=== PATIENT | female | born 1955 | race Caucasian/White ===

== ENCOUNTER 2017-11-24 04:00 | Inpatient (IN) | payer MEDICARE, SELFPAY ==
[2017-11-24] VITALS (38 sets, daily range): BP systolic 94–142; BP diastolic 51–118; PULSE 83–111; RESP 10–28; TEMP 36.4–37.2; O2SAT 70–100; BMI 34.8; BMI 36.0
--- NOTE | 2017-11-24 04:05 | RAD_ITS ---
STUDY: X-RAY CHEST REASON FOR EXAM: Female, 62 years old. Dyspnea TECHNIQUE: Single AP portable view of the chest. COMPARISON: None. FINDINGS: The lungs are underexpanded. There is no demonstrated pleural abnormality. Normal size heart. Normal mediastinum and shashank. Normal visualized pulmonary arteries. Normal visualized aortic arch and descending thoracic aorta. Normal visualized thoracic spine. There is degenerative osteoarthritis of the bilateral shoulders. There is no demonstrated abnormality of the visualized soft tissue structures of the upper abdomen. RAD/Chest 1 View (Portable) IMPRESSION: Degenerative changes, as described above. No demonstrated acute cardiopulmonary process. Electronically Signed: Shawn Null MD at 5:26 EDT Tel , Service support ,
--- NOTE | 2017-11-24 04:05 | EKG12_ITS ---
Test Reason : SOB Blood Pressure : / mmHG Vent. Rate : 101 BPM Atrial Rate : 101 BPM P-R Int : 190 ms QRS Dur : 098 ms QT Int : 344 ms P-R-T Axes : 048 045 038 degrees QTc Int : 446 ms Sinus tachycardia Confirmed by KWESI ROMERO, SAIDA ([id number]), editor school photograph SORAYA SHERIFF ([id number]) on 11/26/2017 12:47:33 PM Referred By: [place] Confirmed By:SAIDA OROSCO MD
[2017-11-24] MEDS: Acetaminophen 500 MG Tablet 1000 MG PO (04:22)
[2017-11-24] MEDS: 0.9% Normal Saline 1,000 ML 150 ML IV ×3 (04:23→20:19)
[2017-11-24 04:33] LABS: Absolute Lymphocyte Count 2.22 X10^3/ul (0.83-4.51); Absolute Neutrophil Count 5.8 X10^3/uL (2.0-7.7); Basophil# 0.04 X10^3/uL; Basophil% 0.4 % (0-1); Eosinophil# 0.18 X10^3/uL; Hematocrit 32.2 % (37-47); Hemoglobin 10.4 g/dl (12.0-15.0); Lymphocyte # 2.22 X10^3/ul (4.0); Lymphocyte % 24.9 % (19-41); Mean Corp Hgb Conc 32.3 g/gl (32-36); Mean Corpuscular Hgb 27.9 pg (27.0-32.0); Mean Corpuscular Volume 86.3 fL (81-99); Mean Platelet Vol. 10.7 fl (6.2-12.0); Monocyte% 6.7 % (0-10); Neutrophil # 5.83 X10^3/uL (2.7-7.7); Neutrophil % 65.7 % (47-70); POSITIVE COUNT NO; POSITIVE DIFFERENTIAL NO; POSITIVE MORPHOLOGY NO; Platelet Count 168 K/mm3 (150-450); RBC Distribution Width CV 14.7 % (11.6-14.6); RBC Distribution Width SD 45.3 fl (35.1-43.9); Red Blood Count 3.73 M/mm3 (4.2-5.4); White Blood Count 8.9 K/mm3 (4.4-11.0)
[2017-11-24 04:38] LABS: International Normalized Ratio 1.1
[2017-11-24 04:39] LABS: Partial Thromboplast Time 37.8 Seconds (24.1-36.2)
[2017-11-24 04:41] LABS: Allen Test POS; Base Excess 1 mmol/L (-2 to +2); Bicarbonate 28.2 mmol/L (22-26); Blood Gas Specimen Type ART; EPAP 6; FI02 35; IPAP 12; PO2 81 mmHG (75-100); RR 24; SITE L Radial; SO2 94 % (95-99); Time Given 440; Total Carbon Dioxide 30 mmol/L; pCO2 61.1 mmHg (35-45); pH 7.27 (7.35-7.45)
[2017-11-24] MEDS: Ipratropium/Albuterol Sulfate 3 ML AMPUL.NEB INHALATION ×5 (04:48→22:49)
[2017-11-24 04:49] LABS: White Blood Cells 0 SEEN /hpf (0-5)
[2017-11-24 04:50] LABS: Bacteria 0 SEEN /hpf (None Seen); Mucous, Urine 0 SEEN /hpf (<or=2+); Red Blood Cells-Urine 0 SEEN /hpf (0-5); Squamous Epithelial Cells - UA 0 SEEN /hpf (5-10)
[2017-11-24 04:52] LABS: Lactic Acid 1.7 mmol/L (0.4-2.0)
--- NOTE | 2017-11-24 04:52 | ED.DCSUM_ITS ---
- ER Visit Summary Date of Service: 11/24/17 Chief Complaint: Confusion, cough History of Present Illness: The patient is a 62 F with medical history significant for seizures and Parkinson's disorder presents to the emergency department with increasing weakness, confusion, and cough. Patient states that she just did not feel well over the past 1-2 days. Tonight, she was having increasing weakness and increasing myoclonic jerking. She was also feeling more short of breath. She has had a scant cough for some time per the . She denies any fevers but does admit to some chills and sweats. On squad arrival, she was found to be hypoxic. She had oxygen saturations at 82%. She denies any underlying history of lung disease. She does not smoke. She denies any chest pain. The patient denies any recent hospitalization. There is been no recent change in medications. Physical Examination: Vital signs reviewed General: Well-nourished, well-developed Head: Normocephalic, atraumatic Eyes: Pupils equal and reactive, extraocular muscles intact Neck, supple, no lymphadenopathy Heart: Regular rate and rhythm Respiratory: Diminished in the bases with decreased air movement Abdomen: Soft, nontender, nondistended, no peritoneal signs Back: Nontender Extremities: Nontender, no edema, no cords Skin: Normal color no rash Neuro: Alert and oriented, no focal or lateralizing deficits Test Results: [] Emergency Department Course and Treatment: The patient presents with hypoxemia and cough. I do have suspicion for infectious process especially given her chills and sweats. Her x-ray does not show definitive pneumonia. Screening labs are obtained and are relatively unremarkable. However, the patient does have evidence of acute kidney injury. Her blood gas does show mild hypercapnia. The patient was placed on BiPAP. She did have improvement of her aeration. She had improvement of her mental status. I am concerned that her x- ray may be lagging because she is dehydrated. Clinically, I do feel that she may have pneumonia. The patient is covered with Rocephin and azithromycin. With her hypoxia, hypercapnia, and acute kidney injury the patient will be admitted. She is hydrated. Cultures have been obtained. Patient was discussed with the hospitalist. Treatment Plan: [] Disposition: Admission Impression: 1. Hypoxia 2. Hypercapnia 3. Clinical pneumonia 4. Acute kidney injury This note was generated with DelaGetation software. It may contain incorrect words, spelling, and punctuation that were not noted in review of the chart prior to signing ED Disposition - Plan for ED Patient: Chief Complaint: Shortness of Breath Referrals: Zhang Shields MD [Primary Care Provider] -
[2017-11-24 04:53] LABS: AST(SGOT) 24 U/L (15-37); Alanine Aminotransfer ALT/SGPT 9 U/L (13-56); Albumin, Serum 3.5 g/dL (3.2-5.0); Alkaline Phosphatase 103 U/L (45-117); Anion Gap 11 (5-15); BUN 40 mg/dL (7-18); BUN/Creat Ratio 15.2 RATIO (10-20); Calcium,Total 7.9 mg/dL (8.5-10.1); Chloride 96 mmol/L (98-107); Creatinine, Serum 2.63 mg/dL (0.55-1.02); EST Glomerular Filtration Rate 20 mL/min (>60); Est Glom Filt Rate - Afr Amer 24 mL/min (>60); Estimated Creatinine Clearance 19.64 ml/min; Globulin 3.5 g/dL (2.2-4.2); Glucose 182 mg/dL (74-106); Potassium 4.8 mmol/L (3.5-5.1); Sodium Level 136 mmol/L (136-145)
[2017-11-24 05:00] LABS: Color, Urine Yellow (Yellow); Glucose, Dipstick Normal (Normal); Ketone-Dipstick 5 mg/dl (Negative); Leukocyte Esterase-Dipstick Negative /ul (Negative); Nitrite-Dipstick Negative (Negative); Occult Blood-Urine Negative /ul (Negative); Protein-Dipstick 15 mg/dl (Negative); Specific Gravity, Urine 1.025 (1.002-1.030); Urine Clarity Sl. Cloudy (Clear); Urine Urobilinogen Normal (Normal)
[2017-11-24 05:07] LABS: Urine Bilirubin Dipstick 1 mg/dL (Negative)
[2017-11-24 05:08] LABS: Amorphous Sediment 2+
[2017-11-24] MEDS: 0.9% Normal Saline 1,000 ML 999 ML IV (05:31)
[2017-11-24] MEDS: Ceftriaxone 1 GM/50 ML BAG IV (05:48)
[2017-11-24] MEDS: MethylPREDNISolone 125 MG/2 ML Vial IV (05:58)
--- NOTE | 2017-11-24 06:04 | HP.PCM_ITS ---
Problem List (1) Shortness of breath Status: Acute (2) History of drug abuse Status: Chronic (3) Epilepsy Status: Chronic (4) Hypertension Status: Chronic (5) Parkinsons disease Status: Chronic (6) Anxiety Status: Chronic (7) Depression Status: Chronic (8) Dehydration Status: Acute (9) Spinal stenosis Status: Chronic (10) ARF (acute renal failure) Status: Acute Qualifiers: Acute renal failure type: unspecified Qualified Code(s): N17.9 - Acute kidney failure, unspecified History of Present Illness Date of Admission: 11/24/17 Chief Complaint: shortness of breath The patient is a 62 year old female with a significant past medical history of Parkinsonism and myoclonic jerking presents to the ER with shortness of breath. She began having respiratory distress yesterday around noon and progressed until she presented to the ER. She was noticeably weak and was unable to transfer and hold herself up which is a big change from her baseline. She was noted to be jerking more than usual as well. He initial pulse oxygenation upon presentation her was 82% on room air. Her blood gas was acidotic with CO2 retention. She has no previously documented episodes of respiratory failure. She was placed on BIPAP and is able to maintain her pulse oxygenation at 95% with less respiratory effort. She has a markedly elevated creatinine as well from her baseline and admits to not drinking much fluid in the last day. Chest x -ray does not show a pneumonia but ER physician felt due to dehydration an infiltrate my not show up until she was rehydrated therefore she was started on antibiotics for community acquired pneumonia. She will be admitted to ICU stepdown for acute respiratory failure. She does not want to be intubated. Past Medical History Past Medical History (Chronic Problems): Chronic Problems History of drug abuse (Chronic) Epilepsy (Chronic) Hypertension (Chronic) Parkinsons disease (Chronic) Anxiety (Chronic) Depression (Chronic) Spinal stenosis (Chronic) Allergies Penicillins Allergy (Verified 11/24/17 04:09) goofy morphine Adverse Reaction (Verified 11/24/17 04:09) Unknown naproxen Adverse Reaction (Verified 11/24/17 04:09) Unknown omeprazole [From Prilosec] Adverse Reaction (Verified 11/24/17 04:09) Unknown omeprazole magnesium [From Prilosec] Adverse Reaction (Verified 11/24/17 04:09) Unknown Home Medications: Ambulatory Orders Medication Instructions Recorded Alprazolam 0.25 mg PO TID PRN PRN 01/21/14 Pregabalin [Lyrica] 425 mg PO BID 01/21/14 Sertraline HCl [Zoloft] 150 mg PO DAILY 01/21/14 levETIRAcetam tablet [Keppra 1,000 mg PO BID 01/21/14 tablet] Carbidopa/Levodopa 50 mg PO 4X/DAY 01/22/14 Metformin HCl [Glucophage] 500 mg PO BIDCM 02/28/15 Orphenadrine Citrate 100 mg PO BID PRN 02/28/15 Zolpidem Tartrate [Ambien Cr] 12.5 mg PO QHS 02/28/15 Lisinopril [Zestril] 10 mg PO DAILY #30 tablet 03/15/15 Hydrocodon-Acetaminophn 10-325 1 tab PO Q6H PRN 02/02/16 Clindamycin [Cleocin] 300 mg PO 4X/DAY #80 capsule 11/26/16 Amitriptyline HCl 75 mg PO QHS 11/24/17 Atorvastatin Calcium 40 mg PO QHS 11/24/17 Donepezil HCl 10 mg PO QHS 11/24/17 Glimepiride [Amaryl] 4 mg PO DAILY 11/24/17 Surgical History: cholecystectomy, tonsillectomy, - - Tubal ligation Psychiatric History: Anxiety, Depression 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 Denies: Chills, Fever, Weight Change HEENT: Denies: Head Aches, Sinus Congestion, Sinus Drainage Cardiovascular: Denies: Chest Pain, Palpitations Respiratory: Reports: Cough, Shortness of breath at rest. Denies: Sputum production Gastrointestinal: Denies: Abdominal Pain, Nausea, Vomiting Genitourinary: Denies: Dysuria Musculoskeletal: Denies: Joint Pain, Joint Tenderness Skin: Denies: Rash, Wounds Neurological: Denies: Numbness, Tingling, Focal weakness Psychiatric: Reports: Anxiety. Denies: Depression, Homicidal Ideations, Suicidal Ideations Hematologic/ Lymphatic: Denies: Easy Bruising, Easy Bleeding VTE Information - Inpt Only VTE Present on Admission: No VTE Mechan Device Prophylaxis: SCD's VTE Pharm Prophylaxis ordered?: No Reason prophylaxis not ordered:: Medical Contraindication Patient Problems: Active and Suspected Problems Shortness of breath (Acute) ARF (acute renal failure) (Acute) - Physical Exam General: Alert, Oriented x3, Cooperative HEENT: Atraumatic, Normocephalic Neck: Supple, No JVD, Negative Carotid Bruits Lungs: No rhonchi, No wheeze, No rales, Diminished Cardiovascular: Regular rate, Normal S1, No murmurs Abdomen: Bowel Sounds Present, Soft, Non Tender Extremities: No edema, Capillary Refill Less than 3 Seconds Skin: No rashes Musculoskeletal: No Tenderness to Palpation of Joints or Extremities Neurological: Neuro grossly intact Psych/Mental Status: Normal Affect, Appropriate Vital Signs Temp Pulse Resp BP Pulse Ox 98.2 F 99 23 H 94/51 L 97 11/24/17 04:18 11/24/17 05:28 11/24/17 05:28 11/24/17 05:28 11/24/17 05:28 Oxygen Flow Rate (L/min) 4 Oxygen Delivery Method Bi-pap Weight: 202 lb 13.204 oz Body Mass Index (BMI) 34.8 Finger Stick Blood Glucose 417 Laboratory Tests Past 24 Hrs 11/24/17 11/24/17 11/24/17 04:15 04:15 04:15 WBC 8.9 RBC 3.73 L Hgb 10.4 L Hct 32.2 L MCV 86.3 MCH 27.9 MCHC 32.3 RDW 14.7 H RDW Differential 45.3 H Plt Count 168 MPV 10.7 Immature Gran % (Auto) 0.300 Neut % (Auto) 65.7 Lymph % (Auto) 24.9 [place] % (Auto) 6.7 Eos % (Auto) 2.0 Baso % (Auto) 0.4 Absolute Neuts (auto) 5.8 Absolute Lymphs (auto) 2.22 Total Counted Not Reportable PT 14.0 INR 1.1 APTT 37.8 H Specimen Type Sample Site pH Bicarbonate Actual POC Total CO2 Base Excess O2 Saturation O2 % ABG pCO2 ABG pO2 Ariel Test Respiration Rate O2 Delivery Device EPAP IPAP Blood Gas Notified Whom Blood Gas Notified Time Sodium 136 Potassium 4.8 Chloride 96 L Carbon Dioxide 29.0 Anion Gap 11 BUN 40 H Creatinine 2.63 H Estim Creat Clear Calc 19.64 Est GFR (MDRD) Af Amer 24 L Est GFR (MDRD) Non-Af 20 L BUN/Creatinine Ratio 15.2 Glucose 182 H Lactic Acid Calcium 7.9 L Total Bilirubin 0.50 AST 24 ALT 9 L Alkaline Phosphatase 103 Total Protein 7.0 Albumin 3.5 Globulin 3.5 Albumin/Globulin Ratio 1.0 Urine Color Urine Clarity Urine pH Ur Specific [place] Urine Protein Urine Glucose (UA) Urine Ketones Urine Occult Blood Urine Nitrite Urine Bilirubin Urine Urobilinogen Ur Leukocyte Esterase Urine RBC Urine WBC Ur Squamous Epith Cells Amorphous Sediment Urine Bacteria Urine Mucus 11/24/17 11/24/17 11/24/17 04:15 04:20 04:36 WBC RBC Hgb Hct MCV MCH MCHC RDW RDW Differential Plt Count MPV Immature Gran % (Auto) Neut % (Auto) Lymph % (Auto) [place] % (Auto) Eos % (Auto) Baso % (Auto) Absolute Neuts (auto) Absolute Lymphs (auto) Total Counted PT INR APTT Specimen Type ART Sample Site L Radial pH 7.27 L Bicarbonate Actual 28.2 H POC Total CO2 30 Base Excess 1 O2 Saturation 94 L O2 % 35 ABG pCO2 61.1 H ABG pO2 81 Ariel Test POS Respiration Rate 24 O2 Delivery Device Bi / C PAP EPAP 6 IPAP 12 Blood Gas Notified Whom ED Blood Gas Notified Time 440 Sodium Potassium Chloride Carbon Dioxide Anion Gap BUN Creatinine Estim Creat Clear Calc Est GFR (MDRD) Af Amer Est GFR (MDRD) Non-Af BUN/Creatinine Ratio Glucose Lactic Acid 1.7 Calcium Total Bilirubin AST ALT Alkaline Phosphatase Total Protein Albumin Globulin Albumin/Globulin Ratio Urine Color Yellow Urine Clarity Sl. Cloudy Urine pH 5.0 Ur Specific [place] 1.025 Urine Protein 15 H Urine Glucose (UA) Normal Urine Ketones 5 H Urine Occult Blood Negative Urine Nitrite Negative Urine Bilirubin 1 H Urine Urobilinogen Normal Ur Leukocyte Esterase Negative Urine RBC 0 SEEN Urine WBC 0 SEEN Ur Squamous Epith Cells 0 SEEN Amorphous Sediment 2+ Urine Bacteria 0 SEEN Urine Mucus 0 SEEN Assessment/Plan Active and Suspected Problems Shortness of breath (Acute) ARF (acute renal failure) (Acute) Chronic Problems History of drug abuse (Chronic) Epilepsy (Chronic) Hypertension (Chronic) Parkinsons disease (Chronic) Anxiety (Chronic) Depression (Chronic) Spinal stenosis (Chronic) Plan - admit to step down for Respiratory failure - continue IV antibiotics to cover community acquired pneumonia - IV rehydration with normal saline at 125cc/hour - cbc, bmp in 12 hours - chest x-ray PA/Lat in 12 hours - continue BIPAP - DO NOT INTUBATE, further code status will need to be discussed - continue routine home medications, hold any diuretics - SCDs for DVT prophylaxis Code Visit Inpatient E&M: 70109 Init Hosp L3
--- NOTE | 2017-11-24 06:54 | NURSING ---
111 resp failure eyad
--- NOTE | 2017-11-24 07:34 | NURSING ---
ICU 2
[2017-11-24 09:16] LABS: Allen Test POS; Base Excess 1 mmol/L (-2 to +2); Bicarbonate 27.9 mmol/L (22-26); Blood Gas Specimen Type ART; EPAP 6; FI02 30; IPAP 14; PO2 83 mmHG (75-100); RR 12; SITE L Radial; SO2 94 % (95-99); Time Given 910; Total Carbon Dioxide 30 mmol/L; pCO2 62.5 mmHg (35-45); pH 7.26 (7.35-7.45)
[2017-11-24 10:23] LABS: Magnesium 1.6 mg/dL (1.6-2.6)
[2017-11-24 10:32] LABS: Phosphorus 5.6 mg/dL (2.5-4.9)
[2017-11-24 11:02] LABS: Urine Sodium 16 mmol/L (Not Establ.)
[2017-11-24] MEDS: HEPARIN/D5w 25,000 UNITS 25,000 UNITS/250 ML IV.SOLN. 14 UNITS IV (11:13)
[2017-11-24] MEDS: Heparin Injection 5,000 UNITS/ML Syringe IV (11:18)
--- NOTE | 2017-11-24 11:45 | PCM.CON.CC ---
Reason for Consult Date of Consultation: 11/24/17 Reason for Consultation: Acute respiratory failure History of Present Illness: The patient is a 62-year-old female, with a history as outlined below, who presented to the emergency department on November 24 with weakness, altered mentation and shortness of breath. The patient's provided a great deal of detail pertinent to this hospitalization. The patient began to feel weak yesterday afternoon. He noticed that her weakness continue to progress over the course of the day and her breathing became more labored. At some point over the course of the night, her mentation became altered, which prompted him to contact EMS. She reportedly has a history of parkinsonism and an unspecified seizure disorder. She routinely follows with Dr. Tinoco of neurology. The patient's believes that she was previously diagnosed with epilepsy by a previous neurologist. She is being maintained on Keppra. In addition, she appears to be on a number of sedating medications. On presentation to the emergency department, the patient was noted to be afebrile, tachycardic and initially hemodynamically stable. Nevertheless, she was documented to be hypoxic, saturating 70% on room air. Laboratory evaluation revealed no evidence of a leukocytosis. Initial arterial blood gas revealed a pH of 7.27 with a PO2 of 81 and PCO2 of 61. Chemistry profile was significant for an elevated BUN and creatinine to 40 and 2.63, respectively. The patient's creatinine was noted be 1.39 in 2016. Urinalysis was largely unremarkable. Plain film chest x-ray was of poor quality due to a lack of inspiratory effort. However, there is no acute cardiopulmonary process identified. The patient was subsequently placed on BiPAP therapy and transferred to the medical intensive care unit. Following her arrival to the ICU, I did have a lengthy discussion with her . The patient was minimally alert and interactive at that time. I did confirm with both of them that she wished to be made a full code without intubation. I did explain the difficulties in maintaining a full CODE STATUS without intubation. However, they are insistent that she is okay with chest compressions/CPR but not with intubation. Past Medical History Past Medical History (Chronic Problems): Chronic Problems History of drug abuse (Chronic) Epilepsy (Chronic) Hypertension (Chronic) Parkinsons disease (Chronic) Anxiety (Chronic) Depression (Chronic) Spinal stenosis (Chronic) Allergies Penicillins Allergy (Verified 11/24/17 04:09) goofy morphine Adverse Reaction (Verified 11/24/17 04:09) Unknown naproxen Adverse Reaction (Verified 11/24/17 04:09) Unknown omeprazole [From Prilosec] Adverse Reaction (Verified 11/24/17 04:09) Unknown omeprazole magnesium [From Prilosec] Adverse Reaction (Verified 11/24/17 04:09) Unknown Home Medications: Ambulatory Orders Medication Instructions Recorded Alprazolam 0.25 mg PO TID PRN PRN 01/21/14 Pregabalin [Lyrica] 425 mg PO BID 01/21/14 Sertraline HCl [Zoloft] 150 mg PO DAILY 01/21/14 levETIRAcetam tablet [Keppra 1,000 mg PO BID 01/21/14 tablet] Carbidopa/Levodopa 50 mg PO 4X/DAY 01/22/14 Metformin HCl [Glucophage] 500 mg PO BIDCM 02/28/15 Orphenadrine Citrate 100 mg PO BID PRN 02/28/15 Zolpidem Tartrate [Ambien Cr] 12.5 mg PO QHS 02/28/15 Lisinopril [Zestril] 10 mg PO DAILY #30 tablet 03/15/15 Hydrocodon-Acetaminophn 10-325 1 tab PO Q6H PRN 02/02/16 Clindamycin [Cleocin] 300 mg PO 4X/DAY #80 capsule 11/26/16 Amitriptyline HCl 75 mg PO QHS 11/24/17 Atorvastatin Calcium 40 mg PO QHS 11/24/17 Donepezil HCl 10 mg PO QHS 11/24/17 Glimepiride [Amaryl] 4 mg PO DAILY 11/24/17 Surgical History: cholecystectomy, tonsillectomy, - - Tubal ligation Psychiatric History: Anxiety, Depression MANAGER STATISTICAL History: No pertinent MANAGER STATISTICAL history Smoking Status: Never smoker Tobacco Use: Non-smoker - *Family History Maternal History Items: No pertinent history Review of Systems Constitutional: Reports: Weakness, Fatigue. Denies: Chills, Fever Eyes: Denies: Blurred vision, Double vision HEENT: Denies: Head Aches, Sinus Congestion, Sinus Drainage Cardiovascular: Denies: Chest Pain, Palpitations Respiratory: Reports: Shortness of Breath Gastrointestinal: Denies: Abdominal Pain, Nausea, Vomiting Genitourinary: Denies: Dysuria Musculoskeletal: Denies: Joint Pain, Joint Tenderness Skin: Denies: Rash, Wounds Neurological: Reports: Confusion, Seizures Psychiatric: Reports: Depression Hematologic/ Lymphatic: Reports: Anemia Patient Problems: Active and Suspected Problems Shortness of breath (Acute) ARF (acute renal failure) (Acute) Objective: The patient's most recent lab work, culture data and imaging studies have all been personally reviewed. - Physical Exam General: Lethargic, - - Arousable to noxious stimulation. HEENT: Atraumatic, PERRLA, Normocephalic Oral: Dry Mucosa Neck: Supple, No Nodes, Trachea Midline Lungs: No rhonchi, No wheeze, No rales, Diminished Cardiovascular: Normal S1, Normal S2, No murmurs, Tachycardic Abdomen: Bowel Sounds Present, Soft, Non Tender, Obese Extremities: No clubbing, No cyanosis, No edema Skin: No breakdown Musculoskeletal: No Muscle Wasting Lymphatic: No Cervical, Supraclavicular, or Inguinal Adenopathy Neurological: - - No focal neurological deficits. Somnolent. Vital Signs Temp Pulse Resp BP Pulse Ox 97.5 F L 90 16 108/73 93 11/24/17 09:15 11/24/17 10:44 11/24/17 10:44 11/24/17 10:00 11/24/17 10:44 Oxygen Delivery Method Bi-pap Weight: 209 lb 14.081 oz Body Mass Index (BMI) 36.0 Laboratory Tests Past 24 Hrs 11/24/17 09:12 Specimen Type ART Sample Site L Radial pH 7.26 L Bicarbonate Actual 27.9 H POC Total CO2 30 Base Excess 1 O2 Saturation 94 L O2 % 30 ABG pCO2 62.5 H ABG pO2 83 Ariel Test POS Respiration Rate 12 O2 Delivery Device Bi / C PAP EPAP 6 IPAP 14 Blood Gas Notified Whom ICU Blood Gas Notified Time 910 Labs (Last 48 Hours) 11/24/17 11/24/17 11/24/17 04:15 04:15 04:15 WBC 8.9 RBC 3.73 L Hgb 10.4 L Hct 32.2 L MCV 86.3 MCH 27.9 MCHC 32.3 RDW 14.7 H RDW Differential 45.3 H Plt Count 168 MPV 10.7 Immature Gran % (Auto) 0.300 Neut % (Auto) 65.7 Lymph % (Auto) 24.9 Blount % (Auto) 6.7 Eos % (Auto) 2.0 Baso % (Auto) 0.4 Absolute Neuts (auto) 5.8 Absolute Lymphs (auto) 2.22 Total Counted Not Reportable PT 14.0 INR 1.1 APTT 37.8 H Specimen Type Sample Site pH Bicarbonate Actual POC Total CO2 Base Excess O2 Saturation O2 % ABG pCO2 ABG pO2 Ariel Test Respiration Rate O2 Delivery Device EPAP IPAP Blood Gas Notified Whom Blood Gas Notified Time Sodium 136 Potassium 4.8 Chloride 96 L Carbon Dioxide 29.0 Anion Gap 11 BUN 40 H Creatinine 2.63 H Estim Creat Clear Calc 19.64 Est GFR (MDRD) Af Amer 24 L Est GFR (MDRD) Non-Af 20 L BUN/Creatinine Ratio 15.2 Glucose 182 H Lactic Acid Calcium 7.9 L Phosphorus Magnesium Total Bilirubin 0.50 AST 24 ALT 9 L Alkaline Phosphatase 103 Total Protein 7.0 Albumin 3.5 Globulin 3.5 Albumin/Globulin Ratio 1.0 Urine Color Urine Clarity Urine pH Ur Specific [place] Urine Protein Urine Glucose (UA) Urine Ketones Urine Occult Blood Urine Nitrite Urine Bilirubin Urine Urobilinogen Ur Leukocyte Esterase Urine RBC Urine WBC Ur Squamous Epith Cells Amorphous Sediment Urine Bacteria Urine Mucus Ur Random Sodium Urine Creatinine 11/24/17 11/24/17 11/24/17 04:15 04:15 04:15 WBC RBC Hgb Hct MCV MCH MCHC RDW RDW Differential Plt Count MPV Immature Gran % (Auto) Neut % (Auto) Lymph % (Auto) Blount % (Auto) Eos % (Auto) Baso % (Auto) Absolute Neuts (auto) Absolute Lymphs (auto) Total Counted PT INR APTT Specimen Type Sample Site pH Bicarbonate Actual POC Total CO2 Base Excess O2 Saturation O2 % ABG pCO2 ABG pO2 Ariel Test Respiration Rate O2 Delivery Device EPAP IPAP Blood Gas Notified Whom Blood Gas Notified Time Sodium Potassium Chloride Carbon Dioxide Anion Gap BUN Creatinine Estim Creat Clear Calc Est GFR (MDRD) Af Amer Est GFR (MDRD) Non-Af BUN/Creatinine Ratio Glucose Lactic Acid 1.7 Calcium Phosphorus 5.6 H Magnesium 1.6 Total Bilirubin AST ALT Alkaline Phosphatase Total Protein Albumin Globulin Albumin/Globulin Ratio Urine Color Urine Clarity Urine pH Ur Specific [place] Urine Protein Urine Glucose (UA) Urine Ketones Urine Occult Blood Urine Nitrite Urine Bilirubin Urine Urobilinogen Ur Leukocyte Esterase Urine RBC Urine WBC Ur Squamous Epith Cells Amorphous Sediment Urine Bacteria Urine Mucus Ur Random Sodium Urine Creatinine 11/24/17 11/24/17 11/24/17 04:20 04:36 04:40 WBC RBC Hgb Hct MCV MCH MCHC RDW RDW Differential Plt Count MPV Immature Gran % (Auto) Neut % (Auto) Lymph % (Auto) Blount % (Auto) Eos % (Auto) Baso % (Auto) Absolute Neuts (auto) Absolute Lymphs (auto) Total Counted PT INR APTT Specimen Type ART Sample Site L Radial pH 7.27 L Bicarbonate Actual 28.2 H POC Total CO2 30 Base Excess 1 O2 Saturation 94 L O2 % 35 ABG pCO2 61.1 H ABG pO2 81 Ariel Test POS Respiration Rate 24 O2 Delivery Device Bi / C PAP EPAP 6 IPAP 12 Blood Gas Notified Whom ED Blood Gas Notified Time 440 Sodium Potassium Chloride Carbon Dioxide Anion Gap BUN Creatinine Estim Creat Clear Calc Est GFR (MDRD) Af Amer Est GFR (MDRD) Non-Af BUN/Creatinine Ratio Glucose Lactic Acid Calcium Phosphorus Magnesium Total Bilirubin AST ALT Alkaline Phosphatase Total Protein Albumin Globulin Albumin/Globulin Ratio Urine Color Yellow Urine Clarity Sl. Cloudy Urine pH 5.0 Ur Specific [place] 1.025 Urine Protein 15 H Urine Glucose (UA) Normal Urine Ketones 5 H Urine Occult Blood Negative Urine Nitrite Negative Urine Bilirubin 1 H Urine Urobilinogen Normal Ur Leukocyte Esterase Negative Urine RBC 0 SEEN Urine WBC 0 SEEN Ur Squamous Epith Cells 0 SEEN Amorphous Sediment 2+ Urine Bacteria 0 SEEN Urine Mucus 0 SEEN Ur Random Sodium Urine Creatinine 180.00 11/24/17 11/24/17 04:40 09:12 WBC RBC Hgb Hct MCV MCH MCHC RDW RDW Differential Plt Count MPV Immature Gran % (Auto) Neut % (Auto) Lymph % (Auto) Blount % (Auto) Eos % (Auto) Baso % (Auto) Absolute Neuts (auto) Absolute Lymphs (auto) Total Counted PT INR APTT Specimen Type ART Sample Site L Radial pH 7.26 L Bicarbonate Actual 27.9 H POC Total CO2 30 Base Excess 1 O2 Saturation 94 L O2 % 30 ABG pCO2 62.5 H ABG pO2 83 Ariel Test POS Respiration Rate 12 O2 Delivery Device Bi / C PAP EPAP 6 IPAP 14 Blood Gas Notified Whom ICU Blood Gas Notified Time 910 Sodium Potassium Chloride Carbon Dioxide Anion Gap BUN Creatinine Estim Creat Clear Calc Est GFR (MDRD) Af Amer Est GFR (MDRD) Non-Af BUN/Creatinine Ratio Glucose Lactic Acid Calcium Phosphorus Magnesium Total Bilirubin AST ALT Alkaline Phosphatase Total Protein Albumin Globulin Albumin/Globulin Ratio Urine Color Urine Clarity Urine pH Ur Specific [place] Urine Protein Urine Glucose (UA) Urine Ketones Urine Occult Blood Urine Nitrite Urine Bilirubin Urine Urobilinogen Ur Leukocyte Esterase Urine RBC Urine WBC Ur Squamous Epith Cells Amorphous Sediment Urine Bacteria Urine Mucus Ur Random Sodium 16 Urine Creatinine Clinical Impression(s) from Imaging Studies Chest X-Ray 11/24/17 04:05 IMPRESSION: Degenerative changes, as described above. No demonstrated acute cardiopulmonary process. Electronically Signed: Shawn Null MD at 5:26 EDT Tel , Service support , Assessment/Plan Active and Suspected Problems Shortness of breath (Acute) ARF (acute renal failure) (Acute) RECOMMENDATIONS: 1. Hold Xanax and Elavil. 2. Recommend dose adjustments of the patient's Keppra and Lyrica based upon renal function. 3. Obtain TSH and check urine toxicology screen 4. Continue BiPAP therapy. The patient's IPAP/EPAP settings have been augmented to maximize ventilatory support. 5. Obtain repeat arterial blood gas 6. Okay to discontinue antibiotics from my perspective 7. Continue heparin drip, pending VTE workup. Lower extremity Dopplers have been ordered 8. Continue sliding scale insulin coverage IMPRESSIONS: 1. Acute hypoxemic and hypercarbic respiratory failure Likely multifactorial in etiology. Concerned that given the patient's renal insufficiency, that polypharmacy is likely contributing. She is on a number of sedating medications and an exceedingly high dose of Keppra, given her underlying renal dysfunction. Recommend dose de-escalation of the patient's home medications based upon her current renal function. Discontinue Xanax and hold Elavil. Although poor inspiratory effort, I see no acute infiltrate on plain film chest imaging. Therefore, I would favor discontinuation of antibiotics. Additionally, I see no indication for IV steroids. My concern is that given her rather acute onset of shortness of breath and hypoxia noted on presentation to the emergency department, that there could be underlying venous thromboembolic disease. However, her acute kidney injury would preclude us obtaining a CTA chest. Therefore, the patient was started empirically on a heparin drip. We will plan to obtain lower extremity Dopplers. The patient's IPAP/EPAP gradient was also increased to facilitate additional ventilatory support. Recommend checking an arterial blood gas in 1 hour. 2. Encephalopathy Likely multifactorial in etiology. Although underlying neuromuscular weakness and subsequent CO2 retention is a possibility, I am more concerned that given the patient's renal insufficiency and the number of sedating medications that she is on as an outpatient, that polypharmacy is likely a significant contributing factor. We will plan to hold her Xanax and Elavil. She does appear to receive opiate pain medications also on an outpatient basis. These will be held accordingly. The patient's Keppra and Lyrica will be dose adjusted for her underlying renal insufficiency. 3. Acute kidney injury Potentially prerenal in etiology with superimposed medical renal disease contributing. Gentle supplemental IV fluid hydration will be continued. We will continue to monitor urine output accordingly. No indication for renal replacement therapy at this time. 4. Self-reported history of epilepsy/parkinsonism As above, dose adjustments will be made to the patient's Keppra based upon renal function. The patient's Parkinson medications will be held until she is felt to be safe for p.o. intake. 5. Obesity/depression/anxiety/neuropathy/diabetes/hypertension/hyperlipidemia Complicates care, management, recovery and prognosis. Recommend holding sedating medications at the current time. Patient to remain n.p.o. for now. TIME: 50 minutes of critical care time, independent of procedures, was spent addressing the patient's acute respiratory failure, encephalopathy, acute kidney injury, epilepsy, parkinsonism, review of all data and collaboration with the care team. ([id number]) Code Visit 9xxxx: [id number] Critical care first hour
--- NOTE | 2017-11-24 11:57 | VDLE_ITS ---
Reason For Study: SOB RIGHT LEFT GSV is normal. GSV is normal. CFV is compressible, spontaneous, phasic, CFV is compressible, spontaneous, phasic, competent and demonstrates normal competent, and demonstrates normal augmentation. augmentation. FV is compressible, spontaneous, phasic, FV is compressible, spontaneous, phasic, competent and demonstrates normal competent and demonstrates normal augmentation. augmentation. POP V is compressible, spontaneous, phasic, POP V is compressible, spontaneous, phasic, competent and demonstrates normal competent and demonstrates normal augmentation. augmentation. T/P Trunk is compressible. T/P Trunk is compressible. PTV is compressible. PTV is compressible. RT PerV is compressible. LT PerV is compressible. Procedure Exam performed portable in ICU/CCU. The exam was diagnostic. A preliminary report was called and/or faxed to Dr Kumar. Interpretation Summary No evidence for acute deep venous thrombosis bilateral lower extremities with patent and compressible bilateral great saphenous veins. .rdering Physician: Ricardo Pickard D.O Performed By: Iván Burrell RVT
[2017-11-24 12:15] LABS: Bedside Glucose 247 mg/dL (70-110)
[2017-11-24 12:50] LABS: Amphetamine Urine VISTA NEGATIVE (<1000 ng/mL); Barbiturate Urine VISTA NEGATIVE (< 200 ng/mL); Benzodiazepine Urine VISTA POSITIVE (< 200 ng/mL); Cocaine Urine VISTA NEGATIVE (< 300 ng/mL); Ecstacy Urine VISTA NEGATIVE (< 500 ng/mL); Methadone Urine VISTA NEGATIVE (< 300 ng/mL); PCP Urine VISTA NEGATIVE (< 25 ng/mL); THC Urine VISTA NEGATIVE (< 50 ng/mL); Vista UDS pH Range 5
[2017-11-24 13:00] LABS: Allen Test POS; Base Excess 1 mmol/L (-2 to +2); Bicarbonate 27.8 mmol/L (22-26); Blood Gas Specimen Type ART; EPAP 6; FI02 40; IPAP 18; PO2 91 mmHG (75-100); RR 12; SITE L Radial; SO2 95 % (95-99); Time Given 1255; Total Carbon Dioxide 30 mmol/L; pCO2 60.5 mmHg (35-45); pH 7.27 (7.35-7.45)
--- NOTE | 2017-11-24 14:58 | PCM.HOSP.N ---
Hospitalist Note The patient is a 62 y/o F w/ PMHx: Diabetes mellitus type II, Parkinson's Disease, Epilepsy, Anxiety and Depression, Chronic back pain w/ spinal stenosis hx, History of Polysubstance abuse who presents to the [facility] ED on 11/24/17 early am with onset dyspnea at approximately noon the day prior which progressively worsened, increased fatigue and global weakness w/ increased myoclonic jerking above baseline. (1) Acute Encephalopathy secondary to Acute Hypoxic and Hypercarbic Respiratory Failure, Multifactorial: ED presentation w/ unclear etiology for acute respiratory failure, ABG w/ hypercapnic and hypoxia, tachycardic, CXR without marked findings, maintained on BIPAP in the ICU, Dr. Pickard consulted and following, concern for possible PE as etiology for respiratory status with pending BL LE DVT US given VASU inability to obtain CTPA, maintained on heparin drip in interim, possible Seizure disorder with aspiration, maintained on keppra at reduced dose given VASU, UDS w/ + opiates w/ history of drug abuse thus also potentially component for presentation, continued on Rocephin and Azithromycin for possible PNA although less suspected. Continue HOB, IS parameters w/ requested sputum cultures, negative urine antigens. Bld cx x 2 obtained in the ED. UA unremarkable aside evidence dehydration. (2) Acute kidney injury: Multifactorial, secondary to acute presentation, dehydration, nephrotoxic medications, possible OD. Admission BUN/Cr 40/2.63, prior baseline creatinine noted to be 1.39 (02/02/16). Will continue to hydrate, hold nephrotoxic medications and repeat chemistry in AM. FeNa ordered. If continues to worsen will also obtain renal US. Medications renally dosed. (3) History of Polysubstance Abuse: UDS w/ + BZD and opiates, rx BZD but not opiate, unclear usage, possible associated with #1 presentation. (4) Seizure Disorder: Decreased keppra dose given VASU per Dr. Pickard, continue if oral intake appropriate/improved otherwise transition to IV Keppra lower dose regimen. Seizure precautions. Consideration of seizure activity with aspiration for presentation etiology. (5) Diabetes mellitus type II: Hold oral home regimen, NPO status currently, accu checks w/ ISS. (6) Chronic Normocytic Anemia: Admission Hgb 10.4, baseline 10-11 range, stable. (7) Parkinson's Disease, Myoclonic Jerking: Maintain on home sinemet regimen once appropriate for oral intake. (8) Anxiety and Depression: Given sedation, holding home sedative medications, continue sertraline regimen once appropriate for oral intake. (9) Hyperlipidemia: Continue home statin regimen once appropriate for oral intake. (10) Chronic Back Pain: Holding sedative regimen, renal dosing of patient lyrica per ICU, Elavil held. Given sedate status NPO status currently. (11) DVT Prophylaxis: SCDs, heparin drip. (12) CODE status: Do not intubate, other interventions amenable. Dr. Pickard did re-discuss with family upon admission and continued this status despite his suggestion that intubate would be a necessary component in care of cardiac arrest. BILLIN, patient not billed, admitted after midnight.
[2017-11-24 18:00] LABS: Anion Gap 7 (5-15); BUN 32 mg/dL (7-18); BUN/Creat Ratio 22.1 RATIO (10-20); Calcium,Total 8.2 mg/dL (8.5-10.1); Chloride 103 mmol/L (98-107); Creatinine, Serum 1.45 mg/dL (0.55-1.02); EST Glomerular Filtration Rate 39 mL/min (>60); Est Glom Filt Rate - Afr Amer 47 mL/min (>60); Estimated Creatinine Clearance 35.63 ml/min; Glucose 246 mg/dL (74-106); Sodium Level 138 mmol/L (136-145)
[2017-11-24] MEDS: Carbidopa/Levodopa 25/100 Tablet PO ×2 (18:02→22:26)
[2017-11-24 18:11] LABS: Bedside Glucose 240 mg/dL (70-110)
[2017-11-24 18:40] LABS: Partial Thromboplast Time > 250.0 Seconds (24.1-36.2)
[2017-11-24 19:12] LABS: M R Staph aureus DNA By PCR Negative (Negative); Probe Check PASS; Specimen Processing Control PASS
[2017-11-24] MEDS: Donepezil HCl 10 MG Tablet PO (22:25)
[2017-11-24] MEDS: Atorvastatin Calcium 40 MG Tablet PO (22:25)
[2017-11-24] MEDS: Amitriptyline 25 MG Tablet 75 MG PO (22:25)
[2017-11-24] MEDS: levETIRAcetam 500 MG Tablet PO (22:29)
[2017-11-24] MEDS: Pregabalin 75 MG Capsule PO (22:29)
[2017-11-25] VITALS (28 sets, daily range): BP systolic 93–160; BP diastolic 64–95; PULSE 76–115; RESP 12–34; TEMP 36.4–36.9; O2SAT 93–100
[2017-11-25 01:03] LABS: Partial Thromboplast Time 96.9 Seconds (24.1-36.2)
[2017-11-25 01:56] LABS: Bedside Glucose 217 mg/dL (70-110)
--- NOTE | 2017-11-25 02:54 | CPS ---
fio2 decreased to 35%-nurse aware
[2017-11-25] MEDS: 0.9% Normal Saline 1,000 ML 150 ML IV (03:04)
[2017-11-25] MEDS: Ipratropium/Albuterol Sulfate 3 ML AMPUL.NEB INHALATION ×4 (03:05→19:23)
[2017-11-25 06:07] LABS: Hematocrit 30.7 % (37-47); Hemoglobin 10.1 g/dl (12.0-15.0); Mean Corp Hgb Conc 32.9 g/gl (32-36); Mean Corpuscular Hgb 28.2 pg (27.0-32.0); Mean Corpuscular Volume 85.8 fL (81-99); Mean Platelet Vol. 10.5 fl (6.2-12.0); Platelet Count 146 K/mm3 (150-450); RBC Distribution Width CV 13.8 % (11.6-14.6); RBC Distribution Width SD 41.9 fl (35.1-43.9); Red Blood Count 3.58 M/mm3 (4.2-5.4); White Blood Count 7.9 K/mm3 (4.4-11.0)
[2017-11-25] MEDS: Carbidopa/Levodopa 25/100 Tablet PO ×4 (06:08→21:55)
[2017-11-25] MEDS: Ceftriaxone 1 GM/50 ML BAG IV (06:10)
[2017-11-25 06:13] LABS: Scan Indicated on CBC? Y/N NO
[2017-11-25 06:15] LABS: Partial Thromboplast Time 54.3 Seconds (24.1-36.2)
[2017-11-25] MEDS: CHLORHEXIDINE GLUC 2% CLOTH 1 EACH TOWELETTE TOPICAL (06:21)
[2017-11-25 06:24] LABS: Anion Gap 11 (5-15); BUN 27 mg/dL (7-18); BUN/Creat Ratio 23.1 RATIO (10-20); Chloride 108 mmol/L (98-107); Creatinine, Serum 1.17 mg/dL (0.55-1.02); EST Glomerular Filtration Rate 50 mL/min (>60); Est Glom Filt Rate - Afr Amer 61 mL/min (>60); Estimated Creatinine Clearance 44.15 ml/min; Glucose 181 mg/dL (74-106); Potassium 3.9 mmol/L (3.5-5.1); Sodium Level 144 mmol/L (136-145)
[2017-11-25] MEDS: Heparin Injection 5,000 UNITS/ML Syringe IV (06:45)
--- NOTE | 2017-11-25 06:46 | PN_ITS ---
Subjective: The patient was seen and examined at the bedside this morning. Events from the last 24 hours have been reviewed. The patient is currently afebrile, hemodynamically stable and maintaining appropriate oxygen saturations on 4 L/ min via nasal cannula. The patient is now alert and following commands appropriately. Her main concern this morning is that for the development of tremors, due to missed doses of her Parkinson medications yesterday. The patient is asking if she can be discharged home today. Objective: The patient's most recent lab work, culture data and imaging studies have all been personally reviewed. Plain film chest x-ray revealed no acute cardiopulmonary process. Lower extremity Dopplers were negative for the presence of DVTs. Strep and urine Legionella antigens were both negative. Blood and urine cultures are pending. General: Alert, Cooperative, No apparent distress HEENT: Atraumatic, PERRLA, Normocephalic Oral: No Gingival or Mucosal Lesions/ Ulcerations Neck: Supple, No Nodes, Trachea Midline Lungs: No rhonchi, No wheeze, No rales, Diminished Cardiovascular: Normal S1, Normal S2, No murmurs, Tachycardic Abdomen: Bowel Sounds Present, Soft, Non Tender, Obese Extremities: No clubbing, No cyanosis, No edema Skin: No breakdown Musculoskeletal: No Muscle Wasting Lymphatic: No Cervical, Supraclavicular, or Inguinal Adenopathy Neurological: Neuro grossly intact Psych/Mental Status: Normal Affect, Appropriate Vital Signs Temp Pulse Resp BP Pulse Ox 97.9 F 103 H 16 124/80 H 98 11/25/17 04:00 11/25/17 06:00 11/25/17 06:00 11/25/17 06:00 11/25/17 06:00 Oxygen Flow Rate (L/min) 4 Oxygen Delivery Method Nasal Cannula Weight: 200 lb 13.458 oz Body Mass Index (BMI) 36.0 Intake and Output for Last 24 Hours 11/23/17 11/24/17 11/25/17 23:59 23:59 23:59 Intake Total 1375 / 1375 1815.4 / 1815.4 Output Total 1450 / 1450 1450 / 1450 Balance -75 / -75 365.4 / 365.4 Labs (Last 48 Hours) 11/24/17 11/24/17 11/24/17 09:12 12:06 12:58 WBC RBC Hgb Hct MCV MCH MCHC RDW RDW Differential Plt Count MPV APTT Specimen Type ART ART Sample Site L Radial L Radial pH 7.26 L 7.27 L Bicarbonate Actual 27.9 H 27.8 H POC Total CO2 30 30 Base Excess 1 1 O2 Saturation 94 L 95 O2 % 30 40 ABG pCO2 62.5 H 60.5 H ABG pO2 83 91 Ariel Test POS POS Respiration Rate 12 12 O2 Delivery Device Bi / C PAP Bi / C PAP EPAP 6 6 IPAP 14 18 Blood Gas Notified Whom ICU MD ICU MD Blood Gas Notified Time 910 1255 Sodium Potassium Chloride Carbon Dioxide Anion Gap BUN Creatinine Estim Creat Clear Calc Est GFR (MDRD) Af Amer Est GFR (MDRD) Non-Af BUN/Creatinine Ratio Glucose Calcium TSH MRSA (PCR) POC Glucose 247 H 11/24/17 11/24/17 11/24/17 17:05 17:05 17:05 WBC RBC Hgb Hct MCV MCH MCHC RDW RDW Differential Plt Count MPV APTT > 250.0 H* Specimen Type Sample Site pH Bicarbonate Actual POC Total CO2 Base Excess O2 Saturation O2 % ABG pCO2 ABG pO2 Ariel Test Respiration Rate O2 Delivery Device EPAP IPAP Blood Gas Notified Whom Blood Gas Notified Time Sodium 138 Potassium 5.0 Chloride 103 Carbon Dioxide 28.0 Anion Gap 7 BUN 32 H Creatinine 1.45 H Estim Creat Clear Calc 35.63 Est GFR (MDRD) Af Amer 47 L Est GFR (MDRD) Non-Af 39 L BUN/Creatinine Ratio 22.1 H Glucose 246 H Calcium 8.2 L TSH 0.20 L MRSA (PCR) POC Glucose 11/24/17 11/24/17 11/25/17 17:10 17:59 00:43 WBC RBC Hgb Hct MCV MCH MCHC RDW RDW Differential Plt Count MPV APTT 96.9 H* Specimen Type Sample Site pH Bicarbonate Actual POC Total CO2 Base Excess O2 Saturation O2 % ABG pCO2 ABG pO2 Ariel Test Respiration Rate O2 Delivery Device EPAP IPAP Blood Gas Notified Whom Blood Gas Notified Time Sodium Potassium Chloride Carbon Dioxide Anion Gap BUN Creatinine Estim Creat Clear Calc Est GFR (MDRD) Af Amer Est GFR (MDRD) Non-Af BUN/Creatinine Ratio Glucose Calcium TSH MRSA (PCR) Negative POC Glucose 240 H 11/25/17 11/25/17 11/25/17 00:55 05:59 05:59 WBC 7.9 RBC 3.58 L Hgb 10.1 L Hct 30.7 L MCV 85.8 MCH 28.2 MCHC 32.9 RDW 13.8 RDW Differential 41.9 Plt Count 146 L MPV 10.5 APTT 54.3 H Specimen Type Sample Site pH Bicarbonate Actual POC Total CO2 Base Excess O2 Saturation O2 % ABG pCO2 ABG pO2 Ariel Test Respiration Rate O2 Delivery Device EPAP IPAP Blood Gas Notified Whom Blood Gas Notified Time Sodium Potassium Chloride Carbon Dioxide Anion Gap BUN Creatinine Estim Creat Clear Calc Est GFR (MDRD) Af Amer Est GFR (MDRD) Non-Af BUN/Creatinine Ratio Glucose Calcium TSH MRSA (PCR) POC Glucose 217 H 11/25/17 05:59 WBC RBC Hgb Hct MCV MCH MCHC RDW RDW Differential Plt Count MPV APTT Specimen Type Sample Site pH Bicarbonate Actual POC Total CO2 Base Excess O2 Saturation O2 % ABG pCO2 ABG pO2 Ariel Test Respiration Rate O2 Delivery Device EPAP IPAP Blood Gas Notified Whom Blood Gas Notified Time Sodium 144 Potassium 3.9 Chloride 108 H Carbon Dioxide 25.0 Anion Gap 11 BUN 27 H Creatinine 1.17 H Estim Creat Clear Calc 44.15 Est GFR (MDRD) Af Amer 61 Est GFR (MDRD) Non-Af 50 L BUN/Creatinine Ratio 23.1 H Glucose 181 H Calcium 8.0 L TSH MRSA (PCR) POC Glucose Clinical Impression(s) from Imaging Studies Chest X-Ray 11/24/17 04:05 IMPRESSION: Degenerative changes, as described above. No demonstrated acute cardiopulmonary process. Electronically Signed: Shawn Null MD at 5:26 EDT Tel , Service support , Medical Necessity - Tobacco Use Smoking Status: Never smoker Tobacco Use: Non-smoker Assessment/Plan Active and Suspected Problems Shortness of breath (Acute) ARF (acute renal failure) (Acute) RECOMMENDATIONS: 1. Recommend slow reintroduction of the patient's Elavil. Consider alternative to the patient's home Xanax therapy. 2. Continue dose adjusted Keppra and Lyrica. 3. Okay to discontinue antibiotics from my perspective 4. Continue heparin drip, pending VTE workup. Lower extremity Dopplers were negative. CTA chest is pending. 5. Continue sliding scale insulin coverage 6. Encourage incentive spirometer use and mobilize patient as tolerated IMPRESSIONS: 1. Acute hypoxemic and hypercarbic respiratory failure Likely multifactorial in etiology. Concerned that given the patient's renal insufficiency, that polypharmacy is likely contributing. She is on a number of sedating medications and an exceedingly high dose of Keppra, given her underlying renal dysfunction. Recommend dose de-escalation of the patient's home medications based upon her current renal function. Discontinue Xanax and hold Elavil. Although poor inspiratory effort, I see no acute infiltrate on plain film chest imaging. Therefore, I would favor discontinuation of antibiotics. Additionally, I see no indication for IV steroids. My concern is that given her rather acute onset of shortness of breath and hypoxia noted on presentation to the emergency department, that there could be underlying venous thromboembolic disease. The patient has been on a heparin drip accordingly. Lower extremity Doppler studies were negative. Given improvement in the patient 's renal function, plan will be to complete a CTA chest this morning. The patient has been successfully weaned from noninvasive positive pressure ventilation. Continue to wean supplemental oxygen to maintain saturations at or above 90%. Encourage incentive spirometer use and mobilize patient as tolerated. 2. Encephalopathy Improved. Likely multifactorial in etiology. Although underlying neuromuscular weakness and subsequent CO2 retention is a possibility, I am more concerned that given the patient's renal insufficiency and the number of sedating medications that she is on as an outpatient, that polypharmacy is likely a significant contributing factor. Slow reintroduction of home Elavil dose. Recommend alternative to Xanax. Unclear why the patient is on home scheduled opiates. Continue dose adjusted Keppra and Lyrica. 3. Acute kidney injury Potentially prerenal in etiology with superimposed medical renal disease contributing. Renal function appears to have improved with gentle IV fluid hydration. We will continue to monitor urine output accordingly. No indication for renal replacement therapy at this time. 4. Self-reported history of epilepsy/parkinsonism As above, dose adjustments will be made to the patient's Keppra based upon renal function. The patient's Parkinson medications can be restarted today. 5. Obesity/depression/anxiety/neuropathy/diabetes/hypertension/hyperlipidemia Complicates care, management, recovery and prognosis. Advance diet and mobilize patient as tolerated. This note was generated with [employer] dictation software. It may contain incorrect words, spelling, and punctuation that were not noted in checking the note before signing. DISPOSITION: The patient is medically stable for transfer out of the intensive care unit. Code Visit Inpatient E&M: 06024 Subs Hosp L3
--- NOTE | 2017-11-25 07:56 | CT_ITS ---
STUDY: CTA CHEST REASON FOR EXAM: Female, 62 years old. Hypoxia, respiratory failure, diabetes, hypertension. RADIATION DOSAGE (If Supplied By Facility): CTDIvol = ( 18.10 ) mGy, DLP = ( 632.11 ) mGycm TECHNIQUE: The examination was performed with the intravenous administration of 100mL ml of Isovue 370 contrast material. Post-processing of the angiographic images was performed, with multiplanar reformation and 3D reconstruction. Individualized dose optimization techniques were used for this CT. COMPARISON: January 21, 2014. FINDINGS: Normal enhancement of the main pulmonary artery and right and left pulmonary arteries. Normal enhancement of the bilateral peripheral pulmonary arteries. There is no demonstrated pulmonary embolism. Normal thoracic aorta and visualized great vessels. There is no demonstrated aortic dissection. Normal heart and pericardium. There is no pathologic adenopathy. Normal visualized trachea and bronchi. There is minimal multifocal subsegmental atelectasis and mild multifocal pleural-parenchymal fibrosis. There is no pleural effusion. There is no pneumothorax. Normal chest wall structures. Normal osseous structures. Throughout the upper abdomen the only finding of significance is hepatic steatosis. CT/CTA Chest W/WO Contrast IMPRESSION: No evident pulmonary embolism or arterial dissection. No pathologic adenopathy. Minimal multifocal subsegmental atelectasis and mild multifocal pleural-parenchymal fibrosis. Electronically Signed: Prabhakar Swift MD at 9:37 EDT , Service support ,
[2017-11-25 08:06] LABS: Bedside Glucose 181 mg/dL (70-110)
--- NOTE | 2017-11-25 08:30 | PCM.PN.HOSP ---
Patient Problems: Active and Suspected Problems Shortness of breath (Acute) ARF (acute renal failure) (Acute) Subjective: Patient with no acute events overnight per self and per nursing report. Patient had large bowel movement overnight urinating without issue. She does complain of tremoring secondary to missing her Parkinson disease medications otherwise currently no acute complaint. Much more alert, oriented, off BiPAP. Discussed current status and unclear specific etiology for hypoxia with plan for continued renal dosing of her medications and hold on medications that are inappropriate at this time as well as continued IV fluids with planned CT of the chest to assure no pulmonary embolism with continued heparin drip. Patient very resistant to the concept of holding any medications and states that she routinely has labs checked and she has not had any issues. Patient denies fevers, chills, nausea, emesis, abdominal pain, chest pain or dyspnea. Objective: Physical Examination: General: awake, alert, oriented to person, place, year, recent events and cooperative, seated upright in the ICU bed in no apparent distress. Skin: normal color, turgor, no icterus, cyanosis. HEENT: AT/NC, EOMI, PERRLA, improved less dry MM, mild BL lid edema. Lungs: Diminished BS BL, > bases, improved effort, on NC, transitioned off BIPAP, no rales, ronchi or wheezing. Heart: Regular rate and rhythm; no gallop, rub audible. Abdomen: soft, obese, notes mild discomfort suprapubic region secondary to need to urinate otherwise NTTP, ND, normal BS. Extremities: no cyanosis, clubbing, mild extremity distal edema. Neurological: patient awake, alert, oriented as noted; cognitive function appears more intact, moderately odd behavior, likely baseline; pupils equally reactive to light and accomodation; cranial nerves II-XII grossly normal, moving all 4 extremities but severely globally decreased, possibly baseline secondary to her Parkinson's disease. Psychiatric: affect appears flat, no acute evidence of depressive or anxiety feelings. Vitals/I&O's: Vital Signs Temp Pulse Resp BP Pulse Ox 97.9 F 80 20 H 124/80 H 98 11/25/17 04:00 11/25/17 06:53 11/25/17 06:53 11/25/17 06:00 11/25/17 06:53 Oxygen Flow Rate (L/min) 4 Oxygen Delivery Method Nasal Cannula Weight: 200 lb 13.458 oz Body Mass Index (BMI) 36.0 Intake and Output for Last 24 Hours 11/23/17 11/24/17 11/25/17 23:59 23:59 23:59 Intake Total 1375 / 1375 1815.4 / 1815.4 Output Total 1450 / 1450 1450 / 1450 Balance -75 / -75 365.4 / 365.4 Laboratory Results 11/24/17 09:12: Specimen Type ART, Sample Site L Radial, pH 7.26 L, Bicarbonate Actual 27.9 H, POC Total CO2 30, Base Excess 1, O2 Saturation 94 L, O2 % 30, ABG pCO2 62.5 H, ABG pO2 83, Ariel Test POS, Respiration Rate 12, O2 Delivery Device Bi / C PAP, EPAP 6, IPAP 14, Blood Gas Notified Whom ICU MD, Blood Gas Notified Time 910 11/24/17 12:06: POC Glucose 247 H 11/24/17 12:58: Specimen Type ART, Sample Site L Radial, pH 7.27 L, Bicarbonate Actual 27.8 H, POC Total CO2 30, Base Excess 1, O2 Saturation 95, O2 % 40, ABG pCO2 60.5 H, ABG pO2 91, Ariel Test POS, Respiration Rate 12, O2 Delivery Device Bi / C PAP, EPAP 6, IPAP 18, Blood Gas Notified Whom ICU MD, Blood Gas Notified Time 1255 11/24/17 17:05: Sodium 138, Potassium 5.0, Chloride 103, Carbon Dioxide 28.0, Anion Gap 7, BUN 32 H, Creatinine 1.45 H, Estim Creat Clear Calc 35.63, Est GFR (MDRD) Af Amer 47 L, Est GFR (MDRD) Non-Af 39 L, BUN/Creatinine Ratio 22.1 H, Glucose 246 H, Calcium 8.2 L 11/24/17 17:05: APTT > 250.0 H* 11/24/17 17:05: TSH 0.20 L 11/24/17 17:10: MRSA (PCR) Negative 11/24/17 17:59: POC Glucose 240 H 11/25/17 00:43: APTT 96.9 H* 11/25/17 00:55: POC Glucose 217 H 11/25/17 05:59: WBC 7.9, RBC 3.58 L, Hgb 10.1 L, Hct 30.7 L, MCV 85.8, MCH 28.2, MCHC 32.9, RDW 13.8, RDW Differential 41.9, Plt Count 146 L, MPV 10.5 11/25/17 05:59: APTT 54.3 H 11/25/17 05:59: Sodium 144, Potassium 3.9, Chloride 108 H, Carbon Dioxide 25.0, Anion Gap 11, BUN 27 H, Creatinine 1.17 H, Estim Creat Clear Calc 44.15, Est GFR (MDRD) Af Amer 61, Est GFR (MDRD) Non-Af 50 L, BUN/Creatinine Ratio 23.1 H, Glucose 181 H, Calcium 8.0 L 11/25/17 06:09: POC Glucose 181 H Current Medications Acetaminophen (Tylenol) 650 mg PO Q6H PRN PRN PRN Reason: Non-cardiac pain (mod-severe) Albuterol/Ipratropium (Duoneb) 3 ml INHALATION Q4H.RT [facility] Last Admin: 11/25/17 06:53 Dose: 3 ml Amitriptyline HCl (Elavil) 75 mg PO QHS [facility] Last Admin: 11/24/17 22:25 Dose: 75 mg Atorvastatin Calcium (Lipitor) 40 mg PO QHS [facility] Last Admin: 11/24/17 22:25 Dose: 40 mg Carbidopa/Levodopa (Sinemet) 2 tablet PO ACHS [facility] Last Admin: 11/25/17 06:08 Dose: 2 tablet Chlorhexidine Gluconate () 1 each TOPICAL DAILY [facility] Last Admin: 11/25/17 06:21 Dose: 1 each Dextrose (D50w Syringe) 0 gm IV X1 PRN; Protocol PRN Reason: Hypoglycemia Donepezil HCl (Aricept) 10 mg PO QHS [facility] Last Admin: 11/24/17 22:25 Dose: 10 mg Glucagon () 1 mg IM .X1 PRN PRN Reason: Hypoglycemia Heparin Sodium (Porcine) () 0 units IV UD PRN PRN Reason: Protocol Last Admin: 11/25/17 06:45 Dose: 1,000 units Hydralazine HCl (Apresoline Iv) 10 mg IV Q4H PRN PRN PRN Reason: SBP > 160 Sodium Chloride () 1,000 mls @ 150 mls/hr IV .[id number] [facility] Last Admin: 11/25/17 03:04 Dose: 150 mls/hr Azithromycin 500 mg/ Dextrose 255 mls @ 250 mls/hr IV Q24 [facility] Stop: 11/27/17 11:02 Ceftriaxone Sodium (Rocephin) 1 gm in 50 mls @ 100 mls/hr IV Q24H [facility] Last Admin: 11/25/17 06:10 Dose: 100 mls/hr Heparin Sodium/Dextrose () 25,000 units in 250 mls @ 14 mls/hr IV .[id number] HIRAL; As Directed PRN Reason: Protocol Last Admin: 11/24/17 11:13 Dose: 14 mls/hr Sodium Chloride () 250 mls @ 15 mls/hr IV .[id number] PRN PRN Reason: SALINE FLUSH Insulin Aspart (Novolog Flexpen (Bkc)) 0 units SC Q6 HIRAL PRN Reason: Protocol Last Admin: 11/25/17 06:10 Dose: 1 u Levetiracetam (Keppra Tablet) 500 mg PO BID [facility] Last Admin: 11/24/17 22:29 Dose: 500 mg Magnesium Hydroxide (Milk Of Magnesia) 30 ml PO DAILY PRN PRN Reason: Constipation Ondansetron HCl (Zofran) 4 mg IV Q8H PRN PRN PRN Reason: NAUSEA/VOMITING Pregabalin (Lyrica) 75 mg PO BID [facility] Last Admin: 11/24/17 22:29 Dose: 75 mg Sertraline HCl (Zoloft) 150 mg PO DAILY [facility] Last Admin: 11/24/17 12:57 Dose: Not Given Sodium Chloride () 5 - 30 ml IV UD PRN PRN Reason: SALINE FLUSH Medical Necessity - Tobacco Use Smoking Status: Never smoker Tobacco Use: Non-smoker Assessment/Plan Active and Suspected Problems Shortness of breath (Acute) ARF (acute renal failure) (Acute) The patient is a 62 y/o F w/ PMHx: Diabetes mellitus type II, Parkinson's Disease, Epilepsy, Anxiety and Depression, Chronic back pain w/ spinal stenosis hx, History of Polysubstance abuse who presents to the [facility] ED on 11/24/17 early am with onset dyspnea at approximately noon the day prior which progressively worsened, increased fatigue and global weakness w/ increased myoclonic jerking above baseline. (1) Acute Encephalopathy secondary to Acute Hypoxic and Hypercarbic Respiratory Failure, Multifactorial: ED presentation w/ unclear etiology for acute respiratory failure, ABG w/ hypercapnic and hypoxia, tachycardic, CXR without marked findings, maintained on BIPAP in the ICU initially, Dr. Pickard consulted and following, concerned for possible PE as etiology for respiratory status, negative BL LE DVT US, with improved renal function will obtain CTPA today and continue IVFs, possible Seizure disorder with aspiration although less likely and currently maintained on keppra at reduced dose given VASU upon presentation, UDS w/ + opiates w/ history of drug abuse with OARRS report w/ notable BZD/narcotic intake in addition to other sedative medications, thus suspect most likely polypharmacy as etiology. Less suspicious for PNA, continued currently on Rocephin and Azithromycin for possible PNA pending Cx. Continue HOB, IS parameters w/ requested sputum cultures, negative urine antigens. Bld cx x 2 obtained in the ED and pending. UA unremarkable aside evidence dehydration. If CTPA negative would plan continued IVFs overnight given contrast usage and recent VASU, repeat BMP and if stable, oxygenation testing with discharge to home with medication adjustments per pharmacy/renal dosing. (2) Acute kidney injury: Multifactorial, secondary to acute presentation, dehydration, nephrotoxic medications, possible OD. Admission BUN/Cr 40/2.63, prior baseline creatinine noted to be 1.39 (02/02/16), hydrated overnight, 11/25/17 BUN/Cr 27/1.17, improved, will continue to hydrate, hold nephrotoxic medications and repeat chemistry in AM especially given planned CTPA. (3) History of Polysubstance Abuse, Suspected Acute Polypharmacy complicated by VASU: UDS w/ + BZD and opiates, rx BZD but not opiate on admit list, OARRS noted narcotic Rx routinely, high suspicion of primary etiology for #1. (4) Seizure Disorder: Decreased keppra dose given VASU per Dr. Pickard, continue. Seizure precautions. Consideration of seizure activity with aspiration for presentation etiology but lower suspicious as noted. (5) Diabetes mellitus type II: Hold oral home regimen, ADA diet, accu checks w/ ISS. (6) Chronic Normocytic Anemia: Admission Hgb 10.4, baseline 10-11 range, stable. (7) Parkinson's Disease, Myoclonic Jerking: Maintain on home sinemet regimen. (8) Anxiety and Depression: Restart sertraline regimen. (9) Hyperlipidemia: Continue home statin regimen. (10) Chronic Back Pain: Renal dosing of patient lyrica per ICU, Elavil held. (11) DVT Prophylaxis: SCDs, heparin drip pending CTPA as noted. (12) CODE status: Do not intubate, other interventions amenable. Code Visit Inpatient E&M: 80178 Subs Hosp L3
--- NOTE | 2017-11-25 08:43 | PN_ITS ---
Patient Problems: Active and Suspected Problems Shortness of breath (Acute) ARF (acute renal failure) (Acute) Subjective: Patient with no acute events overnight per self and per nursing report. Patient had large bowel movement overnight urinating without issue. She does complain of tremoring secondary to missing her Parkinson disease medications otherwise currently no acute complaint. Much more alert, oriented, off BiPAP. Discussed current status and unclear specific etiology for hypoxia with plan for continued renal dosing of her medications and hold on medications that are inappropriate at this time as well as continued IV fluids with planned CT of the chest to assure no pulmonary embolism with continued heparin drip. Patient very resistant to the concept of holding any medications and states that she routinely has labs checked and she has not had any issues. Patient denies fevers, chills, nausea, emesis, abdominal pain, chest pain or dyspnea. Objective: Physical Examination: General: awake, alert, oriented to person, place, year, recent events and cooperative, seated upright in the ICU bed in no apparent distress. Skin: normal color, turgor, no icterus, cyanosis. HEENT: AT/NC, EOMI, PERRLA, improved less dry MM, mild BL lid edema. Lungs: Diminished BS BL, > bases, improved effort, on NC, transitioned off BIPAP , no rales, ronchi or wheezing. Heart: Regular rate and rhythm; no gallop, rub audible. Abdomen: soft, obese, notes mild discomfort suprapubic region secondary to need to urinate otherwise NTTP, ND, normal BS. Extremities: no cyanosis, clubbing, mild extremity distal edema. Neurological: patient awake, alert, oriented as noted; cognitive function appears more intact, moderately odd behavior, likely baseline; pupils equally reactive to light and accomodation; cranial nerves II-XII grossly normal, moving all 4 extremities but severely globally decreased, possibly baseline secondary to her Parkinson's disease. Psychiatric: affect appears flat, no acute evidence of depressive or anxiety feelings. Vitals/I&O's: Vital Signs Temp Pulse Resp BP Pulse Ox 97.9 F 80 20 H 124/80 H 98 11/25/17 04:00 11/25/17 06:53 11/25/17 06:53 11/25/17 06:00 11/25/17 06:53 Oxygen Flow Rate (L/min) 4 Oxygen Delivery Method Nasal Cannula Weight: 200 lb 13.458 oz Body Mass Index (BMI) 36.0 Intake and Output for Last 24 Hours 11/23/17 11/24/17 11/25/17 23:59 23:59 23:59 Intake Total 1375 / 1375 1815.4 / 1815.4 Output Total 1450 / 1450 1450 / 1450 Balance -75 / -75 365.4 / 365.4 Laboratory Results 11/24/17 09:12: Specimen Type ART, Sample Site L Radial, pH 7.26 L, Bicarbonate Actual 27.9 H, POC Total CO2 30, Base Excess 1, O2 Saturation 94 L, O2 % 30, ABG pCO2 62.5 H, ABG pO2 83, Ariel Test POS, Respiration Rate 12, O2 Delivery Device Bi / C PAP, EPAP 6, IPAP 14, Blood Gas Notified Whom ICU MD, Blood Gas Notified Time 910 11/24/17 12:06: POC Glucose 247 H 11/24/17 12:58: Specimen Type ART, Sample Site L Radial, pH 7.27 L, Bicarbonate Actual 27.8 H, POC Total CO2 30, Base Excess 1, O2 Saturation 95, O2 % 40, ABG pCO2 60.5 H, ABG pO2 91, Ariel Test POS, Respiration Rate 12, O2 Delivery Device Bi / C PAP, EPAP 6, IPAP 18, Blood Gas Notified Whom ICU MD, Blood Gas Notified Time 1255 11/24/17 17:05: Sodium 138, Potassium 5.0, Chloride 103, Carbon Dioxide 28.0, Anion Gap 7, BUN 32 H, Creatinine 1.45 H, Estim Creat Clear Calc 35.63, Est GFR (MDRD) Af Amer 47 L, Est GFR (MDRD) Non-Af 39 L, BUN/Creatinine Ratio 22.1 H, Glucose 246 H, Calcium 8.2 L 11/24/17 17:05: APTT > 250.0 H* 11/24/17 17:05: TSH 0.20 L 11/24/17 17:10: MRSA (PCR) Negative 11/24/17 17:59: POC Glucose 240 H 11/25/17 00:43: APTT 96.9 H* 11/25/17 00:55: POC Glucose 217 H 11/25/17 05:59: WBC 7.9, RBC 3.58 L, Hgb 10.1 L, Hct 30.7 L, MCV 85.8, MCH 28.2 , MCHC 32.9, RDW 13.8, RDW Differential 41.9, Plt Count 146 L, MPV 10.5 11/25/17 05:59: APTT 54.3 H 11/25/17 05:59: Sodium 144, Potassium 3.9, Chloride 108 H, Carbon Dioxide 25.0, Anion Gap 11, BUN 27 H, Creatinine 1.17 H, Estim Creat Clear Calc 44.15, Est GFR (MDRD) Af Amer 61, Est GFR (MDRD) Non-Af 50 L, BUN/Creatinine Ratio 23.1 H, Glucose 181 H, Calcium 8.0 L 11/25/17 06:09: POC Glucose 181 H Current Medications Acetaminophen (Tylenol) 650 mg PO Q6H PRN PRN PRN Reason: Non-cardiac pain (mod-severe) Albuterol/Ipratropium (Duoneb) 3 ml INHALATION Q4H.RT [facility] Last Admin: 11/25/17 06:53 Dose: 3 ml Amitriptyline HCl (Elavil) 75 mg PO QHS [facility] Last Admin: 11/24/17 22:25 Dose: 75 mg Atorvastatin Calcium (Lipitor) 40 mg PO QHS [facility] Last Admin: 11/24/17 22:25 Dose: 40 mg Carbidopa/Levodopa (Sinemet) 2 tablet PO ACHS [facility] Last Admin: 11/25/17 06:08 Dose: 2 tablet Chlorhexidine Gluconate () 1 each TOPICAL DAILY [facility] Last Admin: 11/25/17 06:21 Dose: 1 each Dextrose (D50w Syringe) 0 gm IV X1 PRN; Protocol PRN Reason: Hypoglycemia Donepezil HCl (Aricept) 10 mg PO QHS [facility] Last Admin: 11/24/17 22:25 Dose: 10 mg Glucagon () 1 mg IM .X1 PRN PRN Reason: Hypoglycemia Heparin Sodium (Porcine) () 0 units IV UD PRN PRN Reason: Protocol Last Admin: 11/25/17 06:45 Dose: 1,000 units Hydralazine HCl (Apresoline Iv) 10 mg IV Q4H PRN PRN PRN Reason: SBP > 160 Sodium Chloride () 1,000 mls @ 150 mls/hr IV .[id number] [facility] Last Admin: 11/25/17 03:04 Dose: 150 mls/hr Azithromycin 500 mg/ Dextrose 255 mls @ 250 mls/hr IV Q24 [facility] Stop: 11/27/17 11:02 Ceftriaxone Sodium (Rocephin) 1 gm in 50 mls @ 100 mls/hr IV Q24H [facility] Last Admin: 11/25/17 06:10 Dose: 100 mls/hr Heparin Sodium/Dextrose () 25,000 units in 250 mls @ 14 mls/hr IV .[id number] HIRAL ; As Directed PRN Reason: Protocol Last Admin: 11/24/17 11:13 Dose: 14 mls/hr Sodium Chloride () 250 mls @ 15 mls/hr IV .[id number] PRN PRN Reason: SALINE FLUSH Insulin Aspart (Novolog Flexpen (Bkc)) 0 units SC Q6 HIRAL PRN Reason: Protocol Last Admin: 11/25/17 06:10 Dose: 1 u Levetiracetam (Keppra Tablet) 500 mg PO BID [facility] Last Admin: 11/24/17 22:29 Dose: 500 mg Magnesium Hydroxide (Milk Of Magnesia) 30 ml PO DAILY PRN PRN Reason: Constipation Ondansetron HCl (Zofran) 4 mg IV Q8H PRN PRN PRN Reason: NAUSEA/VOMITING Pregabalin (Lyrica) 75 mg PO BID [facility] Last Admin: 11/24/17 22:29 Dose: 75 mg Sertraline HCl (Zoloft) 150 mg PO DAILY [facility] Last Admin: 11/24/17 12:57 Dose: Not Given Sodium Chloride () 5 - 30 ml IV UD PRN PRN Reason: SALINE FLUSH Medical Necessity - Tobacco Use Smoking Status: Never smoker Tobacco Use: Non-smoker Assessment/Plan Active and Suspected Problems Shortness of breath (Acute) ARF (acute renal failure) (Acute) The patient is a 62 y/o F w/ PMHx: Diabetes mellitus type II, Parkinson's Disease, Epilepsy, Anxiety and Depression, Chronic back pain w/ spinal stenosis hx, History of Polysubstance abuse who presents to the [facility] ED on 11/24/17 early am with onset dyspnea at approximately noon the day prior which progressively worsened, increased fatigue and global weakness w/ increased myoclonic jerking above baseline. (1) Acute Encephalopathy secondary to Acute Hypoxic and Hypercarbic Respiratory Failure, Multifactorial: ED presentation w/ unclear etiology for acute respiratory failure, ABG w/ hypercapnic and hypoxia, tachycardic, CXR without marked findings, maintained on BIPAP in the ICU initially, Dr. Pickard consulted and following, concerned for possible PE as etiology for respiratory status, negative BL LE DVT US, with improved renal function will obtain CTPA today and continue IVFs, possible Seizure disorder with aspiration although less likely and currently maintained on keppra at reduced dose given VASU upon presentation, UDS w/ + opiates w/ history of drug abuse with OARRS report w/ notable BZD/ narcotic intake in addition to other sedative medications, thus suspect most likely polypharmacy as etiology. Less suspicious for PNA, continued currently on Rocephin and Azithromycin for possible PNA pending Cx. Continue HOB, IS parameters w/ requested sputum cultures, negative urine antigens. Bld cx x 2 obtained in the ED and pending. UA unremarkable aside evidence dehydration. If CTPA negative would plan continued IVFs overnight given contrast usage and recent VASU, repeat BMP and if stable, oxygenation testing with discharge to home with medication adjustments per pharmacy/renal dosing. (2) Acute kidney injury: Multifactorial, secondary to acute presentation, dehydration, nephrotoxic medications, possible OD. Admission BUN/Cr 40/2.63, prior baseline creatinine noted to be 1.39 (02/02/16), hydrated overnight, BUN/Cr 27/1.17, improved, will continue to hydrate, hold nephrotoxic medications and repeat chemistry in AM especially given planned CTPA. (3) History of Polysubstance Abuse, Suspected Acute Polypharmacy complicated by VASU: UDS w/ + BZD and opiates, rx BZD but not opiate on admit list, OARRS noted narcotic Rx routinely, high suspicion of primary etiology for #1. (4) Seizure Disorder: Decreased keppra dose given VASU per Dr. Pickard, continue. Seizure precautions. Consideration of seizure activity with aspiration for presentation etiology but lower suspicious as noted. (5) Diabetes mellitus type II: Hold oral home regimen, ADA diet, accu checks w/ ISS. (6) Chronic Normocytic Anemia: Admission Hgb 10.4, baseline 10-11 range, stable. (7) Parkinson's Disease, Myoclonic Jerking: Maintain on home sinemet regimen. (8) Anxiety and Depression: Restart sertraline regimen. (9) Hyperlipidemia: Continue home statin regimen. (10) Chronic Back Pain: Renal dosing of patient lyrica per ICU, Elavil held. (11) DVT Prophylaxis: SCDs, heparin drip pending CTPA as noted. (12) CODE status: Do not intubate, other interventions amenable. Code Visit Inpatient E&M: 02719 Subs Hosp L3
--- NOTE | 2017-11-25 10:25 | CASEMGMT ---
See RN CM Assessment Link. DC PLAN: Home. May require Home Oxygen testing prior to discharge. Robb MOSHER RN ACM
[2017-11-25 10:51] LABS: Bedside Glucose 208 mg/dL (70-110)
[2017-11-25] MEDS: Sertraline 100 MG Tablet 150 MG PO (10:55)
[2017-11-25] MEDS: levETIRAcetam 500 MG Tablet PO ×2 (11:00→21:54)
[2017-11-25] MEDS: Pregabalin 75 MG Capsule PO ×2 (11:00→21:57)
--- NOTE | 2017-11-25 11:33 | NURSING ---
report called to pcu for transfer to room 124, present
[2017-11-25] MEDS: 0.9% Normal Saline 1,000 ML 125 ML IV ×2 (13:37→21:52)
--- NOTE | 2017-11-25 14:11 | CASEMGMT ---
Social Work Received referral from RN RIGO. Pt presenting with dx of depression, anxiety and possible polypharmacy abuse. SW met with pt in room and introduced self and role of SW. Pt pleasant and talkative with SW. Pt not able keep on topic and switching from subject to subject. SW attempted to discuss anxiety and depression and pt confirms that she has issues with this however pt not able to stay on topic or explain this or treatment for mental health. Pt does state that her has retired in order to care for her and he does set up her meds. Pt denies any issues with taking meds correctly. While pt is willing to speak with SW, pt is unable to converse or respond to questions correctly. Pt plans to return home with her at time of d/c. SW will remain available should further needs arise. KATIA Mcmahon
[2017-11-25 17:00] LABS: Bedside Glucose 204 mg/dL (70-110)
[2017-11-25 18:22] LABS: T4 Free Direct 0.82 ng/dL (0.76-1.46)
[2017-11-25] MEDS: Donepezil HCl 10 MG Tablet PO (21:53)
[2017-11-25] MEDS: Amitriptyline 25 MG Tablet 75 MG PO (21:53)
[2017-11-25] MEDS: Atorvastatin Calcium 40 MG Tablet PO (21:54)
--- NOTE | 2017-11-25 22:15 | CPS ---
pt refused to wear Bipap
[2017-11-25 22:35] LABS: Bedside Glucose 168 mg/dL (70-110)
[2017-11-26] VITALS (12 sets, daily range): BP systolic 148–164; BP diastolic 88–94; PULSE 83–106; RESP 16–20; TEMP 36.6–36.8; O2SAT 86–96
[2017-11-26] MEDS: 0.9% Normal Saline 1,000 ML 125 ML IV (05:21)
[2017-11-26] MEDS: 0.9% NaCl Peripheral Flush Adult/Peds IV (05:24)
[2017-11-26] MEDS: hydrALAZINE 20 MG/ML Vial 10 MG IV (05:24)
[2017-11-26 06:17] LABS: Absolute Lymphocyte Count 1.03 X10^3/ul (0.83-4.51); Absolute Neutrophil Count 8.8 X10^3/uL (2.0-7.7); Basophil# 0.01 X10^3/uL; Basophil% 0.1 % (0-1); Hematocrit 33.4 % (37-47); Hemoglobin 10.5 g/dl (12.0-15.0); Lymphocyte # 1.03 X10^3/ul (4.0); Mean Corp Hgb Conc 31.4 g/gl (32-36); Mean Corpuscular Hgb 27.6 pg (27.0-32.0); Mean Corpuscular Volume 87.9 fL (81-99); Mean Platelet Vol. 10.7 fl (6.2-12.0); Monocyte# 0.48 X10^3/uL; Monocyte% 4.7 % (0-10); Neutrophil # 8.75 X10^3/uL (2.7-7.7); Platelet Count 166 K/mm3 (150-450); RBC Distribution Width CV 14.6 % (11.6-14.6); RBC Distribution Width SD 44.3 fl (35.1-43.9); White Blood Count 10.3 K/mm3 (4.4-11.0)
[2017-11-26] MEDS: Carbidopa/Levodopa 25/100 Tablet PO ×2 (06:17→12:25)
[2017-11-26 06:18] LABS: POSITIVE COUNT NO; POSITIVE DIFFERENTIAL NO; POSITIVE MORPHOLOGY NO
[2017-11-26] MEDS: Ipratropium/Albuterol Sulfate 3 ML AMPUL.NEB INHALATION ×3 (06:47→14:40)
[2017-11-26 06:56] LABS: ALB/GLOB Ratio 0.9 RATIO (0.9-2.4); AST(SGOT) 19 U/L (15-37); Alanine Aminotransfer ALT/SGPT 7 U/L (13-56); Albumin, Serum 3.2 g/dL (3.2-5.0); Alkaline Phosphatase 84 U/L (45-117); Anion Gap 6 (5-15); BUN 16 mg/dL (7-18); BUN/Creat Ratio 19.8 RATIO (10-20); Calcium,Total 8.1 mg/dL (8.5-10.1); Chloride 111 mmol/L (98-107); Creatinine, Serum 0.81 mg/dL (0.55-1.02); EST Glomerular Filtration Rate 77 mL/min (>60); Est Glom Filt Rate - Afr Amer 93 mL/min (>60); Estimated Creatinine Clearance 63.78 ml/min; Globulin 3.5 g/dL (2.2-4.2); Glucose 144 mg/dL (74-106); Potassium 3.5 mmol/L (3.5-5.1); Protein, Total 6.7 g/dL (6.4-8.2); Sodium Level 146 mmol/L (136-145)
[2017-11-26 06:56] LABS: Bedside Glucose 160 mg/dL (70-110)
[2017-11-26] MEDS: Acetaminophen 325 MG Tablet 650 MG PO (07:42)
--- NOTE | 2017-11-26 08:52 | PCM.PROGNOTE ---
Patient Problems: Active and Suspected Problems Shortness of breath (Acute) ARF (acute renal failure) (Acute) Objective: Recent lab and culture data reviewed. Chest x-ray showed no acute abnormality. Lower extremity Dopplers were negative for DVT. Urine strep/Legionella antigens negative. Urine culture showed no growth and blood cultures are still pending. - Physical Exam Vital Signs Temp Pulse Resp BP Pulse Ox 98.0 F 99 18 163/94 H 96 11/26/17 05:19 11/26/17 07:44 11/26/17 07:36 11/26/17 06:20 11/26/17 07:36 Oxygen Flow Rate (L/min) 2 Oxygen Delivery Method Nasal Cannula Weight: 198 lb 6.656 oz Body Mass Index (BMI) 36.0 Finger Stick Blood Glucose 208 Intake and Output for Last 24 Hours 11/24/17 11/25/17 11/26/17 23:59 23:59 23:59 Intake Total 1375 / 1375 3731.4 / 3731.4 Output Total 1450 / 1450 1450 / 1450 Balance -75 / -75 2281.4 / 2281.4 Laboratory Tests Past 24 Hrs 11/25/17 11/26/17 11/26/17 05:59 05:50 05:50 WBC 10.3 RBC 3.80 L Hgb 10.5 L Hct 33.4 L MCV 87.9 MCH 27.6 MCHC 31.4 L RDW 14.6 RDW Differential 44.3 H Plt Count 166 MPV 10.7 Immature Gran % (Auto) 0.200 Neut % (Auto) 85.0 H Lymph % (Auto) 10.0 L [place] % (Auto) 4.7 Eos % (Auto) 0.0 Baso % (Auto) 0.1 Absolute Neuts (auto) 8.8 H Absolute Lymphs (auto) 1.03 Total Counted Not Reportable Sodium 146 H Potassium 3.5 Chloride 111 H Carbon Dioxide 29.0 Anion Gap 6 BUN 16 Creatinine 0.81 Estim Creat Clear Calc 63.78 Est GFR (MDRD) Af Amer 93 Est GFR (MDRD) Non-Af 77 BUN/Creatinine Ratio 19.8 Glucose 144 H Calcium 8.1 L Total Bilirubin 0.50 AST 19 ALT 7 L Alkaline Phosphatase 84 Total Protein 6.7 Albumin 3.2 Globulin 3.5 Albumin/Globulin Ratio 0.9 Free T4 0.82 POC Glucose 11/26/17 11/25/17 11/25/17 06:52 21:51 16:49 POC Glucose 160 H 168 H 204 H 11/25/17 10:49 POC Glucose 208 H Medical Necessity - Tobacco Use Smoking Status: Never smoker Tobacco Use: Non-smoker Assessment/Plan Active and Suspected Problems Shortness of breath (Acute) ARF (acute renal failure) (Acute)
--- NOTE | 2017-11-26 09:30 | PCM.PROGNOTE ---
Patient Problems: Active and Suspected Problems Shortness of breath (Acute) ARF (acute renal failure) (Acute) Subjective: The patient was seen and examined at the bedside this morning. Events from the last 24 hours have been reviewed. The patient is currently afebrile, hemodynamically stable and maintaining appropriate oxygen saturations on 2 L/min via nasal cannula. The patient refused to wear BiPAP overnight. She has done well clinically following transfer out of the intensive care unit yesterday. Objective: The patient's most recent lab work, culture data and imaging studies have all been personally reviewed. Blood cultures have shown no growth to date. Urine cultures show no growth to date. Strep and urine Legionella antigens were both negative. CTA chest completed yesterday revealed no evidence for pulmonary embolism. Lower extremity Dopplers were negative. - Physical Exam General: Alert, No apparent distress, Confused HEENT: Atraumatic, PERRLA, Normocephalic Oral: No Gingival or Mucosal Lesions/ Ulcerations Neck: Supple, No Nodes, Trachea Midline Lungs: No rhonchi, No wheeze, No rales, Diminished Cardiovascular: Regular rate, Regular Rhythm, Normal S1, Normal S2, No murmurs Abdomen: Bowel Sounds Present, Soft, Non Tender, Obese Extremities: No clubbing, No cyanosis, No edema Skin: No breakdown Musculoskeletal: No Muscle Wasting Lymphatic: No Cervical, Supraclavicular, or Inguinal Adenopathy Neurological: Neuro grossly intact Psych/Mental Status: Flat Affect Vital Signs Temp Pulse Resp BP Pulse Ox 98.0 F 99 18 163/94 H 96 11/26/17 05:19 11/26/17 07:44 11/26/17 07:36 11/26/17 06:20 11/26/17 07:36 Oxygen Flow Rate (L/min) 2 Oxygen Delivery Method Nasal Cannula Weight: 198 lb 6.656 oz Body Mass Index (BMI) 36.0 Finger Stick Blood Glucose 208 Intake and Output for Last 24 Hours 11/24/17 11/25/17 11/26/17 23:59 23:59 23:59 Intake Total 1375 / 1375 3731.4 / 3731.4 Output Total 1450 / 1450 1450 / 1450 Balance -75 / -75 2281.4 / 2281.4 Laboratory Tests Past 24 Hrs 11/25/17 11/26/17 11/26/17 05:59 05:50 05:50 WBC 10.3 RBC 3.80 L Hgb 10.5 L Hct 33.4 L MCV 87.9 MCH 27.6 MCHC 31.4 L RDW 14.6 RDW Differential 44.3 H Plt Count 166 MPV 10.7 Immature Gran % (Auto) 0.200 Neut % (Auto) 85.0 H Lymph % (Auto) 10.0 L [place] % (Auto) 4.7 Eos % (Auto) 0.0 Baso % (Auto) 0.1 Absolute Neuts (auto) 8.8 H Absolute Lymphs (auto) 1.03 Total Counted Not Reportable Sodium 146 H Potassium 3.5 Chloride 111 H Carbon Dioxide 29.0 Anion Gap 6 BUN 16 Creatinine 0.81 Estim Creat Clear Calc 63.78 Est GFR (MDRD) Af Amer 93 Est GFR (MDRD) Non-Af 77 BUN/Creatinine Ratio 19.8 Glucose 144 H Calcium 8.1 L Total Bilirubin 0.50 AST 19 ALT 7 L Alkaline Phosphatase 84 Total Protein 6.7 Albumin 3.2 Globulin 3.5 Albumin/Globulin Ratio 0.9 Free T4 0.82 POC Glucose 11/26/17 11/25/17 11/25/17 06:52 21:51 16:49 POC Glucose 160 H 168 H 204 H 11/25/17 10:49 POC Glucose 208 H Clinical Impression(s) from Imaging Studies Chest X-Ray 11/24/17 04:05 IMPRESSION: Degenerative changes, as described above. No demonstrated acute cardiopulmonary process. Electronically Signed: Shawn Null MD at 5:26 EDT Tel , Service support , Chest CTA 11/25/17 07:56 IMPRESSION: No evident pulmonary embolism or arterial dissection. No pathologic adenopathy. Minimal multifocal subsegmental atelectasis and mild multifocal pleural-parenchymal fibrosis. Electronically Signed: Prabhakar Swift MD at 9:37 EDT , Service support , Medical Necessity - Tobacco Use Smoking Status: Never smoker Tobacco Use: Non-smoker Assessment/Plan Active and Suspected Problems Shortness of breath (Acute) ARF (acute renal failure) (Acute) RECOMMENDATIONS: 1. Continue dose adjusted Elavil. Consider alternative to the patient's home Xanax therapy. 2. Continue dose adjusted Keppra and Lyrica. 3. Continue sliding scale insulin coverage 4. Encourage incentive spirometer use and mobilize patient as tolerated. IMPRESSIONS: 1. Acute hypoxemic and hypercarbic respiratory failure Likely multifactorial in etiology. Concerned that given the patient's renal insufficiency, that polypharmacy is likely contributing. She is on a number of sedating medications and an exceedingly high dose of Keppra, given her underlying renal dysfunction. Dose de-escalation of the patient's home medications occurred, based upon her current renal function. The patient was ruled out for a pulmonary infectious process along with venous thromboembolic disease. Antibiotics and heparin drip have been discontinued accordingly. Continue to wean supplemental oxygen to maintain saturations at or above 90%. Encourage incentive spirometer use and mobilize patient as tolerated. 2. Encephalopathy Improved. Likely multifactorial in etiology. Although underlying neuromuscular weakness and subsequent CO2 retention is a possibility, polypharmacy was likely the main contributing factor. Dose adjustments have occurred. Unclear why the patient is on home scheduled opiates. Continue dose adjusted Keppra and Lyrica. 3. Acute kidney injury Resolved. Potentially prerenal in etiology with superimposed medical renal disease contributing. Renal function appears to have improved with gentle IV fluid hydration. We will continue to monitor urine output accordingly. No indication for renal replacement therapy at this time. 4. Self-reported history of epilepsy/parkinsonism As above, dose adjustments were made to the patient's Keppra based upon renal function. The patient's Parkinson medications can be continued. 5. Obesity/depression/anxiety/neuropathy/diabetes/hypertension/hyperlipidemia Complicates care, management, recovery and prognosis. Advance diet and mobilize patient as tolerated. This note was generated with [employer] dictation software. It may contain incorrect words, spelling, and punctuation that were not noted in checking the note before signing. DISPOSITION: Given the lack of ongoing ICU needs, will sign off. Please call with any additional questions. Code Visit Inpatient E&M: 54092 Subs Hosp L2
--- NOTE | 2017-11-26 09:38 | PN_ITS ---
Patient Problems: Active and Suspected Problems Shortness of breath (Acute) ARF (acute renal failure) (Acute) Subjective: The patient was seen and examined at the bedside this morning. Events from the last 24 hours have been reviewed. The patient is currently afebrile, hemodynamically stable and maintaining appropriate oxygen saturations on 2 L/ min via nasal cannula. The patient refused to wear BiPAP overnight. She has done well clinically following transfer out of the intensive care unit yesterday. Objective: The patient's most recent lab work, culture data and imaging studies have all been personally reviewed. Blood cultures have shown no growth to date. Urine cultures show no growth to date. Strep and urine Legionella antigens were both negative. CTA chest completed yesterday revealed no evidence for pulmonary embolism. Lower extremity Dopplers were negative. - Physical Exam General: Alert, No apparent distress, Confused HEENT: Atraumatic, PERRLA, Normocephalic Oral: No Gingival or Mucosal Lesions/ Ulcerations Neck: Supple, No Nodes, Trachea Midline Lungs: No rhonchi, No wheeze, No rales, Diminished Cardiovascular: Regular rate, Regular Rhythm, Normal S1, Normal S2, No murmurs Abdomen: Bowel Sounds Present, Soft, Non Tender, Obese Extremities: No clubbing, No cyanosis, No edema Skin: No breakdown Musculoskeletal: No Muscle Wasting Lymphatic: No Cervical, Supraclavicular, or Inguinal Adenopathy Neurological: Neuro grossly intact Psych/Mental Status: Flat Affect Vital Signs Temp Pulse Resp BP Pulse Ox 98.0 F 99 18 163/94 H 96 11/26/17 05:19 11/26/17 07:44 11/26/17 07:36 11/26/17 06:20 11/26/17 07:36 Oxygen Flow Rate (L/min) 2 Oxygen Delivery Method Nasal Cannula Weight: 198 lb 6.656 oz Body Mass Index (BMI) 36.0 Finger Stick Blood Glucose 208 Intake and Output for Last 24 Hours 11/24/17 11/25/17 11/26/17 23:59 23:59 23:59 Intake Total 1375 / 1375 3731.4 / 3731.4 Output Total 1450 / 1450 1450 / 1450 Balance -75 / -75 2281.4 / 2281.4 Laboratory Tests Past 24 Hrs 11/25/17 11/26/17 11/26/17 05:59 05:50 05:50 WBC 10.3 RBC 3.80 L Hgb 10.5 L Hct 33.4 L MCV 87.9 MCH 27.6 MCHC 31.4 L RDW 14.6 RDW Differential 44.3 H Plt Count 166 MPV 10.7 Immature Gran % (Auto) 0.200 Neut % (Auto) 85.0 H Lymph % (Auto) 10.0 L [place] % (Auto) 4.7 Eos % (Auto) 0.0 Baso % (Auto) 0.1 Absolute Neuts (auto) 8.8 H Absolute Lymphs (auto) 1.03 Total Counted Not Reportable Sodium 146 H Potassium 3.5 Chloride 111 H Carbon Dioxide 29.0 Anion Gap 6 BUN 16 Creatinine 0.81 Estim Creat Clear Calc 63.78 Est GFR (MDRD) Af Amer 93 Est GFR (MDRD) Non-Af 77 BUN/Creatinine Ratio 19.8 Glucose 144 H Calcium 8.1 L Total Bilirubin 0.50 AST 19 ALT 7 L Alkaline Phosphatase 84 Total Protein 6.7 Albumin 3.2 Globulin 3.5 Albumin/Globulin Ratio 0.9 Free T4 0.82 POC Glucose 11/26/17 11/25/17 11/25/17 06:52 21:51 16:49 POC Glucose 160 H 168 H 204 H 11/25/17 10:49 POC Glucose 208 H Clinical Impression(s) from Imaging Studies Chest X-Ray 11/24/17 04:05 IMPRESSION: Degenerative changes, as described above. No demonstrated acute cardiopulmonary process. Electronically Signed: Shawn Null MD at 5:26 EDT Tel , Service support , Chest CTA 11/25/17 07:56 IMPRESSION: No evident pulmonary embolism or arterial dissection. No pathologic adenopathy. Minimal multifocal subsegmental atelectasis and mild multifocal pleural-parenchymal fibrosis. Electronically Signed: Prabhakar Swift MD at 9:37 EDT , Service support , Medical Necessity - Tobacco Use Smoking Status: Never smoker Tobacco Use: Non-smoker Assessment/Plan Active and Suspected Problems Shortness of breath (Acute) ARF (acute renal failure) (Acute) RECOMMENDATIONS: 1. Continue dose adjusted Elavil. Consider alternative to the patient's home Xanax therapy. 2. Continue dose adjusted Keppra and Lyrica. 3. Continue sliding scale insulin coverage 4. Encourage incentive spirometer use and mobilize patient as tolerated. IMPRESSIONS: 1. Acute hypoxemic and hypercarbic respiratory failure Likely multifactorial in etiology. Concerned that given the patient's renal insufficiency, that polypharmacy is likely contributing. She is on a number of sedating medications and an exceedingly high dose of Keppra, given her underlying renal dysfunction. Dose de-escalation of the patient's home medications occurred, based upon her current renal function. The patient was ruled out for a pulmonary infectious process along with venous thromboembolic disease. Antibiotics and heparin drip have been discontinued accordingly. Continue to wean supplemental oxygen to maintain saturations at or above 90%. Encourage incentive spirometer use and mobilize patient as tolerated. 2. Encephalopathy Improved. Likely multifactorial in etiology. Although underlying neuromuscular weakness and subsequent CO2 retention is a possibility, polypharmacy was likely the main contributing factor. Dose adjustments have occurred. Unclear why the patient is on home scheduled opiates. Continue dose adjusted Keppra and Lyrica. 3. Acute kidney injury Resolved. Potentially prerenal in etiology with superimposed medical renal disease contributing. Renal function appears to have improved with gentle IV fluid hydration. We will continue to monitor urine output accordingly. No indication for renal replacement therapy at this time. 4. Self-reported history of epilepsy/parkinsonism As above, dose adjustments were made to the patient's Keppra based upon renal function. The patient's Parkinson medications can be continued. 5. Obesity/depression/anxiety/neuropathy/diabetes/hypertension/hyperlipidemia Complicates care, management, recovery and prognosis. Advance diet and mobilize patient as tolerated. This note was generated with Lema21 dictation software. It may contain incorrect words, spelling, and punctuation that were not noted in checking the note before signing. DISPOSITION: Given the lack of ongoing ICU needs, will sign off. Please call with any additional questions. Code Visit Inpatient E&M: 64458 Subs Hosp L2
[2017-11-26] MEDS: Pregabalin 75 MG Capsule PO (09:52)
[2017-11-26] MEDS: levETIRAcetam 500 MG Tablet PO (09:52)
[2017-11-26] MEDS: Sertraline 100 MG Tablet 150 MG PO (09:52)
--- NOTE | 2017-11-26 11:47 | DCINST_ITS ---
- Discharge Diagnoses Current Active Problems: Current Active and Chronic Problems (1) Acute Encephalopathy secondary to Acute Hypoxic and Hypercarbic Respiratory Failure, Multifactorial, Suspected Primarily Polypharmacy in the setting of VASU (2) Acute kidney injury, Multifactorial, secondary to acute presentation, dehydration, nephrotoxic medications (3) History of Polysubstance Abuse, Suspected Acute Polypharmacy complicated by VASU (4) Seizure disorder (5) Diabetes mellitus type II (6) Chronic Normocytic Anemia (7) Parkinson's Disease, Myoclonic Jerking (8) Anxiety and Depression (9) Hyperlipidemia (10) Chronic Back Pain You will use the following diet at home:: Calorie/Carbohydrate Controlled ( specify 1200, 1400, etc) - 1800 ADA diet and cardiac diet encouraged. Your food should be the consistency of: Regular Your liquids should be the consistency of: Regular/Thin Discharge Activity: - - Continue to use assistive devices in place at home. May resume sexual activity in: 10-14 days Weight Bearing Status: Weight bearing as tolerated Call your doctor if you observe: Fever of 101 or Higher, Inability to urinate, Inability to have a bowel movement, Shortness of breath, Dizziness, Fainting spells, Chest pain, Uncontrolled pain Instructions: Discharge Instructions for Acute Kidney Injury, Traveling with Oxygen, Using Oxygen Safely, Using Oxygen at Home Additional Instructions: Please follow-up with your primary care physician to review admission and medication changes made during admission and upon discharge secondary to your presentation with acute respiratory failure suspected secondary to several sedation medications in the setting of acute kidney injury. Please have repeat basic metabolic panel with your primary care physician. Allergies/Adverse Reactions: Allergies Penicillins Allergy (Verified 11/24/17 04:09) goofy morphine Adverse Reaction (Verified 11/24/17 04:09) Unknown naproxen Adverse Reaction (Verified 11/24/17 04:09) Unknown omeprazole [From Prilosec] Adverse Reaction (Verified 11/24/17 04:09) Unknown omeprazole magnesium [From Prilosec] Adverse Reaction (Verified 11/24/17 04:09) Unknown Medications to take at Discharge Alprazolam 0.25 mg PO TID PRN PRN 01/21/14 Sertraline HCl [Zoloft] 150 mg PO DAILY 01/21/14 Carbidopa/Levodopa 50 mg PO 4X/DAY 01/22/14 Metformin HCl [Glucophage] 500 mg PO BIDCM 02/28/15 Orphenadrine Citrate 100 mg PO BID PRN 02/28/15 Lisinopril [Zestril] 10 mg PO DAILY #30 tablet 03/15/15 Hydrocodon-Acetaminophn 10-325 1 tab PO Q6H PRN 02/02/16 Amitriptyline HCl 75 mg PO QHS 11/24/17 Atorvastatin Calcium 40 mg PO QHS 11/24/17 Donepezil HCl 10 mg PO QHS 11/24/17 Glimepiride [Amaryl] 4 mg PO DAILY 11/24/17 Pregabalin [Lyrica] 75 mg PO BID #60 capsule 11/26/17 levETIRAcetam tablet [Keppra tablet] 500 mg PO BID #60 tab 11/26/17 The following prescriptions were given: levETIRAcetam tablet [Keppra tablet] 500 mg PO BID #60 tab Pregabalin [Lyrica] 75 mg PO BID #60 capsule Primary Care Physician: Zhang Shields MD [Primary Care Provider] - Please follow up with your Primary Care Physician in: Follow-up within 3-5 days to review admit and medication changes. Proposed Discharge Date: 11/26/17
--- NOTE | 2017-11-26 11:48 | DS.PCM_ITS ---
Discharge Date and Diagnosis - Problem List Patient Problems: Active and Suspected Problems Shortness of breath (Acute) ARF (acute renal failure) (Acute) Date of Admission: 11/24/17 Date of Discharge: 11/26/17 - Primary Discharge Diagnosis Active and Suspected Problems (1) Acute Encephalopathy secondary to Acute Hypoxic and Hypercarbic Respiratory Failure, Multifactorial, Suspected Primarily Polypharmacy in the setting of VASU (2) Acute kidney injury, Multifactorial, secondary to acute presentation, dehydration, nephrotoxic medications (3) History of Polysubstance Abuse, Suspected Acute Polypharmacy complicated by VASU (4) Seizure disorder (5) Diabetes mellitus type II (6) Chronic Normocytic Anemia (7) Parkinson's Disease, Myoclonic Jerking (8) Anxiety and Depression (9) Hyperlipidemia (10) Chronic Back Pain (11) Pneumonia RULED OUT - Secondary Discharge Diagnosis Chronic Problems History of drug abuse (Chronic) Epilepsy (Chronic) Hypertension (Chronic) Parkinsons disease (Chronic) Anxiety (Chronic) Depression (Chronic) Spinal stenosis (Chronic) Hospital Course and Treatment Dr. Pickard ICU Operations: None Procedures: EKG, - - BIPAP placement. Summary of Care Provided: The patient is a 62 y/o F w/ PMHx: Diabetes mellitus type II, Parkinson's Disease, Epilepsy, Anxiety and Depression, Chronic back pain w/ spinal stenosis hx, History of Polysubstance abuse who presented to the [facility] ED on 11/24/17 early am with onset dyspnea at approximately noon the day prior which progressively worsened, increased fatigue and global weakness w/ increased myoclonic jerking above baseline. ED presentation w/ unclear etiology for acute respiratory failure initially w/ ABG w/ hypercapnic and hypoxia, tachycardic, CXR without marked findings, maintained on BIPAP in the ICU initially, Dr. Pickard consulted and followed with concern for possible PE as etiology for respiratory status w / negative BL LE DVT US; however, following renal fx improvement, CTPA obtained and no evidence of PNA or PE thus heparin drip started pending acute PE work-up was discontinued and she was transitioned to SC regimen for chemoprophylaxis only. During admission UDS w/ + opiates w/ history of drug abuse with OARRS report w/ notable BZD/narcotic intake in addition to other sedative medications , thus suspected most likely polypharmacy as etiology. She was initially treated for possible PNA with IV Rocephin and Azithromycin; however, following CTPA these were discontinued. Patient mental status improved with renal dosing of her home medication regimen and hold on sedative regimen. Once she clinically improved she was transferred to PCU 11/25/17. Upon admission she was noted to have VASU, felt multifactorial, secondary to acute presentation, dehydration, nephrotoxic medications, possible accident polypharmacy OD w/ admission BUN/Cr 40/2.63, prior baseline creatinine noted to be 1.39 (02/02/16), hydrated overnight, 11/25/17 BUN/Cr 27/1.17-->11/26/17 BUN/Cr 16/0.81. Given resolution, patient medications re-adjusted however upon discharge her keppra dose was maintained at 500 mg BID, her lyrica dose was also aggressively adjusted and strong recommendation for BZD wean per primary care physician with consideration alternative non-sedation or addictive regimen. Patient evaluation per PT, OT and CM with home health services set-up upon discharge. Prior to discharge given continued usage oxygen supplementation, oxygenation testing was performed with noted 92% oxygenation at rest, 86% oxygenation with ambulation and improvement to 94% oxygenation with ambulation with 2 L nasal cannula supplementation. Therefore patient was set up for home oxygen upon discharge. Patient was discharged to home in improved condition with strong medication alterations and interventions encouraged including benzodiazepine taper per primary care direction. DAY OF DISCHARGE PROGRESS NOTE: Subjective: Patient without acute event overnight per self and nursing report. She notes feeling improved with less dyspnea but still remarkably weak although she is severely weak baseline given severe comorbidities. Patient denies fever, chills, nausea, emesis, abdominal pain, chest pain or dyspnea. Patient agreeable to discharge to home with eventual agreement for home health and therapies. Patient will be discharged with follow-up with primary care physician within 3-5 days. Upon discharge did discuss notable regimen changes secondary to suspected polypharmacy as etiology for acute presentation. Objective: 97.8, heart rate 89, BP 148/89, respiratory rate 16, 93% on 2 L nasal cannula, oxygenation testing was performed with noted 92% oxygenation at rest, 86% oxygenation with ambulation and improvement to 94% oxygenation with ambulation with 2 L nasal cannula supplementation Physical Examination: General: awake, alert, oriented x 3, status remains improved, notably fatigued appearing, recent walk with therapies, seated upright in bedside chair. Skin: normal color, turgor, no icterus, cyanosis. HEENT: AT/NC, EOMI, PERRLA, improved MMM, decreased noted mild facial lid edema prior. Lungs: Diminished BS BL, > bases, improved effort, on NC, no rales, ronchi or wheezing. Heart: Regular rate and rhythm; no gallop, rub audible. Abdomen: soft, obese, NTTP, ND, normal BS. Extremities: no cyanosis, clubbing, mild extremity distal edema. Neurological: patient awake, alert, oriented as noted; cognitive function appears more intact, moderately odd behavior, likely baseline; pupils equally reactive to light and accomodation; cranial nerves II-XII grossly normal, moving all 4 extremities but remains moderately to severely globally decreased, tremors noted. Psychiatric: affect appears flat, fatigued, no acute evidence of depressive or anxiety feelings. Assessment and Plan: Please see hospital summary above. Discharge Activity: - - Continue to use assistive devices in place at home. May resume sexual activity in: 10-14 days Weight Bearing Status: Weight bearing as tolerated Call your doctor if you observe: Fever of 101 or Higher, Inability to urinate, Inability to have a bowel movement, Shortness of breath, Dizziness, Fainting spells, Chest pain, Uncontrolled pain Home Medications: Medications to take at Discharge Alprazolam 0.25 mg PO TID PRN PRN 01/21/14 Sertraline HCl [Zoloft] 150 mg PO DAILY 01/21/14 Metformin HCl [Glucophage] 500 mg PO BIDCM 02/28/15 Lisinopril [Zestril] 10 mg PO DAILY #30 tablet 03/15/15 Amitriptyline HCl 75 mg PO QHS 11/24/17 Atorvastatin Calcium 40 mg PO QHS 11/24/17 Donepezil HCl 10 mg PO QHS 11/24/17 Glimepiride [Amaryl] 4 mg PO BREAKFAST 11/24/17 Carbidopa/Levodopa 25/100 [Sinemet 25/100] 2 tablet PO ACHS 11/26/17 Hydrocodone/Acetaminophen [Hydrocodone-Acetamin 10-325 mg] 1 tablet PO Q6H PRN PRN 11/26/17 Orphenadrine Citrate 100 mg PO BID 11/26/17 Pregabalin [Lyrica] 75 mg PO BID #60 capsule 11/26/17 levETIRAcetam tablet [Keppra tablet] 500 mg PO BID #60 tab 11/26/17 Following Prescrptions Were Given to Patient: levETIRAcetam tablet [Keppra tablet] 500 mg PO BID #60 tab Pregabalin [Lyrica] 75 mg PO BID #60 capsule Primary Care Physician: Zhang Shields MD [Primary Care Provider] - Please follow up with your Primary Care Physician in: Follow-up within 3-5 days to review admit and medication changes. Patient Instructions: Traveling with Oxygen, Using Oxygen Safely, Using Oxygen at Home, Discharge Instructions for Acute Kidney Injury Disposition: Home with Home Health Minutes spent on discharge:: 35 Patient Condition:: Fair Medical Necessity - Tobacco Use Smoking Status: Never smoker Tobacco Use: Non-smoker Meaningful Use Info Meaningful Use Diagnoses (Choose all that apply): None applicable Code Visit Inpatient E&M: 52730 Disch Hosp
[2017-11-26 12:31] LABS: Bedside Glucose 214 mg/dL (70-110)
--- NOTE | 2017-11-26 13:14 | CASEMGMT ---
Addendum entered by Evelia Khan 11/26/17 14:19: F2F faxed to [facility] and call placed to Rj at [facility] and states airport driver should be on the way. Jason DUNAWAY CM Original Note: Per Herlinda DUNAWAY, pt qualifies for home oxygen at this time and therapy notes are recommending rehab for pt at this time. This RN CM to room to speak with pt regarding both at this time. Pt declines SNF placement at this time but agrees to [facility]. Pt asks this RN CM to call her for [facility] for oxygen. Call placed to and he agrees with [facility] for physical therapy but declines RN at this time. requests [facility] for home oxygen at this time. Referral faxed to [facility] at this time. F2F to be faxed when obtained. Call will be placed to [facility] to verify fax received. Jason DUNAWAY CM
--- NOTE | 2017-11-26 14:55 | NURSING ---
[facility] phoned and cancelled RX for rae and abner
== END 2017-11-26 15:45 | disposition home health service (06) | DRG 189 ==
LOC: ED 04:51 → PCU 06:26 → ICU 07:41 → PCU 11-25 11:49
PROVIDERS: Internal Medicine Critical Care Medicine; Admitting Provider Family Medicine; Emergency Provider Emergency Medicine; Family Provider Family Medicine; PCP Family Medicine; Visit Provider Family Medicine
DX: J96.01 Acute respiratory failure with hypoxia (principal); G93.41 Metabolic encephalopathy; N17.9 Acute kidney failure, unspecified; J96.02 Acute respiratory failure with hypercapnia; G20 Parkinson's disease; G40.909 Epilepsy, unspecified, not intractable, without status epilepticus; E11.40 Type 2 diabetes mellitus with diabetic neuropathy, unspecified; I10 Essential (primary) hypertension; E11.9 Type 2 diabetes mellitus without complications; E86.0 Dehydration; E78.5 Hyperlipidemia, unspecified; M54.9 Dorsalgia, unspecified; G89.29 Other chronic pain; T50.901A Poisoning by unspecified drugs, medicaments and biological substances, accidental (unintentional), initial encounter; Y92.9 Unspecified place or not applicable; F32.9 Major depressive disorder, single episode, unspecified; F41.9 Anxiety disorder, unspecified; F19.11 Other psychoactive substance abuse, in remission; E66.9 Obesity, unspecified; Z68.36 Body mass index [BMI] 36.0-36.9, adult; Z79.84 Long term (current) use of oral hypoglycemic drugs; Z79.899 Other long term (current) drug therapy
CPT/HCPCS: 36415; 36600; 71045; 71275; 80048; 80053; 80307; 81001; 82570; 82803; 82962; 83605; 83735; 84100; 84300; 84439; 84443; 85025; 85027; 85610; 85730; 87040; 87086; 87449; 87641; 93005; 93970; 94002; 94003; 94640; 97116; 97162; 97166; 97530; 97803; 99285; J7030; Q9967; A4216

== ENCOUNTER 2019-04-04 16:26 | Emergency (ER) | payer MEDICARE, SELFPAY ==
[2019-04-04 16:27] VITALS: BP 128/86; PULSE 109; RESP 18; TEMP 36.2; O2SAT 90; BMI 30.9
--- NOTE | 2019-04-04 16:39 | RAD_ITS ---
STUDY: X-RAY - PELVIS AND RIGHT HIP REASON FOR EXAM: Female, 64 years old. Fall TECHNIQUE: 3 views of the pelvis and hip. COMPARISON: None. FINDINGS: There is a non-specific bowel gas pattern. Normal visualized soft tissue structures. Normal bilateral iliac wings, sacroiliac joints and visualized sacrum. Normal bilateral superior and inferior pubic rami. Normal pubic symphysis. Normal bilateral ischial tuberosities. Normal visualized femoral head. Normal acetabulum. There is mild articular joint space narrowing of the hip. RAD/HIP, UNI W/ Pelvis 2-3 Views IMPRESSION: No fracture or dislocation in the pelvis or right hip. Mild degenerative changes in the right hip. Electronically Signed: Dylan Owens, at 17:38 EDT Tel , Service support ,
--- NOTE | 2019-04-04 16:39 | RAD_ITS ---
STUDY: X-RAY - RIGHT KNEE REASON FOR EXAM: Female, 64 years old. Fall TECHNIQUE: 4 view(s) of the knee. COMPARISON: 03/13/2015. FINDINGS: There is a stable old, healed fracture of the right proximal fibula. There is no acute fracture or dislocation. There are stable postoperative changes from right knee arthroplasty with intact hardware in satisfactory alignment. There are no radiodense foreign bodies. RAD/Knee 4 or More Views IMPRESSION: Stable postoperative changes from right knee arthroplasty with intact hardware in satisfactory alignment. No acute fracture or dislocation. Stable old, healed fracture of the right proximal fibula. Electronically Signed: Dylan Owens, at 17:40 EDT Tel , Service support ,
--- NOTE | 2019-04-04 16:40 | RAD_ITS ---
STUDY: X-RAY - RIGHT FOOT CLINICAL: Female, 64 years old. Fall. Pain. TECHNIQUE: 3 view(s) of the foot. COMPARISON: None. FINDINGS: There is no evidence of fracture or dislocation. There are mild degenerative changes in the midfoot. There is a plantar calcaneal spur noted. There are no radiodense foreign bodies. RAD/Foot min 3 Views IMPRESSION: No fracture or dislocation in the right foot. Mild degenerative changes. Plantar calcaneal spur. Electronically Signed: Dylan Owens, at 17:36 EDT Tel , Service support ,
--- NOTE | 2019-04-04 16:40 | ED.DCSUM_ITS ---
History of Present Illness Chief Complaint: Lower Extremity Injury Detail of Chief Complaint: fall Informant: Patient Onset: Today Current Severity: Mild Maximum Severity: Moderate Narrative: Patient presents after a fall. She states that she put something down on the kitchen table, turned to get something else in her right leg gave out on her. She injured her right ankle and right hip. She has had a right knee replaced in the past. She denies striking her head or loss of consciousness. She has not yet taken anything for pain. Past Medical History - Allergies and Home Meds Allergies/Adverse Reactions: Allergies Penicillins Allergy (Verified 04/04/19 16:29) goofy morphine Adverse Reaction (Verified 04/04/19 16:29) Unknown naproxen Adverse Reaction (Verified 04/04/19 16:29) Unknown omeprazole [From Prilosec] Adverse Reaction (Verified 04/04/19 16:29) Unknown omeprazole magnesium [From Prilosec] Adverse Reaction (Verified 04/04/19 16:29) Unknown Primary Care Physician: Zhang Shields MD [Primary Care Provider] - Prior records reviewed: Yes Past Medical History: - - Reviewed Surgical History: cholecystectomy, tonsillectomy, - - Tubal ligation Lives: Spouse/ Significant Other - Family History Maternal Family History: Reports: No pertinent history Paternal Family History: Reports: No pertinent history Review of Systems General: Denies: Chills, Fever Eyes: Denies: Visual changes - bilaterally ENT: Denies: Bilateral ear pain Cardiovascular: Denies: Chest pain Respiratory: Denies: Dyspnea, Cough Gastrointestinal: Denies: Abdominal pain, Nausea, Vomiting, Diarrhea Genitourinary: Denies: Dysuria Musculoskeletal: Reports: Extremity Pain. Denies: Back pain Skin: Denies: Abrasions Neurological: Denies: Headache Hematologic: Denies: Easy bruising Allergy: Denies: Uticaria Physical Exam Vital Signs/Narrative: Vital Signs Temp Pulse Resp BP Pulse Ox 04/04/19 16:27 97.1 F L 109 H 18 128/86 H 90 Inital Vital Signs reviewed: Yes General: Well nourished, Well developed Head: Normocephalic ENT: Moist mucous membranes Neck: Supple - No C-spine tenderness. Cardiovascular: Regular rate, Regular rhythm Respiratory: No distress, CTA bilaterally Abdomen: Soft, Nontender Back: Nontender Extremities: - - Patient has mild tenderness to the anterior right hip. No focal tenderness of the right knee with old surgical scar noted. She has edema and ecchymosis to the right ankle, worse along the lateral aspect. She does have tenderness over the calcaneus. She has normal cap refill distally and can wiggle toes. She has normal sensation. Neurological: Alert, Oriented x3 Psychological: Normal affect Diagnostic/Tx/Re-eval Impressions Hip/Pelvis X-Ray 04/04/19 16:39 IMPRESSION: No fracture or dislocation in the pelvis or right hip. Mild degenerative changes in the right hip. Electronically Signed: Dylan Owens, at 17:38 EDT Tel , Service support , Knee X-Ray 04/04/19 16:39 IMPRESSION: Stable postoperative changes from right knee arthroplasty with intact hardware in satisfactory alignment. No acute fracture or dislocation. Stable old, healed fracture of the right proximal fibula. Electronically Signed: Dylan Owens, at 17:40 EDT Tel , Service support , Foot X-Ray 04/04/19 16:40 IMPRESSION: No fracture or dislocation in the right foot. Mild degenerative changes. Plantar calcaneal spur. Electronically Signed: Dylan Owens, at 17:36 EDT Tel , Service support , Ankle X-Ray 04/04/19 17:00 IMPRESSION: No fracture or dislocation in the right ankle. Soft tissue swelling laterally. Electronically Signed: Dylan Owens, at 17:40 EDT Tel , Service support , 04/04/19 16:39 HIP, UNI W/ Pelvis 2-3 Views [RAD] Stat Knee 4 or More Views [RAD] Stat 04/04/19 16:40 Foot min 3 Views [RAD] Stat 04/04/19 17:00 Ankle min 3 Views [RAD] Stat - Medical Decision Making Patient was given 1 tab of Lamont for pain. Test results are discussed with patient and at bedside. She will be given an air splint for her ankle. She already has crutches, walker, and wheelchair at home to use. ED Disposition - Plan for ED Patient: Disposition: Home or Assisted Living Diagnosis: Ankle sprain Instructions: Sprain, Ankle, with X-Ray Referrals: Zhang Shields MD [Primary Care Provider] - 1 Week if not improving
[2019-04-04] MEDS: HYDROcodone Bitartrate/Apap 5/325 Tablet PO (16:48)
--- NOTE | 2019-04-04 17:00 | RAD_ITS ---
STUDY: X-RAY - RIGHT ANKLE REASON FOR EXAM: Female, 64 years old. Fall TECHNIQUE: 3 view(s) of the ankle. COMPARISON: None. FINDINGS: There is no evidence of fracture or dislocation. There is soft tissue swelling noted at the lateral aspect of the right ankle. There are no radiodense foreign bodies. RAD/Ankle min 3 Views IMPRESSION: No fracture or dislocation in the right ankle. Soft tissue swelling laterally. Electronically Signed: Dylan Owens, at 17:40 EDT Tel , Service support ,
[2019-04-04 18:07] VITALS: BP 138/85; PULSE 94; RESP 16
--- NOTE | 2019-04-04 18:08 | ED.RN ---
DISCHARGE INSTRUCTIONS GIVEN TO AND REVIEWED WITH PATIENT, PATIENT DENIES QUESTIONS OR CONCERNS AND VOICES UNDERSTANDING OF DISCHARGE INSTRUCTIONS. PT TO PRIVATE VEHICLE VIA WHEELCHAIR.
== END 2019-04-04 18:08 | disposition home or self-care (01) ==
PROVIDERS: Emergency Provider Emergency Medicine; Family Provider Family Medicine; PCP Family Medicine
DX: S93.401A Sprain of unspecified ligament of right ankle, initial encounter (principal); S79.911A Unspecified injury of right hip, initial encounter; W19.XXXA Unspecified fall, initial encounter; Y93.9 Activity, unspecified; Y92.000 Kitchen of unspecified non-institutional (private) residence as the place of occurrence of the external cause; Y99.9 Unspecified external cause status; Z79.899 Other long term (current) drug therapy; Z88.0 Allergy status to penicillin; Z88.6 Allergy status to analgesic agent; Z96.651 Presence of right artificial knee joint; Z90.49 Acquired absence of other specified parts of digestive tract
CPT/HCPCS: 73502; 73564; 73610; 73630; 99283

== ENCOUNTER 2019-04-16 13:06 | Observation (INO) | payer MEDICARE, SELFPAY ==
[2019-04-16] VITALS (9 sets, daily range): BP systolic 82–104; BP diastolic 52–67; PULSE 85–150; RESP 12–20; TEMP 36.2–36.7; O2SAT 89–97; BMI 31.0; BMI 31.5
--- NOTE | 2019-04-16 13:24 | EKG12_ITS ---
Test Reason : HYPOTENSION Blood Pressure : / mmHG Vent. Rate : 097 BPM Atrial Rate : 097 BPM P-R Int : 180 ms QRS Dur : 096 ms QT Int : 354 ms P-R-T Axes : 047 054 049 degrees QTc Int : 449 ms Normal sinus rhythm Normal ECG Confirmed by KELLI ROMERO, CARLOS ([id number]), assignment desk editor SORAYA SHERIFF ([id number]) on 04/19/2019 11:51:06 AM Referred By: Ozzy Polanco Confirmed By:FRENCH PEREIRA MD
--- NOTE | 2019-04-16 13:27 | ED.DCSUM_ITS ---
- ER Visit Summary Date of Service: 04/16/19 Chief Complaint: Dizziness, low blood pressure History of Present Illness: The patient is a 64 F presenting with dizziness and low blood pressure. Patient states that she was not feeling well over the past couple days. Today she felt dizzy and noted that her blood pressure was running low on her home blood pressure cuff. It read 88/66. She called her family doctor and was advised to come to the ED. She denies chest pain or shortness of breath. Denies fever. She has a cough which is chronic and no worse than usual. She has diarrhea which is chronic and no worse than usual. Denies blood in her stool. She has chronic pain in her back. Denies new symptoms. She states she did fall today but did not hit her head or lose consciousness. She injured her ankle on April 04 and has had pain in her ankle since. She states she has not been moving around as much due to the pain in her ankle. She had this evaluated on April 04 and x-rays were negative. Physical Examination: Vitals are stable. Initial blood pressure 87/58, heart rate 150. patient is afebrile. Alert no acute distress. HEENT exam is unremarkable. Neck is supple. Lungs are clear and equal bilaterally. Heart is regular and tachycardic Abdomen is soft nontender nondistended. Extremities diffuse right ankle tenderness with ecchymosis. Normal pulse. Skin is warm and dry. No focal neurologic deficit. Remainder of exam is unremarkable. Emergency Department Course and Treatment: Patient was given IV fluids. CBC shows white count 13.2. Chemistries show sodium 134, glucose 215, BUN 21, creatinine 2.11. Troponin is negative. Lactic acid 2.9. Urinalysis shows 0-5 white blood cells. She was given additional IV fluids. EKG is sinus rhythm rate of 97 with no acute ischemic changes. Venous Doppler is not available. Chest x-ray shows no acute process. Right ankle x-ray shows no acute process. Right foot x-ray shows bony osteopenia cannot entirely exclude age indeterminant nondisplaced fracture of the proximal fifth metatarsal versus artifact. Recommend palpation for point tenderness. There is no point tenderness in this area. Discussed with Dr. Polanco for admission. Disposition: Admission Impression: VASU, hypotension This note was generated with [employer] dictation software. It may contain incorrect words, spelling, and punctuation that were not noted in review of the chart prior to signing ED Disposition - Plan for ED Patient: Referrals: Zhang Shields MD [Primary Care Provider] -
--- NOTE | 2019-04-16 13:30 | RAD_ITS ---
STUDY: X-RAY CHEST REASON FOR EXAM: Female, 64 years old. Cough TECHNIQUE: Frontal view of the chest was performed COMPARISON: 25 November 2017 FINDINGS: Lungs are clear. There is no pneumothorax, pulmonary edema, pleural effusions or cardiomegaly. Osseous structures are intact. There is no gas under the diaphragms. [ ] RAD/Chest 1 View (Portable) IMPRESSION: 1. No acute cardiorespiratory disease. [ ] Electronically Signed: Norris Murray, at 14:02 EDT Tel , Service support ,
--- NOTE | 2019-04-16 13:40 | RAD_ITS ---
STUDY: X-RAY - RIGHT TIBIA AND FIBULA REASON FOR EXAM: Female, 64 years old. Fall bruising TECHNIQUE: 3 view(s) of the tibia and fibula were obtained. COMPARISON: None. FINDINGS: There is a visualized right knee arthroplasty. There is a healed fracture of the right proximal fibula. There is soft tissue edema about the ankle. There is a punctate calcification adjacent to the fibula which may represent an old injury. There is age indeterminant partial visualization of irregularity of the distal posterior tibia which raises concern for the possibility of periosteal reaction. RAD/Tibia & Fibula 2 Views IMPRESSION: Question age indeterminant injury or periosteal reaction involving the posterior aspect of the distal tibia. Old injury of the distal fibula Soft tissue edema. Old fracture of the proximal fibula. Right knee arthroplasty. Electronically Signed: Jami Tatum MD at 17:03 EDT Tel , Service support ,
--- NOTE | 2019-04-16 13:40 | RAD_ITS ---
STUDY: X-RAY - RIGHT ANKLE REASON FOR EXAM: Female, 64 years old. Trauma TECHNIQUE: 3 view(s) of the ankle. COMPARISON: None. FINDINGS: Normal visualized distal tibia and fibula. Normal medial and lateral malleoli. Normal tibiotalar articulation and ankle mortise. Normal visualized talus and calcaneus. The visualized subtalar, talonavicular, calcaneocuboid and tarsal articulations are normal. There is lateral soft tissue swelling. RAD/Ankle min 3 Views IMPRESSION: No acute osseous injury. Lateral soft tissue injury. Electronically Signed: Norris Murray, at 14:32 EDT Tel , Service support ,
--- NOTE | 2019-04-16 13:40 | RAD_ITS ---
STUDY: X-RAY - RIGHT FOOT CLINICAL: Female, 64 years old. Parkinson's, fall TECHNIQUE: 3 view(s) of the foot. COMPARISON: 2018 FINDINGS: There is a plantar calcaneal spur. Normal visualized subtalar, talonavicular, calcaneocuboid, tarsal and tarsometatarsal articulations. There is demineralization of the metatarsi. There is a slight suggestion of cortical irregularity of the proximal fifth metatarsal on the lateral view not seen on prior study. There is a os navicularis. Findings appear similar to the prior study. There is lesser superficial soft tissue edema in prior study. There is minimal degenerative arthrosis of the metatarsophalangeal joint of the hallux . Normal tibial and fibular sesamoid bones. Normal interphalangeal joint of the great toe. Normal phalanges of the great toe. Normal second through fifth metatarsophalangeal joints. Normal interphalangeal joints and phalanges of the lesser toes. RAD/Foot min 3 Views IMPRESSION: Bony osteopenia cannot entirely exclude age indeterminant nondisplaced fracture of the proximal fifth metatarsal versus artifact. Recommend palpation for point tenderness. Bony osteopenia. Plantar spur. Electronically Signed: Jami Tatum MD at 15:14 EDT Tel , Service support ,
[2019-04-16 14:18] LABS: Absolute Neutrophil Count 9.2 X10^3/uL (2.0-7.7); Basophil# 0.07 X10^3/uL; Basophil% 0.5 % (0-1); Eosinophil# 0.09 X10^3/uL; Eosinophils% 0.7 % (0-5); Hematocrit 39.8 % (37-47); Hemoglobin 12.5 g/dL (12.0-15.0); Lymphocyte % 22.8 % (19-41); Mean Corp Hgb Conc 31.4 g/dL (32-36); Mean Corpuscular Hgb 27.8 pg (27.0-32.0); Mean Corpuscular Volume 88.6 fL (81-99); Mean Platelet Vol. 10.2 fl (6.2-12.0); Monocyte# 0.81 X10^3/uL; Monocyte% 6.2 % (0-10); NRBC Flagged by Analyzer 0 % (0-5); Neutrophil # 9.15 X10^3/uL (2.7-7.7); Neutrophil % 69.5 % (47-70); Platelet Count 213 K/mm3 (150-450); RBC Distribution Width CV 14.4 % (11.6-14.6); RBC Distribution Width SD 45.8 fl (35.1-43.9); Red Blood Count 4.49 M/mm3 (4.2-5.4); White Blood Count 13.2 K/mm3 (4.4-11.0)
[2019-04-16] MEDS: 0.9% Normal Saline 1,000 ML 1000 ML IV (14:24)
[2019-04-16 14:35] LABS: Anion Gap 7 (5-15); BUN 21 mg/dL (7-18); Calcium,Total 8.6 mg/dL (8.5-10.1); Chloride 97 mmol/L (98-107); Creatinine, Serum 2.11 mg/dL (0.55-1.02); EST Glomerular Filtration Rate 25 mL/min (>60); Est Glom Filt Rate - Afr Amer 31 mL/min (>60); Estimated Creatinine Clearance 23.87 ml/min; Glucose 215 mg/dL (74-106); Potassium 3.6 mmol/L (3.5-5.1); Sodium Level 134 mmol/L (136-145)
[2019-04-16 14:45] LABS: Lactic Acid 2.9 mmol/L (0.4-2.0)
[2019-04-16 14:48] LABS: Red Blood Cells-Urine 0 SEEN /hpf (0-5)
[2019-04-16 14:50] LABS: Color, Urine Yellow (Yellow); Glucose, Dipstick Normal (Normal); Ketone-Dipstick 15 mg/dl (Negative); Leukocyte Esterase-Dipstick 25 /ul (Negative); Nitrite-Dipstick Negative (Negative); Occult Blood-Urine Negative /ul (Negative); Protein-Dipstick 30 mg/dl (Negative); Urine Clarity Sl. Cloudy (Clear); Urine Urobilinogen Normal (Normal)
[2019-04-16 14:52] LABS: Urine Bilirubin Dipstick 1 mg/dL (Negative)
[2019-04-16 14:57] LABS: Bacteria 1+ /hpf (None Seen); Hyaline Cast 5-10 SEEN /lpf (0-5); Mucous, Urine RARE /hpf (<or=2+); Squamous Epithelial Cells - UA 0-5 SEEN /hpf (5-10); White Blood Cells 0-5 SEEN /hpf (0-5)
--- NOTE | 2019-04-16 15:46 | NURSING ---
PCU HYPOTENSION, NEAR SYNCOPE MICKIE
--- NOTE | 2019-04-16 15:59 | PCM.HP.STD ---
Problem List (1) Hypotension Status: Acute (2) Near syncope Status: Acute (3) Shortness of breath Status: Acute (4) ARF (acute renal failure) Status: Acute Qualifiers: (5) History of drug abuse Status: Chronic (6) Epilepsy Status: Chronic (7) Hypertension Status: Chronic (8) Parkinsons disease Status: Chronic (9) Anxiety Status: Chronic (10) Depression Status: Chronic (11) Dehydration Status: Acute (12) Spinal stenosis Status: Chronic History of Present Illness Date of Admission: 04/16/19 Chief Complaint: Hypotension and near syncope The patient is a 64 year old F with multiple comorbidities as listed above including Parkinson disease, epilepsy, polysubstance use and multiple neurological medications came to ER with dizziness, and hypotension. Patient has not been feeling good and having diarrhea for about 5-10, large-volume for last 2 to 3 days. The patient has history of chronic diarrhea since young days and he states for about 4 to 5 days to for 1 week, diagnosis unclear but possible IBS?D type. Patient denies fever, flulike symptoms, chest pain, shortness of breath, abdominal pain, lower urinary tract symptoms. Patient fell down on floor at her home on April 04 and at that time x-rays were done and were negative. She has pain all around the ankle mainly on lateral malleolus and has bruise around it. Since then she has been mostly sedentary on wheelchair or on bed. Venous Doppler ordered in ER. EKG shows normal sinus rhythm at 97 bpm. QTc 449 ms. No significant change from previous EKG of November 2017. She was admitted in November, for acute encephalopathy and acute kidney injury. [] Past Medical History Past Medical History (Chronic Problems): Chronic Problems History of drug abuse (Chronic) Epilepsy (Chronic) Hypertension (Chronic) Parkinsons disease (Chronic) Anxiety (Chronic) Depression (Chronic) Spinal stenosis (Chronic) Allergies Penicillins Allergy (Verified 04/16/19 13:07) goofy morphine Adverse Reaction (Verified 04/16/19 13:07) Unknown naproxen Adverse Reaction (Verified 04/16/19 13:07) Unknown omeprazole [From Prilosec] Adverse Reaction (Verified 04/16/19 13:07) Unknown omeprazole magnesium [From Prilosec] Adverse Reaction (Verified 04/16/19 13:07) Unknown Home Medications: Ambulatory Orders Medication Instructions Recorded ALPRAZolam [Xanax] 0.25 mg PO BID 04/04/19 Amitriptyline HCl 2 tab PO QHS 04/04/19 Atorvastatin Calcium [Lipitor] 40 mg PO QHS 04/04/19 Benzonatate [Tessalon Perle] 100 mg PO TID PRN PRN 04/04/19 Carbidopa/Levodopa [Carbidopa-Levo 3 tab PO 4X/DAY 04/04/19 ER 25-100 Tab] Donepezil HCl [Aricept] 10 mg PO QHS 04/04/19 Dulaglutide [Trulicity] 1.5 mg SQ QWEEK 04/04/19 Glimepiride [Amaryl] 4 mg PO DAILY 04/04/19 Hydrocodone/Acetaminophen [[place] 1 ea PO Q6H PRN 04/04/19 10-325 Tablet] Levetiracetam [Keppra] 1,000 mg PO BID 04/04/19 Lisinopril [Zestril] 10 mg PO DAILY 04/04/19 Orphenadrine [Norflex ER] 100 mg PO BID 04/04/19 Potassium 99 mg PO DAILY 04/04/19 Pregabalin [Lyrica] 150 mg PO TID 04/04/19 Zolpidem Tartrate [Ambien Cr] 12.5 mg PO QHS PRN PRN 04/04/19 Surgical History: cholecystectomy, tonsillectomy, - - Tubal ligation Psychiatric History: Anxiety, Depression [employer]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 Denies obvious blood, hematochezia or melena. Denies: Abdominal Pain, Hematemesis, Hematochezia, Nausea, Melena, Vomiting Genitourinary: Denies: Dysuria, Frequency, Hesitancy Musculoskeletal: Denies: Joint Pain, Joint Tenderness Skin: Denies: Rash, Wounds Neurological: Reports: Balance problems, Incoordination. Denies: Focal weakness, Numbness, Tingling Psychiatric: Denies: Anxiety, Depression, Homicidal Ideations, Suicidal Ideations Hematologic/ Lymphatic: Denies: Easy Bruising, Easy Bleeding VTE Information - Inpt Only VTE Present on Admission: No VTE Mechan Device Prophylaxis: None VTE Pharm Prophylaxis ordered?: Yes Patient Problems: Active and Suspected Problems Hypotension (Acute) Near syncope (Acute) - Physical Exam General: Alert, Oriented x3, Cooperative HEENT: Atraumatic, PERRLA, EOMI, Normocephalic Oral: Dry Mucosa Neck: Supple, No JVD, Negative Carotid Bruits Lungs: Clear to auscultation, Normal air movement, No rhonchi, No wheeze, No rales Cardiovascular: Regular rate, Regular Rhythm, Normal S1, Normal S2, No murmurs Abdomen: Bowel Sounds Present, Soft, Non Tender, Non-Distended Extremities: Capillary Refill Less than 3 Seconds, Edema Skin: No rashes, No breakdown Musculoskeletal: No Tenderness to Palpation of Joints or Extremities, Arthritic Changes, Tenderness - Tenderness present around lateral malleolus in right ankle with bruise around it. There is mild tenderness all around ankle but predominantly over lateral malleolus. Neurological: Cranial nerves II-XII grossly intact, Deep Tendon Reflexes 2+/4 and Symmetrical, Neuro grossly intact Psych/Mental Status: Normal Affect, Appropriate Vital Signs Temp Pulse Resp BP Pulse Ox 97.2 F L 93 16 96/60 89 04/16/19 13:07 04/16/19 14:29 04/16/19 14:29 04/16/19 14:29 04/16/19 14:29 Oxygen Delivery Method Room Air Weight: 180 lb 11.2 oz Body Mass Index (BMI) 31.0 Finger Stick Blood Glucose 208 Laboratory Tests Past 24 Hrs 04/16/19 04/16/19 04/16/19 14:10 14:10 14:10 WBC 13.2 H RBC 4.49 Hgb 12.5 Hct 39.8 MCV 88.6 MCH 27.8 MCHC 31.4 L RDW Std Deviation 45.8 H RDW Coeff of Tariq 14.4 Plt Count 213 MPV 10.2 Immature Gran % (Auto) 0.300 Neut % (Auto) 69.5 Lymph % (Auto) 22.8 [place] % (Auto) 6.2 Eos % (Auto) 0.7 Baso % (Auto) 0.5 Absolute Neuts (auto) 9.2 H Absolute Lymphs (auto) 3.00 Nucleated RBC % 0 Sodium 134 L Potassium 3.6 Chloride 97 L Carbon Dioxide 30.0 Anion Gap 7 BUN 21 H Creatinine 2.11 H Estim Creat Clear Calc 23.87 Est GFR (MDRD) Af Amer 31 L Est GFR (MDRD) Non-Af 25 L BUN/Creatinine Ratio 10.0 Glucose 215 H Lactic Acid 2.9 H Calcium 8.6 Troponin I < 0.015 Urine Color Urine Clarity Urine pH Ur Specific [place] Urine Protein Urine Glucose (UA) Urine Ketones Urine Occult Blood Urine Nitrite Urine Bilirubin Urine Urobilinogen Ur Leukocyte Esterase Urine RBC Urine WBC Ur Squamous Epith Cells Urine Bacteria Hyaline Casts Urine Mucus 04/16/19 14:44 WBC RBC Hgb Hct MCV MCH MCHC RDW Std Deviation RDW Coeff of Tariq Plt Count MPV Immature Gran % (Auto) Neut % (Auto) Lymph % (Auto) [place] % (Auto) Eos % (Auto) Baso % (Auto) Absolute Neuts (auto) Absolute Lymphs (auto) Nucleated RBC % Sodium Potassium Chloride Carbon Dioxide Anion Gap BUN Creatinine Estim Creat Clear Calc Est GFR (MDRD) Af Amer Est GFR (MDRD) Non-Af BUN/Creatinine Ratio Glucose Lactic Acid Calcium Troponin I Urine Color Yellow Urine Clarity Sl. Cloudy Urine pH 5.0 Ur Specific [place] 1.020 Urine Protein 30 H Urine Glucose (UA) Normal Urine Ketones 15 H Urine Occult Blood Negative Urine Nitrite Negative Urine Bilirubin 1 H Urine Urobilinogen Normal Ur Leukocyte Esterase 25 H Urine RBC 0 SEEN Urine WBC 0-5 SEEN Ur Squamous Epith Cells 0-5 SEEN Urine Bacteria 1+ Hyaline Casts 5-10 SEEN Urine Mucus RARE Assessment/Plan All Active Problems Shortness of breath (Acute) ARF (acute renal failure) (Acute) Hypotension (Acute) Near syncope (Acute) Urinary tract infection (Resolved) Dehydration (Acute) The patient is a 64 year old F with multiple comorbidities as listed above including Parkinson disease, epilepsy, polysubstance use and multiple neurological medications came to ER with dizziness, and hypotension. Patient found her blood pressure 88/66 at home. Patient has not been feeling good and having diarrhea for about 5-10, large-volume for last 2 to 3 days. The patient has history of chronic diarrhea since young days and he states for about 4 to 5 days to for 1 week, diagnosis unclear but possible IBS?D type. Patient fell down on floor at her home on April 04 and at that time x-rays were done and were negative. She has pain all around the ankle mainly on lateral malleolus and has bruise around it. Since then she has been mostly sedentary on wheelchair or on bed. Venous Doppler ordered in ER. EKG shows normal sinus rhythm at 97 bpm. QTc 449 ms. No significant change from previous EKG of November 2017. 1. Near syncope most probably secondary to hypotension from diarrhea: Patient received 1 L of normal saline. Most recent blood pressure in ER 100/67. Will order 1 more liter of normal saline bolus and then 100 mL/h. Titrate as per blood pressure. Hold antihypertensive medication. Orthostatic vital signs. Troponin is normal. 2. Acute on chronic diarrhea most probably IBS D: Supportive treatment. Patient denies any recent change in food type, sick contact or antibiotic use. Enteric bacteriology panel, stool for occult blood and WBC. H&H is stable 12.5/39.8. Mild leukocytosis 13.2 thousand. 3. Right ankle injury after fall: X-ray foot today shows bony osteopenia with possible nondisplaced fracture of proximal fifth metatarsal versus artifact. Minimal degenerative changes of metatarsophalangeal joint of hallux. X-ray ankle did not show any bony injury. Previous x-ray does not show any bony fracture or ankle on 04/04/2019. Given Ej wrap bandage. Sed [employer] consult 4. Acute kidney injury on CKD stage III: Last BUN/creatinine on November 2017 16/0.8. Today /2.1. Sodium 134, chloride 97. It seems most likely prerenal etiology. 5. Neuropsychiatric disease: Parkinson disease, epilepsy and history of drug use, anxiety and depression. Home medications reconciliation done. Keppra continued. Amitriptyline dose reduced with holding parameter if systolic blood pressure less than 120 MCG 6. Lumbar spinal stenosis, hypertension, physical deconditioning: Currently blood pressures like myxedema. PT and OT ordered. DVT prophylaxis: On Lovenox 30 mg subcu daily. Code Visit OBSV E&M: 27463 Initial observation care L3
[2019-04-16] MEDS: 0.9% Normal Saline 1,000 ML 999 ML IV (16:35)
[2019-04-16 17:35] LABS: Magnesium 1.4 mg/dL (1.6-2.6)
[2019-04-16] MEDS: 0.9% Normal Saline 1,000 ML 100 ML IV (17:46)
[2019-04-16 18:14] LABS: Reflex Lactate? Y
[2019-04-16 18:21] LABS: Bedside Glucose 112 mg/dL (70-110)
[2019-04-16] MEDS: Pregabalin 75 MG Capsule 150 MG PO (19:05)
[2019-04-16] MEDS: HYDROcodone Bitartrate/Apap 5/325 Tablet PO (19:05)
[2019-04-16 19:28] LABS: Lactic Acid 0.9 mmol/L (0.4-2.0)
[2019-04-16] MEDS: Carbidopa/Levodopa 25/100 Tablet PO (21:44)
[2019-04-16] MEDS: DULoxetine Hcl 30 MG Capsule PO (21:45)
[2019-04-16] MEDS: levETIRAcetam 1,000 MG Tablet 1000 MG PO (21:45)
[2019-04-16] MEDS: Donepezil HCl 5 MG Tablet PO (21:46)
[2019-04-16] MEDS: Atorvastatin Calcium 40 MG Tablet PO (21:46)
[2019-04-16 22:10] LABS: Bedside Glucose 160 mg/dL (70-110)
[2019-04-16] MEDS: Acetaminophen 325 MG Tablet 650 MG PO (22:17)
[2019-04-16] MEDS: ALPRAZolam 0.25 MG Tablet PO (22:18)
[2019-04-16] MEDS: Zolpidem Tartrate 5 MG Tablet PO (22:18)
[2019-04-17 02:51] VITALS: PULSE 83
[2019-04-17 03:47] VITALS: BP 101/63; PULSE 88; RESP 16; TEMP 36.4; O2SAT 99
[2019-04-17 03:54] VITALS: BP 101/63; BP 109/61; PULSE 87; PULSE 88
[2019-04-17] MEDS: 0.9% Normal Saline 1,000 ML 125 ML IV ×2 (04:01→10:54)
[2019-04-17 06:30] LABS: Absolute Lymphocyte Count 2.24 X10^3/uL (0.83-4.51); Absolute Neutrophil Count 5.1 X10^3/uL (2.0-7.7); Basophil# 0.04 X10^3/uL; Basophil% 0.5 % (0-1); Eosinophil# 0.14 X10^3/uL; Eosinophils% 1.8 % (0-5); Hematocrit 35.4 % (37-47); Hemoglobin 10.8 g/dL (12.0-15.0); Lymphocyte # 2.24 X10^3/ul (4.0); Lymphocyte % 28.2 % (19-41); Mean Corp Hgb Conc 30.5 g/dL (32-36); Mean Corpuscular Hgb 27.6 pg (27.0-32.0); Mean Corpuscular Volume 90.3 fL (81-99); Mean Platelet Vol. 10.6 fl (6.2-12.0); Monocyte# 0.41 X10^3/uL; Monocyte% 5.2 % (0-10); NRBC Flagged by Analyzer 0 % (0-5); Neutrophil # 5.07 X10^3/uL (2.7-7.7); Neutrophil % 63.9 % (47-70); Platelet Count 152 K/mm3 (150-450); RBC Distribution Width CV 14.4 % (11.6-14.6); RBC Distribution Width SD 46.2 fl (35.1-43.9); Red Blood Count 3.92 M/mm3 (4.2-5.4); White Blood Count 7.9 K/mm3 (4.4-11.0)
[2019-04-17] MEDS: Pregabalin 75 MG Capsule 150 MG PO (06:37)
[2019-04-17] MEDS: Carbidopa/Levodopa 25/100 Tablet PO ×2 (06:37→10:54)
[2019-04-17 07:00] LABS: Bedside Glucose 126 mg/dL (70-110)
[2019-04-17 07:02] LABS: Anion Gap 2 (5-15); BUN 15 mg/dL (7-18); BUN/Creat Ratio 12.6 RATIO (10-20); Calcium,Total 7.9 mg/dL (8.5-10.1); Chloride 109 mmol/L (98-107); Creatinine, Serum 1.19 mg/dL (0.55-1.02); EST Glomerular Filtration Rate 49 mL/min (>60); Est Glom Filt Rate - Afr Amer 59 mL/min (>60); Estimated Creatinine Clearance 42.33 ml/min; Glucose 136 mg/dL (74-106); Potassium 4.2 mmol/L (3.5-5.1); Sodium Level 143 mmol/L (136-145); Thyroid Stim Hormone (TSH) 0.57 uIU/mL (0.358-3.74)
[2019-04-17 07:05] VITALS: PULSE 79
[2019-04-17 07:34] VITALS: O2SAT 96
[2019-04-17 09:47] VITALS: BP 129/83; PULSE 88; RESP 18; TEMP 36.8; O2SAT 96
--- NOTE | 2019-04-17 09:50 | CON.PCM_ITS ---
Problem List (1) Closed right ankle fracture Status: Acute Qualifiers: Encounter type: initial encounter Qualified Code(s): S82.891A - Other fracture of right lower leg, initial encounter for closed fracture (2) Right ankle sprain Status: Chronic (3) Fracture of fifth metatarsal bone of right foot Status: Chronic Qualifiers: Encounter type: initial encounter Fracture type: closed Fracture alignment: nondisplaced Qualified Code(s): S92.354A - Nondisplaced fracture of fifth metatarsal bone, right foot, initial encounter for closed fracture (4) Pain in right ankle and joints of right foot Status: Acute (5) Near syncope Status: Acute (6) Parkinsons disease Status: Chronic Reason for Consult Date of Consultation: 04/17/19 Reason for Consultation: Right ankle and foot pain History of Present Illness: The patient is a 64 year old F with significant past medical history of parkinson disease, epilepsy, polysubstance use, neuropathy, diabetes, presented to the ER with dizziness and hypotension. She denies a distinct fall however reports she lost her balance while trying to ambulate around a piece of furniture at the house. She relates her balance is poor due to her Parkinson's and neuropathy. She uses a walker. She relates her helps take care of it at home and she wants to return home at this time. She denies having a distinct fall or sprain of the lower extremity prior to this most recent admission. It is noted she was also seen earlier this month and had work-up for an ankle injury performed. She is not not able to bear weight without pain to the right lower extremity and has bruising and swelling. She relates her pain is moderate. She also relates she has diabetes. She denies claudication. She does report long-term neuropathy and has some rest paresthesias. She denies losing consciousness during her most recent episode leading up to her admission however reports she is unstable and is unsure if it is due to her Parkinson's, chronic knee instability, or a new foot or ankle injury. It is noted she had previous right knee surgery. She denies other lower externally injuries at this time. Past Medical History Past Medical History (Chronic Problems): Chronic Problems Right ankle sprain (Chronic) Fracture of fifth metatarsal bone of right foot (Chronic) History of drug abuse (Chronic) Epilepsy (Chronic) Hypertension (Chronic) Parkinsons disease (Chronic) Anxiety (Chronic) Depression (Chronic) Spinal stenosis (Chronic) Allergies Penicillins Allergy (Verified 04/16/19 13:07) goofy morphine Adverse Reaction (Verified 04/16/19 16:41) Upset Stomach naproxen Adverse Reaction (Verified 04/16/19 13:07) Unknown omeprazole [From Prilosec] Adverse Reaction (Verified 04/16/19 16:41) Upset Stomach omeprazole magnesium [From Prilosec] Adverse Reaction (Verified 04/16/19 16:41) Upset Stomach Home Medications: Ambulatory Orders Medication Instructions Recorded ALPRAZolam [Xanax] 0.25 mg PO DAILY 04/04/19 Amitriptyline HCl 2 tab PO QHS 04/04/19 Atorvastatin Calcium [Lipitor] 40 mg PO QHS 04/04/19 Benzonatate [Tessalon Perle] 100 mg PO TID PRN PRN 04/04/19 Carbidopa/Levodopa [Carbidopa-Levo 3 tab PO 4X/DAY 04/04/19 ER 25-100 Tab] Donepezil HCl [Aricept] 10 mg PO QHS 04/04/19 Dulaglutide [Trulicity] 1.5 mg SQ QWEEK 04/04/19 Glimepiride [Amaryl] 4 mg PO DAILY 04/04/19 Hydrocodone/Acetaminophen [[place] 1 ea PO Q6H PRN 04/04/19 10-325 Tablet] Levetiracetam [Keppra] 1,000 mg PO BID 04/04/19 Lisinopril [Zestril] 10 mg PO DAILY 04/04/19 Orphenadrine [Norflex ER] 100 mg PO BID PRN 04/04/19 Pregabalin [Lyrica] 150 mg PO TID 04/04/19 Zolpidem Tartrate [Ambien Cr] 12.5 mg PO QHS PRN PRN 04/04/19 Duloxetine Hcl [Cymbalta] 30 mg PO BID 04/16/19 Surgical History: cholecystectomy, tonsillectomy, - - Tubal ligation Psychiatric History: Anxiety, Depression [employer]IOR [employer] History: No pertinent SENIOR [employer] history Smoking Status: Never smoker - *Family History Maternal History Items: Cancer - History of breast cancer Paternal History Items: No pertinent history Review of Systems Constitutional: Reports: Fatigue. Denies: Chills, Fever Eyes: Reports: Vision Change HEENT: Denies: Sore Throat Cardiovascular: Denies: Chest Pain, Claudication Respiratory: Denies: Shortness of Breath Gastrointestinal: Reports: Diarrhea. Denies: Nausea, Vomiting Musculoskeletal: Reports: Foot Pain. Denies: Leg Pain Skin: Reports: Skin Changes - Bruising. Denies: Wounds Neurological: Reports: Balance problems, Incoordination, Numbness - At rest to lower extremities; she relates she has long-term neuropathy Psychiatric: Reports: Anxiety Hematologic/ Lymphatic: Reports: Easy Bruising Patient Problems: Active and Suspected Problems Hypotension (Acute) Near syncope (Acute) Pain in right ankle and joints of right foot (Acute) Closed right ankle fracture (Acute) - Physical Exam General: Alert, Oriented x3, Cooperative HEENT: Atraumatic Extremities: No cyanosis, Capillary Refill Less than 3 Seconds - All digits bilateral, No Calf Tenderness - Negative Gayle and Lal signs bilateral, Edema - Right ankle and foot, Peripheral Pulses Normal - 2 out of 4 DP pulses bilateral, 1 out of 4 PT pulse left, and nonpalpable right PT pulse probable secondary to edema Skin: - - No skin discontinuity, erythema, streaking, blisters, or skin tenting bilateral. No maceration or necrosis bilateral. There is ecchymosis to the lateral right ankle extending onto the hindfoot Musculoskeletal: No Tenderness to Palpation of Joints or Extremities, Muscle Wasting, - - Active range of motion digits and ankle noted. 4/5 ankle muscle strength in all direction of the ankle in the right lower extremity. Most of her pain to palpation is over the distal fibula at her suspected fracture site and not to the anterior ankle joint line or medial malleolus. There is also pain to palpation along the peroneal tendon at the level of the ankle. No pain on palpation to the Achilles or posterior tibialis tendon. She does also have pain on palpation to the fifth metatarsal base at her other suspected fracture site and not to the adjacent midfoot or cuboid. No gross instability or pain noted with anterior drawer test. She does have mild pain with inversion of the foot upon the ankle and not with eversion. Her compartments are soft to palpate bilateral lower extremities Neurological: Sensory exam intact to light touch and pain - He Psych/Mental Status: Normal Affect, Appropriate, Agitated, Anxious Vital Signs Temp Pulse Resp BP Pulse Ox 97.5 F L 79 16 101/63 96 04/17/19 03:47 04/17/19 07:05 04/17/19 03:47 04/17/19 03:54 04/17/19 07:34 Oxygen Flow Rate (L/min) 2 Oxygen Delivery Method Nasal Cannula Weight: 83.3 kg Body Mass Index (BMI) 31.5 Finger Stick Blood Glucose 208 Orthostatic Vital Signs Start: 04/16/19 17:41 Freq: q24h Status: Active Protocol: Activity Type Activity Date Activity User E-Sign Co-Sign Detail Recorded Client Recorded Date Recorded By Document 04/17/19 03:54 PAL [id number] 04/17/19 03:55 PAL 04/17/19 03:54 Orthostatic Vitals Sitting -Blood Pressure (90/60-120/80) 109/61 -Extremity Use Left Arm -Pulse Rate (60-100) 87 Lying -Blood Pressure (90/60-120/80) 101/63 -Extremity Use Left Arm -Pulse Rate (60-100) 88 Intake and Output for Last 24 Hours 04/15/19 04/16/19 04/17/19 23:59 23:59 23:59 Intake Total 2832.33 / 2832.33 641.67 / 641.67 Output Total 500 / 500 600 / 600 Balance 2332.33 / 2332.33 41.67 / 41.67 Laboratory Tests Past 24 Hrs 04/16/19 04/16/19 04/16/19 14:10 14:10 14:10 WBC 13.2 H RBC 4.49 Hgb 12.5 Hct 39.8 MCV 88.6 MCH 27.8 MCHC 31.4 L RDW Std Deviation 45.8 H RDW Coeff of Tariq 14.4 Plt Count 213 MPV 10.2 Immature Gran % (Auto) 0.300 Neut % (Auto) 69.5 Lymph % (Auto) 22.8 [place] % (Auto) 6.2 Eos % (Auto) 0.7 Baso % (Auto) 0.5 Absolute Neuts (auto) 9.2 H Absolute Lymphs (auto) 3.00 Nucleated RBC % 0 Sodium 134 L Potassium 3.6 Chloride 97 L Carbon Dioxide 30.0 Anion Gap 7 BUN 21 H Creatinine 2.11 H Estim Creat Clear Calc 23.87 Est GFR (MDRD) Af Amer 31 L Est GFR (MDRD) Non-Af 25 L BUN/Creatinine Ratio 10.0 Glucose 215 H Lactic Acid 2.9 H Calcium 8.6 Magnesium Troponin I < 0.015 Vitamin D 25-Hydroxy TSH Urine Color Urine Clarity Urine pH Ur Specific [place] Urine Protein Urine Glucose (UA) Urine Ketones Urine Occult Blood Urine Nitrite Urine Bilirubin Urine Urobilinogen Ur Leukocyte Esterase Urine RBC Urine WBC Ur Squamous Epith Cells Urine Bacteria Hyaline Casts Urine Mucus 04/16/19 04/16/19 04/16/19 14:10 14:14 14:44 WBC RBC Hgb Hct MCV MCH MCHC RDW Std Deviation RDW Coeff of Tariq Plt Count MPV Immature Gran % (Auto) Neut % (Auto) Lymph % (Auto) [place] % (Auto) Eos % (Auto) Baso % (Auto) Absolute Neuts (auto) Absolute Lymphs (auto) Nucleated RBC % Sodium Potassium Chloride Carbon Dioxide Anion Gap BUN Creatinine Estim Creat Clear Calc Est GFR (MDRD) Af Amer Est GFR (MDRD) Non-Af BUN/Creatinine Ratio Glucose Lactic Acid Calcium Magnesium 1.4 L Troponin I Vitamin D 25-Hydroxy Pending TSH Urine Color Yellow Urine Clarity Sl. Cloudy Urine pH 5.0 Ur Specific [place] 1.020 Urine Protein 30 H Urine Glucose (UA) Normal Urine Ketones 15 H Urine Occult Blood Negative Urine Nitrite Negative Urine Bilirubin 1 H Urine Urobilinogen Normal Ur Leukocyte Esterase 25 H Urine RBC 0 SEEN Urine WBC 0-5 SEEN Ur Squamous Epith Cells 0-5 SEEN Urine Bacteria 1+ Hyaline Casts 5-10 SEEN Urine Mucus RARE 04/16/19 04/17/19 04/17/19 18:35 05:42 05:42 WBC 7.9 RBC 3.92 L Hgb 10.8 L Hct 35.4 L MCV 90.3 MCH 27.6 MCHC 30.5 L RDW Std Deviation 46.2 H RDW Coeff of Tariq 14.4 Plt Count 152 MPV 10.6 Immature Gran % (Auto) 0.400 Neut % (Auto) 63.9 Lymph % (Auto) 28.2 [place] % (Auto) 5.2 Eos % (Auto) 1.8 Baso % (Auto) 0.5 Absolute Neuts (auto) 5.1 Absolute Lymphs (auto) 2.24 Nucleated RBC % 0 Sodium 143 Potassium 4.2 Chloride 109 H Carbon Dioxide 32.0 Anion Gap 2 L BUN 15 Creatinine 1.19 H Estim Creat Clear Calc 42.33 Est GFR (MDRD) Af Amer 59 L Est GFR (MDRD) Non-Af 49 L BUN/Creatinine Ratio 12.6 Glucose 136 H Lactic Acid 0.9 Calcium 7.9 L Magnesium Troponin I Vitamin D 25-Hydroxy TSH 0.57 Urine Color Urine Clarity Urine pH Ur Specific [place] Urine Protein Urine Glucose (UA) Urine Ketones Urine Occult Blood Urine Nitrite Urine Bilirubin Urine Urobilinogen Ur Leukocyte Esterase Urine RBC Urine WBC Ur Squamous Epith Cells Urine Bacteria Hyaline Casts Urine Mucus POC Glucose 04/17/19 04/16/19 04/16/19 06:50 21:52 17:45 POC Glucose 126 H 160 H 112 H Assessment/Plan All Active Problems Shortness of breath (Acute) ARF (acute renal failure) (Acute) Hypotension (Acute) Near syncope (Acute) Pain in right ankle and joints of right foot (Acute) Closed right ankle fracture (Acute) Urinary tract infection (Resolved) Dehydration (Acute) Right foot and ankle pain Right distal fibula fracture without displacement Right ankle sprain without gross instability Fifth metatarsal fracture, nondisplaced Balance loss and instability of gait Neuropathy Parkinson's Other comorbidities I reviewed and discussed her case. Etiology and anticipated healing time of ankle sprains and fractures were reviewed. Her ankle x-rays were reviewed which does demonstrate a subtle spiral oblique nondisplaced fracture of the distal fibula that is consistent with position when compared to her prior ankle x-rays on 04/04/2019. The foot x-ray does also demonstrate an irregular trabecular pattern of the fifth metatarsal metaphyseal diaphyseal junction with proximal extension without gapping or displacement. There are no bone tumors or cysts or other acute injuries noted. Her decreased bone density is also noted with increased visualization of the primary trabecular pattern. On physical exam most of her pain on palpation is at the ankle level and to a mild degree to this fifth metatarsal site noted on the x-ray. Therefore, I recommend treatment for both of these conditions and I recommend a walking boot. She can apply partial weight-bear as tolerated with the walker for assistance. I recommend she works with PT and OT for safe gait training prior to discharge home. Her contributing comorbidities for balance loss are noted. I do not recommend surgical intervention at this time. Vitamin D level level was ordered to screen for a deficiency and the results are pending. If this is low, I recommend supplementation. It is noted she is on norco pain medication for pain control. I recommend additional CHUNG wrap application and elevation for pain and inflammation management. I recommend she follows up with the [facility] in 1 month for follow-up of her muscular skeletal injuries. Medical management and DVT prophylaxis per primary team is greatly appreciated. Thank you for the consultation. Please do not hesitate to call if you have any questions. Scarlet Felipe DPM, FACFAS [facility] [phone]
[2019-04-17] MEDS: DULoxetine Hcl 30 MG Capsule PO (10:54)
[2019-04-17] MEDS: levETIRAcetam 1,000 MG Tablet 1000 MG PO (10:54)
[2019-04-17] MEDS: ALPRAZolam 0.25 MG Tablet PO (10:54)
--- NOTE | 2019-04-17 11:08 | PCM.DC.POD ---
Weight Bearing Status: Partial weight bearing - right lower extremity as tolerated with CAM walker in place and use of asssitive device Keep extremity elevated above heart level: Right Leg Call your doctor if you observe: Calf discomfort, Uncontrolled pain Cleanse incision/area with: - - wear kwame wrap during day right lower extremity; ok to remove at night Allergies/Adverse Reactions: Allergies Penicillins Allergy (Verified 04/16/19 13:07) goofy morphine Adverse Reaction (Verified 04/16/19 16:41) Upset Stomach naproxen Adverse Reaction (Verified 04/16/19 13:07) Unknown omeprazole [From Prilosec] Adverse Reaction (Verified 04/16/19 16:41) Upset Stomach omeprazole magnesium [From Prilosec] Adverse Reaction (Verified 04/16/19 16:41) Upset Stomach Medications to take at Discharge ALPRAZolam [Xanax] 0.25 mg PO DAILY 04/04/19 Amitriptyline HCl 2 tab PO QHS 04/04/19 Atorvastatin Calcium [Lipitor] 40 mg PO QHS 04/04/19 Benzonatate [Tessalon Perle] 100 mg PO TID PRN PRN 04/04/19 Carbidopa/Levodopa [Carbidopa-Levo ER 25-100 Tab] 3 tab PO 4X/DAY 04/04/19 Donepezil HCl [Aricept] 10 mg PO QHS 04/04/19 Dulaglutide [Trulicity] 1.5 mg SQ QWEEK 04/04/19 Glimepiride [Amaryl] 4 mg PO DAILY 04/04/19 Hydrocodone/Acetaminophen [[place] 10-325 Tablet] 1 ea PO Q6H PRN 04/04/19 Levetiracetam [Keppra] 1,000 mg PO BID 04/04/19 Lisinopril [Zestril] 10 mg PO DAILY 04/04/19 Orphenadrine [Norflex ER] 100 mg PO BID PRN 04/04/19 Pregabalin [Lyrica] 150 mg PO TID 04/04/19 Zolpidem Tartrate [Ambien Cr] 12.5 mg PO QHS PRN PRN 04/04/19 Duloxetine Hcl [Cymbalta] 30 mg PO BID 04/16/19 Primary Care Physician: Zhang Shields MD [Primary Care Provider] - Test Results: Test results from this visit will be discussed in further detail at your follow-up appointment, if applicable. Please Follow Up With: Scarlet Felipe DPM When: [facility] week of 05/16/19. Call [phone]
--- NOTE | 2019-04-17 11:59 | DCINST_ITS ---
- Discharge Diagnoses Current Active Problems: Current Active and Chronic Problems Hypotension (Acute) Near syncope (Acute) Right ankle sprain (Chronic) Fracture of fifth metatarsal bone of right foot (Chronic) Pain in right ankle and joints of right foot (Acute) Closed right ankle fracture (Acute) You will use the following diet at home:: Calorie/Carbohydrate Controlled (specify 1200, 1400, etc) - 1800 ivy Your food should be the consistency of: Regular Your liquids should be the consistency of: Regular/Thin Discharge Activity: Return to Normal Activity Weight Bearing Status: Partial weight bearing - right lower extremity as tolerated with CAM walker in place and use of asssitive device Keep extremity elevated above heart level: Right Leg Call your doctor if you observe: Calf discomfort, Uncontrolled pain Cleanse incision/area with: - - wear kwame wrap during day right lower extremity; ok to remove at night Allergies/Adverse Reactions: Allergies Penicillins Allergy (Verified 04/16/19 13:07) goofy morphine Adverse Reaction (Verified 04/16/19 16:41) Upset Stomach naproxen Adverse Reaction (Verified 04/16/19 13:07) Unknown omeprazole [From Prilosec] Adverse Reaction (Verified 04/16/19 16:41) Upset Stomach omeprazole magnesium [From Prilosec] Adverse Reaction (Verified 04/16/19 16:41) Upset Stomach Medications to take at Discharge ALPRAZolam [Xanax] 0.25 mg PO DAILY 04/04/19 Amitriptyline HCl 2 tab PO QHS 04/04/19 Atorvastatin Calcium [Lipitor] 40 mg PO QHS 04/04/19 Benzonatate [Tessalon Perle] 100 mg PO TID PRN PRN 04/04/19 Carbidopa/Levodopa [Carbidopa-Levo ER 25-100 Tab] 3 tab PO 4X/DAY 04/04/19 Donepezil HCl [Aricept] 10 mg PO QHS 04/04/19 Dulaglutide [Trulicity] 1.5 mg SQ QWEEK 04/04/19 Glimepiride [Amaryl] 4 mg PO DAILY 04/04/19 Hydrocodone/Acetaminophen [[place] 10-325 Tablet] 1 ea PO Q6H PRN 04/04/19 Levetiracetam [Keppra] 1,000 mg PO BID 04/04/19 Lisinopril [Zestril] 10 mg PO DAILY 04/04/19 Orphenadrine [Norflex] 100 mg PO BID PRN 04/04/19 Pregabalin [Lyrica] 150 mg PO TID 04/04/19 Zolpidem Tartrate [Ambien Cr] 12.5 mg PO QHS PRN PRN 04/04/19 Duloxetine Hcl [Cymbalta] 30 mg PO BID 04/16/19 Primary Care Physician: Zhang Shields MD [Primary Care Provider] - Test Results: Test results from this visit will be discussed in further detail at your follow- up appointment, if applicable. Please Follow Up With: Scarlet Felipe DPM When: [facility] week [facility] 05/16/19. Call [phone] Please Follow Up With: Zhang Shields MD
--- NOTE | 2019-04-17 18:56 | PCM.DC.SUM ---
Discharge Date and Diagnosis Date of Admission: 04/16/19 Date of Discharge: 04/17/19 - Primary Discharge Diagnosis #1 dehydration-secondary to chronic diarrhea and lack of fluid intake #2 hypotension-secondary to dehydration #3 nondisplaced fracture of the proximal fifth metatarsal-timeframe unknown #4 right distal fibula ioldpaci-ubczkdjvysda-vipqgbnia unknown #5 near syncope secondary to hypotension - Secondary Discharge Diagnosis Chronic Problems Right ankle sprain (Chronic) Fracture of fifth metatarsal bone of right foot (Chronic) History of drug abuse (Chronic) Epilepsy (Chronic) Hypertension (Chronic) Parkinsons disease (Chronic) Anxiety (Chronic) Depression (Chronic) Spinal stenosis (Chronic) Hospital Course and Treatment Operations: None Procedures: None Summary of Care Provided: The patient is a 64 year old F was seen in the emergency room at [facility] with chief complaint of lightheadedness and low blood pressure at home as read on her home blood pressure cuff. Patient was advised to come to the emergency room for evaluation by her PCP, evaluation in the emergency room showed her blood pressure to be 87/58, labs showed an elevated creatinine at 2.11, white blood cell count was slightly elevated at 13.2. Patient was given IV fluids, she was placed in observation status on PCU, repeat labs were obtained which showed an improvement in her creatinine. Patient was seen in consultation by podiatry due to complaints of right ankle pain-x-rays showed what appeared to be a fracture of the proximal fifth metatarsal and a distal fibular fracture which was nondisplaced. Podiatry recommended a boot for the patient to wear. On 04/17/2019, patient was seen and examined: On examination she appeared in good health and spirits. Vital signs as documented. Skin warm and dry and without overt rashes. Neck without JVD. Lungs clear. Heart exam notable for regular rhythm, normal sounds and absence of murmurs, rubs or gallops. Abdomen unremarkable and without evidence of organomegaly, masses, or abdominal aortic enlargement. Extremities mild edema was noted over the patient's right ankle area along with some areas of old ecchymosis. Neuro: Cranial nerves II through XII are grossly intact, no focal motor deficits were noted, sensation to light touch and pinprick is intact. Psych: Patient is alert and oriented x3, she does not appear anxious or depressed On 04/17/2019, I had a long discussion with the patient and her family, patient wanted to be discharged home and due to the fact her creatinine was improved and the patient was asymptomatic, I felt this was appropriate. Patient refused to allow a venous Doppler test to be done on her right leg-on examination of the right leg, I did not feel there was enough indication to have this test done and I agreed with the patient. Patient was not sure she wanted to follow-up with the dividing machine operator that saw her in the hospital, I told her that she would have to make that determination herself and that if she did not follow-up with podiatry, she would have to find her own orthopedic physician or dividing machine operator to follow-up with. Patient was discharged in stable condition on 04/17/2019 - Physical Exam Vital Signs Temp Pulse Resp BP Pulse Ox 98.2 F 88 18 129/83 H 96 04/17/19 09:47 04/17/19 09:47 04/17/19 09:47 04/17/19 09:47 04/17/19 09:47 Oxygen Flow Rate (L/min) 2 Oxygen Delivery Method Room Air Weight: 83.3 kg Body Mass Index (BMI) 31.5 Finger Stick Blood Glucose 208 Intake and Output for Last 24 Hours 04/15/19 04/16/19 04/17/19 23:59 23:59 23:59 Intake Total 2832.33 / 2832.33 1502.09 / 1502.09 Output Total 500 / 500 600 / 600 Balance 2332.33 / 2332.33 902.09 / 902.09 Microbiology Past 72 Hours 04/17/19 10:50 Stool Lactoferrin - Final Stool Enteric Bacteriology - Final Stool Occult Blood (MAYLIN) - Final Laboratory Tests Past 24 Hrs 04/16/19 04/16/19 04/17/19 14:10 18:35 05:42 WBC 7.9 RBC 3.92 L Hgb 10.8 L Hct 35.4 L MCV 90.3 MCH 27.6 MCHC 30.5 L RDW Std Deviation 46.2 H RDW Coeff of Tariq 14.4 Plt Count 152 MPV 10.6 Immature Gran % (Auto) 0.400 Neut % (Auto) 63.9 Lymph % (Auto) 28.2 [place] % (Auto) 5.2 Eos % (Auto) 1.8 Baso % (Auto) 0.5 Absolute Neuts (auto) 5.1 Absolute Lymphs (auto) 2.24 Nucleated RBC % 0 Sodium Potassium Chloride Carbon Dioxide Anion Gap BUN Creatinine Estim Creat Clear Calc Est GFR (MDRD) Af Amer Est GFR (MDRD) Non-Af BUN/Creatinine Ratio Glucose Lactic Acid 0.9 Calcium Vitamin D 25-Hydroxy Pending TSH 04/17/19 05:42 WBC RBC Hgb Hct MCV MCH MCHC RDW Std Deviation RDW Coeff of Tariq Plt Count MPV Immature Gran % (Auto) Neut % (Auto) Lymph % (Auto) [place] % (Auto) Eos % (Auto) Baso % (Auto) Absolute Neuts (auto) Absolute Lymphs (auto) Nucleated RBC % Sodium 143 Potassium 4.2 Chloride 109 H Carbon Dioxide 32.0 Anion Gap 2 L BUN 15 Creatinine 1.19 H Estim Creat Clear Calc 42.33 Est GFR (MDRD) Af Amer 59 L Est GFR (MDRD) Non-Af 49 L BUN/Creatinine Ratio 12.6 Glucose 136 H Lactic Acid Calcium 7.9 L Vitamin D 25-Hydroxy TSH 0.57 POC Glucose 04/17/19 04/16/19 06:50 21:52 POC Glucose 126 H 160 H Discharge Activity: Return to Normal Activity Weight Bearing Status: Partial weight bearing - right lower extremity as tolerated with CAM walker in place and use of asssitive device Keep extremity elevated above heart level: Right Leg Call your doctor if you observe: Calf discomfort, Uncontrolled pain Cleanse incision/area with: - - wear kwame wrap during day right lower extremity; ok to remove at night Home Medications: Medications to take at Discharge ALPRAZolam [Xanax] 0.25 mg PO DAILY 04/04/19 Amitriptyline HCl 2 tab PO QHS 04/04/19 Atorvastatin Calcium [Lipitor] 40 mg PO QHS 04/04/19 Benzonatate [Tessalon Perle] 100 mg PO TID PRN PRN 04/04/19 Carbidopa/Levodopa [Carbidopa-Levo ER 25-100 Tab] 3 tab PO 4X/DAY 04/04/19 Donepezil HCl [Aricept] 10 mg PO QHS 04/04/19 Dulaglutide [Trulicity] 1.5 mg SQ QWEEK 04/04/19 Glimepiride [Amaryl] 4 mg PO DAILY 04/04/19 Hydrocodone/Acetaminophen [[place] 10-325 Tablet] 1 ea PO Q6H PRN 04/04/19 Levetiracetam [Keppra] 1,000 mg PO BID 04/04/19 Lisinopril [Zestril] 10 mg PO DAILY 04/04/19 Orphenadrine [Norflex] 100 mg PO BID PRN 04/04/19 Pregabalin [Lyrica] 150 mg PO TID 04/04/19 Zolpidem Tartrate [Ambien Cr] 12.5 mg PO QHS PRN PRN 04/04/19 Duloxetine Hcl [Cymbalta] 30 mg PO BID 04/16/19 Primary Care Physician: Zhang Shields MD [Primary Care Provider] - Please Follow Up With: Scarlet Felipe DPM When: [facility] week of 05/16/19. Call [phone] Please Follow Up With: Zhang Shields MD Disposition: Home Minutes spent on discharge:: 30 Patient Condition:: Stable Medical Necessity - Tobacco Use Smoking Status: Never smoker Meaningful Use Info Meaningful Use Diagnoses (Choose all that apply): None applicable Code Visit OBSV E&M: 90082 Observation care discharge
[2019-04-18 15:28] LABS: Vitamin D,25 Hydroxy 6.3 ng/mL (29.95-100.01)
== END 2019-04-17 11:59 | disposition home or self-care (01) ==
LOC: ED 13:41 → PCU 04-17 00:23
PROVIDERS: Podiatrist; Admitting Provider Internal Medicine; Emergency Provider Emergency Medicine; Family Provider Family Medicine; PCP Family Medicine; Referring Provider Internal Medicine; Visit Provider Internal Medicine
DX: E86.0 Dehydration (principal); R55 Syncope and collapse; I95.9 Hypotension, unspecified; G20 Parkinson's disease; G89.29 Other chronic pain; N17.9 Acute kidney failure, unspecified; F19.11 Other psychoactive substance abuse, in remission; F41.9 Anxiety disorder, unspecified; F32.9 Major depressive disorder, single episode, unspecified; I12.9 Hypertensive chronic kidney disease with stage 1 through stage 4 chronic kidney disease, or unspecified chronic kidney disease; G40.909 Epilepsy, unspecified, not intractable, without status epilepticus; K52.9 Noninfective gastroenteritis and colitis, unspecified; Z79.84 Long term (current) use of oral hypoglycemic drugs; Z79.899 Other long term (current) drug therapy; S82.831A Other fracture of upper and lower end of right fibula, initial encounter for closed fracture; W19.XXXA Unspecified fall, initial encounter; Y93.9 Activity, unspecified; Y92.9 Unspecified place or not applicable; S92.351A Displaced fracture of fifth metatarsal bone, right foot, initial encounter for closed fracture; E03.9 Hypothyroidism, unspecified; M48.061 Spinal stenosis, lumbar region without neurogenic claudication; E11.40 Type 2 diabetes mellitus with diabetic neuropathy, unspecified
CPT/HCPCS: 36415; 71045; 73590; 73610; 73630; 80048; 81001; 82274; 82306; 82962; 83605; 83630; 83735; 84443; 84484; 85025; 87086; 87088; 87506; 93005; 96360; 96361; 97802; 99218; 99284; J7030; A4216; G0378

== ENCOUNTER 2020-11-21 07:23 | Emergency (ER) | payer MEDICARE, SELFPAY ==
[2019-04-16 16:37] VITALS: BMI 31.5
[2020-11-21] VITALS (7 sets, daily range): BP systolic 125–138; BP diastolic 77–99; PULSE 84–96; RESP 15–24; TEMP 36.2; O2SAT 94–97; BMI 33.0
--- NOTE | 2020-11-21 07:36 | CT_ITS ---
STUDY: CT BRAIN WITHOUT CONTRAST REASON FOR EXAM: Female, 65 years old. Decreased LOC RADIATION DOSAGE (If Supplied By Facility): CTDIvol = ( 44.99 ) mGy, DLP = ( 745.49 ) mGycm TECHNIQUE: Transaxial CT imaging of the brain was performed without administration of intravenous contrast material. Individualized dose optimization techniques were used for this CT. COMPARISON: Comparison is made with prior study 06/02/2017. FINDINGS: Normal soft tissue structures. Normal calvarium. There is mild cerebral atrophy with widening of the extra-axial spaces and ventricular dilatation. There are areas of decreased attenuation within the white matter tracts of the supratentorial brain, consistent with microvascular disease changes. Normal basal ganglia and thalami. Normal brainstem. Normal cerebellum. There is no intracranial hemorrhage. There are no findings of an acute ischemic infarction. Atherosclerotic calcification of the cavernous portion of the internal carotid arteries bilaterally. Normal visualized paranasal sinuses. CT/Brain/Head without Contrast IMPRESSION: Chronic involutional changes of the brain. Electronically Signed: Scott Hsieh MD at 8:33 EDT , Service support ,
--- NOTE | 2020-11-21 07:39 | ED.VIS.GEN ---
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 He does note that she was up around 130 this morning to go the bathroom. She did fall on the way back to bed and hit her left knee. He states he helped her back into bed. At 515 he could not wake her. After attempting to wake her for approximately 45 minutes he called EMS. EMS gave her intranasal Narcan and the patient woke up. Patient did reportedly recently start taking baclofen. She does take hydrocodone for pain and states her last dose was last evening. On arrival to the emergency room staff noted decreasing level of consciousness again with pinpoint pupils. She was given an additional 2 mg of IN Narcan. - Past Medical History (1) Depression Status: Chronic (2) Epilepsy Status: Chronic (3) Hypertension Status: Chronic (4) Parkinsons disease Status: Chronic (5) Spinal stenosis Status: Chronic Past Medical History - Allergies and Home Meds Allergies/Adverse Reactions: Allergies CHUNG Inhibitors Allergy (Verified 11/21/20 07:43) Other Penicillins Allergy (Verified 11/21/20 07:31) goofy duloxetine [From Cymbalta] Adverse Reaction (Verified 11/21/20 07:43) Other morphine Adverse Reaction (Verified 11/21/20 07:31) Upset Stomach nabumetone Adverse Reaction (Verified 11/21/20 07:43) Upset Stomach naproxen Adverse Reaction (Verified 11/21/20 07:31) Unknown omeprazole [From Prilosec] Adverse Reaction (Verified 11/21/20 07:31) Upset Stomach omeprazole magnesium [From Prilosec] Adverse Reaction (Verified 11/21/20 07:31) Upset Stomach pregabalin Adverse Reaction (Verified 11/21/20 07:43) Other Primary Care Physician: Zhang Shields MD [Primary Care Provider] - Prior records reviewed: Yes Surgical History: cholecystectomy, tonsillectomy, - - Tubal ligation Lives: Spouse/ Significant Other Smoking Status: Never smoker - Family History Maternal Family History: Reports: Cancer - History of breast cancer Paternal Family History: Reports: No pertinent history Review of Systems General: Denies: Chills, Fever Eyes: Denies: Visual changes - bilaterally ENT: Denies: Bilateral ear pain Cardiovascular: Denies: Chest pain Respiratory: Denies: Dyspnea, Cough Gastrointestinal: Denies: Abdominal pain Genitourinary: Denies: Dysuria Musculoskeletal: Reports: Extremity Pain Skin: Denies: Rash Neurological: Denies: Headache Hematologic: Denies: Easy bruising, Easy bleeding Allergy: Denies: Uticaria Physical Exam Vital Signs/Narrative: Vital Signs Temp Pulse Resp BP Pulse Ox 11/21/20 07:31 97.2 F L 90 18 138/86 H 94 11/21/20 07:25 97.2 F L 90 18 138/86 H 94 Inital Vital Signs reviewed: Yes General: Well nourished, Well developed, - - Rests with eyes closed but conversive. Will open eyes to command. Head: Normocephalic Eyes: Perrl, EOMI Neck: Supple Cardiovascular: Regular rate, Regular rhythm Respiratory: No distress, CTA bilaterally Abdomen: Soft, Nontender Extremities: - - Mild tenderness location and edema to the left anterior knee. No erythema, abrasions, or wounds. Skin: Normal color Neurological: Alert, Oriented x3, - - No focal neurologic deficits Psychological: Normal affect Diagnostic/Tx/Re-eval Impressions Brain CT 11/21/20 07:36 IMPRESSION: Chronic involutional changes of the brain. Electronically Signed: Scott Hsieh MD at 8:33 EDT , Service support , Knee X-Ray 11/21/20 08:17 IMPRESSION: Degenerative arthrosis. Moderate-sized joint effusion. Electronically Signed: Scott Hsieh MD at 8:35 EDT , Service support , 11/21/20 07:36 Brain/Head without Contrast [CT] Stat 11/21/20 08:17 Knee 1 or 2 Views [RAD] Stat Laboratory Results 11/21/20 11/21/20 07:30 07:30 WBC 7.0 RBC 4.61 Hgb 13.1 Hct 42.1 MCV 91.3 MCH 28.4 MCHC 31.1 L RDW Std Deviation 56.3 H RDW Coeff of Tariq 17.2 H Plt Count 209 MPV 11.1 Immature Gran % (Auto) 0.400 Neut % (Auto) 64.6 Lymph % (Auto) 26.6 [place] % (Auto) 4.5 Eos % (Auto) 2.9 Baso % (Auto) 1.0 Absolute Neuts (auto) 4.5 Absolute Lymphs (auto) 1.85 Nucleated RBC % 0 Sodium 138 Potassium 4.9 Chloride 100 Carbon Dioxide 37.0 H Anion Gap 1 L BUN 15 Creatinine 1.03 H Estim Creat Clear Calc 48.28 Est GFR (MDRD) Af Amer 69 Est GFR (MDRD) Non-Af 57 L BUN/Creatinine Ratio 14.6 Glucose 141 H Calcium 9.3 Total Bilirubin 0.50 Direct Bilirubin 0.10 AST 30 ALT 14 Alkaline Phosphatase 142 H Total Protein 8.4 H Albumin 3.6 Globulin 4.8 H - Medical Decision Making Patient was observed on clinical research monitor throughout her ED stay. She had been given 2 mg of Narcan intranasally prior to my initial evaluation. Patient did become sleepy again upon return from CT scan. Respiratory rate was around 9 with shallow respirations. She was given 1 mg of IV Narcan. Nursing staff states this really did not change her alertness much, respiratory rate maintained between 10 and 14. At this time patient is alert. She was able to get on the bedpan without difficulty. She states she feels back to her normal self and wants to go home. is at bedside and feels comfortable with this plan. We did discuss her multiple sedating medications. I want her against taking these together especially at night when she is going to be asleep. It appears that her body is slow to metabolize these medications. ED Disposition - Plan for ED Patient: Disposition: Home or Assisted Living Diagnosis: Drug-induced encephalopathy Instructions: ED ALOC Referrals: Zhang Shields MD [Primary Care Provider] - 5-7 Days
[2020-11-21 07:49] LABS: Absolute Lymphocyte Count 1.85 X10^3/uL (0.83-4.51); Absolute Neutrophil Count 4.5 X10^3/uL (2.0-7.7); Basophil# 0.07 X10^3/uL; Eosinophils% 2.9 % (0-5); Hematocrit 42.1 % (37-47); Hemoglobin 13.1 g/dL (12.0-15.0); Lymphocyte # 1.85 X10^3/ul (0.83-4.51); Lymphocyte % 26.6 % (19-41); Mean Corp Hgb Conc 31.1 g/dL (32-36); Mean Corpuscular Hgb 28.4 pg (27.0-32.0); Mean Corpuscular Volume 91.3 fL (81-99); Mean Platelet Vol. 11.1 fl (6.2-12.0); Monocyte# 0.31 X10^3/uL; Monocyte% 4.5 % (0-10); NRBC Flagged by Analyzer 0 % (0-5); Neutrophil % 64.6 % (47-70); Platelet Count 209 K/mm3 (150-450); RBC Distribution Width CV 17.2 % (11.6-14.6); RBC Distribution Width SD 56.3 fl (35.1-43.9); Red Blood Count 4.61 M/mm3 (4.2-5.4)
[2020-11-21 08:03] LABS: AST(SGOT) 30 U/L (15-37); Alanine Aminotransfer ALT/SGPT 14 U/L (13-56); Albumin, Serum 3.6 g/dL (3.2-5.0); Alkaline Phosphatase 142 U/L (45-117); Anion Gap 1 (5-15); BUN 15 mg/dL (7-18); BUN/Creat Ratio 14.6 RATIO (10-20); Calcium,Total 9.3 mg/dL (8.5-10.1); Chloride 100 mmol/L (98-107); Creatinine, Serum 1.03 mg/dL (0.55-1.02); EST Glomerular Filtration Rate 57 mL/min (>60); Est Glom Filt Rate - Afr Amer 69 mL/min (>60); Estimated Creatinine Clearance 48.28 ml/min; Globulin 4.8 g/dL (2.2-4.2); Glucose 141 mg/dL (74-106); Potassium 4.9 mmol/L (3.5-5.1); Protein, Total 8.4 g/dL (6.4-8.2); Sodium Level 138 mmol/L (136-145)
--- NOTE | 2020-11-21 08:17 | RAD_ITS ---
STUDY: X-RAY - LEFT KNEE REASON FOR EXAM: Female, 65 years old. Fall TECHNIQUE: 2 view(s) of the knee. COMPARISON: None. FINDINGS: Normal visualized distal femur. Normal visualized proximal tibia and fibula. Normal proximal tibiofibular articulation. There is mild degenerative arthrosis of the medial femorotibial compartment. Normal lateral femorotibial compartment. Normal patellofemoral articulation. Moderate sized joint effusion. RAD/Knee 1 or 2 Views IMPRESSION: Degenerative arthrosis. Moderate-sized joint effusion. Electronically Signed: Scott Hsieh MD at 8:35 EDT , Service support ,
[2020-11-21] MEDS: Naloxone 2 MG/2 ML Syringe 1 MG IV (08:51)
== END 2020-11-21 10:33 | disposition home or self-care (01) ==
PROVIDERS: Emergency Provider Emergency Medicine; PCP Family Medicine
DX: G92 Toxic encephalopathy (principal); M25.462 Effusion, left knee; M25.562 Pain in left knee; W01.10XA Fall on same level from slipping, tripping and stumbling with subsequent striking against unspecified object, initial encounter; Y93.01 Activity, walking, marching and hiking; Y92.9 Unspecified place or not applicable; Y99.9 Unspecified external cause status; G20 Parkinson's disease; G40.909 Epilepsy, unspecified, not intractable, without status epilepticus; I10 Essential (primary) hypertension; F32.9 Major depressive disorder, single episode, unspecified; Z79.4 Long term (current) use of insulin; Z79.899 Other long term (current) drug therapy
CPT/HCPCS: 70450; 73560; 80048; 80076; 85025; 96374; 99285; A4216

== ENCOUNTER 2022-04-12 18:40 | Emergency (ER) | payer MEDICARE, SELFPAY ==
[2022-04-12 18:41] VITALS: BP 128/79; PULSE 110; RESP 18; TEMP 38.6; O2SAT 91; BMI 30.9
--- NOTE | 2022-04-12 19:16 | EX.ED.DYSGE1 ---
HPI History of Present Illness Chief Complaint: Complaint Informant: patient Narrative Narrative: Patient presents with 2 issues. She is complaining of back pain mostly in the left side. Occasionally will shoot down her left leg. It shoots down the entire leg. It is like a lightening bolt. But she has no weakness. She had some mild constipation recently but it resolved with an [id number] stool softener. She is not on a regular bowel regimen. She states she fell about a week ago. She landed on her buttock. But she does not think she hurt herself. She for stated she never had problems with her back before. Then she mentions seeing her pain management doctor last week. When I asked why she sees pain management she said for my back. This makes me believe that she does have a long-term problem with her back but she now does admit. She is on about 4 Vicodin a day per her online prescribing report. She also takes Lyrica. She denies fevers chills. No bowel or bladder dysfunction. She does not have urinary retention. But she has now developed dysuria over the last 2 days. She has occasionally had UTIs. No fevers chills sweats. Nothing makes her symptoms better or worse. She has a fever here but she is denying feeling this. I talked about her back. She normally has back pain in the lower back. It is more often left than right. And occasionally has shot down the legs. This is not really different than what she has been having for quite some time. She also now states that she talked to her pain management doctor and they have ordered an x-ray of the back because of the recent fall. However, she has not been able to get this done yet. [facility] Medical History (Updated 04/12/22 @ 22:[address] J Carlos Montoya MD) Diabetes Falls Hypertension Parkinson disease Home Medications amitriptyline 75 mg tablet 150 mg PO QHS depression 04/04/19 [History Last Taken 04/15/19 21:00] atorvastatin 40 mg tablet 40 mg PO QHS cholesterol 04/04/19 [History Last Taken 04/15/19 21:00] benzonatate 100 mg capsule 100 mg PO TID PRN PRN Cough 04/04/19 [History Last Taken Unknown] carbidopa ER 25 mg-levodopa 100 mg tablet,extended release 3 tab PO 4X/DAY parkinsons 04/04/19 [History Last Taken 04/16/19 10:00] donepezil 10 mg tablet 10 mg PO QHS memory 04/04/19 [History Last Taken 04/15/19 21:00] dulaglutide 1.5 mg/0.5 mL subcutaneous pen injector 1.5 mg SQ QWEEK diabetes 04/04/19 [History Last Taken 04/09/19 10:00] glimepiride 4 mg tablet 4 mg PO DAILY diabetes 04/04/19 [History Last Taken 04/16/19 10:00] hydrocodone 10 mg-acetaminophen 325 mg tablet 1 ea PO Q6H PRN Pain 04/04/19 [History Last Taken 04/16/19 10:00] levetiracetam 1,000 mg tablet 1,000 mg PO BID parkinsons 04/04/19 [History Last Taken 04/16/19 10:00] lisinopril 10 mg tablet 10 mg PO DAILY blood pressure 04/04/19 [History Last Taken 04/16/19 10:00] pregabalin 150 mg capsule 150 mg PO TID muscles/parkinsons 04/04/19 [History Last Taken 04/16/19 10:00] zolpidem 12.5 mg tablet,extended release,multiphase 12.5 mg PO QHS PRN PRN Insomnia 04/04/19 [History Last Taken Unknown] carbidopa ER 50 mg-levodopa 200 mg tablet,extended release 1 each PO BID 11/21/20 [History Last Taken Unknown] cholecalciferol (vitamin D3) 25 mcg (1,000 unit) tablet 5,000 unit PO DAILY 11/21/20 [History Last Taken Unknown] sertraline 100 mg tablet 100 mg PO DAILY 11/21/20 [History Last Taken Unknown] Allergy/AdvReac Type Severity Reaction Status Date / Time CHUNG Inhibitors Allergy Other Verified 04/12/22 18:41 Penicillins Allergy goofy Verified 04/12/22 18:41 duloxetine [From Cymbalta] AdvReac Other Verified 04/12/22 18:41 morphine AdvReac Upset Verified 04/12/22 18:41 Stomach nabumetone AdvReac Upset Verified 04/12/22 18:41 Stomach naproxen AdvReac Unknown Verified 04/12/22 18:41 omeprazole [From Prilosec] AdvReac Upset Verified 04/12/22 18:41 Stomach omeprazole magnesium AdvReac Upset Verified 04/12/22 18:41 [From Prilosec] Stomach pregabalin AdvReac Other Verified 04/12/22 18:41 Surgical History (Updated 04/12/22 @ 21:06 by Charley Lozoya) Hx of cholecystectomy Social History Smoking Status: Never smoker ROS ROS ED Constitutional Constitutional ED: Denies chills, fever(s) or subjective Eyes Eyes: Denies change in vision ENT ENT ED: Denies rhinorrhea or sore throat Cardiovascular Cardiovascular: Denies chest pain or palpitations Respiratory/Chest Respiratory/Chest: Denies cough or dyspnea Gastrointestinal Gastrointestinal: Reports constipation; Denies abdominal pain, diarrhea, melena, nausea or vomiting Genitourinary Genitourinary ED: Reports dysuria; Denies hematuria or urinary frequency Musculoskeletal Musculoskeletal: Reports back pain Integumentary Denies rash Neurologic Neurologic: Reports paresthesias; Denies headache(s) or weakness Endocrine Endocrinology: Denies polydipsia or polyuria Hematologic/Lymphatic Hematologic/Lymphatic: Denies easy bleeding or easy bruising Allergic/Immunologic Allergic/Immunologic ED: Denies urticaria EXAM Physical Exam Const Vital Signs: 04/12/22 18:41 04/12/22 21:01 04/12/22 22:32 Temperature 101.5 F H 98.8 F Temperature Source Oral Oral Pulse Rate 110 H 97 99 Respiratory Rate 18 18 20 H Blood Pressure 128/79 H 116/94 H 118/59 L Blood Pressure Mean 95 101 78 Pulse Ox 91 92 94 Oxygen Delivery Method Room Air Room Air Room Air Positive well nourished and well developed General Appearance ED: well developed and NAD; Negative for cyanotic, diaphoretic or pallor HEENT Reports moist mucous membranes Eyes PERRL Neck supple Resp normal respiratory effort and clear to auscultation bilaterally Cardio regular rate, regular rhythm and no murmurs GI normal to inspection, nondistended, normoactive bowel sounds and non-tender Palpation: soft Back/Spine no CVA tenderness Back/Spine Narrative: Patient's pain is mostly in the lower lumbar area. Is more left sided. She states the right does not hurt. She has reproducible muscular tenderness. She has some tenderness at the left sciatic notch on her buttock. No rashes noted. Extremity normal to inspection Extremity Narrative: No peripheral edema or cords. Pulses are normal. No loss of sensation. Strength is intact but she does have some mild global weakness. Of note, she uses a walker normally because she has chronic problems with her back and leg strength. Neuro oriented x3 Psych mental status grossly normal Skin no rashes or lesions noted General Skin Exam: Negative for jaundice or pallor MDM MDM MDM Narrative Medical decision making narrative: Patient had a fever with her first check here. But she had no symptoms of this. She states normally she would feel a fever if she had at home and she had not. Her did not notice this. She does not really have a significant change in her back pain. It is an exacerbation but is not markedly different than what she gets sometimes. This started with a fall where she landed on her buttock. She denies cough abdominal pain nausea or vomiting. She has never had back surgery. However, we now have fever with back pain and a urine that is negative despite dysuria. At this point I will do basic imaging of the back to make sure there is no fracture which I believe is a low chance. We will send off some blood work as well as COVID. I will also check a chest x-ray. Patient labs show normal CBC. Electrolytes are relatively normal. She does have a elevated C-reactive protein and ESR but these are nonspecific findings. The urine was clean. Single view chest x-ray looked at by me shows no sign of infiltrate. 3 view x-ray of the lumbar spine shows no sign of acute compression or fracture. Patient's COVID is positive. This explains her fever. But she does not know when she started with a fever. She is not felt this. She really has no symptoms. She is not hypoxic or ill. I do not think Paxlovid would be of definite benefit especially since we do not know the onset of her symptoms. She has had more soreness for the last week. We assumed that this was from her fall but this might be from a week of COVID. This would put her out of the time. For Paxlovid. Lab Data Labs: Laboratory Results - last 24 hr 04/12/22 04/12/22 04/12/22 20:05 21:56 21:56 WBC 7.9 RBC 4.45 Hgb 12.8 Hct 39.8 MCV 89.4 MCH 28.8 MCHC 32.2 RDW Std Deviation 46.5 H RDW Coeff of Tariq 14.4 Plt Count 187 MPV 10.1 Immature Gran % (Auto) 0.400 Neut % (Auto) 77.2 H Lymph % (Auto) 12.9 L [place] % (Auto) 7.6 Eos % (Auto) 1.3 Baso % (Auto) 0.6 Absolute Neuts (auto) 6.1 Absolute Lymphs (auto) 1.02 Nucleated RBC % 0 ESR 43 H Sodium 138 Potassium 3.9 Chloride 98 Carbon Dioxide 33.0 H Anion Gap 7 BUN 12 Creatinine 0.97 Estim Creat Clear Calc 49.93 Est GFR (MDRD) Af Amer 74 Est GFR (MDRD) Non-Af 61 BUN/Creatinine Ratio 12.3 Glucose 97 Calcium 9.4 C-React Prot Ext Range 47.10 H Urine Color Yellow Urine Clarity Clear Urine pH 6.0 Ur Specific [place] 1.010 Urine Protein 15 H Urine Glucose (UA) 1000 H Urine Ketones Negative Urine Occult Blood Negative Urine Nitrite Negative Urine Bilirubin Negative Urine Urobilinogen Normal Ur Leukocyte Esterase Negative Urine RBC 0 SEEN Urine WBC 0 SEEN Ur Squamous Epith Cells 0 SEEN Urine Bacteria 0 SEEN Urine Mucus 0 SEEN Discharge Plan Triage Chief Complaint: Complaint Other Complaint: Back ED Provider: J Carlos Montoya Dx/Rx/DC Orders Clinical Impression: COVID-19, Lumbar back pain, Dysuria Instructions: Coronavirus Disease 2019 (COVID-19): Caring for Yourself or Others Prescriptions: No Action atorvastatin 40 MG tablet 40 mg PO QHS carbidopa-levodopa 1 EACH tablet extended release 3 tab PO 4X/DAY amitriptyline 75 MG tablet 150 mg PO QHS donepezil 10 MG tablet 10 mg PO QHS hydrocodone-acetaminophen 1 EACH tablet 1 ea PO Q6H PRN (Reason: Pain) benzonatate 100 MG capsule 100 mg PO TID PRN PRN (Reason: Cough) lisinopril 10 MG tablet 10 mg PO DAILY glimepiride 4 MG tablet 4 mg PO DAILY pregabalin 150 MG capsule 150 mg PO TID zolpidem 12.5 MG tablet,ext release multiphase 12.5 mg PO QHS PRN PRN (Reason: Insomnia) levetiracetam 1,000 MG tablet 1,000 mg PO BID dulaglutide 1.5 MG/0.5 ML pen injector 1.5 mg SQ QWEEK Rx Instructions: every sat carbidopa-levodopa 1 EACH tablet extended release 1 each PO BID sertraline 100 MG tablet 100 mg PO DAILY cholecalciferol (vitamin D3) 25 MCG tablet 5,000 unit PO DAILY Primary Care Provider: Zhang Shields Referrals: Zhang Shields MD [Primary Care Provider] - 1 Week if not improving Disposition Disposition: Home, Self Care
[2022-04-12 20:17] LABS: Bacteria 0 SEEN /hpf (None Seen); Mucous, Urine 0 SEEN /hpf (<or=2+); Red Blood Cells-Urine 0 SEEN /hpf (0-5); Squamous Epithelial Cells - UA 0 SEEN /hpf (5-10); White Blood Cells 0 SEEN /hpf (0-5)
[2022-04-12 20:31] LABS: Color, Urine Yellow (Yellow); Glucose, Dipstick 1000 mg/dl (Normal); Ketone-Dipstick Negative (Negative); Leukocyte Esterase-Dipstick Negative /ul (Negative); Nitrite-Dipstick Negative (Negative); Occult Blood-Urine Negative /ul (Negative); Protein-Dipstick 15 mg/dl (Negative); Urine Bilirubin Dipstick Negative (Negative); Urine Clarity Clear (Clear); Urine Urobilinogen Normal (Normal)
[2022-04-12 21:01] VITALS: BP 116/94; PULSE 97; RESP 18; O2SAT 92
--- NOTE | 2022-04-12 21:23 | RAD_ITS ---
STUDY: X-RAY - LUMBAR SPINE REASON FOR EXAM: Female, 67 years old. Trauma. TECHNIQUE: 3 view(s) of the lumbar spine were obtained. COMPARISON: No relevant priors. FINDINGS: No visible fracture. No osseous destruction. Alignment anatomic. Moderate disc and facet degeneration at L5-S1. Less prominent degenerative changes more cephalad. No acute soft tissue abnormality. Surgical clips in the pelvis and right upper abdomen. RAD/Lumbar Spine 2 or 3 Views IMPRESSION: No acute osseous abnormality. Electronically Signed: Servando Esquivel MD at 23:06 EDT ,
--- NOTE | 2022-04-12 21:26 | RAD_ITS ---
STUDY: X-RAY CHEST REASON FOR EXAM: Female, 67 years old. Fever TECHNIQUE: AP COMPARISON: 04/16/2019 CXR FINDINGS: LUNGS: No evidence of pneumonia, pulmonary edema, pneumothorax or pleural effusion. MEDIASTINUM, TSERING: Cardiac silhouette, hilar and mediastinal contours with no acute findings. Heart size normal. Atherosclerosis of the thoracic aorta. BONES: Degenerative osseous changes with no acute osseous abnormality. UPPER ABDOMEN: Not well evaluated on this view. RAD/Chest 1 View (Portable) IMPRESSION: No acute findings. Electronically Signed: Servando Esquivel MD at 23:06 EDT Reading Location ID and State: [facility] / [place] Tel , Service support ,
[2022-04-12 22:08] LABS: Absolute Lymphocyte Count 1.02 X10^3/uL (0.83-4.51); Absolute Neutrophil Count 6.1 X10^3/uL (2.0-7.7); Basophil# 0.05 X10^3/uL; Basophil% 0.6 % (0-1); Eosinophils% 1.3 % (0-5); Hematocrit 39.8 % (37-47); Hemoglobin 12.8 g/dL (12.0-15.0); Lymphocyte # 1.02 X10^3/ul (0.83-4.51); Lymphocyte % 12.9 % (19-41); Mean Corp Hgb Conc 32.2 g/dL (32-36); Mean Corpuscular Hgb 28.8 pg (27.0-32.0); Mean Corpuscular Volume 89.4 fL (81-99); Mean Platelet Vol. 10.1 fl (6.2-12.0); Monocyte% 7.6 % (0-10); NRBC Flagged by Analyzer 0 % (0-5); Neutrophil # 6.08 X10^3/uL (2.7-7.7); Neutrophil % 77.2 % (47-70); Platelet Count 187 K/mm3 (150-450); RBC Distribution Width CV 14.4 % (11.6-14.6); RBC Distribution Width SD 46.5 fl (35.1-43.9); Red Blood Count 4.45 M/mm3 (4.2-5.4); White Blood Count 7.9 K/mm3 (4.4-11.0)
[2022-04-12 22:17] LABS: Erythrocyte Sedimentation Rate 43 mm/hr (0-30)
[2022-04-12 22:22] LABS: Anion Gap 7 (5-15); BUN 12 mg/dL (7-18); BUN/Creat Ratio 12.3 RATIO (10-20); Calcium,Total 9.4 mg/dL (8.5-10.1); Chloride 98 mmol/L (98-107); Creatinine, Serum 0.97 mg/dL (0.55-1.02); EST Glomerular Filtration Rate 61 mL/min (>60); Est Glom Filt Rate - Afr Amer 74 mL/min (>60); Estimated Creatinine Clearance 49.93 ml/min; Glucose 97 mg/dL (74-106); Potassium 3.9 mmol/L (3.5-5.1); Sodium Level 138 mmol/L (136-145)
[2022-04-12 22:32] VITALS: BP 118/59; PULSE 99; RESP 20; TEMP 37.1; O2SAT 94
== END 2022-04-12 22:44 | disposition home or self-care (01) ==
PROVIDERS: Emergency Provider Emergency Medicine; PCP Family Medicine; Visit Provider Emergency Medicine
DX: U07.1 COVID-19 (principal); G20 Parkinson's disease; E11.9 Type 2 diabetes mellitus without complications; M54.50 Low back pain, unspecified; R79.82 Elevated C-reactive protein (CRP); K59.00 Constipation, unspecified; R30.0 Dysuria; I10 Essential (primary) hypertension; Z79.84 Long term (current) use of oral hypoglycemic drugs; Z79.899 Other long term (current) drug therapy
CPT/HCPCS: 71045; 72100; 80048; 81001; 85025; 85652; 86140; 87040; 87811; 99283; A4216

== ENCOUNTER 2023-11-26 09:57 | Emergency (ER) | payer MEDICARE, SELFPAY ==
[2023-11-26 09:57] VITALS: BP 105/69; BP 107/65; PULSE 97; RESP 14; RESP 16; TEMP 36.6; O2SAT 92; O2SAT 93; BMI 30.9
--- NOTE | 2023-11-26 10:37 | CT_ITS ---
STUDY: CT BRAIN WITHOUT CONTRAST REASON FOR EXAM: Female, 68 years old. Head injury. Laceration to the back of the head. RADIATION DOSAGE (If Supplied By Facility): CTDIvol = ( 44.99 ) mGy, DLP = ( 779.24 ) mGycm TECHNIQUE: Transaxial CT imaging of the brain was performed without administration of intravenous contrast material. Individualized dose optimization techniques were used for this CT. COMPARISON: Comparison is made with prior study dated November 21, 2020. FINDINGS: Normal soft tissue structures. Normal calvarium. There is mild cerebral atrophy with widening of the extra-axial spaces and ventricular dilatation. There are areas of decreased attenuation within the white matter tracts of the supratentorial brain, consistent with microvascular disease changes. Normal basal ganglia and thalami. Normal brainstem. Normal cerebellum. There is no intracranial hemorrhage. There are no findings of an acute ischemic infarction. Atherosclerotic calcification of the cavernous portions of the internal carotid arteries bilaterally. Normal visualized paranasal sinuses. CT/Brain/Head without Contrast IMPRESSION: Chronic involutional changes of the brain. Electronically Signed: Scott Hsieh MD at 11:13 EDT ,
--- NOTE | 2023-11-26 11:10 | EDS_ITS ---
HPI History of Present Illness Chief Complaint: Head Injury Informant: patient and spouse/S.O. Narrative Narrative: 68-year-old female presenting to the emergency room with head injury from a fall. Patient states that she was walking across the room when she fell striking her head on a bedside stand. She denies any loss of consciousness. No neck or back pain. She denies any arm or leg symptoms. No chest pain shortness of breath or abdominal symptoms. She notes a laceration to her occiput. Tetanus Immunization: 5-10 years [facility] Medical History Diabetes Falls Hypertension Parkinson disease Home Medications amitriptyline 75 mg tablet 150 mg PO QHS depression 04/04/19 [History Last Taken 04/15/19 21:00] atorvastatin 40 mg tablet 40 mg PO QHS cholesterol 04/04/19 [History Last Taken 04/15/19 21:00] benzonatate 100 mg capsule 100 mg PO TID PRN PRN Cough 04/04/19 [History Last Taken Unknown] carbidopa ER 25 mg-levodopa 100 mg tablet,extended release 3 tab PO 4X/DAY parkinsons 04/04/19 [History Last Taken 04/16/19 10:00] donepezil 10 mg tablet 10 mg PO QHS memory 04/04/19 [History Last Taken 04/15/19 21:00] dulaglutide 1.5 mg/0.5 mL subcutaneous pen injector 1.5 mg SQ QWEEK diabetes 04/04/19 [History Last Taken 04/09/19 10:00] glimepiride 4 mg tablet 4 mg PO DAILY diabetes 04/04/19 [History Last Taken 04/16/19 10:00] levetiracetam 1,000 mg tablet 1,000 mg PO BID parkinsons 04/04/19 [History Last Taken 04/16/19 10:00] lisinopril 10 mg tablet 10 mg PO DAILY blood pressure 04/04/19 [History Last Taken 04/16/19 10:00] pregabalin 150 mg capsule 150 mg PO TID muscles/parkinsons 04/04/19 [History Last Taken 04/16/19 10:00] zolpidem 12.5 mg tablet,extended release,multiphase 12.5 mg PO QHS PRN PRN Insomnia 04/04/19 [History Last Taken Unknown] carbidopa ER 50 mg-levodopa 200 mg tablet,extended release 1 each PO BID 11/21/20 [History Last Taken Unknown] cholecalciferol (vitamin D3) 25 mcg (1,000 unit) tablet 5,000 unit PO DAILY 11/21/20 [History Last Taken Unknown] sertraline 100 mg tablet 100 mg PO DAILY 11/21/20 [History Last Taken Unknown] Allergy/AdvReac Type Severity Reaction Status Date / Time CHUNG Inhibitors Allergy Other Verified 11/26/23 09:57 Penicillins Allergy goofy Verified 11/26/23 09:57 duloxetine [From Cymbalta] AdvReac Other Verified 11/26/23 09:57 morphine AdvReac Upset Verified 11/26/23 09:57 Stomach nabumetone AdvReac Upset Verified 11/26/23 09:57 Stomach naproxen AdvReac Unknown Verified 11/26/23 09:57 omeprazole [From Prilosec] AdvReac Upset Verified 11/26/23 09:57 Stomach omeprazole magnesium AdvReac Upset Verified 11/26/23 09:57 [From Prilosec] Stomach pregabalin AdvReac Other Verified 11/26/23 09:57 Surgical History Hx of cholecystectomy Social History Smoking Status: Never smoker ROS ROS ED Constitutional Constitutional ED: Denies chills, fever(s) or weight loss Eyes Eyes: Denies change in vision or diplopia ENT ENT ED: Denies ear pain, rhinorrhea or sore throat Cardiovascular Cardiovascular: Denies chest pain, orthopnea, palpitations or racing heartbeat Respiratory/Chest Respiratory/Chest: Denies cough, dyspnea or orthopnea Gastrointestinal Gastrointestinal: Denies abdominal pain, diarrhea, nausea or vomiting Genitourinary Genitourinary ED: Denies dysuria, hematuria or urinary frequency Musculoskeletal Musculoskeletal: Denies arthralgias, back pain, myalgias or neck pain Integumentary Denies abscess or rash Neurologic Neurologic: Reports headache(s); Denies weakness Psychiatric Psychiatric: Denies anxiety, depression, suicidal ideation or suicidal thoughts Endocrine Endocrinology: Denies polydipsia, polyphagia or polyuria Allergic/Immunologic Allergic/Immunologic ED: Denies mouth swelling, tongue swelling or urticaria EXAM Physical Exam Const Vital Signs: 11/26/23 09:57 11/26/23 09:57 11/26/23 10:11 Temperature 98 F Temperature Source Temporal Pulse Rate 97 97 Respiratory Rate 16 14 Respiratory Effort Normal Non-Labored Respiratory Depth Normal Respiratory Pattern Normal Blood Pressure 105/69 107/65 Blood Pressure Mean 81 79 Pulse Ox 92 93 Oxygen Delivery Method Room Air Positive well nourished, well developed and obese General Appearance ED: well developed Nutritional Appearance: obese HEENT Reports normocephalic and moist mucous membranes HEENT Narrative: Located in the occiput is a 1 cm linear laceration with mild venous bleeding. No palpable bony depression. Eyes PERRL and EOMs intact bilaterally Neck full ROM, no lymphadenopathy, supple and no JVD Resp normal respiratory effort and clear to auscultation bilaterally Cardio regular rate, regular rhythm and no murmurs GI normal to inspection, nondistended, normoactive bowel sounds and non-tender Palpation: soft Back/Spine no CVA tenderness and normal ROM Extremity normal to inspection General Extremety ED: Negative for edema General Extremity: Negative for edema Neuro oriented x3 and CN's II-XII intact bilaterally Sensorium / Orientation: alert Motor Exam: strength 5/5 throughout Psych mental status grossly normal Mood & Affect: Negative for depressed or tearful Skin no rashes or lesions noted and no wounds MDM MDM MDM Narrative Medical decision making narrative: CT of the brain was obtained. This demonstrates no intracranial hemorrhage or skull fracture. Wound was locally anesthetized using 1% lidocaine washed with Shur-Clens and explored. No foreign bodies were noted. Wound was closed using 2 simple erupted 4-0 Ethilon sutures. Good homeostasis was achieved. Wound care discussed with patient. Stitches will need to be removed in 5 to 7 days History & Record Review Discussion w/independent historian: Patient and Significant other Radiography Diagnostic Testing: Clinical Impression(s) from Imaging Studies Brain CT 11/26/23 10:37 IMPRESSION: Chronic involutional changes of the brain. Electronically Signed: Scott Hsieh MD at 11:13 EDT , Discharge Plan Triage Chief Complaint: Head Injury ED Provider: Germán Gates Dx/Rx/DC Orders Prescriptions: No Action atorvastatin 40 MG tablet 40 mg PO QHS carbidopa-levodopa 1 EACH tablet extended release 3 tab PO 4X/DAY amitriptyline 75 MG tablet 150 mg PO QHS donepezil 10 MG tablet 10 mg PO QHS benzonatate 100 MG capsule 100 mg PO TID PRN PRN (Reason: Cough) lisinopril 10 MG tablet 10 mg PO DAILY glimepiride 4 MG tablet 4 mg PO DAILY pregabalin 150 MG capsule 150 mg PO TID zolpidem 12.5 MG tablet,ext release multiphase 12.5 mg PO QHS PRN PRN (Reason: Insomnia) levetiracetam 1,000 MG tablet 1,000 mg PO BID dulaglutide 1.5 MG/0.5 ML pen injector 1.5 mg SQ QWEEK Rx Instructions: every sat carbidopa-levodopa 1 EACH tablet extended release 1 each PO BID sertraline 100 MG tablet 100 mg PO DAILY cholecalciferol (vitamin D3) 25 MCG tablet 5,000 unit PO DAILY Primary Care Provider: Zhang Shields Referrals: Zhang Shields MD [Primary Care Provider] -
[2023-11-26] MEDS: Lidocaine 1% (20 ml mdv) 20 ML Vial INFILT (11:20)
[2023-11-26 11:34] VITALS: BP 137/64; PULSE 71; RESP 15; TEMP 36.3; O2SAT 99
== END 2023-11-26 11:35 | disposition home or self-care (01) ==
PROVIDERS: Emergency Provider Emergency Medicine; PCP Family Medicine; Visit Provider Emergency Medicine
DX: S01.01XA Laceration without foreign body of scalp, initial encounter (principal); G20.A1 Parkinson's disease without dyskinesia, without mention of fluctuations; E11.9 Type 2 diabetes mellitus without complications; W01.190A Fall on same level from slipping, tripping and stumbling with subsequent striking against furniture, initial encounter; Y93.01 Activity, walking, marching and hiking; I10 Essential (primary) hypertension; Z79.84 Long term (current) use of oral hypoglycemic drugs; Z79.899 Other long term (current) drug therapy
CPT/HCPCS: 12001; 70450; 99283

== ENCOUNTER 2024-07-26 02:02 | Inpatient (IN) | payer MEDICARE, SELFPAY ==
[2024-07-26] VITALS (39 sets, daily range): BP systolic 95–152; BP diastolic 66–109; PULSE 61–95; RESP 12–20; TEMP 35.8–37.9; O2SAT 84–99; BMI 29.6; BMI 29.1; BMI 29.2
--- NOTE | 2024-07-26 02:25 | CT_ITS ---
INDICATION: fall EXAMINATION: CT BRAIN - CT Head or Brain W/O Contrast Injection TECHNIQUE: Multiple axial images were obtained of the head without intravenous contrast. The protocol utilizes one or more of the following dose reduction techniques: automated exposure control, adjustment of mA and/or kV according to patient size,and/or use of iterative reconstruction technique. IV Contrast dosage and agent: None. RADIATION DOSAGE (If Supplied By Facility): CTDIvol = ( 44.99 ) mGy, DLP = ( 829.85 ) mGycm COMPARISON: Prior study dated: 11/26/2023 FINDINGS: BRAIN: No acute bleed. No edema. Decreased attenuation in the periventricular white matter bilaterally. Dyer-white matter differentiation is maintained. Arterial calcifications. VENTRICLES AND SULCI: The ventricles are not dilated. The sulci are prominent. EXTRA-AXIAL: No hemorrhage, fluid collection, or mass. CALVARIUM / SKULL BASE: Unremarkable. FACE/SINUSES: Unremarkable. SOFT TISSUES: Unremarkable. CT/Brain/Head without Contrast IMPRESSION: No acute abnormality. Chronic microvascular ischemic disease. Electronically Signed: Bessie Beatty MD at 3:07 EST ,
--- NOTE | 2024-07-26 02:25 | CT_ITS ---
INDICATION: fall EXAMINATION: CT CERVICAL SPINE - CT Spine Cervical W/O Contrast Injection TECHNIQUE: Helically acquired images were obtained of the cervical spine. 2D reformatted images were reviewed. The protocol utilizes one or more of the following dose reduction techniques: automated exposure control, adjustment of mA and/or kV according to patient size,and/or use of iterative reconstruction technique. IV Contrast dosage and agent: None. RADIATION DOSAGE (If Supplied By Facility): CTDIvol = ( 25.47 ) mGy, DLP = ( 510.33 ) mGycm COMPARISON: No relevant prior comparison study available FINDINGS: ALIGNMENT: Minimal anterior subluxation of C2 on C3, and C7 on T1. Straightening of the normal curvature. MINERALIZATION: Normal. VERTEBRAL BODIES: No fracture or acute abnormality. DISC SPACES: Disc space narrowing with osteophytes most pronounced C5-C7. POSTERIOR ELEMENTS: Facet arthropathy at multiple levels. SPINAL CANAL: Maintained. PARASPINAL SOFT TISSUES: Unremarkable. OTHER: None. CT/Spine Cervical without Contras IMPRESSION: No evidence of fracture or traumatic subluxation. Minimal anterolisthesis at C2-3 and C7-T1, likely secondary to degenerative changes. Straightening of the normal curve may be due to positioning or muscle spasm. Electronically Signed: Bessie Beatty MD at 3:14 [facility] ,
--- NOTE | 2024-07-26 02:25 | EKG12_ITS ---
Test Reason : DYSRHYTHMIA Blood Pressure : */* mmHG Vent. Rate : 90 BPM Atrial Rate : 90 BPM P-R Int : 214 ms QRS Dur : 100 ms QT Int : 402 ms P-R-T Axes : 32 21 31 degrees QTcB Int : 491 ms Sinus rhythm with 1st degree A-V block Prolonged QT Abnormal ECG Confirmed by KOLE ROMERO, LORY ([id number]), deputy editor in chief WILLIS CROWE ([id number]) on 07/28/2024 2:26:08 PM Referred By: Marky Good Confirmed By: LORY SHARIF MD
--- NOTE | 2024-07-26 02:29 | EDS_ITS ---
HPI History of Present Illness Chief Complaint: Weakness Narrative Narrative: Patient is a 69-year-old female with past medical history hypertension, diabetes, Parkinson's disease who presents to the emergency department chief complaint of fall. According to patient and significant other at bedside she has had 2 falls today. They state that each time she has attempted to get up out of her wheelchair and uses the restroom she fell. They states that she did not hit her head and she did not pass out. Patient states that earlier today she felt at her baseline and has no other complaints at this point time. Patient states that she is not on oxygen normally [facility] Medical History Hypertension Diabetes Falls Parkinson disease Home Medications ?Medication ?Instructions ?Recorded ?Last Taken ?Type amitriptyline 75 mg tablet 150 mg PO QHS depression 04/04/19 04/15/19 21:00 History atorvastatin 40 mg tablet 40 mg PO QHS cholesterol 04/04/19 04/15/19 21:00 History benzonatate 100 mg capsule 100 mg PO TID PRN PRN Cough 04/04/19 Unknown History carbidopa ER 25 mg-levodopa 100 mg 3 tab PO 4X/DAY parkinsons 04/04/19 04/16/19 10:00 History tablet,extended release donepezil 10 mg tablet 10 mg PO QHS memory 04/04/19 04/15/19 21:00 History dulaglutide 1.5 mg/0.5 mL 1.5 mg SQ QWEEK diabetes 04/04/19 04/09/19 10:00 History subcutaneous pen injector glimepiride 4 mg tablet 4 mg PO DAILY diabetes 04/04/19 04/16/19 10:00 History levetiracetam 1,000 mg tablet 1,000 mg PO BID parkinsons 04/04/19 04/16/19 10:00 History lisinopril 10 mg tablet 10 mg PO DAILY blood pressure 04/04/19 04/16/19 10:00 History pregabalin 150 mg capsule 150 mg PO TID muscles/parkinsons 04/04/19 04/16/19 10:00 History zolpidem 12.5 mg tablet,extended 12.5 mg PO QHS PRN PRN Insomnia 04/04/19 Unknown History release,multiphase carbidopa ER 50 mg-levodopa 200 mg 1 each PO BID 11/21/20 Unknown History tablet,extended release cholecalciferol (vitamin D3) 25 5,000 unit PO DAILY 11/21/20 Unknown History mcg (1,000 unit) tablet sertraline 100 mg tablet 100 mg PO DAILY 11/21/20 Unknown History carbidopa 25 mg-levodopa 100 mg tab PO 07/26/24 Unknown History tablet Allergy/AdvReac Type Severity Reaction Status Date / Time CHUNG Inhibitors Allergy Other Verified 07/26/24 02:03 Penicillins Allergy goofy Verified 07/26/24 02:03 duloxetine (From Cymbalta) AdvReac Other Verified 07/26/24 02:03 morphine AdvReac Upset Verified 07/26/24 02:03 Stomach nabumetone AdvReac Upset Verified 07/26/24 02:03 Stomach naproxen AdvReac Unknown Verified 07/26/24 02:03 omeprazole (From Prilosec) AdvReac Upset Verified 07/26/24 02:03 Stomach omeprazole magnesium (From AdvReac Upset Verified 07/26/24 02:03 Prilosec) Stomach pregabalin AdvReac Other Verified 07/26/24 02:03 Surgical History Hx of cholecystectomy Social History Smoking Status: Never smoker ROS ROS ED ROS Narrative Constitutional: Denies any fevers, chills, headaches, dizziness Eyes: Denies change in vision double vision blurry vision Cardiovascular: Denies chest pain or palpitation Respiratory: Denies coughing wheezing shortness of breath Abdomen: Denies abdominal pain nausea vomit diarrhea : Denies any urinary symptoms Neurological: Complains of generalized weakness as noted above and multiple falls denies any numbness or tingling Musculoskeletal: Denies back pain Skin: Denies any rashes or lesions EXAM Physical Exam Narrative Exam Narrative: General: Patient lying in bed rest comfortably did not appear to be acute distress Head: Atraumatic, normocephalic Eyes: PERRL body, EOMI blood, no conjunctival injection noted Neck: Soft, supple, trach midline Cardiovascular:Regular rate and rhythm no murmurs gallops rubs noted Respiratory: Clear to auscultation bilaterally Abdomen: Soft, nondistended, no tenderness to palpation, bowel sounds present x 4 Extremities: +4/5 strength noted in the bilateral upper and lower extremities, no pedal edema no exam Neurological: Patient following commands knew that she was at [facility] year is 2023. NIH of 0 GCS 15 Skin: Warm, dry, intact Const Vital Signs: 07/26/24 02:03 07/26/24 02:03 07/26/24 02:09 Temperature 98 F Temperature Source Oral Pulse Rate 95 Respiratory Rate 16 Respiratory Pattern Normal Blood Pressure 105/79 Blood Pressure Mean 87 Pulse Ox 85 92 Oxygen Delivery Method Room Air Nasal Cannula Oxygen Flow Rate (L/min) 2 Fraction of Inspired Oxygen (FIO2) 07/26/24 03:26 07/26/24 04:53 07/26/24 05:22 Temperature Temperature Source Pulse Rate 82 Respiratory Rate 18 14 Respiratory Pattern Normal Blood Pressure Blood Pressure Mean Pulse Ox 98 94 94 Oxygen Delivery Method Nasal Cannula Nasal Cannula Oxygen Flow Rate (L/min) 5 3 Fraction of Inspired Oxygen (FIO2) 30 07/26/24 05:26 Temperature 97.5 F L Temperature Source Pulse Rate 81 Respiratory Rate 14 Respiratory Pattern Blood Pressure 95/70 Blood Pressure Mean 78 Pulse Ox 84 Oxygen Delivery Method Oxygen Flow Rate (L/min) Fraction of Inspired Oxygen (FIO2) MDM MDM MDM Narrative Medical decision making narrative: Patient is a 69-year-old female who presented to the emergency department chief complaint of generalized weakness. On the differential diagnose includes but not limited to intracranial hemorrhage, UTI, ACS, pneumonia, pneumothorax. Once workup is obtained reviewed she will be reevaluated. Patient was noted to be hypoxic here in the emergency department on room air at 85% she was placed on 2 L nasal cannula. Once again the patient states that she is not chronically on oxygen. Patient CBC was reviewed and was significant for leukocytosis of 11,000, hemoglobin was 12.2, platelet count noted to be normal at 206. Patient sodium normal at 138, potassium was low at 3 she was given 40 mill equivalents here in the emergency department creatinine was 1.12. Patient's AST and ALT were 29 and 9 respectively. Patient troponin normal at 5 her EKG was reviewed and independently interpreted by myself which showed sinus rhythm with first-degree AV block at a rate of 90 bpm. Patient's lipase normal at 21, urinalysis was significant for urinary tract infection with 500 leukocyte esterase 50-100 white cells and 2+ bacteria she was given a gram of Rocephin. Which is likely given her new oxygen requirement. Patient will be given azithromycin. Patient's chest x-ray was reviewed by myself and by radiology which showed concern for a left basilar infiltrate. Patient was taken off oxygen and attempted to get her up to ambulate and she was a to lift assist and noted that when she attempted to get up out of bed she dropped to 80% on room air. At this point time she will require admission will discuss case with hospitalist. Patient has become somewhat somnolent here in the emergency department a VBG was ordered and her pH was noted to be 7.28 with a pCO2 of [address] the patient on BiPAP. Discussed case with hospitalist who accept patient for admission Dr. Chao. Patient and at bedside are agreeable with this plan all question lamine rns answered. Lab Data Labs: Laboratory Results - last 24 hr 07/26/24 07/26/24 02:08 02:24 WBC 11.7 H RBC 4.46 Hgb 12.2 Hct 37.8 MCV 84.8 MCH 27.4 MCHC 32.3 RDW Std Deviation 42.8 RDW Coeff of Tariq 13.9 Plt Count 206 MPV 10.9 Immature Gran % (Auto) 0.300 Neut % (Auto) 69.5 Lymph % (Auto) 21.9 [place] % (Auto) 5.9 Eos % (Auto) 1.7 Baso % (Auto) 0.7 Absolute Neuts (auto) 8.1 H Absolute Lymphs (auto) 2.56 Nucleated RBC % 0 Sodium 138 Potassium 3.0 L Chloride 99 Carbon Dioxide 32.0 Anion Gap 7 BUN 17 Creatinine 1.12 H Estim Creat Clear Calc 49.38 Est GFR (MDRD) Af Amer 62 Est GFR (MDRD) Non-Af 52 L BUN/Creatinine Ratio 15.2 Glucose 164 H Calcium 8.6 Total Bilirubin 0.40 AST 29 ALT 9 L Alkaline Phosphatase 118 H Troponin I High Sens 5 Total Protein 7.5 Albumin 3.5 Globulin 4.0 Albumin/Globulin Ratio 0.9 Lipase 21 Urine Color Yellow Urine Clarity Cloudy Urine pH 6.0 Ur Specific [place] 1.015 Urine Protein 30 H Urine Glucose (UA) 1000 H Urine Ketones Negative Urine Occult Blood 50 H Urine Nitrite Negative Urine Bilirubin Negative Urine Urobilinogen Normal Ur Leukocyte Esterase 500 H Urine RBC 0-5 SEEN Urine WBC 50-100 SEEN Ur Squamous Epith Cells 0-5 SEEN Urine Bacteria 2+ Urine Mucus 1+ ABG Data ABG results: ABG 07/26/24 05:06 Specimen Type BUNNY Sample Site Not entered VBG pH 7.29 L VBG pO2 44 H VBG HCO3 30 H VBG Total CO2 32 VBG O2 Sat (Calc) 73 H VBG Base Excess 4 H POC Mix VBG pCO2 Pt Tmp 63.2 H O2 Delivery Device Room Air Radiography Diagnostic Testing: Clinical Impression(s) from Imaging Studies Brain CT 07/26/24 02:25 IMPRESSION: No acute abnormality. Chronic microvascular ischemic disease. Electronically Signed: Bessie Beatty MD at 3:07 EST Reading Location ID and State: [facility] / [place] Tel , Service support , Cervical Spine CT 07/26/24 02:25 IMPRESSION: No evidence of fracture or traumatic subluxation. Minimal anterolisthesis at C2-3 and C7-T1, likely secondary to degenerative changes. Straightening of the normal curve may be due to positioning or muscle spasm. Electronically Signed: Bessie Beatty MD at 3:14 EST Reading Location ID and State: [facility] / [place] Tel , Service support , Chest X-Ray 07/26/24 03:32 IMPRESSION: Left basilar infiltrate versus atelectasis. Electronically Signed: Bessie Beatty MD at 4:08 EST , Discharge Plan Triage Chief Complaint: Weakness ED Provider: Ji Win Dx/Rx/DC Orders Clinical Impression: Acute respiratory failure with hypoxia and hypercapnia, Pneumonia, Urinary tract infection, Generalized weakness Prescriptions: No Action atorvastatin 40 MG tablet 40 mg PO QHS carbidopa-levodopa 1 EACH tablet extended release 3 tab PO 4X/DAY amitriptyline 75 MG tablet 150 mg PO QHS donepezil 10 MG tablet 10 mg PO QHS benzonatate 100 MG capsule 100 mg PO TID PRN PRN (Reason: Cough) lisinopril 10 MG tablet 10 mg PO DAILY glimepiride 4 MG tablet 4 mg PO DAILY pregabalin 150 MG capsule 150 mg PO TID zolpidem 12.5 MG tablet,ext release multiphase 12.5 mg PO QHS PRN PRN (Reason: Insomnia) levetiracetam 1,000 MG tablet 1,000 mg PO BID dulaglutide 1.5 MG/0.5 ML pen injector 1.5 mg SQ QWEEK Rx Instructions: every sat carbidopa-levodopa 1 EACH tablet extended release 1 each PO BID sertraline 100 MG tablet 100 mg PO DAILY cholecalciferol (vitamin D3) 25 MCG tablet 5,000 unit PO DAILY carbidopa-levodopa 25-100 mg tablet PO Primary Care Provider: Zhang Shields Referrals: Zhang Shields MD [Primary Care Provider] - Print Language: [place] Disposition Disposition: Acute Care Hospital [facility]
[2024-07-26] MEDS: 0.9% Normal Saline (1000mL) 1,000 ML 999 ML IV ×2 (02:31→08:10)
[2024-07-26 02:37] LABS: Absolute Lymphocyte Count 2.56 X10^3/uL (0.83-4.51); Absolute Neutrophil Count 8.1 X10^3/uL (2.0-7.7); Basophil# 0.08 X10^3/uL; Basophil% 0.7 % (0-1); Eosinophils% 1.7 % (0-5); Hematocrit 37.8 % (37-47); Hemoglobin 12.2 g/dL (12.0-15.0); Lymphocyte # 2.56 X10^3/ul (0.83-4.51); Lymphocyte % 21.9 % (19-41); Mean Corp Hgb Conc 32.3 g/dL (32-36); Mean Corpuscular Hgb 27.4 pg (27.0-32.0); Mean Corpuscular Volume 84.8 fL (81-99); Mean Platelet Vol. 10.9 fl (6.2-12.0); Monocyte# 0.69 X10^3/uL; Monocyte% 5.9 % (0-10); NRBC Flagged by Analyzer 0 % (0-5); Neutrophil # 8.11 X10^3/uL (2.7-7.7); Neutrophil % 69.5 % (47-70); Platelet Count 206 K/mm3 (150-450); RBC Distribution Width CV 13.9 % (11.6-14.6); RBC Distribution Width SD 42.8 fl (35.1-43.9); Red Blood Count 4.46 M/mm3 (4.2-5.4); White Blood Count 11.7 K/mm3 (4.4-11.0)
[2024-07-26 02:57] LABS: ALB/GLOB Ratio 0.9 RATIO (0.9-2.4); AST(SGOT) 29 U/L (15-37); Alanine Aminotransfer ALT/SGPT 9 U/L (13-56); Albumin, Serum 3.5 g/dL (3.2-5.0); Alkaline Phosphatase 118 U/L (45-117); Anion Gap 7 (5-15); BUN 17 mg/dL (7-18); BUN/Creat Ratio 15.2 RATIO (10-20); Calcium,Total 8.6 mg/dL (8.5-10.1); Chloride 99 mmol/L (98-107); Creatinine, Serum 1.12 mg/dL (0.55-1.02); EST Glomerular Filtration Rate 52 mL/min (>60); Est Glom Filt Rate - Afr Amer 62 mL/min (>60); Estimated Creatinine Clearance 49.38 ml/min; Glucose 164 mg/dL (74-106); Lipase 21 U/L (13-75); Protein, Total 7.5 g/dL (6.4-8.2); Sodium Level 138 mmol/L (136-145); Troponin-I HS 5 pg/mL (3.0-54.0)
[2024-07-26 03:21] LABS: Color, Urine Yellow (Yellow); Glucose, Dipstick 1000 mg/dl (Normal); Ketone-Dipstick Negative (Negative); Leukocyte Esterase-Dipstick 500 /ul (Negative); Nitrite-Dipstick Negative (Negative); Occult Blood-Urine 50 /ul (Negative); Protein-Dipstick 30 mg/dl (Negative); Specific Gravity, Urine 1.015 (1.002-1.030); Urine Bilirubin Dipstick Negative (Negative); Urine Clarity Cloudy (Clear); Urine Urobilinogen Normal (Normal)
[2024-07-26 03:29] LABS: Bacteria 2+ /hpf (None Seen); Mucous, Urine 1+ /hpf (<or=2+); Red Blood Cells-Urine 0-5 SEEN /hpf (0-5); Squamous Epithelial Cells - UA 0-5 SEEN /hpf (5-10); White Blood Cells 50-100 SEEN /hpf (0-5)
--- NOTE | 2024-07-26 03:32 | RAD_ITS ---
INDICATION: sob EXAMINATION/TECHNIQUE: X-RAY - XR Chest 2 Views COMPARISON: Prior study dated: 04/12/2022 FINDINGS: LINES/DEVICES: None. LUNGS: Low lung volumes. Patchy opacity at the left lung base. No consolidation. No pneumothorax. MEDIASTINUM: Unremarkable. CARDIAC SILHOUETTE: Not enlarged. BONES AND SOFT TISSUES: No acute abnormalities. RAD/Chest PA and Lateral IMPRESSION: Left basilar infiltrate versus atelectasis. Electronically Signed: Bessie Beatty MD at 4:08 EST ,
[2024-07-26] MEDS: Ceftriaxone 1 GM/50 ML BAG IV (03:44)
[2024-07-26] MEDS: Potassium Chloride Oral Soln 20 MEQ/15 ML UDC 40 MEQ PO (03:44)
[2024-07-26] MEDS: Azithromycin 500 MG in 0.9% Normal Saline (250mL Bag) 250 ML 250 MG IV (04:42)
[2024-07-26 05:10] LABS: Blood Gas Specimen Type VEN; O2 Delivery Device Room Air; SITE Not entered; VBG BASE EXCESS 4 mmol/L (-1.0-3.5); VBG Bicarbonate 30 mmol/L (22-26); VBG PO2 44 mmHg (25-40); VBG SO2 73 % (50-70); VBG TCO2 32 mmol/L (23-33); VBG pCO2 63.2 mmHg (41-51); VBG pH 7.29 (7.32-7.42)
--- NOTE | 2024-07-26 05:24 | HP.PCM.HOS_ITS ---
HPI - General General Date of Admission: 07/26/24 Date of Service: 07/26/24 Chief Complaint: SOB, Generalized Weakness and Falls x 2. HPI Narrative KEN TRUJILLO, is a 69 F with a past medical history of essential hypertension; on lisinopril, hyperlipidemia; on atorvastatin, overweight; with BMI of 29.7 this admission, DM-2; of unknown control; on glimepiride and dulaglutide, Parkinson's disease; on Sinemet, levetiracetam and pregabalin, chronic dementia; on donepezil, depression; on sertraline and amitriptyline, chronic insomnia; on zolpidem, history of cholecystectomy and OA; with chronically poor mobility who presents to [facility] ER complaining of SOB, generalized weakness and falls x 2. Mrs. Trujillo is not a fully-reliable historian at this time so information was gathered from chart, medical staff and computer. According to the records the patient's noted that she was generally weak and she fell when trying to get up to use the restroom. He denies significant head trauma or LOC with her fall. Shortly after arrival patient was noted to become somnolent and less responsive by the ER physician with her CXR revealing LLL infiltrate consistent with suspected Pneumonia with a corresponding Leukocytosis of 11.7K present on admission complicated by VBG evidence of Respiratory Acidosis with pH 7.29 present on admission and clinical evidence of Acute Hypoxic Respiratory Failure requiring BiPAP compounded by laboratory evidence of Hypokalemia of 3 mmol/L present on admission all culminating to cause Metabolic Encephalopathy with Generalized Weakness and Falls and she was then admitted to the PCU for ongoing care for a stay that is expected to extend beyond 2 midnights. [facility] Medical History Hypertension Diabetes Falls Parkinson disease Home Medications ?Medication ?Instructions ?Recorded ?Last Taken ?Type amitriptyline 75 mg tablet 150 mg PO QHS depression 04/04/19 04/15/19 21:00 History atorvastatin 40 mg tablet 40 mg PO QHS cholesterol 04/04/19 04/15/19 21:00 History benzonatate 100 mg capsule 100 mg PO TID PRN PRN Cough 04/04/19 Unknown History carbidopa ER 25 mg-levodopa 100 mg 3 tab PO 4X/DAY parkinsons 04/04/19 04/16/19 10:00 History tablet,extended release donepezil 10 mg tablet 10 mg PO QHS memory 04/04/19 04/15/19 21:00 History dulaglutide 1.5 mg/0.5 mL 1.5 mg SQ QWEEK diabetes 04/04/19 04/09/19 10:00 History subcutaneous pen injector glimepiride 4 mg tablet 4 mg PO DAILY diabetes 04/04/19 04/16/19 10:00 History levetiracetam 1,000 mg tablet 1,000 mg PO BID parkinsons 04/04/19 04/16/19 10:00 History lisinopril 10 mg tablet 10 mg PO DAILY blood pressure 04/04/19 04/16/19 10:00 History pregabalin 150 mg capsule 150 mg PO TID muscles/parkinsons 04/04/19 04/16/19 10:00 History zolpidem 12.5 mg tablet,extended 12.5 mg PO QHS PRN PRN Insomnia 04/04/19 Unknown History release,multiphase carbidopa ER 50 mg-levodopa 200 mg 1 each PO BID 11/21/20 Unknown History tablet,extended release cholecalciferol (vitamin D3) 25 5,000 unit PO DAILY 11/21/20 Unknown History mcg (1,000 unit) tablet sertraline 100 mg tablet 100 mg PO DAILY 11/21/20 Unknown History carbidopa 25 mg-levodopa 100 mg tab PO 07/26/24 Unknown History tablet Allergy/AdvReac Type Severity Reaction Status Date / Time CHUNG Inhibitors Allergy Other Verified 07/26/24 02:03 Penicillins Allergy goofy Verified 07/26/24 02:03 duloxetine (From Cymbalta) AdvReac Other Verified 07/26/24 02:03 morphine AdvReac Upset Verified 07/26/24 02:03 Stomach nabumetone AdvReac Upset Verified 07/26/24 02:03 Stomach naproxen AdvReac Unknown Verified 07/26/24 02:03 omeprazole (From Prilosec) AdvReac Upset Verified 07/26/24 02:03 Stomach omeprazole magnesium (From AdvReac Upset Verified 07/26/24 02:03 Prilosec) Stomach pregabalin AdvReac Other Verified 07/26/24 02:03 Surgical History Hx of cholecystectomy Social History Smoking Status: Never smoker ROS ROS Narrative Full ROS was not possible due to metabolic encephalopathy. Vital Signs Vital Signs Vital Signs: 07/26/24 02:03 07/26/24 02:03 07/26/24 02:09 Temperature 98 F Temperature Source Oral Pulse Rate 95 Respiratory Rate 16 Respiratory Pattern Normal Blood Pressure 105/79 Blood Pressure Mean 87 Pulse Ox 85 92 Oxygen Delivery Method Room Air Nasal Cannula Oxygen Flow Rate (L/min) 2 07/26/24 03:26 07/26/24 04:53 Temperature Temperature Source Pulse Rate Respiratory Rate 18 Respiratory Pattern Blood Pressure Blood Pressure Mean Pulse Ox 98 94 Oxygen Delivery Method Nasal Cannula Nasal Cannula Oxygen Flow Rate (L/min) 5 3 Weight Weight: 172 lb 13.478 oz Body Mass Index (BMI) 29.6 Physical Exam Const alert Constitutional Narrative: Patient is lethargic on BiPAP. Orientation / Consciousness: lethargic HEENT normocephalic, head/scalp atraumatic, hearing grossly normal bilaterally and moist oral mucous membranes Eyes PERRL and EOMs intact bilaterally Neck no lymphadenopathy and supple Resp Resp Narrative: Diminished breath sounds over LLL. Cardio regular rate and regular rhythm GI normal to inspection, nondistended, normoactive bowel sounds, soft to palpation, non-tender and non-distended Extremity normal to inspection and full ROM Skin Skin Narrative: Patient has no evidence of rash, abscess or jaundice. Neuro CN's II-XII intact bilaterally, moves all extremities and no focal motor deficits Sensorium / Orientation: awake, alert, oriented to person and oriented to place Speech: speech normal Psych Psych Narrative: Patient is lethargic on BiPAP. Results Medical Records Data Attestation: I reviewed the patient's medical records Lab / Micro Data Attestation: I reviewed the patient's lab results. 07/26/24 02:24 07/26/24 02:24 Labs: Laboratory Results - last 24 hr 07/26/24 02:08: Urine Color Yellow, Urine Clarity Cloudy, Urine pH 6.0, Ur Specific [place] 1.015, Urine Protein 30 H, Urine Glucose (UA) 1000 H, Urine Ketones Negative, Urine Occult Blood 50 H, Urine Nitrite Negative, Urine Bilirubin Negative, Urine Urobilinogen Normal, Ur Leukocyte Esterase 500 H, Urine RBC 0-5 SEEN, Urine WBC 50-100 SEEN, Ur Squamous Epith Cells 0-5 SEEN, Urine Bacteria 2+, Urine Mucus 1+ 07/26/24 02:24: WBC 11.7 H, RBC 4.46, Hgb 12.2, Hct 37.8, MCV 84.8, MCH 27.4, MCHC 32.3, RDW Std Deviation 42.8, RDW Coeff of Tariq 13.9, Plt Count 206, MPV 10.9, Immature Gran % (Auto) 0.300, Neut % (Auto) 69.5, Lymph % (Auto) 21.9, [place] % (Auto) 5.9, Eos % (Auto) 1.7, Baso % (Auto) 0.7, Absolute Neuts (auto) 8.1 H, Absolute Lymphs (auto) 2.56, Nucleated RBC % 0, Sodium 138, Potassium 3.0 L, Chloride 99, Carbon Dioxide 32.0, Anion Gap 7, BUN 17, Creatinine 1.12 H, Estim Creat Clear Calc 49.38, Est GFR (MDRD) Af Amer 62, Est GFR (MDRD) Non-Af 52 L, BUN/Creatinine Ratio 15.2, Glucose 164 H, Calcium 8.6, Total Bilirubin 0.40, AST 29, ALT 9 L, Alkaline Phosphatase 118 H, Troponin I High Sens 5, Total Protein 7.5, Albumin 3.5, Globulin 4.0, Albumin/Globulin Ratio 0.9, Lipase 21 Micro: Microbiology 07/26/24 02:08 Mucosa - Nose SARS-CoV-2, Influenza & RSV (PCR) - Final ABG Data ABG results: ABG 07/26/24 05:06 Specimen Type BUNNY Sample Site Not entered VBG pH 7.29 L VBG pO2 44 H VBG HCO3 30 H VBG Total CO2 32 VBG O2 Sat (Calc) 73 H VBG Base Excess 4 H POC Mix VBG pCO2 Pt Tmp 63.2 H O2 Delivery Device Room Air Imaging Radiology Impression Brain CT 07/26/24 02:25 IMPRESSION: No acute abnormality. Chronic microvascular ischemic disease. Electronically Signed: Bessie Beatty MD at 3:07 EST , Cervical Spine CT 07/26/24 02:25 IMPRESSION: No evidence of fracture or traumatic subluxation. Minimal anterolisthesis at C2-3 and C7-T1, likely secondary to degenerative changes. Straightening of the normal curve may be due to positioning or muscle spasm. Electronically Signed: Bessie Beatty MD at 3:14 EST , Chest X-Ray 07/26/24 03:32 IMPRESSION: Left basilar infiltrate versus atelectasis. Electronically Signed: Bessie Beatty MD at 4:08 EST Reading Location ID and State: [facility] / [place] Tel , Service support , Assessment & Plan Assessment/Plan (1) Pneumonia: QUALIFIERS: Laterality: left Lung location: lower lobe of lung P neumonia type: due to unspecified organism Qualified Code(s): J18.9 - Pneumonia, unspecified organism (2) Acute respiratory failure with hypoxia and hypercapnia: (3) Metabolic encephalopathy: (4) Dementia: QUALIFIERS: Dementia behavioral or psychological symptom: u nspecified whether behavioral, psychotic, or mood disturbance or anxiety D ementia severity: unspecified severity Dementia type: unspecified type Q ualified Code(s): F03.90 - Unspecified dementia, unspecified severity, without behavioral disturbance, psychotic disturbance, mood disturbance, and anxiety (5) Parkinsons disease: QUALIFIERS: Dyskinesia presence: unspecified whether dyskinesia F luctuating manifestations: unspecified whether manifestations fluctuate Q ualified Code(s): G20.A1 - Parkinson's disease without dyskinesia, without mention of fluctuations (6) Generalized weakness: (7) Falls: (8) Overweight (BMI 25.0-29.9): PLAN: Plan 1. CXR revealing LLL infiltrate consistent with suspected Pneumonia with a corresponding Leukocytosis of 11.7K present on admission - Admit to PCU. Continue IV Rocephin and IV Azithromycin begun in the ER and await culture and sensitivity data. Check urinary antigens to Streptococcus pneumonia and Legionella. Check CT chest without contrast to confirm infiltrate suspected on CXR. Give Tylenol prn pain or fever. 2. Respiratory Acidosis with pH 7.29 present on admission and clinical evidence of Acute Hypoxic Respiratory Failure requiring BiPAP arising from #1 - Wean BiPAP as tolerated. Check ABG to establish baseline with abnormal VBG. 3. Hypokalemia of 3 mmol/L present on admission complicating #1 & #2 - Give supplemental KCl and then recheck level in AM to ensure improvement. 4. Acute Metabolic Encephalopathy attributable to #1 - #3 in the setting of known Chronic Dementia; on donepezil - Hold donepezil while patient is on Azithromycin due to potential adverse drug interaction. 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 Check TSH, B12, Folate and UDS to evaluate for possible reversible causes of confusion. Otherwise, continue treatment plan as outlined above and monitor for improvement. 5. Generalized Weakness and Falls x 2 due to #1 - #4 in the setting of known Parkinson's disease and OA; with chronically poor mobility - Resume Sinemet, levetiracetam and pregabalin as previous. PT/OT and Case Management to consult and treat on-rounds in the AM for further recommendations with help appreciated in advance. 6. Essential hypertension; on lisinopril - Hold lisinopril with blood pressure of 95/70 mmHg present shortly after admission. 7. Hyperlipidemia; on atorvastatin - Resume statin and check Lipid Profile. 8. Overweight; with BMI of 29.7 this admission - Weight loss will be recommended. Check TSH. This complicates her case and may hamper recovery. 9. DM-2; of unknown control; on glimepiride and dulaglutide - NPO for now. FSBS q. 6 hours plus lowest intensity SSI. Check HgbA1c to objectively assess quality of diabetic control. 10 Depression; on sertraline and amitriptyline - Maintain current regimen. 11. Chronic insomnia; on zolpidem - Hold zolpidem until further notice with patient becoming lethargic in ER and requiring BiPAP. 12. History of cholecystectomy - Noted. 13. DVT prophylaxis - Lovenox 40 mg sq daily plus SCD's. Total time: Approximately (but not less than) 75 minutes. Charges/Coding Visit Charges Inpatient E&M: 72717 Init Hosp L3
--- NOTE | 2024-07-26 06:06 | CT_ITS ---
INDICATION: LLL PNA suspected on CXR. EXAMINATION: CT CHEST WITHOUT CONTRAST - CT Chest W/O Contrast Injection TECHNIQUE: Helically acquired images were obtained of the chest. The protocol utilizes one or more of the following dose reduction techniques: automated exposure control, adjustment of mA and/or kV according to patient size,and/or use of iterative reconstruction technique. IV Contrast dosage and agent: None. RADIATION DOSAGE (If Supplied By Facility): CTDIvol = ( 13.96 ) mGy, DLP = ( 404.57 ) mGycm COMPARISON: Prior study dated: Oral 20/12/2017 FINDINGS: LUNGS: Mild groundglass opacities throughout the lungs with slight septal thickening. Dependent opacities in the lower lobes likely atelectasis. No consolidation. LARGE AIRWAYS: Decreased AP diameter of the trachea with bowing of the posterior margin, to the abhishek and proximal mainstem bronchi, new compared to prior. PLEURA: No pleural effusion. No pneumothorax. MEDIASTINUM: Unremarkable. HEART: Mildly enlarged. CORONARY ARTERIES: Coronary artery calcification is seen. AORTA/VESSELS: No aortic aneurysm. ESOPHAGUS: Unremarkable. UPPER ABDOMEN: No acute findings. BONES/SOFT TISSUES: No acute abnormality. OTHER/LINES: None. CT/Chest without Contrast IMPRESSION: Findings suggest likely mild pulmonary edema. No consolidation. Dependent lower lobe atelectasis bilaterally. Tracheal narrowing suggesting possible tracheomalacia. Electronically Signed: Bessie Beatty MD at 8:08 EST ,
[2024-07-26 06:40] LABS: Amphetamine Urine VISTA NEGATIVE (<1000 ng/mL); Barbiturate Urine VISTA NEGATIVE (< 200 ng/mL); Benzodiazepine Urine VISTA NEGATIVE (< 200 ng/mL); Cocaine Urine VISTA NEGATIVE (< 300 ng/mL); Ecstacy Urine VISTA NEGATIVE (< 500 ng/mL); Methadone Urine VISTA NEGATIVE (< 300 ng/mL); PCP Urine VISTA NEGATIVE (< 25 ng/mL); THC Urine VISTA NEGATIVE (< 50 ng/mL); Vista UDS pH Range 5
[2024-07-26 07:33] LABS: Allen Test Positive; Base Excess 4 mmol/L (-2 to +2); Bicarbonate 30.5 mmol/L (22-26); Blood Gas Specimen Type ART; Comment 14/6; Mode ST; O2 Delivery Device BiPAP; PEEP 6; PO2 84 mmHG (75-100); RR 14; SITE L Radial; SO2 94 % (95-99); Total Carbon Dioxide 33 mmol/L; pCO2 66.7 mmHg (35-45); pH 7.27 (7.35-7.45)
[2024-07-26 08:03] LABS: Bedside Glucose 153 mg/dL (74-106)
--- NOTE | 2024-07-26 08:12 | PCM.HOSP.N ---
Hospitalist Note Covering for Dr. Zhang Goldman for short time I was called by the nurse as patient was not breathing well even on BiPAP, not responding, hardly opens eyes even with sternal rub. On BiPAP per tidal volume low about 250 mL, shallow breathing. Seen and examined briefly Patient not waking up at 4 sometimes with a sternal rub but been made to sit up with support, she briefly opened her eyes and mumbled incomprehensible words. Lungs: Air entry severely diminished more on the right side. Shallow breathing. On BiPAP Heart: Low-volume pulse. Low intensity heart sounds. SBP 103 mmHg TERMINAL GAUGER: Very decreased responsiveness/no responsiveness Plan Chest CT without contrast reviewed. No obvious major constellation but more basal atelectasis. Official report pending. Chest x-ray official report is left basilar infiltrate. Patient moved to ICU immediately. 1 L normal saline bolus. Discussed with rn employee health Dr. Pickard and I agreed for urgent intubation after moving twice. IV antibiotic upgraded to Zosyn. IV Solu-Medrol 60 mg 1 dose stat and then 40 mg every 8 hours Attending on the case informed
[2024-07-26] MEDS: Etomidate 20 MG/10 ML Vial IV (08:34)
[2024-07-26] MEDS: fentaNYL drip 100 ML 15 MCG CONT INF (08:35)
--- NOTE | 2024-07-26 08:40 | NURSING ---
0834- etomidate given, restraints placed on bilateral wrists 0835- fentanyl started, Dr. Pickard intubated- #7.5 ETT 22@ lip, positive color change and bilateral breath sounds, CXR ordered. OG placed.
[2024-07-26 08:41] LABS: Cholesterol 137 mg/dL (200); High Density Lipoprotein 70 mg/dL; Triglycerides 151 mg/dL; Very Low Density Lipoprotein 30 mg/dL (5-40)
--- NOTE | 2024-07-26 08:45 | RAD_ITS ---
HISTORY: intubation. TECHNIQUE: XR Chest 1 View. COMPARISON: 03:40. FINDINGS: LINES/TUBES: Endotracheal tube tip approximately 3 cm above the abhishek. Nasogastric tube side port at the level of the gastroesophageal junction with tip at the level the proximal stomach in the left upper quadrant. CARDIOMEDIASTINAL BORDERS: Stable. LUNGS: Decreased left basilar opacity. PLEURA: No pleural effusion or pneumothorax. RAD/Chest 1 View (Portable) IMPRESSION: Decreased left basilar atelectasis or pneumonia status post intubation. Satisfactory position of endotracheal tube. Nasogastric tube side-port at the gastroesophageal junction; consider mild advancement. Electronically Signed: Rebekah Mane MD at 9:34 EST ,
--- NOTE | 2024-07-26 08:48 | CON.PCM.CC_ITS ---
Assessment & Plan Assessment/Plan (1) Acute respiratory failure with hypoxia and hypercapnia: PLAN: Plan RECOMMENDATIONS: 1. Initiate assist-control mode mechanical ventilation. Wean FiO2 and PEEP to maintain saturations at or above 90%. 2. Empiric antimicrobials, pending culture workup. 3. Discontinue aerosol treatments and IV steroids. 4. Initiate appropriate DVT and GI prophylaxis. 5. Obtain sputum and send for culture. 6. Obtain follow-up ABG in 1 hour. IMPRESSIONS: 1. Acute respiratory failure with hypoxemia and hypercapnia The patient initially presented to the hospital with generalized weakness and falls. She was noted to be encephalopathic with acute CO2 retention. Attempt was made to utilize noninvasive positive pressure ventilatory support, which was largely unsuccessful. Therefore, the decision was made to proceed with intubation. CT chest did not demonstrate any findings concerning for an underlying pulmonary infectious etiology. Will plan to obtain follow-up ABG and send sputum for culture. Continue assist-control mode of mechanical ventilation. Wean FiO2 and PEEP to maintain saturations at or above 90%. 2. Toxic/metabolic encephalopathy Clinical concern for underlying urinary tract source of infection as possible contributing etiology. The patient does not have any large discernible metabolic derangements on her laboratory workup. TSH was within normal limits. Agree with checking urine toxicology screen. 3. Possible UTI Continue empiric antimicrobial therapy, pending infectious workup. 4. History of generalized weakness with falls/hypertension/hyperlipidemia/diabetes mellitus Complicates care, management, recovery and prognosis. Continue home medications as indicated. PT/OT evaluations once medically stabilized. TIME: 42 minutes of critical care time, inclusive of procedures, was spent addressing the patient's acute respiratory failure with hypoxemia and hypercapnia, toxic/metabolic encephalopathy, review of all data and collaboration with the care team. HPI Consult Data Date of Consult: 07/26/24 HPI Narrative Reason for Consultation: Acute hypoxemic and hypercapnic respiratory failure HPI Narrative: The patient is a 69-year-old female, with a history as outlined below, who presented to the emergency department on July 26 with generalized weakness and several recent falls. History pertinent to the patient's hospitalization was obtained primarily via chart review, as the patient is too encephalopathic to provide any additional details. The patient has documented medical history significant for hypertension, hyperlipidemia, diabetes mellitus, Parkinson's disease, dementia, and insomnia. On presentation to the emergency department, the patient was documented to be afebrile and hemodynamically stable. She was initially saturating 85% on room air. Laboratory evaluation revealed a white blood cell count of 12,000. Hemoglobin and platelet count were stable. The patient was noted to have acute CO2 retention on VBG. Chemistry profile was notable for a potassium of 3.0 and creatinine of 1.12. Glucose was elevated at 164. Liver function profile was within normal limits. TSH was within normal limits. Urine analysis was positive for leukocyte esterase and 2+ urine bacteria. CT head revealed no acute intracranial abnormality. CT chest demonstrated subtle stigmata of pulmonary edema without any focal consolidation. The patient was initially placed on antimicrobials and noninvasive positive pressure ventilatory support. Due to inadequate tidal volumes, the patient was transition to AVAPS therapy. However, she was reportedly obtunded and largely nonresponsive. Follow-up ABG demonstrated no significant interval change in her acid-base status. In light of the aforementioned, the patient was transferred to the medical intensive care unit, where she was ultimately intubated. Intubation Indication: Respiratory failure Consent was obtained from: Done emergently The patient was placed in the appropriate sniffing position. Preoxygenated sedation via BiPAP was provided for a minimum of 3 minutes. The patient had continuous cardiac as well as pulse oximetry monitoring during the procedure. Procedure sedation was provided by the administration of 20 mg of etomidate. Direct laryngoscopy was then performed using a number 4 MAC blade, which revealed a grade 1 view. A 7.5 mm endotracheal tube was visualized advancing between the cords to the level of 22 cm at the lip. The stylette was then removed and discarded. Tube placement was confirmed by fogging in the tube along with equal and bilateral breath sounds. Colorimetric change was visualized on the CO2 meter. The cuff was then inflated and the tube secured using a commercially available device. A good pulse oximetry waveform was seen on the monitor throughout the procedure. A portable chest x-ray has been ordered to confirm appropriate placement. The patient tolerated the procedure well. [facility] Medical History Hypertension Diabetes Falls Parkinson disease Home Medications ?Medication ?Instructions ?Recorded ?Last Taken ?Type amitriptyline 75 mg tablet 150 mg PO QHS depression 04/04/19 04/15/19 21:00 History atorvastatin 40 mg tablet 40 mg PO QHS cholesterol 04/04/19 04/15/19 21:00 History benzonatate 100 mg capsule 100 mg PO TID PRN PRN Cough 04/04/19 Unknown History carbidopa ER 25 mg-levodopa 100 mg 3 tab PO 4X/DAY parkinsons 04/04/19 04/16/19 10:00 History tablet,extended release donepezil 10 mg tablet 10 mg PO QHS memory 04/04/19 04/15/19 21:00 History dulaglutide 1.5 mg/0.5 mL 1.5 mg SQ QWEEK diabetes 04/04/19 04/09/19 10:00 History subcutaneous pen injector glimepiride 4 mg tablet 4 mg PO DAILY diabetes 04/04/19 04/16/19 10:00 History levetiracetam 1,000 mg tablet 1,000 mg PO BID parkinsons 04/04/19 04/16/19 10:00 History lisinopril 10 mg tablet 10 mg PO DAILY blood pressure 04/04/19 04/16/19 10:00 History pregabalin 150 mg capsule 150 mg PO TID muscles/parkinsons 04/04/19 04/16/19 10:00 History zolpidem 12.5 mg tablet,extended 12.5 mg PO QHS PRN PRN Insomnia 04/04/19 Unknown History release,multiphase carbidopa ER 50 mg-levodopa 200 mg 1 each PO BID 11/21/20 Unknown History tablet,extended release cholecalciferol (vitamin D3) 25 5,000 unit PO DAILY 11/21/20 Unknown History mcg (1,000 unit) tablet sertraline 100 mg tablet 100 mg PO DAILY 11/21/20 Unknown History carbidopa 25 mg-levodopa 100 mg tab PO 07/26/24 Unknown History tablet Allergy/AdvReac Type Severity Reaction Status Date / Time CHUNG Inhibitors Allergy Other Verified 07/26/24 02:03 Penicillins Allergy goofy Verified 07/26/24 02:03 duloxetine (From Cymbalta) AdvReac Other Verified 07/26/24 02:03 morphine AdvReac Upset Verified 07/26/24 02:03 Stomach nabumetone AdvReac Upset Verified 07/26/24 02:03 Stomach naproxen AdvReac Unknown Verified 07/26/24 02:03 omeprazole (From Prilosec) AdvReac Upset Verified 07/26/24 02:03 Stomach omeprazole magnesium (From AdvReac Upset Verified 07/26/24 02:03 Prilosec) Stomach pregabalin AdvReac Other Verified 07/26/24 02:03 Surgical History Hx of cholecystectomy Social History Smoking Status: Never smoker ROS Review of Systems ROS Unobtainable: due to mental status Physical Exam Const Constitutional Narrative: The patient is largely obtunded on PAP therapy. She is not currently responsive to verbal or tactile stimulation. HEENT normocephalic and head/scalp atraumatic Eyes EOMs intact bilaterally and conjunctivae normal Neck supple General: trachea midline Chest inspection of chest normal Resp Auscultation: diminished lung sounds; Negative for rales, rhonchi or wheezes Cardio regular rate and regular rhythm GI normal to inspection, nondistended, normoactive bowel sounds Extremity no clubbing, cyanosis or edema Skin no rashes or lesions noted Neuro Neuro Narrative: Obtunded and unresponsive. Lab / Micro Data 07/26/24 02:24 07/26/24 02:24 Labs: Laboratory Results - last 24 hr 07/26/24 02:00: Urine Opiates Screen NEGATIVE, Urine Methadone Screen NEGATIVE, Ur Barbiturates Screen NEGATIVE, Ur Phencyclidine Scrn NEGATIVE, Ur Amphetamines Screen NEGATIVE, MDMA (Ecstasy) Screen NEGATIVE, U Benzodiazepines Scrn NEGATIVE, Urine Cocaine Screen NEGATIVE, U Cannabinoids Screen NEGATIVE, Ur Drug Screen Comment 07/26/24 02:08: Urine Color Yellow, Urine Clarity Cloudy, Urine pH 6.0, Ur Specific [place] 1.015, Urine Protein 30 H, Urine Glucose (UA) 1000 H, Urine Ketones Negative, Urine Occult Blood 50 H, Urine Nitrite Negative, Urine Bilirubin Negative, Urine Urobilinogen Normal, Ur Leukocyte Esterase 500 H, Urine RBC 0-5 SEEN, Urine WBC 50-100 SEEN, Ur Squamous Epith Cells 0-5 SEEN, Urine Bacteria 2+, Urine Mucus 1+ 07/26/24 02:24: WBC 11.7 H, RBC 4.46, Hgb 12.2, Hct 37.8, MCV 84.8, MCH 27.4, MCHC 32.3, RDW Std Deviation 42.8, RDW Coeff of Tariq 13.9, Plt Count 206, MPV 10.9, Immature Gran % (Auto) 0.300, Neut % (Auto) 69.5, Lymph % (Auto) 21.9, [place] % (Auto) 5.9, Eos % (Auto) 1.7, Baso % (Auto) 0.7, Absolute Neuts (auto) 8.1 H, Absolute Lymphs (auto) 2.56, Nucleated RBC % 0, Sodium 138, Potassium 3.0 L, Chloride 99, Carbon Dioxide 32.0, Anion Gap 7, BUN 17, Creatinine 1.12 H, Estim Creat Clear Calc 49.38, Est GFR (MDRD) Af Amer 62, Est GFR (MDRD) Non-Af 52 L, BUN/Creatinine Ratio 15.2, Glucose 164 H, Calcium 8.6, Total Bilirubin 0.40, AST 29, ALT 9 L, Alkaline Phosphatase 118 H, Troponin I High Sens 5, Total Protein 7.5, Albumin 3.5, Globulin 4.0, Albumin/Globulin Ratio 0.9, Triglycerides 151, Cholesterol 137, LDL Cholesterol 37, VLDL Cholesterol 30, HDL Cholesterol 70, Lipase 21, Folate 16.40, TSH 2.030 07/26/24 07:45: POC Glucose 153 H Micro: Microbiology 07/26/24 02:08 Mucosa - Nose SARS-CoV-2, Influenza & RSV (PCR) - Final ABG Data ABG results: ABG 07/26/24 07/26/24 05:06 07:30 Specimen Type BUNNY ART Sample Site Not entered L Radial pH 7.27 L Bicarbonate Actual 30.5 H Total CO2 33 Base Excess 4 H O2 Saturation 94 L O2 % 30.0 ABG pCO2 66.7 H ABG pO2 84 Ariel Test Positive VBG pH 7.29 L VBG pO2 44 H VBG HCO3 30 H VBG Total CO2 32 VBG O2 Sat (Calc) 73 H VBG Base Excess 4 H POC Mix VBG pCO2 Pt Tmp 63.2 H Respiration Rate 14 O2 Delivery Device Room Air BiPAP Vent Mode ST POC PEEP 6 Clinical Comments 14 Imaging Radiology Impression Brain CT 07/26/24 02:25 IMPRESSION: No acute abnormality. Chronic microvascular ischemic disease. Electronically Signed: Bessie Beatty MD at 3:07 EST Reading Location ID and State: [id number] / [id number] Tel , Service support , Cervical Spine CT 07/26/24 02:25 IMPRESSION: No evidence of fracture or traumatic subluxation. Minimal anterolisthesis at C2-3 and C7-T1, likely secondary to degenerative changes. Straightening of the normal curve may be due to positioning or muscle spasm. Electronically Signed: Bessie Beatty MD at 3:14 EST Reading Location ID and State: [employer] / [email or web address] Tel , Service support , Chest X-Ray 07/26/24 03:32 IMPRESSION: Left basilar infiltrate versus atelectasis. Electronically Signed: Bessie Beatty MD at 4:08 EST Reading Location ID and State: [employer] / [place] Tel , Service support , Chest CT 07/26/24 06:06 IMPRESSION: Findings suggest likely mild pulmonary edema. No consolidation. Dependent lower lobe atelectasis bilaterally. Tracheal narrowing suggesting possible tracheomalacia. Electronically Signed: Bessie Beatty MD at 8:08 EST Reading Location ID and State: [employer] / [place] Tel , Service support , Charges/Coding Procedures Hospitalists Procedures: 22534 Critical Care 1st Hr
[2024-07-26] MEDS: Midazolam 2 MG/2 ML Syringe IV (08:57)
[2024-07-26] MEDS: dexMEDEtomidine 400 MCG in 0.9% Normal Saline (100mL Bag) 96 ML 28.9 MCG CONT INF (09:09)
[2024-07-26] MEDS: KCL 20MEQ in 0.9% NS 20 MEQ/1,000 ML IV.SOLN. 100 MEQ IV (09:43)
[2024-07-26] MEDS: Piperacil/Tazobactam 3.375 GM in 0.9% Normal Saline (50mL MB+) 50 ML IV ×3 (09:44→21:03)
[2024-07-26] MEDS: Pantoprazole Sodium 40 MG in 0.9% Normal Saline (100mL MB+) 100 ML 330 MG IV (09:44)
[2024-07-26] MEDS: Ascorbic Acid 500 MG Tablet 1000 MG GT ×2 (09:44→17:07)
[2024-07-26] MEDS: Zinc Sulfate 50 mg zinc (220 mg) ORAL capsule GT (09:45)
[2024-07-26] MEDS: Cholecalciferol (Vit D3) 125 MCG CAPSULE (5,000 UNITS) GT (09:45)
[2024-07-26] MEDS: Enoxaparin 40 MG/0.4 ML Syringe SC (09:45)
[2024-07-26] MEDS: Sertraline 100 MG Tablet GT (09:45)
[2024-07-26] MEDS: Carbidopa/Levodopa 25/100 Tablet GT ×3 (09:45→21:04)
[2024-07-26] MEDS: Lactobacillis Acidophilus 1 CAP GT ×4 (09:45→21:04)
[2024-07-26] MEDS: levETIRAcetam 1,000 MG Tablet 1000 MG GT ×2 (09:45→21:04)
[2024-07-26] MEDS: Chlorhexidine 15 ML PO ×2 (09:46→21:04)
[2024-07-26 09:52] LABS: Allen Test Positive; Base Excess 1 mmol/L (-2 to +2); Blood Gas Specimen Type ART; Mode AC; O2 Delivery Device Adult Vent; PEEP 5; PO2 87 mmHG (75-100); RR 14; SITE L Radial; SO2 97 % (95-99); Total Carbon Dioxide 26 mmol/L; pCO2 36.5 mmHg (35-45); pH 7.44 (7.35-7.45)
[2024-07-26] MEDS: CHLORHEXIDINE GLUC 2% CLOTH 1 EACH TOWELETTE TOPICAL (09:52)
[2024-07-26 10:04] LABS: BNP,B-Type NATRIURETIC PEPTIDE 4.2 pg/mL (0-100)
[2024-07-26 10:10] LABS: Lactic Acid 1.4 mmol/L (0.4-1.9)
[2024-07-26 10:13] LABS: Procalcitonin 0.22 ng/mL (0.00-0.09)
[2024-07-26 10:24] LABS: Vitamin B12 484 pg/mL (211-911)
--- NOTE | 2024-07-26 11:34 | CASEMGMT ---
EMELYN SIERRA Assessment Face to Face with patient for initial transition planning/care coordination assessment. [facility] and is unable to answer this RN RIGO questions accordingly. Pt at bedside and willing to assist. Pt daughter and son also at bedside and willing to participate in assessment planning. Care providers, pharmacy, and demographics verified. Admitting dx: LLL PNA, Acute RF LACE Strata: Not populated yet PCP: Zhang Shields Specialists: Denies Preferred Pharmacy: [facility] Insurance: [employer] [facility] Prescription Benefit: Yes LNOK: Isaac (H), Garrett (Son) Living Arrangements: Pt lives with her in a single story home with a flat entrance ADLs/IADLs: Pt reports that the pt is independent at baseline Transportation: Pt does not drive. Pt drives DME: [facility] through [employer]. Functioning BGM with sufficient supplies. Cane, BP Machine, pulse ox, grab bars, shower chair. If pt were to qualify for home oxygen, a verbal list of local in-network DME companies were provided to the pt family at this time. Pt prefers [employer] again for the DME company. HHC/SNF: Denies history Plan: TBD. Today is VD#1. Care management will follow for extubation and progression during hospital stay. Pt family decline further questions or concerns at this time. RIGO and SW to follow. Horacio Nova RN, CM
[2024-07-26] MEDS: Dexmedetomidine 1,000 mcg in 0.9% NS 240 mL 29.2 MCG CONT INF ×2 (12:27→21:00)
[2024-07-26] MEDS: Insulin Lispro 100 UNIT/ML INSULN.PEN SC ×3 (12:29→23:29)
[2024-07-26 12:41] LABS: Bedside Glucose 220 mg/dL (74-106)
[2024-07-26] MEDS: fentaNYL drip 100 ML 20 MCG CONT INF (13:20)
[2024-07-26] MEDS: Pregabalin 75 MG Capsule 150 MG GT ×2 (13:22→21:04)
[2024-07-26 13:51] LABS: Anion Gap 6 (5-15); BUN 15 mg/dL (7-18); BUN/Creat Ratio 17.5 RATIO (10-20); Chloride 113 mmol/L (98-107); Creatinine, Serum 0.86 mg/dL (0.55-1.02); EST Glomerular Filtration Rate 70 mL/min (>60); Est Glom Filt Rate - Afr Amer 85 mL/min (>60); Estimated Creatinine Clearance 64.11 ml/min; Glucose 216 mg/dL (74-106); Potassium 4.2 mmol/L (3.5-5.1); Sodium Level 142 mmol/L (136-145)
--- NOTE | 2024-07-26 17:17 | PCM.HOSP.N ---
Hospitalist Note Patient was seen and examined briefly today, she was intubated earlier this morning due to increased lethargy and respiratory embarrassment. Patient had CO2 retention, according to family member she has no history of lung issues though. Patient does take Lyrica and Ambien at home on a chronic basis however. Chest CT did not demonstrate any critical findings for pneumonia or CHF. Patient will continue on antibiotics for now and aerosol treatments and IV corticosteroids were discontinued. If patient continues to improve, it may be possible to extubate her in the morning.
[2024-07-26 17:32] LABS: Bedside Glucose 206 mg/dL (74-106)
[2024-07-26] MEDS: fentaNYL drip 100 ML 17.5 MCG CONT INF (18:43)
[2024-07-26] MEDS: Amitriptyline 100 MG Tablet 150 MG GT (21:04)
[2024-07-26] MEDS: Atorvastatin Calcium 40 MG Tablet GT (21:04)
[2024-07-26 23:48] LABS: Bedside Glucose 184 mg/dL (74-106)
[2024-07-27] VITALS (33 sets, daily range): BP systolic 123–149; BP diastolic 77–92; PULSE 65–73; RESP 6–19; TEMP 37.1–38.2; O2SAT 90–98; BMI 30.3
[2024-07-27] MEDS: fentaNYL drip 100 ML 12.5 MCG CONT INF (00:30)
[2024-07-27] MEDS: Piperacil/Tazobactam 3.375 GM in 0.9% Normal Saline (50mL MB+) 50 ML IV ×3 (05:26→20:55)
[2024-07-27] MEDS: 0.9% Saline Lock 10 ML Syringe IV (05:27)
[2024-07-27] MEDS: Pregabalin 75 MG Capsule 150 MG GT ×3 (05:27→20:55)
[2024-07-27] MEDS: Carbidopa/Levodopa 25/100 Tablet GT ×4 (05:27→20:45)
[2024-07-27] MEDS: Insulin Lispro 100 UNIT/ML INSULN.PEN SC (05:31)
[2024-07-27 05:55] LABS: Absolute Lymphocyte Count 2.08 X10^3/uL (0.83-4.51); Absolute Neutrophil Count 9.2 X10^3/uL (2.0-7.7); Basophil# 0.06 X10^3/uL; Basophil% 0.5 % (0-1); Eosinophil# 0.13 X10^3/uL; Eosinophils% 1.1 % (0-5); Hematocrit 39.2 % (37-47); Hemoglobin 12.8 g/dL (12.0-15.0); Lymphocyte # 2.08 X10^3/ul (0.83-4.51); Lymphocyte % 17.2 % (19-41); Mean Corp Hgb Conc 32.7 g/dL (32-36); Mean Corpuscular Hgb 27.4 pg (27.0-32.0); Mean Corpuscular Volume 83.8 fL (81-99); Mean Platelet Vol. 11.4 fl (6.2-12.0); Monocyte# 0.52 X10^3/uL; Monocyte% 4.3 % (0-10); NRBC Flagged by Analyzer 0 % (0-5); Neutrophil # 9.23 X10^3/uL (2.7-7.7); Neutrophil % 76.5 % (47-70); Platelet Count 223 K/mm3 (150-450); RBC Distribution Width CV 14.2 % (11.6-14.6); Red Blood Count 4.68 M/mm3 (4.2-5.4); White Blood Count 12.1 K/mm3 (4.4-11.0)
[2024-07-27 05:55] LABS: Bedside Glucose 150 mg/dL (74-106)
[2024-07-27 06:20] LABS: ALB/GLOB Ratio 0.8 RATIO (0.9-2.4); AST(SGOT) 57 U/L (15-37); Alanine Aminotransfer ALT/SGPT 10 U/L (13-56); Albumin, Serum 2.9 g/dL (3.2-5.0); Alkaline Phosphatase 190 U/L (45-117); Anion Gap 8 (5-15); BUN 16 mg/dL (7-18); BUN/Creat Ratio 15.5 RATIO (10-20); Calcium,Total 8.3 mg/dL (8.5-10.1); Chloride 111 mmol/L (98-107); Creatinine, Serum 1.03 mg/dL (0.55-1.02); EST Glomerular Filtration Rate 57 mL/min (>60); Est Glom Filt Rate - Afr Amer 69 mL/min (>60); Estimated Creatinine Clearance 54.27 ml/min; Globulin 3.6 g/dL (2.2-4.2); Glucose 168 mg/dL (74-106); Magnesium 1.3 mg/dL (1.6-2.6); Phosphorus 2.8 mg/dL (2.5-4.9); Potassium 3.7 mmol/L (3.5-5.1); Protein, Total 6.5 g/dL (6.4-8.2); Sodium Level 141 mmol/L (136-145)
[2024-07-27 07:42] LABS: Hemoglobin A1c 8.2 % (3.8-5.6)
[2024-07-27] MEDS: Dexmedetomidine 1,000 mcg in 0.9% NS 240 mL 27.3 MCG CONT INF (07:47)
[2024-07-27] MEDS: Chlorhexidine 15 ML PO ×2 (08:58→20:44)
[2024-07-27] MEDS: Ascorbic Acid 500 MG Tablet 1000 MG GT (08:58)
[2024-07-27] MEDS: Lactobacillis Acidophilus 1 CAP GT ×4 (08:58→20:44)
[2024-07-27] MEDS: levETIRAcetam 1,000 MG Tablet 1000 MG GT ×2 (09:03→20:46)
[2024-07-27] MEDS: Zinc Sulfate 50 mg zinc (220 mg) ORAL capsule GT (09:03)
[2024-07-27] MEDS: Enoxaparin 40 MG/0.4 ML Syringe SC (09:03)
[2024-07-27] MEDS: Cholecalciferol (Vit D3) 125 MCG CAPSULE (5,000 UNITS) GT (09:04)
[2024-07-27] MEDS: CHLORHEXIDINE GLUC 2% CLOTH 1 EACH TOWELETTE TOPICAL (09:05)
[2024-07-27] MEDS: Sertraline 100 MG Tablet GT (09:05)
[2024-07-27] MEDS: Pantoprazole Sodium 40 MG in 0.9% Normal Saline (100mL MB+) 100 ML 330 MG IV (10:26)
--- NOTE | 2024-07-27 10:57 | RAD_ITS ---
EXAM: XR CHEST, 1 VIEW CLINICAL INDICATION: SOB TECHNIQUE: Frontal view of the chest. COMPARISON: 07/26/2024. FINDINGS: LUNGS AND PLEURAL SPACES: Mild pulmonary hypoinflation. No suspicious infiltrates, consolidation or edema. No pneumothorax. No effusion. HEART: Unremarkable. Cardiac silhouette not enlarged. MEDIASTINUM: Central airways and mediastinal contour are unremarkable. BONES/JOINTS: Unremarkable. No acute fracture. SOFT TISSUES: Unremarkable. TUBES, LINES AND DEVICES: Satisfactory distal metaphysis of NG tube, sidehole is now in the midline proximal gastric cavity and the tip is further down in the stomach. ET tube tip is 4 cm above the abhishek. RAD/Chest 1 View (Portable) IMPRESSION: 1. No acute findings in the chest. 2. Satisfactory distal represent of NG tube. 3. ET tube tip remains in good position. Electronically Signed: Donald Ridley MD at 12:55 EST ,
[2024-07-27] MEDS: fentaNYL drip 100 ML 7.5 MCG CONT INF (11:05)
--- NOTE | 2024-07-27 11:54 | PCM.PN.HOSP ---
Reason for Visit Reason for Visit: Diagnoses Overweight (07/26/24) Unspecified dementia, unspecified severity, without behavioral disturbance, psychotic disturbance, mood disturbance, and anxiety (07/26/24) Parkinson's disease (07/26/24) Parkinson's disease without dyskinesia, without mention of fluctuations (07/26/24) Metabolic encephalopathy (07/26/24) Pneumonia, unspecified organism (07/26/24) Acute respiratory failure with hypoxia (07/26/24) Acute respiratory failure with hypercapnia (07/26/24) Repeated falls (07/26/24) Weakness (07/26/24) Subjective Subjective Patient was seen and examined today, she is on an FiO2 of 0.35 currently, a weaning trial was attempted today but she did not do well at this time I have elected to keep her on the ventilator and reevaluate her tomorrow. I talked briefly with the family members were in the room at the time of my examination. Objective Data Objective Data Vital Signs: Vital Signs Temp Pulse Resp BP Pulse Ox O2 Del Method O2 Flow Rate 99.0 F 66 14 126/91 H 96 Mechanical Ventilator 3 07/27/24 10:00 07/27/24 11:00 07/27/24 11:00 07/27/24 11:00 07/27/24 11:00 07/27/24 11:41 07/26/24 04:53 FiO2 35 07/27/24 10:42 Oxygen Flow Rate (L/min) 3 Oxygen Delivery Method Mechanical Ventilator Weight: 80.104 kg Body Mass Index (BMI) 30.3 Intake & Output: Intake and Output for Last 24 Hours 07/25/24 07/26/24 07/27/24 23:59 23:59 23:59 Intake Total 4231.31 / 4303.69 886.22 / 886.22 Output Total 1550 / 1550 650 / 650 Balance 2681.31 / 2753.69 236.22 / 236.22 Lab / Micro Data 07/27/24 05:15 07/27/24 05:15 Labs: Laboratory Results - last 24 hr 07/26/24 12:23: POC Glucose 220 H 07/26/24 13:30: Sodium 142, Potassium 4.2, Chloride 113 H, Carbon Dioxide 24.0, Anion Gap 6, BUN 15, Creatinine 0.86, Estim Creat Clear Calc 64.11, Est GFR (MDRD) Af Amer 85, Est GFR (MDRD) Non-Af 70, BUN/Creatinine Ratio 17.5, Glucose 216 H, Calcium 8.0 L 07/26/24 17:10: POC Glucose 206 H 07/26/24 23:28: POC Glucose 184 H 07/27/24 05:15: WBC 12.1 H, RBC 4.68, Hgb 12.8, Hct 39.2, MCV 83.8, MCH 27.4, MCHC 32.7, RDW Std Deviation 43.0, RDW Coeff of Tariq 14.2, Plt Count 223, MPV 11.4, Immature Gran % (Auto) 0.400, Neut % (Auto) 76.5 H, Lymph % (Auto) 17.2 L, [place] % (Auto) 4.3, Eos % (Auto) 1.1, Baso % (Auto) 0.5, Absolute Neuts (auto) 9.2 H, Absolute Lymphs (auto) 2.08, Nucleated RBC % 0, Sodium 141, Potassium 3.7, Chloride 111 H, Carbon Dioxide 23.0, Anion Gap 8, BUN 16, Creatinine 1.03 H, Estim Creat Clear Calc 54.27, Est GFR (MDRD) Af Amer 69, Est GFR (MDRD) Non-Af 57 L, BUN/Creatinine Ratio 15.5, Glucose 168 H, Hemoglobin A1c 8.2 H, Calcium 8.3 L, Phosphorus 2.8, Magnesium 1.3 L, Total Bilirubin 0.60, AST 57 H, ALT 10 L, Alkaline Phosphatase 190 H, Total Protein 6.5, Albumin 2.9 L, Globulin 3.6, Albumin/Globulin Ratio 0.8 L 07/27/24 05:30: POC Glucose 150 H Micro: Microbiology 07/26/24 03:00 Urine, Catheterized Urine Culture - Preliminary Staphylococcus aureus 07/26/24 09:10 Sputum, Induced/[place]ukens Gram Stain - Final 07/26/24 09:10 Sputum, Induced/Lukens Respiratory Culture - Preliminary Staphylococcus aureus 07/26/24 09:50 Urine Catheter - Rodriguez Legionella Antigen - Final 07/26/24 09:50 Urine Catheter - Rodriguez Streptococcus pneumoniae Antigen (M - Final 07/26/24 09:10 Mucosa - Nasopharyngeal Respiratory Panel (PCR) - Final 07/26/24 08:55 Nasal Secretion MRSA (PCR) - Final 07/26/24 02:08 Mucosa - Nose SARS-CoV-2, Influenza & RSV (PCR) - Final Physical Exam Const alert and no apparent distress Constitutional Narrative: Patient is currently on the ventilator under mild sedation General Appearance: cooperative, well kempt and well developed Orientation / Consciousness: awake HEENT normocephalic, head/scalp atraumatic and moist oral mucous membranes Eyes PERRL, EOMs intact bilaterally and conjunctivae normal Neck supple, no JVD, thyroid normal and no carotid bruits General: trachea midline Resp normal respiratory effort, no retractions, no use of accessory muscles and clear to auscultation bilaterally Auscultation: Negative for rales, rhonchi or wheezes Cardio regular rate, regular rhythm, S1 normal heart sound, S2 normal heart sound, no murmurs, no rub and no gallops GI normal to inspection, nondistended, normoactive bowel sounds, soft to palpation, non-tender and non-distended Extremity no clubbing, cyanosis or edema Skin no rashes or lesions noted General Skin Exam: no breakdown Neuro CN's II-XII intact bilaterally and no focal motor deficits Neuro Narrative: Patient is currently under light sedation on the vent Sensorium / Orientation: awake and alert Psych Psych Narrative: Patient is currently under light sedation on the vent Assessment & Plan Assessment/Plan (1) Acute respiratory failure with hypoxia and hypercapnia: PLAN: Plan 1. Acute combined respiratory failure-exact etiology unclear, patient was on Lyrica and Ambien at home which could have contributed to her respiratory failure. According the patient's family, she has no history of lung disease, patient will remain on the vent for now and will be reevaluated tomorrow for possible extubation. I ordered a chest x-ray on the patient today. Patient remains on empiric antibiotics at this time #2 Parkinson's disease-patient remains on her home medications at this time #3 seizure disorder-patient remains on Keppra #4 hyperlipidemia-patient is on Lipitor #5 chronic depression-patient is on amitriptyline and Zoloft Total clinical time spent by myself addressing the patient's medical issues, reviewing all of her data, and collaborating with patient's care team: 35 minutes Charges/Coding Visit Charges Inpatient E&M: 40972 Subs Hosp L2
[2024-07-27 12:05] LABS: Bedside Glucose 134 mg/dL (74-106)
[2024-07-27] MEDS: 0.9% Normal Saline (100mL Bag) 100 ML 15 ML IV (12:49)
[2024-07-27 18:15] LABS: Bedside Glucose 113 mg/dL (74-106)
[2024-07-27] MEDS: Dexmedetomidine 1,000 mcg in 0.9% NS 240 mL 29.2 MCG CONT INF (19:25)
[2024-07-27] MEDS: Amitriptyline 100 MG Tablet 150 MG GT (20:44)
[2024-07-27] MEDS: Atorvastatin Calcium 40 MG Tablet GT (20:45)
[2024-07-27] MEDS: fentaNYL drip 100 ML 10 MCG CONT INF (22:43)
[2024-07-28] VITALS (32 sets, daily range): BP systolic 73–134; BP diastolic 42–84; PULSE 64–72; RESP 5–14; TEMP 36.6–37.3; O2SAT 92–96; BMI 29.9
[2024-07-28 00:49] LABS: Bedside Glucose 133 mg/dL (74-106)
[2024-07-28] MEDS: Dexmedetomidine 1,000 mcg in 0.9% NS 240 mL 29.2 MCG CONT INF (03:25)
[2024-07-28 04:52] LABS: Magnesium 1.3 mg/dL (1.6-2.6); Phosphorus 4.9 mg/dL (2.5-4.9)
[2024-07-28] MEDS: Piperacil/Tazobactam 3.375 GM in 0.9% Normal Saline (50mL MB+) 50 ML IV ×3 (05:16→21:04)
[2024-07-28] MEDS: Pregabalin 75 MG Capsule 150 MG GT ×3 (05:44→21:04)
[2024-07-28] MEDS: Carbidopa/Levodopa 25/100 Tablet GT ×4 (05:44→21:03)
[2024-07-28] MEDS: 0.9% Saline Lock 10 ML Syringe IV (05:46)
[2024-07-28 06:16] LABS: Bedside Glucose 146 mg/dL (74-106)
--- NOTE | 2024-07-28 07:04 | PN.CC_ITS ---
Assessment & Plan Assessment/Plan (1) Acute respiratory failure with hypoxia and hypercapnia: PLAN: Plan RECOMMENDATIONS: 1. Continue assist-control mode mechanical ventilation. Wean FiO2 and PEEP to maintain saturations at or above 90%. 2. Continue antimicrobials. 3. Continue appropriate DVT and GI prophylaxis. 4. Okay to initiate tube feeding from my perspective. 5. Repeat spontaneous awakening and breathing trial again tomorrow morning. IMPRESSIONS: 1. Acute respiratory failure with hypoxemia and hypercapnia The patient initially presented to the hospital with generalized weakness and falls. She was noted to be encephalopathic with acute CO2 retention. Attempt was made to utilize noninvasive positive pressure ventilatory support, which was largely unsuccessful. Therefore, the decision was made to proceed with intubation. Sputum culture is currently demonstrating growth of MSSA and Streptococcus pneumonia. Therefore, plan to continue antimicrobial therapy. The patient will be continued on assist-control mode mechanical ventilation. Will attempt spontaneous awakening and breathing trial again tomorrow morning. 2. Toxic/metabolic encephalopathy Clinical concern for underlying infection as possible contributing etiology. The patient does not have any large discernible metabolic derangements on her laboratory workup. TSH was within normal limits. The patient is certainly more alert and able to follow simple commands. Continue to utilize Precedex and fentanyl for sedation. 3. History of generalized weakness with falls/hypertension/hyperlipidemia/diabetes mellitus Complicates care, management, recovery and prognosis. Continue home medications as indicated. PT/OT evaluations once medically stabilized. Okay to initiate tube feeding from my perspective. TIME: 33 minutes of critical care time, inclusive of procedures, was spent addressing the patient's acute respiratory failure with hypoxemia and hypercapnia, toxic/metabolic encephalopathy, review of all data and collaboration with the care team. Subjective Subjective The patient was seen and examined at the bedside this morning. Events from the last 24 hours have been reviewed. The patient is currently afebrile, hemodynamically stable and maintaining appropriate oxygen saturations on assist- control mode mechanical ventilation with an FiO2 requirement of 30% and PEEP of 5. The patient is documented to be overall net +2.4 L for the hospitalization. The patient has been maintained on fentanyl and Precedex for sedation. The patient again failed her spontaneous breathing trial this morning on account of frequent apneic events and low tidal volumes. Objective Data Objective Data The patient's most recent lab work, culture data and imaging studies have all been personally reviewed. Sputum culture was positive for rare MSSA and Streptococcus pneumonia. Vital Signs: Vital Signs Temp Pulse Resp BP Pulse Ox O2 Del Method O2 Flow Rate 98.7 F 68 14 124/76 H 95 Mechanical Ventilator 10 07/28/24 06:00 07/28/24 07:00 07/28/24 07:00 07/28/24 07:00 07/28/24 07:00 07/28/24 07:00 07/28/24 02:00 FiO2 30 07/28/24 07:00 Oxygen Flow Rate (L/min) 10 Oxygen Delivery Method Mechanical Ventilator Weight: 174 lb 12.8 oz Body Mass Index (BMI) 29.9 Intake & Output: Intake and Output for Last 24 Hours 07/26/24 07/27/24 07/28/24 23:59 23:59 23:59 Intake Total 4231.31 / 4303.69 1541.00 / 1580.20 400.40 / 400.40 Output Total 1550 / 1550 1400 / 1750 800 / 800 Balance 2681.31 / 2753.69 141.00 / -169.80 -399.60 / -399.60 Lab / Micro Data Attestation: I reviewed the patient's lab results. 07/27/24 05:15 07/27/24 05:15 Labs: Laboratory Results - last 24 hr 07/27/24 05:15: Hemoglobin A1c 8.2 H 07/27/24 11:46: POC Glucose 134 H 07/27/24 17:57: POC Glucose 113 H 07/28/24 00:31: POC Glucose 133 H 07/28/24 04:10: Phosphorus 4.9, Magnesium 1.3 L 07/28/24 05:56: POC Glucose 146 H Micro: Microbiology 07/26/24 09:10 Sputum, Induced/Lukens Gram Stain - Final 07/26/24 09:10 Sputum, Induced/Lukens Respiratory Culture - Preliminary Staphylococcus aureus Streptococcus pneumoniae 07/26/24 03:00 Urine, Catheterized Urine Culture - Final Staphylococcus aureus 07/26/24 09:50 Urine Catheter - Rodriguez Legionella Antigen - Final 07/26/24 09:50 Urine Catheter - Rodriguez Streptococcus pneumoniae Antigen (M - Final 07/26/24 09:10 Mucosa - Nasopharyngeal Respiratory Panel (PCR) - Final 07/26/24 08:55 Nasal Secretion MRSA (PCR) - Final 07/26/24 02:08 Mucosa - Nose SARS-CoV-2, Influenza & RSV (PCR) - Final Radiography Diagnostic Testing: Radiology Impression Chest X-Ray 07/27/24 10:57 IMPRESSION: 1. No acute findings in the chest. 2. Satisfactory distal represent of NG tube. 3. ET tube tip remains in good position. Electronically Signed: Donald Ridley MD at 12:55 EST , Physical Exam Const Constitutional Narrative: Remains intubated and mechanically ventilated. HEENT normocephalic and head/scalp atraumatic Mouth: endotracheal tube in place and OG tube in place Eyes EOMs intact bilaterally and conjunctivae normal Neck supple General: trachea midline Chest inspection of chest normal Resp Auscultation: diminished lung sounds; Negative for rales, rhonchi or wheezes Cardio regular rate and regular rhythm GI normal to inspection, nondistended, normoactive bowel sounds Extremity no clubbing, cyanosis or edema Skin no rashes or lesions noted Neuro Neuro Narrative: Opens eyes and able to follow simple commands. Sensorium / Orientation: sedated on vent Charges/Coding Procedures Hospitalists Procedures: 53099 Critical Care 1st Hr
[2024-07-28] MEDS: Lactobacillis Acidophilus 1 CAP GT ×4 (07:19→21:04)
[2024-07-28] MEDS: Cholecalciferol (Vit D3) 125 MCG CAPSULE (5,000 UNITS) GT (07:19)
[2024-07-28] MEDS: levETIRAcetam 1,000 MG Tablet 1000 MG GT ×2 (07:19→21:04)
[2024-07-28] MEDS: Sertraline 100 MG Tablet GT (07:19)
[2024-07-28] MEDS: Enoxaparin 40 MG/0.4 ML Syringe SC (07:20)
[2024-07-28] MEDS: CHLORHEXIDINE GLUC 2% CLOTH 1 EACH TOWELETTE TOPICAL (07:22)
[2024-07-28] MEDS: Chlorhexidine 15 ML PO ×2 (07:22→21:02)
[2024-07-28] MEDS: Pantoprazole Sodium 40 MG in 0.9% Normal Saline (100mL MB+) 100 ML 330 MG IV (08:35)
[2024-07-28] MEDS: fentaNYL drip 100 ML 7.5 MCG CONT INF (09:57)
[2024-07-28] MEDS: Vital AF 1.2 Cal Liquid 1,000 ML 50 ML GT (11:03)
[2024-07-28 11:30] LABS: Bedside Glucose 124 mg/dL (74-106)
[2024-07-28] MEDS: 0.9% Normal Saline (500mL Bag) 500 ML 999 ML IV (11:43)
[2024-07-28] MEDS: Dexmedetomidine 1,000 mcg in 0.9% NS 240 mL 13.6 MCG CONT INF (15:54)
--- NOTE | 2024-07-28 16:49 | PCM.PN.HOSP ---
Reason for Visit Reason for Visit: Diagnoses Overweight (07/26/24) Unspecified dementia, unspecified severity, without behavioral disturbance, psychotic disturbance, mood disturbance, and anxiety (07/26/24) Parkinson's disease (07/26/24) Parkinson's disease without dyskinesia, without mention of fluctuations (07/26/24) Metabolic encephalopathy (07/26/24) Pneumonia, unspecified organism (07/26/24) Acute respiratory failure with hypoxia (07/26/24) Acute respiratory failure with hypercapnia (07/26/24) Repeated falls (07/26/24) Weakness (07/26/24) Subjective Subjective Patient was seen and examined today, she remains on the ventilator at this time. I talked briefly with critical care about her medical care. Objective Data Objective Data Vital Signs: Vital Signs Temp Pulse Resp BP Pulse Ox O2 Del Method O2 Flow Rate 98.9 F 67 14 116/68 95 Mechanical Ventilator 10 07/28/24 16:00 07/28/24 16:00 07/28/24 16:00 07/28/24 16:00 07/28/24 16:00 07/28/24 16:00 07/28/24 02:00 FiO2 30 07/28/24 16:00 Oxygen Flow Rate (L/min) 10 Oxygen Delivery Method Mechanical Ventilator Weight: 79.288 kg Body Mass Index (BMI) 29.9 Intake & Output: Intake and Output for Last 24 Hours 07/26/24 07/27/24 07/28/24 23:59 23:59 23:59 Intake Total 4231.31 / 4303.69 1541.00 / 1580.20 1271.83 / 1271.83 Output Total 1550 / 1550 1400 / 1750 1125 / 1125 Balance 2681.31 / 2753.69 141.00 / -169.80 146.83 / 146.83 Lab / Micro Data 07/27/24 05:15 07/27/24 05:15 Labs: Laboratory Results - last 24 hr 07/27/24 17:57: POC Glucose 113 H 07/28/24 00:31: POC Glucose 133 H 07/28/24 04:10: Phosphorus 4.9, Magnesium 1.3 L 07/28/24 05:56: POC Glucose 146 H 07/28/24 11:09: POC Glucose 124 H Micro: Microbiology 07/26/24 09:10 Sputum, Induced/Lukens Gram Stain - Final 07/26/24 09:10 Sputum, Induced/Lukens Respiratory Culture - Preliminary Staphylococcus aureus Streptococcus pneumoniae 07/26/24 03:00 Urine, Catheterized Urine Culture - Final Staphylococcus aureus 07/26/24 09:50 Urine Catheter - Rodriguez Legionella Antigen - Final 07/26/24 09:50 Urine Catheter - Rodriguez Streptococcus pneumoniae Antigen (M - Final 07/26/24 09:10 Mucosa - Nasopharyngeal Respiratory Panel (PCR) - Final 07/26/24 08:55 Nasal Secretion MRSA (PCR) - Final 07/26/24 02:08 Mucosa - Nose SARS-CoV-2, Influenza & RSV (PCR) - Final Physical Exam Narrative alert and no apparent distress Constitutional Narrative: Patient is currently on the ventilator under mild sedation General Appearance: cooperative, well kempt and well developed Orientation / Consciousness: awake HEENT normocephalic, head/scalp atraumatic and moist oral mucous membranes Eyes PERRL, EOMs intact bilaterally and conjunctivae normal Neck supple, no JVD, thyroid normal and no carotid bruits General: trachea midline Resp normal respiratory effort, no retractions, no use of accessory muscles and clear to auscultation bilaterally Auscultation: Negative for rales, rhonchi or wheezes Cardio regular rate, regular rhythm, S1 normal heart sound, S2 normal heart sound, no murmurs, no rub and no gallops GI normal to inspection, nondistended, normoactive bowel sounds, soft to palpation, non-tender and non-distended Extremity no clubbing, cyanosis or edema Skin no rashes or lesions noted General Skin Exam: no breakdown Neuro CN's II-XII intact bilaterally and no focal motor deficits Neuro Narrative: Patient is currently under light sedation on the vent Sensorium / Orientation: awake and alert, she follows simple commands Psych Psych Narrative: Patient is currently under light sedation on the vent Assessment & Plan Assessment/Plan (1) Acute respiratory failure with hypoxia and hypercapnia: PLAN: Plan 1. Acute combined respiratory failure-exact etiology unclear-patient failed her breathing trial today, she remains on the ventilator under light sedation #2 Parkinson's disease-patient remains on her home medications at this time #3 seizure disorder-patient remains on Keppra #4 hyperlipidemia-patient is on Lipitor #5 chronic depression-patient is on amitriptyline and Zoloft Total clinical time spent by myself addressing the patient's medical issues, reviewing all of her data, and collaborating with patient's care team: 35 minutes Charges/Coding Visit Charges Inpatient E&M: 82277 Subs Hosp L2
[2024-07-28 16:59] LABS: Bedside Glucose 142 mg/dL (74-106)
--- NOTE | 2024-07-28 20:24 | NURSING ---
tube feed running @ 30cc/hr on pump but charted in MAR at 50cc/hr, adjusted charting in OCT at 1900
[2024-07-28] MEDS: Amitriptyline 100 MG Tablet 150 MG GT (21:03)
[2024-07-28] MEDS: Atorvastatin Calcium 40 MG Tablet GT (21:04)
[2024-07-29] VITALS (32 sets, daily range): BP systolic 91–152; BP diastolic 57–95; PULSE 59–110; RESP 10–19; TEMP 36.7–37.3; O2SAT 88–97; BMI 30.2
[2024-07-29] MEDS: fentaNYL drip 100 ML 7.5 MCG CONT INF
[2024-07-29] MEDS: Insulin Lispro 100 UNIT/ML INSULN.PEN SC ×2 (00:29→06:08)
[2024-07-29 00:45] LABS: Bedside Glucose 163 mg/dL (74-106)
[2024-07-29] MEDS: CHLORHEXIDINE GLUC 2% CLOTH 1 EACH TOWELETTE TOPICAL (02:28)
[2024-07-29] MEDS: Pregabalin 75 MG Capsule 150 MG GT (06:07)
[2024-07-29] MEDS: Carbidopa/Levodopa 25/100 Tablet GT (06:08)
[2024-07-29] MEDS: Piperacil/Tazobactam 3.375 GM in 0.9% Normal Saline (50mL MB+) 50 ML IV ×3 (06:08→20:52)
[2024-07-29] MEDS: 0.9% Saline Lock 10 ML Syringe IV ×3 (06:17→20:55)
--- NOTE | 2024-07-29 07:26 | PN.CC_ITS ---
Assessment & Plan Assessment/Plan (1) Acute respiratory failure with hypoxia and hypercapnia: PLAN: Plan RECOMMENDATIONS: 1. Proceed with a trial of extubation this morning. 2. Once extubated, wean supplemental oxygen to maintain saturations at or above 90%. 3. Continue antibiotics to complete 7 days of therapy. 4. Encourage incentive spirometer use and mobilize patient as tolerated. 5. Continue appropriate DVT prophylaxis. 6. Perform bedside swallow evaluation with dietary advancement as tolerated. IMPRESSIONS: 1. Acute respiratory failure with hypoxemia and hypercapnia The patient initially presented to the hospital with generalized weakness and falls. She was noted to be encephalopathic with acute CO2 retention. Attempt was made to utilize noninvasive positive pressure ventilatory support, which was largely unsuccessful. Therefore, the decision was made to proceed with intubation. Sputum culture is currently demonstrating growth of MSSA and Streptococcus pneumonia. Therefore, plan to continue antimicrobial therapy to complete 7 days of therapy. The patient was able to complete a spontaneous breathing trial and was extubated on the morning of July 29. Bedside swallow evaluation can be completed with dietary advancement as tolerated. In the interim, continue to wean supplemental oxygen to maintain saturations at or above 90%. Encourage incentive spirometer use and mobilize patient as tolerated. 2. Toxic/metabolic encephalopathy Clinical concern for underlying infection as possible contributing etiology. The patient does not have any large discernible metabolic derangements on her laboratory workup. TSH was within normal limits. The patient is alert and able to follow commands appropriately. 3. History of generalized weakness with falls/hypertension/hyperlipidemia/diabetes mellitus Complicates care, management, recovery and prognosis. Continue home medications as indicated. PT/OT to work with the patient. Diet can be advanced once bedside swallow evaluation is completed. TIME: 34 minutes of critical care time, inclusive of procedures, was spent addressing the patient's acute respiratory failure with hypoxemia and hypercapnia, toxic/metabolic encephalopathy, review of all data and collaboration with the care team. Subjective Subjective The patient was seen and examined at the bedside this morning. Events from the last 24 hours have been reviewed. The patient is currently afebrile, hemodynamically stable and maintaining appropriate oxygen saturations on assist- control mode of mechanical ventilation with an FiO2 requirement of 30% and PEEP of 5. The patient was placed on a spontaneous awakening and breathing trial this morning, which she tolerated quite well. She is alert and able to follow commands appropriately. Objective Data Objective Data The patient's most recent lab work, culture data and imaging studies have all been personally reviewed. Sputum culture was positive for rare MSSA and Streptococcus pneumonia. Vital Signs: Vital Signs Temp Pulse Resp BP Pulse Ox O2 Del Method O2 Flow Rate 98.9 F 90 14 107/65 92 Mechanical Ventilator 10 07/29/24 07:00 07/29/24 07:00 07/29/24 07:00 07/29/24 07:00 07/29/24 07:00 07/29/24 07:00 07/28/24 02:00 FiO2 30 07/29/24 07:00 Oxygen Flow Rate (L/min) 10 Oxygen Delivery Method Mechanical Ventilator Weight: 177 lb 4.8 oz Body Mass Index (BMI) 30.2 Intake & Output: Intake and Output for Last 24 Hours 07/27/24 07/28/24 07/29/24 23:59 23:59 23:59 Intake Total 1541.00 / 1580.20 2085.03 / 2182.75 763.72 / 763.72 Output Total 1400 / 1750 1545 / 1730 630 / 630 Balance 141.00 / -169.80 540.03 / 452.75 133.72 / 133.72 Lab / Micro Data Attestation: I reviewed the patient's lab results. 07/27/24 05:15 07/27/24 05:15 Labs: Laboratory Results - last 24 hr 07/28/24 11:09: POC Glucose 124 H 07/28/24 16:33: POC Glucose 142 H 07/29/24 00:28: POC Glucose 163 H Micro: Microbiology 07/26/24 09:10 Sputum, Induced/Lukens Gram Stain - Final 07/26/24 09:10 Sputum, Induced/Lukens Respiratory Culture - Preliminary Staphylococcus aureus Streptococcus pneumoniae 07/26/24 03:00 Urine, Catheterized Urine Culture - Final Staphylococcus aureus 07/26/24 09:50 Urine Catheter - Rodriguez Legionella Antigen - Final 07/26/24 09:50 Urine Catheter - Rodriguez Streptococcus pneumoniae Antigen (M - Final 07/26/24 09:10 Mucosa - Nasopharyngeal Respiratory Panel (PCR) - Final 07/26/24 08:55 Nasal Secretion MRSA (PCR) - Final 07/26/24 02:08 Mucosa - Nose SARS-CoV-2, Influenza & RSV (PCR) - Final Radiography Diagnostic Testing: Radiology Impression Chest X-Ray 07/27/24 10:57 IMPRESSION: 1. No acute findings in the chest. 2. Satisfactory distal represent of NG tube. 3. ET tube tip remains in good position. Electronically Signed: Donald Ridley MD at 12:55 EST , Physical Exam Const Constitutional Narrative: Remains intubated and mechanically ventilated. Tolerating SBT currently HEENT normocephalic and head/scalp atraumatic Mouth: endotracheal tube in place and OG tube in place Eyes EOMs intact bilaterally and conjunctivae normal Neck supple General: trachea midline Chest inspection of chest normal Resp Auscultation: diminished lung sounds; Negative for rales, rhonchi or wheezes Cardio regular rate and regular rhythm GI normal to inspection, nondistended, normoactive bowel sounds Extremity no clubbing, cyanosis or edema Skin no rashes or lesions noted Neuro Neuro Narrative: Alert and able to follow simple commands appropriately. Charges/Coding Procedures Hospitalists Procedures: [id number] Critical Care 1st Hr
[2024-07-29 07:37] LABS: Bedside Glucose 200 mg/dL (74-106)
[2024-07-29] MEDS: levETIRAcetam 1,000 MG Tablet 1000 MG GT (07:47)
[2024-07-29] MEDS: Lactobacillis Acidophilus 1 CAP GT (07:47)
[2024-07-29] MEDS: Sertraline 100 MG Tablet GT (07:48)
[2024-07-29] MEDS: Cholecalciferol (Vit D3) 125 MCG CAPSULE (5,000 UNITS) GT (07:48)
[2024-07-29] MEDS: Enoxaparin 40 MG/0.4 ML Syringe SC (07:51)
[2024-07-29] MEDS: Pantoprazole Sodium 40 MG in 0.9% Normal Saline (100mL MB+) 100 ML 330 MG IV (07:52)
--- NOTE | 2024-07-29 11:11 | PCM.PN.HOSP ---
Reason for Visit Reason for Visit: Diagnoses Overweight (07/26/24) Unspecified dementia, unspecified severity, without behavioral disturbance, psychotic disturbance, mood disturbance, and anxiety (07/26/24) Parkinson's disease (07/26/24) Parkinson's disease without dyskinesia, without mention of fluctuations (07/26/24) Metabolic encephalopathy (07/26/24) Pneumonia, unspecified organism (07/26/24) Acute respiratory failure with hypoxia (07/26/24) Acute respiratory failure with hypercapnia (07/26/24) Repeated falls (07/26/24) Weakness (07/26/24) Subjective Subjective Patient was seen and examined today, later this morning she was extubated and appears to be doing well on 3 L via nasal cannula. Objective Data Objective Data Vital Signs: Vital Signs Temp Pulse Resp BP Pulse Ox O2 Del Method O2 Flow Rate 98.6 F 107 H 14 135/76 H 96 Nasal Cannula 3 07/29/24 10:00 07/29/24 10:00 07/29/24 10:00 07/29/24 10:00 07/29/24 10:00 07/29/24 10:00 07/29/24 10:00 FiO2 40 07/29/24 08:00 Oxygen Flow Rate (L/min) 3 Oxygen Delivery Method Nasal Cannula Weight: 80.422 kg Body Mass Index (BMI) 30.2 Intake & Output: Intake and Output for Last 24 Hours 07/27/24 07/28/24 07/29/24 23:59 23:59 23:59 Intake Total 1541.00 / 1580.20 2085.03 / 2182.75 1023.72 / 1023.72 Output Total 1400 / 1750 1545 / 1730 630 / 630 Balance 141.00 / -169.80 540.03 / 452.75 393.72 / 393.72 Lab / Micro Data 07/27/24 05:15 07/27/24 05:15 Labs: Laboratory Results - last 24 hr 07/28/24 11:09: POC Glucose 124 H 07/28/24 16:33: POC Glucose 142 H 07/29/24 00:28: POC Glucose 163 H 07/29/24 06:05: POC Glucose 200 H Micro: Microbiology 07/26/24 09:10 Sputum, Induced/Lukens Gram Stain - Final 07/26/24 09:10 Sputum, Induced/Lukens Respiratory Culture - Final Staphylococcus aureus Streptococcus pneumoniae 07/26/24 03:00 Urine, Catheterized Urine Culture - Final Staphylococcus aureus 07/26/24 09:50 Urine Catheter - Rodriguez Legionella Antigen - Final 07/26/24 09:50 Urine Catheter - Rodriguez Streptococcus pneumoniae Antigen (M - Final 07/26/24 09:10 Mucosa - Nasopharyngeal Respiratory Panel (PCR) - Final 07/26/24 08:55 Nasal Secretion MRSA (PCR) - Final 07/26/24 02:08 Mucosa - Nose SARS-CoV-2, Influenza & RSV (PCR) - Final Physical Exam Narrative alert and no apparent distress Constitutional Narrative: Patient is currently on the ventilator under mild sedation General Appearance: cooperative, well kempt and well developed Orientation / Consciousness: awake HEENT normocephalic, head/scalp atraumatic and moist oral mucous membranes Eyes PERRL, EOMs intact bilaterally and conjunctivae normal Neck supple, no JVD, thyroid normal and no carotid bruits General: trachea midline Resp normal respiratory effort, no retractions, no use of accessory muscles and clear to auscultation bilaterally Auscultation: Negative for rales, rhonchi or wheezes Cardio regular rate, regular rhythm, S1 normal heart sound, S2 normal heart sound, no murmurs, no rub and no gallops GI normal to inspection, nondistended, normoactive bowel sounds, soft to palpation, non-tender and non-distended Extremity no clubbing, cyanosis or edema Skin no rashes or lesions noted General Skin Exam: no breakdown Neuro CN's II-XII intact bilaterally and no focal motor deficits Neuro Narrative: Patient is currently under light sedation on the vent Sensorium / Orientation: awake and alert, she follows simple commands Psych Psych Narrative: Patient is currently under light sedation on the vent Assessment & Plan Assessment/Plan (1) Acute respiratory failure with hypoxia and hypercapnia: PLAN: Plan 1. Acute combined respiratory failure-exact etiology unclear-at the time I examined the patient, she was still on the ventilator but has subsequently been extubated, she is currently on 3 L of oxygen and appears stable. #2 Parkinson's disease-patient remains on her home medications at this time #3 seizure disorder-patient remains on Keppra #4 hyperlipidemia-patient is on Lipitor #5 chronic depression-patient is on amitriptyline and Zoloft Total clinical time spent by myself addressing the patient's medical issues, reviewing all of her data, and collaborating with patient's care team: 35 minutes Charges/Coding Visit Charges Inpatient E&M: 14913 Subs Hosp L2
[2024-07-29 11:57] LABS: Bedside Glucose 134 mg/dL (74-106)
[2024-07-29 12:12] LABS: Anion Gap 10 (5-15); BUN 14 mg/dL (7-18); BUN/Creat Ratio 15.2 RATIO (10-20); Calcium,Total 8.4 mg/dL (8.5-10.1); Chloride 108 mmol/L (98-107); Creatinine, Serum 0.92 mg/dL (0.55-1.02); EST Glomerular Filtration Rate 65 mL/min (>60); Est Glom Filt Rate - Afr Amer 78 mL/min (>60); Estimated Creatinine Clearance 60.88 ml/min; Glucose 135 mg/dL (74-106); Magnesium 1.4 mg/dL (1.6-2.6); Phosphorus 3.4 mg/dL (2.5-4.9); Potassium 3.1 mmol/L (3.5-5.1); Sodium Level 139 mmol/L (136-145)
[2024-07-29] MEDS: Magnesium Sulfate 4gm/100mL 4 GM/100 ML IV.SOLN. IV (12:55)
[2024-07-29] MEDS: Potassium Chloride 10mEq/100mL 10 MEQ/100 ML IV.SOLN. 100 MEQ IV BOLUS ×4 (12:55→16:19)
[2024-07-29] MEDS: 0.9% Normal Saline (100mL Bag) 100 ML 15 ML IV (13:12)
--- NOTE | 2024-07-29 14:33 | CASEMGMT ---
Pt was extubated today. Pt may qualify for a SNF at time of DC, see PT and OT notes. Dr. Meadows states that the pt will be here through the weekend. SW updated. Care management to continue to follow pt progression regarding DC planning.
[2024-07-29] MEDS: Carbidopa/Levodopa 25/100 Tablet PO ×2 (16:18→20:52)
[2024-07-29] MEDS: Lactobacillis Acidophilus 1 CAP PO ×2 (16:18→20:52)
[2024-07-29 17:47] LABS: Bedside Glucose 129 mg/dL (74-106)
[2024-07-29] MEDS: Amitriptyline 100 MG Tablet 150 MG PO (20:51)
[2024-07-29] MEDS: Pregabalin 75 MG Capsule 150 MG PO (20:52)
[2024-07-29] MEDS: levETIRAcetam 1,000 MG Tablet 1000 MG PO (20:52)
[2024-07-29] MEDS: Atorvastatin Calcium 40 MG Tablet PO (20:52)
[2024-07-29 23:24] LABS: Bedside Glucose 133 mg/dL (74-106)
[2024-07-30] VITALS (23 sets, daily range): BP systolic 112–138; BP diastolic 52–106; PULSE 88–106; RESP 12–22; TEMP 36.2–37; O2SAT 89–98; BMI 29.5
[2024-07-30] MEDS: Pregabalin 75 MG Capsule 150 MG PO ×3 (05:25→21:17)
[2024-07-30] MEDS: Piperacil/Tazobactam 3.375 GM in 0.9% Normal Saline (50mL MB+) 50 ML IV ×3 (05:25→21:22)
[2024-07-30] MEDS: 0.9% Saline Lock 10 ML Syringe IV ×2 (05:26→14:13)
[2024-07-30 05:40] LABS: Absolute Lymphocyte Count 0.99 X10^3/uL (0.83-4.51); Absolute Neutrophil Count 7.9 X10^3/uL (2.0-7.7); Basophil# 0.03 X10^3/uL; Basophil% 0.3 % (0-1); Eosinophil# 0.13 X10^3/uL; Eosinophils% 1.3 % (0-5); Hematocrit 33.6 % (37-47); Hemoglobin 10.8 g/dL (12.0-15.0); Lymphocyte # 0.99 X10^3/ul (0.83-4.51); Lymphocyte % 10.2 % (19-41); Mean Corp Hgb Conc 32.1 g/dL (32-36); Mean Corpuscular Hgb 27.6 pg (27.0-32.0); Mean Corpuscular Volume 85.7 fL (81-99); Monocyte# 0.59 X10^3/uL; Monocyte% 6.1 % (0-10); NRBC Flagged by Analyzer 0 % (0-5); Neutrophil # 7.93 X10^3/uL (2.7-7.7); Neutrophil % 81.7 % (47-70); Platelet Count 161 K/mm3 (150-450); RBC Distribution Width CV 14.5 % (11.6-14.6); RBC Distribution Width SD 44.6 fl (35.1-43.9); Red Blood Count 3.92 M/mm3 (4.2-5.4); White Blood Count 9.7 K/mm3 (4.4-11.0)
[2024-07-30 05:43] LABS: Bedside Glucose 118 mg/dL (74-106)
[2024-07-30 05:55] LABS: Anion Gap 5 (5-15); BUN 8 mg/dL (7-18); BUN/Creat Ratio 9.5 RATIO (10-20); Calcium,Total 8.9 mg/dL (8.5-10.1); Chloride 108 mmol/L (98-107); Creatinine, Serum 0.84 mg/dL (0.55-1.02); EST Glomerular Filtration Rate 72 mL/min (>60); Est Glom Filt Rate - Afr Amer 87 mL/min (>60); Glucose 142 mg/dL (74-106); Magnesium 1.9 mg/dL (1.6-2.6); Potassium 3.4 mmol/L (3.5-5.1); Sodium Level 140 mmol/L (136-145)
[2024-07-30] MEDS: Carbidopa/Levodopa 25/100 Tablet PO ×4 (07:49→21:06)
[2024-07-30] MEDS: Pantoprazole Sodium 40 MG in 0.9% Normal Saline (100mL MB+) 100 ML 330 MG IV (09:50)
[2024-07-30] MEDS: Enoxaparin 40 MG/0.4 ML Syringe SC (09:50)
[2024-07-30] MEDS: levETIRAcetam 1,000 MG Tablet 1000 MG PO ×2 (09:50→21:07)
[2024-07-30] MEDS: Sertraline 100 MG Tablet PO (09:50)
[2024-07-30] MEDS: Lactobacillis Acidophilus 1 CAP PO ×4 (09:50→21:07)
[2024-07-30] MEDS: Cholecalciferol (Vit D3) 125 MCG CAPSULE (5,000 UNITS) PO (09:50)
[2024-07-30 12:55] LABS: Bedside Glucose 134 mg/dL (74-106)
--- NOTE | 2024-07-30 13:36 | PN.CC_ITS ---
Objective Data Objective Data Vital Signs: Vital Signs Last response 3 Temperature 36.2 C L 07/30/24 12:00 Temperature Source Temporal 07/30/24 12:00 Pulse Rate 98 07/30/24 13:00 Pulse Strength Normal (2+) 07/29/24 19:36 Respiratory Rate 20 H 07/30/24 13:00 Respiratory Effort Normal, Non-Labored 07/30/24 12:00 Respiratory Depth Normal 07/30/24 12:00 Respiratory Pattern Normal 07/30/24 12:00 Blood Pressure 121/89 H 07/30/24 13:00 Blood Pressure Mean 99 07/30/24 13:00 Blood Pressure Source Monitor 07/30/24 13:00 Blood Pressure Position Semi-Fowlers 07/30/24 13:00 Blood Pressure Location Right Arm 07/30/24 13:00 Pulse Ox 90 07/30/24 13:00 Oxygen Delivery Method Room Air 07/30/24 13:00 Oxygen Flow Rate (L/min) 2 07/30/24 04:00 Fraction of Inspired Oxygen (FIO2) 30 07/30/24 05:00 I&O: I&O Last 24 Hours 3 07/29/24 07/30/24 07/30/24 23:59 11:59 23:59 Intake Total 583.25 / 1606.97 210 / 210 Output Total 1500 / 2730 450 / 450 Balance -916.75 / -1123.03 -240 / -240 I&O: Total Stay 3 07/26/24 02:02 thru 07/30/24 12:00 Intake Total 9674.31 Output Total 7675 Balance 1999.31 Current Meds Ordered / Administered: Current meds ordered / Administered 3 Generic Name Dose Route Start Last Admin Trade Name Freq PRN Reason Stop Dose Admin Acetaminophen 650 mg 07/29/24 09:38 Acetaminophen 325 Mg Tablet PO Q6H PRN PRN Pain 1-10 Or Fever>100.7 Albuterol Sulfate 2.5 mg 07/26/24 07:56 Albuterol 2.5 Mg/3 Ml Vial.Neb. INHALATION Q2H PRN PRN SOB &/OR WHEEZING Amitriptyline HCl 150 mg 07/29/24 22:00 07/29/24 20:51 Amitriptyline 100 Mg Tablet PO 150 mg QHS HIRAL Administration Atorvastatin Calcium 40 mg 07/29/24 22:00 07/29/24 20:52 Atorvastatin Calcium 40 Mg Tablet PO 40 mg QHS HIRAL Administration Carbidopa/Levodopa 3 tablet 07/29/24 12:00 07/30/24 12:34 Carbidopa/Levodopa 25/100 Tablet PO 3 tablet 0700,1200,1700,2200 HIRAL Administration Chlorhexidine Gluconate 1 each 07/26/24 10:00 07/29/24 02:28 Chlorhexidine Gluc 2% Cloth 1 Each Towelette TOPICAL 1 each DAILY HIRAL Administration Cholecalciferol 125 mcg 07/29/24 10:00 07/30/24 09:50 Cholecalciferol (Vit D3) 125 Mcg Capsule (5,000 Units) PO 125 mcg DAILY HIRAL Administration Enoxaparin Sodium 40 mg 07/26/24 10:00 07/30/24 09:50 Enoxaparin 40 Mg/0.4 Ml Syringe SC 40 mg DAILY HIRAL Administration Glucagon 1 mg 07/26/24 07:56 Glucagon 1 Mg/Ml Syringe IM X1 PRN HYPOGLYCEMIA Protocol Guaifenesin 20 ml 07/29/24 09:38 Guaifenesin 10 Ml Udc (200mg/10ml) PO Q4H PRN PRN COUGH Dextrose 250 mls @ 0 mls/hr 07/26/24 07:56 Dextrose 10%-Water IV .Q0M PRN HYPOGLYCEMIA Protocol As Directed Piperacillin Sod/Tazobactam 50 mls @ 12.5 mls/hr 07/26/24 08:31 07/30/24 09:25 Sod 3.375 gm/ Sodium Chloride IV Infused Q8 HIRAL Infusion Pantoprazole Sodium 40 mg/ 110 mls @ 330 mls/hr 07/26/24 10:00 07/30/24 10:10 Sodium Chloride IV Infused Q24 HIRAL Infusion Sodium Chloride 100 mls @ 15 mls/hr 07/27/24 12:31 07/29/24 18:04 IV 0 mls/hr .Q6H40M PRN Infusion Saline Flush Sodium Chloride 100 mls @ 15 mls/hr 07/27/24 12:31 IV .Q6H40M PRN Additional IVPB Infusion Insulin Human Lispro 0 unit 07/26/24 12:00 07/30/24 12:34 Insulin Lispro 100 Unit/Ml Insuln.Pen SC Not Given Q6 HIRAL Protocol Levetiracetam 1,000 mg 07/29/24 10:00 07/30/24 09:50 Levetiracetam 1,000 Mg Tablet PO 1,000 mg BID HIRAL Administration Pregabalin 150 mg 07/29/24 14:00 07/30/24 05:25 Pregabalin 75 Mg Capsule PO 150 mg TID HIRAL Administration Promethazine HCl 25 mg 07/26/24 07:56 Promethazine 25 Mg/Ml Syringe IM Q6H PRN PRN Breakthrough Nausea/Vomiting Sertraline HCl 100 mg 07/29/24 10:00 07/30/24 09:50 Sertraline 100 Mg Tablet PO 100 mg DAILY HIRAL Administration Sodium Chloride 10 - 40 ml 07/26/24 07:59 07/30/24 05:26 0.9% Saline Lock 10 Ml Syringe IV 20 ml UD PRN Administration SALINE FLUSH Lab / Micro Data 07/30/24 05:23 07/30/24 05:23 Labs: Laboratory Results - last 24 hr 07/29/24 17:29: POC Glucose 129 H 07/29/24 23:05: POC Glucose 133 H 07/30/24 05:21: POC Glucose 118 H 07/30/24 05:23: WBC 9.7, RBC 3.92 L, Hgb 10.8 L, Hct 33.6 L, MCV 85.7, MCH 27.6, MCHC 32.1, RDW Std Deviation 44.6 H, RDW Coeff of Tariq 14.5, Plt Count 161, MPV 10.0, Immature Gran % (Auto) 0.400, Neut % (Auto) 81.7 H, Lymph % (Auto) 10.2 L, [place] % (Auto) 6.1, Eos % (Auto) 1.3, Baso % (Auto) 0.3, Absolute Neuts (auto) 7.9 H, Absolute Lymphs (auto) 0.99, Nucleated RBC % 0, Sodium 140, Potassium 3.4 L, Chloride 108 H, Carbon Dioxide 28.0, Anion Gap 5, BUN 8, Creatinine 0.84, Estim Creat Clear Calc 65.80, Est GFR (MDRD) Af Amer 87, Est GFR (MDRD) Non-Af 72, BUN/Creatinine Ratio 9.5 L, Glucose 142 H, Calcium 8.9, Magnesium 1.9 07/30/24 12:29: POC Glucose 134 H Assessment and Plan . Assessment and plan: Critical Care Time: The entirety of this encounter was done via Telemedicine
--- NOTE | 2024-07-30 13:45 | PCM.PN.HOSP ---
Reason for Visit Reason for Visit: Diagnoses Overweight (07/26/24) Unspecified dementia, unspecified severity, without behavioral disturbance, psychotic disturbance, mood disturbance, and anxiety (07/26/24) Parkinson's disease (07/26/24) Parkinson's disease without dyskinesia, without mention of fluctuations (07/26/24) Metabolic encephalopathy (07/26/24) Pneumonia, unspecified organism (07/26/24) Acute respiratory failure with hypoxia (07/26/24) Acute respiratory failure with hypercapnia (07/26/24) Repeated falls (07/26/24) Weakness (07/26/24) Subjective Subjective Patient was seen and examined today, her speech is hard to understand at times. Patient is on room air, she is in no distress. Objective Data Objective Data Vital Signs: Vital Signs Temp Pulse Resp BP Pulse Ox O2 Del Method O2 Flow Rate 97.2 F L 98 20 H 121/89 H 90 Room Air 2 07/30/24 12:00 07/30/24 13:00 07/30/24 13:00 07/30/24 13:00 07/30/24 13:00 07/30/24 13:00 07/30/24 04:00 FiO2 30 07/30/24 05:00 Oxygen Flow Rate (L/min) 2 Oxygen Delivery Method Room Air Weight: 78.29 kg Body Mass Index (BMI) 29.5 Intake & Output: Intake and Output for Last 24 Hours 07/28/24 07/29/24 07/30/24 23:59 23:59 23:59 Intake Total 2085.03 / 2182.75 1606.97 / 1606.97 210 / 210 Output Total 1545 / 1730 2730 / 2730 450 / 450 Balance 540.03 / 452.75 -1123.03 / -1123.03 -240 / -240 Lab / Micro Data 07/30/24 05:23 07/30/24 05:23 Labs: Laboratory Results - last 24 hr 07/29/24 17:29: POC Glucose 129 H 07/29/24 23:05: POC Glucose 133 H 07/30/24 05:21: POC Glucose 118 H 07/30/24 05:23: WBC 9.7, RBC 3.92 L, Hgb 10.8 L, Hct 33.6 L, MCV 85.7, MCH 27.6, MCHC 32.1, RDW Std Deviation 44.6 H, RDW Coeff of Tariq 14.5, Plt Count 161, MPV 10.0, Immature Gran % (Auto) 0.400, Neut % (Auto) 81.7 H, Lymph % (Auto) 10.2 L, [place] % (Auto) 6.1, Eos % (Auto) 1.3, Baso % (Auto) 0.3, Absolute Neuts (auto) 7.9 H, Absolute Lymphs (auto) 0.99, Nucleated RBC % 0, Sodium 140, Potassium 3.4 L, Chloride 108 H, Carbon Dioxide 28.0, Anion Gap 5, BUN 8, Creatinine 0.84, Estim Creat Clear Calc 65.80, Est GFR (MDRD) Af Amer 87, Est GFR (MDRD) Non-Af 72, BUN/Creatinine Ratio 9.5 L, Glucose 142 H, Calcium 8.9, Magnesium 1.9 07/30/24 12:29: POC Glucose 134 H Micro: Microbiology 07/26/24 09:10 Sputum, Induced/[place] Gram Stain - Final 07/26/24 09:10 Sputum, Induced/[place]ens Respiratory Culture - Final Staphylococcus aureus Streptococcus pneumoniae 07/26/24 03:00 Urine, Catheterized Urine Culture - Final Staphylococcus aureus 07/26/24 09:50 Urine Catheter - Rodriguez Legionella Antigen - Final 07/26/24 09:50 Urine Catheter - Rodriguez Streptococcus pneumoniae Antigen (M - Final 07/26/24 09:10 Mucosa - Nasopharyngeal Respiratory Panel (PCR) - Final 07/26/24 08:55 Nasal Secretion MRSA (PCR) - Final 07/26/24 02:08 Mucosa - Nose SARS-CoV-2, Influenza & RSV (PCR) - Final Physical Exam Narrative alert and no apparent distress Constitutional Narrative: General Appearance: cooperative, well kempt and well developed Orientation / Consciousness: awake, follows commands HEENT normocephalic, head/scalp atraumatic and moist oral mucous membranes Eyes PERRL, EOMs intact bilaterally and conjunctivae normal Neck supple, no JVD, thyroid normal and no carotid bruits General: trachea midline Resp normal respiratory effort, no retractions, no use of accessory muscles and clear to auscultation bilaterally Auscultation: Negative for rales, rhonchi or wheezes Cardio regular rate, regular rhythm, S1 normal heart sound, S2 normal heart sound, no murmurs, no rub and no gallops GI normal to inspection, nondistended, normoactive bowel sounds, soft to palpation, non-tender and non-distended Extremity no clubbing, cyanosis or edema Skin no rashes or lesions noted General Skin Exam: no breakdown Neuro CN's II-XII intact bilaterally and no focal motor deficits Neuro Narrative: Sensorium / Orientation: awake and alert, she follows simple commands, oriented as to person and place, speech is difficult to understand at times Psych Psych Narrative: Patient is alert, she is oriented as to person and place Assessment & Plan Assessment/Plan (1) Acute respiratory failure with hypoxia and hypercapnia: PLAN: Plan 1. Acute combined respiratory failure-exact etiology unclear-at the time I examined the patient, she is currently on room air, patient appears stable for transfer to PCU #2 Parkinson's disease-patient remains on her home medications at this time #3 seizure disorder-patient remains on Keppra #4 hyperlipidemia-patient is on Lipitor #5 chronic depression-patient is on amitriptyline and Zoloft #6 dementia-complicates care, management, recovery, and prognosis #7 oropharyngeal dysphagia-patient is currently n.p.o. except for meds and sips/chips, she is being seen by speech therapy #8 type 2 diabetes-patient's blood sugars are being monitored, sliding scale insulin is administered as indicated Patient is on empiric antibiotic coverage Total clinical time spent by myself addressing the patient's medical issues, reviewing all of her data, and collaborating with patient's care team: 35 minutes Charges/Coding Visit Charges Inpatient E&M: 55876 Subs Hosp L2
--- NOTE | 2024-07-30 17:21 | CASEMGMT ---
Social Work- SW met with pt to discuss preferences at discharge. Pt reports that she wants to go home, but may consider HHC. Pt reports that her recently had knee replacement and pt would like to go home to be with him. Pt reports that she has not walked in 10 years and feels her level of function is at baseline. SW remains available to follow. KATIA Rolle
[2024-07-30 18:09] LABS: Bedside Glucose 148 mg/dL (74-106)
[2024-07-30] MEDS: Atorvastatin Calcium 40 MG Tablet PO (21:06)
[2024-07-30] MEDS: Amitriptyline 100 MG Tablet 150 MG PO (21:07)
[2024-07-30] MEDS: Insulin Lispro 100 UNIT/ML INSULN.PEN SC (23:19)
[2024-07-30 23:43] LABS: Bedside Glucose 173 mg/dL (74-106)
[2024-07-31] VITALS (7 sets, daily range): BP systolic 109–153; BP diastolic 83–93; PULSE 90–107; RESP 16–20; TEMP 36.6–38.2; O2SAT 90–94; BMI 28.8
[2024-07-31] MEDS: Acetaminophen 325 MG Tablet 650 MG PO (02:13)
[2024-07-31] MEDS: Piperacil/Tazobactam 3.375 GM in 0.9% Normal Saline (50mL MB+) 50 ML IV ×3 (05:15→22:08)
[2024-07-31] MEDS: Insulin Lispro 100 UNIT/ML INSULN.PEN SC ×3 (05:16→18:29)
[2024-07-31] MEDS: 0.9% Saline Lock 10 ML Syringe IV ×2 (05:16→22:06)
[2024-07-31] MEDS: Carbidopa/Levodopa 25/100 Tablet PO ×4 (05:36→22:14)
[2024-07-31] MEDS: Pregabalin 75 MG Capsule 150 MG PO ×3 (05:36→22:21)
[2024-07-31 05:48] LABS: Bedside Glucose 150 mg/dL (74-106)
[2024-07-31] MEDS: Enoxaparin 40 MG/0.4 ML Syringe SC (08:45)
[2024-07-31] MEDS: Lactobacillis Acidophilus 1 CAP PO ×4 (08:45→22:15)
[2024-07-31] MEDS: Cholecalciferol (Vit D3) 125 MCG CAPSULE (5,000 UNITS) PO (08:46)
[2024-07-31] MEDS: levETIRAcetam 1,000 MG Tablet 1000 MG PO ×2 (08:46→22:15)
[2024-07-31] MEDS: Sertraline 100 MG Tablet PO (08:46)
[2024-07-31] MEDS: Pantoprazole Sodium 40 MG in 0.9% Normal Saline (100mL MB+) 100 ML 330 MG IV (08:47)
[2024-07-31 12:30] LABS: Bedside Glucose 319 mg/dL (74-106)
[2024-07-31 18:48] LABS: Bedside Glucose 222 mg/dL (74-106)
--- NOTE | 2024-07-31 20:56 | PN.CC_ITS ---
Objective Data Objective Data Vital Signs: Vital Signs Last response 3 Temperature 36.9 C 07/31/24 13:54 Temperature Source Oral 07/31/24 13:54 Pulse Rate 102 H 07/31/24 13:54 Pulse Strength Normal (2+) 07/30/24 21:54 Respiratory Rate 20 H 07/31/24 13:54 Respiratory Effort Normal, Non-Labored 07/31/24 03:53 Respiratory Depth Deep 07/31/24 03:53 Respiratory Pattern Tachypnea 07/31/24 03:53 Blood Pressure 132/89 H 07/31/24 13:54 Blood Pressure Mean 103 07/31/24 13:54 Blood Pressure Source Monitor 07/31/24 13:54 Blood Pressure Position Sitting 07/31/24 13:54 Blood Pressure Location Left Arm 07/31/24 13:54 Pulse Ox 94 07/31/24 13:54 Oxygen Delivery Method Room Air 07/31/24 13:54 Oxygen Flow Rate (L/min) 2 07/30/24 04:00 Fraction of Inspired Oxygen (FIO2) 30 07/30/24 05:00 I&O: I&O Last 24 Hours 3 07/30/24 07/31/24 07/31/24 23:59 11:59 23:59 Intake Total 170 / 380 450 / 800 350 / 800 Output Total 450 / 450 Balance 170 / -70 0 / 350 350 / 350 I&O: Total Stay 3 07/26/24 02:02 thru 07/31/24 18:00 Intake Total 49284.31 Output Total 8125 Balance 2519.31 Current Meds Ordered / Administered: Current meds ordered / Administered 3 Generic Name Dose Route Start Last Admin Trade Name Janna PRN Reason Stop Dose Admin Acetaminophen 650 mg 07/29/24 09:38 07/31/24 02:13 Acetaminophen 325 Mg Tablet PO 650 mg Q6H PRN PRN Administration Pain 1-10 Or Fever>100.7 Albuterol Sulfate 2.5 mg 07/26/24 07:56 Albuterol 2.5 Mg/3 Ml Vial.Neb. INHALATION Q2H PRN PRN SOB &/OR WHEEZING Amitriptyline HCl 150 mg 07/29/24 22:00 07/30/24 21:07 Amitriptyline 100 Mg Tablet PO 150 mg QHS HIRAL Administration Atorvastatin Calcium 40 mg 07/29/24 22:00 07/30/24 21:06 Atorvastatin Calcium 40 Mg Tablet PO 40 mg QHS HIRAL Administration Carbidopa/Levodopa 3 tablet 07/29/24 12:00 07/31/24 17:23 Carbidopa/Levodopa 25/100 Tablet PO 3 tablet 0700,1200,1700,2200 HIRAL Administration Chlorhexidine Gluconate 1 each 07/26/24 10:00 07/31/24 11:29 Chlorhexidine Gluc 2% Cloth 1 Each [place] TOPICAL Not Given DAILY HIRAL Cholecalciferol 125 mcg 07/29/24 10:00 07/31/24 08:46 Cholecalciferol (Vit D3) 125 Mcg Capsule (5,000 Units) PO 125 mcg DAILY HIRAL Administration Enoxaparin Sodium 40 mg 07/26/24 10:00 07/31/24 08:45 Enoxaparin 40 Mg/0.4 Ml Syringe SC 40 mg DAILY HIRAL Administration Glucagon 1 mg 07/26/24 07:56 Glucagon 1 Mg/Ml Syringe IM X1 PRN HYPOGLYCEMIA Protocol Guaifenesin 20 ml 07/29/24 09:38 Guaifenesin 10 Ml Udc (200mg/10ml) PO Q4H PRN PRN COUGH Dextrose 250 mls @ 0 mls/hr 07/26/24 07:56 Dextrose 10%-Water IV .Q0M PRN HYPOGLYCEMIA Protocol As Directed Piperacillin Sod/Tazobactam 50 mls @ 12.5 mls/hr 07/26/24 08:31 07/31/24 17:56 Sod 3.375 gm/ Sodium Chloride IV Infused Q8 HIRAL Infusion Pantoprazole Sodium 40 mg/ 110 mls @ 330 mls/hr 07/26/24 10:00 07/31/24 10:18 Sodium Chloride IV Infused Q24 HIRAL Infusion Sodium Chloride 100 mls @ 15 mls/hr 07/27/24 12:31 07/29/24 18:04 IV 0 mls/hr .Q6H40M PRN Infusion Saline Flush Sodium Chloride 100 mls @ 15 mls/hr 07/27/24 12:31 IV .Q6H40M PRN Additional IVPB Infusion Insulin Human Lispro 0 unit 07/26/24 12:00 07/31/24 18:29 Insulin Lispro 100 Unit/Ml Insuln.Pen SC 1 units Q6 HIRAL Administration Protocol Levetiracetam 1,000 mg 07/29/24 10:00 07/31/24 08:46 Levetiracetam 1,000 Mg Tablet PO 1,000 mg BID HIRAL Administration Pregabalin 150 mg 07/29/24 14:00 07/31/24 13:45 Pregabalin 75 Mg Capsule PO 150 mg TID HIRAL Administration Promethazine HCl 25 mg 07/26/24 07:56 Promethazine 25 Mg/Ml Syringe IM Q6H PRN PRN Breakthrough Nausea/Vomiting Sertraline HCl 100 mg 07/29/24 10:00 07/31/24 08:46 Sertraline 100 Mg Tablet PO 100 mg DAILY HIRAL Administration Sodium Chloride 10 - 40 ml 07/26/24 07:59 07/31/24 05:16 0.9% Saline Lock 10 Ml Syringe IV 20 ml UD PRN Administration SALINE FLUSH Lab / Micro Data 07/30/24 05:23 07/30/24 05:23 Labs: Laboratory Results - last 24 hr 07/30/24 23:17: POC Glucose 173 H 07/31/24 05:15: POC Glucose 150 H 07/31/24 12:07: POC Glucose 319 H 07/31/24 18:28: POC Glucose 222 H Assessment and Plan . Assessment and plan: Chart and data reviewed Breathing RA Data reviewed CX reviewed She remains on Zosyn No new thoughts
[2024-07-31] MEDS: Atorvastatin Calcium 40 MG Tablet PO (22:14)
[2024-07-31] MEDS: Amitriptyline 100 MG Tablet 150 MG PO (22:15)
[2024-08-01] VITALS (9 sets, daily range): BP systolic 123–149; BP diastolic 63–90; PULSE 92–102; RESP 14–18; TEMP 36.4–37.3; O2SAT 90–99; BMI 29.3
[2024-08-01] MEDS: Insulin Lispro 100 UNIT/ML INSULN.PEN SC ×5 (00:09→23:39)
[2024-08-01 00:13] LABS: Bedside Glucose 172 mg/dL (74-106)
[2024-08-01] MEDS: 0.9% Saline Lock 10 ML Syringe IV ×2 (03:03→05:28)
[2024-08-01] MEDS: Piperacil/Tazobactam 3.375 GM in 0.9% Normal Saline (50mL MB+) 50 ML IV ×3 (05:34→23:25)
[2024-08-01] MEDS: Pregabalin 75 MG Capsule 150 MG PO ×3 (05:45→23:24)
[2024-08-01] MEDS: Carbidopa/Levodopa 25/100 Tablet PO ×4 (05:46→23:22)
[2024-08-01 08:23] LABS: Bedside Glucose 171 mg/dL (74-106)
[2024-08-01 09:30] LABS: Hematocrit 34.6 % (37-47); Hemoglobin 11.2 g/dL (12.0-15.0); Mean Corp Hgb Conc 32.4 g/dL (32-36); Mean Corpuscular Hgb 27.4 pg (27.0-32.0); Mean Corpuscular Volume 84.6 fL (81-99); Mean Platelet Vol. 10.4 fl (6.2-12.0); Platelet Count 173 K/mm3 (150-450); RBC Distribution Width CV 14.1 % (11.6-14.6); RBC Distribution Width SD 43.2 fl (35.1-43.9); Red Blood Count 4.09 M/mm3 (4.2-5.4); White Blood Count 5.3 K/mm3 (4.4-11.0)
[2024-08-01] MEDS: levETIRAcetam 1,000 MG Tablet 1000 MG PO ×2 (09:45→23:21)
[2024-08-01] MEDS: Lactobacillis Acidophilus 1 CAP PO ×4 (09:45→23:20)
[2024-08-01] MEDS: Enoxaparin 40 MG/0.4 ML Syringe SC (09:45)
[2024-08-01] MEDS: Sertraline 100 MG Tablet PO (09:46)
[2024-08-01] MEDS: Cholecalciferol (Vit D3) 125 MCG CAPSULE (5,000 UNITS) PO (09:46)
[2024-08-01 09:47] LABS: Anion Gap 6 (5-15); BUN 4 mg/dL (7-18); BUN/Creat Ratio 5.6 RATIO (10-20); Calcium,Total 8.9 mg/dL (8.5-10.1); Chloride 102 mmol/L (98-107); Creatinine, Serum 0.71 mg/dL (0.55-1.02); EST Glomerular Filtration Rate 87 mL/min (>60); Est Glom Filt Rate - Afr Amer 105 mL/min (>60); Estimated Creatinine Clearance 68.92 ml/min; Glucose 200 mg/dL (74-106); Potassium 2.9 mmol/L (3.5-5.1); Sodium Level 140 mmol/L (136-145)
[2024-08-01] MEDS: Pantoprazole Sodium 40 MG Tablet PO (09:51)
--- NOTE | 2024-08-01 11:53 | CASEMGMT ---
EMELYN SIERRA reviewed therapy notes, max assist x2. Per hospitalist states patient has dementia and concerned regarding therapy scores. EMELYN CM in to discuss needs at discharge with patient, playing game on tablet. EMELYN SIERRA reviewed therapy notes with patient. Patient states she stand/pivots to wheelchair at home. Patient states that recently had a knee replacement and she needs to help care for him. EMELYN SIERRA inquired how patient is going to be able to help if she is requiring help from 2 people to assist into wheelchair. Patient dismissive and states she is not going anywhere and they will take care of each other. Patient states the doctor didn't have any concerns about her going home, EMELYN SIERRA updated patient regarding conversation with hospitalist and concern for therapy needs. Patient continues to play game on tablet and not participating in conversation. EMELYN SIERRA called , no answer, voice message left with return contact information. CM will continue to follow this patient and plan for safe discharge.
[2024-08-01 12:22] LABS: Bedside Glucose 204 mg/dL (74-106)
--- NOTE | 2024-08-01 14:00 | CASEMGMT ---
Addendum entered by Evelia Gonzalez 08/01/24 15:13: EMELYN SIERRA updated therapy regarding request to have patient attempt transfers on her own. Original Note: EMELYN SIERRA updated that patient's son wanted to speak with CM. EMELYN SIERRA to patient's room to talk with son. Son, Garrett, asked to speak with EMELYN SIERRA outside of room. Son voiced concerns that patient is unsafe to go home. EMELYN SIERRA reviewed progress with therapy and verified patient's baseline at home. Son states that patient was transferring herself to wheelchair and toilet SBA assist with at home. Son states that patient just had knee replacement 1 week ago and is unable to help patient at home at discharge. Son states that he is interested in SNF at discharge and would discuss with his father. Son returned to patient's room. A list of SNF providers including quality and resource use data and consistent with the patient?s preferred geographical region, medical needs, and insurance network were provided from the [employer] Guide. EMELYN SIERRA in to patient's room to discuss discharge planning with son and patient. EMELYN SIERRA provided SNF list to son. EMELYN SIERRA discussed son, hospitalist, and therapy's concerns for at discharge. Patient states she is going home and will help her. EMELYN SIERRA updated patient that due to her 's knee replacement, he will not be able to assist patient at home. Patient states that is just making excuses so he can drink from the bottle. Patient states the doctor told her she could go home, EMELYN SIERRA updated patient that hospitalist is concern for safety at home and need for a safe discharge. EMELYN SIERRA offered patient a compromise that if she is able to transfer herself to the wheelchair and toilet she can go [facility] with [facility]. Patient states she does not want to work with therapy again today, EMELYN SIERRA updated patient that therapy will work with patient again tomorrow. Son states that he will discuss discharge planning with his father and follow-up tomorrow. Son had no further questions or concerns. EMELYN SIERRA updated hospitalist regarding discharge planning and requested to come talk with patient again regarding safety concerns at discharge. CM will continue to follow this patient and plan for a safe discharge.
--- NOTE | 2024-08-01 15:40 | PCM.PN.HOSP ---
Reason for Visit Reason for Visit: Diagnoses Overweight (07/26/24) Unspecified dementia, unspecified severity, without behavioral disturbance, psychotic disturbance, mood disturbance, and anxiety (07/26/24) Parkinson's disease (07/26/24) Parkinson's disease without dyskinesia, without mention of fluctuations (07/26/24) Metabolic encephalopathy (07/26/24) Pneumonia, unspecified organism (07/26/24) Acute respiratory failure with hypoxia (07/26/24) Acute respiratory failure with hypercapnia (07/26/24) Repeated falls (07/26/24) Weakness (07/26/24) Subjective Subjective Saw patient at bedside this morning. Patient was sitting up comfortably in bedside chair and in no acute distress. Patient was playing games on her tablet for the majority of my encounter with her and was only selectively answering questions for me. She asked multiple times if she could go home. Denied any other concerns this morning. Discussed with case management and patient has had poor therapy scores while here. She has history of Parkinson's disease with dementia. She will answer some questions appropriately but overall exhibits poor insight into her medical condition. She is stating that she needs to go home to help take care of her who had a knee replacement 1 week ago. Case management discussed with patient's son this afternoon. Son voiced concern that patient was unsafe to go home, stating patient was transferring herself to wheelchair and toilet with assistance from at home and she is now doing worse than this. She initially came into the hospital on 12:24 falls at home. Son is interested in SNF on discharge and will discuss further with patient's . Given that patient lacks insight into her medical condition, she does not have capacity at this time and decision will be deferred to her and son. Objective Data Objective Data Vital Signs: Vital Signs Temp Pulse Resp BP Pulse Ox O2 Del Method O2 Flow Rate 98.8 F 102 H 18 132/71 H 92 Room Air 2 08/01/24 13:13 08/01/24 13:13 08/01/24 13:13 08/01/24 13:13 08/01/24 13:13 08/01/24 13:13 07/30/24 04:00 FiO2 30 08/01/24 04:25 Oxygen Flow Rate (L/min) 2 Oxygen Delivery Method Room Air Weight: 77.9 kg Body Mass Index (BMI) 29.3 Intake & Output: Intake and Output for Last 24 Hours 07/30/24 07/31/24 08/01/24 23:59 23:59 23:59 Intake Total 380 / 380 1050 / 1050 600 / 600 Output Total 450 / 450 450 / 450 Balance -70 / -70 600 / 600 600 / 600 Lab / Micro Data 08/01/24 09:10 08/01/24 09:10 Labs: Laboratory Results - last 24 hr 07/31/24 18:28: POC Glucose 222 H 07/31/24 23:53: POC Glucose 172 H 08/01/24 05:36: POC Glucose 171 H 08/01/24 09:10: WBC 5.3, RBC 4.09 L, Hgb 11.2 L, Hct 34.6 L, MCV 84.6, MCH 27.4, MCHC 32.4, RDW Std Deviation 43.2, RDW Coeff of Tariq 14.1, Plt Count 173, MPV 10.4, Sodium 140, Potassium 2.9 L, Chloride 102, Carbon Dioxide 32.0, Anion Gap 6, BUN 4 L, Creatinine 0.71, Estim Creat Clear Calc 68.92, Est GFR (MDRD) Af Amer 105, Est GFR (MDRD) Non-Af 87, BUN/Creatinine Ratio 5.6 L, Glucose 200 H, Calcium 8.9 08/01/24 12:04: POC Glucose 204 H Micro: Microbiology 07/31/24 21:20 Stool Enteric Bacteriology - Final 07/31/24 21:20 Stool Clostridioides difficile (PCR) - Final 07/26/24 09:10 Sputum, Induced/Lukens Gram Stain - Final 07/26/24 09:10 Sputum, Induced/Lukens Respiratory Culture - Final Staphylococcus aureus Streptococcus pneumoniae 07/26/24 03:00 Urine, Catheterized Urine Culture - Final Staphylococcus aureus 07/26/24 09:50 Urine Catheter - Rodriguez Legionella Antigen - Final 07/26/24 09:50 Urine Catheter - Rodriguez Streptococcus pneumoniae Antigen (M - Final 07/26/24 09:10 Mucosa - Nasopharyngeal Respiratory Panel (PCR) - Final 07/26/24 08:55 Nasal Secretion MRSA (PCR) - Final 07/26/24 02:08 Mucosa - Nose SARS-CoV-2, Influenza & RSV (PCR) - Final Physical Exam Const alert and no apparent distress Constitutional Narrative: Elderly female, overweight, sitting up in bedside chair comfortably, however was consistently distracted by games on her tablet and only answering some questions with appropriate responses, expresses poor insight into her medical condition, otherwise in no acute distress. General Appearance: cooperative and comfortable HEENT normocephalic, head/scalp atraumatic, hearing grossly normal bilaterally, nasal mucous membranes and turbinates normal and moist oral mucous membranes Eyes PERRL, EOMs intact bilaterally and conjunctivae normal Neck full ROM Chest inspection of chest normal Resp normal respiratory effort, normal air movement, no use of accessory muscles and clear to auscultation bilaterally Cardio regular rate, regular rhythm, no murmurs and peripheral pulses 2+ throughout GI normal to inspection, nondistended, normoactive bowel sounds, soft to palpation, non-tender and non-distended Back/Spine normal ROM Neuro Neuro Narrative: Generalized bilateral lower extremity weakness with significant right ankle eversion. Assessment & Plan Assessment/Plan (1) Generalized weakness: (2) Falls: (3) Acute respiratory failure with hypoxia and hypercapnia: (4) Dementia: QUALIFIERS: Dementia type: unspecified type Dementia severity: unspecified severity Dementia behavioral or psychological symptom: unspecified whether behavioral, psychotic, or mood disturbance or anxiety Qualified Code(s): F03.90 - Unspecified dementia, unspecified severity, without behavioral disturbance, psychotic disturbance, mood disturbance, and anxiety PLAN: Plan Patient is a 69-year-old female who presented [facility] ED on 07/26/2024 with worsening generalized weakness with 2 falls at home. 1. Acute on chronic debility with falls in setting of Parkinson's disease with dementia ?PT/OT/case management following. Patient is wheelchair-bound at home but was able to transfer to wheelchair and toilet with some assistance from . She presented with worsening weakness and 2 falls at home. Hospital course complicated by respiratory failure with intubation as noted below. She is now medically stable but remains weaker than baseline and is a max two-person assist. Patient is stating she wants to go home but has very poor insight into her medical condition and therefore lacks capacity. and son are primary decision makers and patient will likely be going to SNF if is agreeable to this. Continue home Sinemet, pregabalin, donepezil. 2. Acute combined respiratory failure, improved ? Automotive Worker Foreman followed. Patient developed acute hypoxic and hypercapnic respiratory failure requiring intubation on 07/26. She was able to be extubated to room air on 07/29. Weaned off supplemental oxygen by 07/31. Unclear etiology for her acute respiratory failure, had some concern for respiratory infection. Okay to continue Zosyn for now. 3. Mild oropharyngeal dysphagia, improving ? Speech therapy following. Was n.p.o. status after extubation but has shown improvement and is currently tolerating a soft and bite-size diet with thin liquids without issue. 4. Acute toxic/metabolic encephalopathy, resolved ? Presumed secondary to respiratory failure with hypercapnia with medications possibly contributing on admit. Now resolved. Chronic medical conditions: ? Hypertension: Continue home lisinopril. ? Hyperlipidemia: Continue home statin. ? Seizure disorder: Continue home levetiracetam. ? Depression: Continue home sertraline and amitriptyline at night. ? Type 2 diabetes mellitus: Treated with sliding scale insulin with meals while inpatient, adjust as needed. DVT prophylaxis: Lovenox CODE STATUS: Full code, unverified Expected disposition: Likely SNF, 1 to 2 days Total clinical time spent by myself addressing the patient's medical issues, reviewing all the data, and collaborating with patient's care team: 35 minutes. Charges/Coding Visit Charges Inpatient E&M: 71896 Subs Hosp L2
[2024-08-01] MEDS: Glucerna Shake 120 ML LIQUID PO (16:18)
[2024-08-01 16:58] LABS: Bedside Glucose 225 mg/dL (74-106)
[2024-08-01] MEDS: Potassium Chloride Oral Tablet 20 MEQ 40 MEQ PO (18:59)
[2024-08-01] MEDS: Atorvastatin Calcium 40 MG Tablet PO (23:21)
[2024-08-01] MEDS: Amitriptyline 100 MG Tablet 150 MG PO (23:21)
[2024-08-02] VITALS (8 sets, daily range): BP systolic 115–142; BP diastolic 79–94; PULSE 88–103; RESP 18–20; TEMP 36.6–37.1; O2SAT 89–98; BMI 29.4
[2024-08-02 00:36] LABS: Bedside Glucose 198 mg/dL (74-106)
[2024-08-02] MEDS: Insulin Lispro 100 UNIT/ML INSULN.PEN SC ×3 (06:25→16:48)
[2024-08-02] MEDS: Carbidopa/Levodopa 25/100 Tablet PO ×4 (06:30→20:53)
[2024-08-02] MEDS: Piperacil/Tazobactam 3.375 GM in 0.9% Normal Saline (50mL MB+) 50 ML IV (06:30)
[2024-08-02] MEDS: Pregabalin 75 MG Capsule 150 MG PO ×3 (06:30→21:06)
[2024-08-02 07:04] LABS: Bedside Glucose 177 mg/dL (74-106)
[2024-08-02 08:57] LABS: Anion Gap 5 (5-15); BUN 5 mg/dL (7-18); BUN/Creat Ratio 7.2 RATIO (10-20); Calcium,Total 8.7 mg/dL (8.5-10.1); Chloride 104 mmol/L (98-107); EST Glomerular Filtration Rate 89 mL/min (>60); Est Glom Filt Rate - Afr Amer 108 mL/min (>60); Estimated Creatinine Clearance 68.84 ml/min; Glucose 178 mg/dL (74-106); Sodium Level 143 mmol/L (136-145)
[2024-08-02] MEDS: Cholecalciferol (Vit D3) 125 MCG CAPSULE (5,000 UNITS) PO (10:05)
[2024-08-02] MEDS: levETIRAcetam 1,000 MG Tablet 1000 MG PO ×2 (10:05→20:52)
[2024-08-02] MEDS: Pantoprazole Sodium 40 MG Tablet PO (10:05)
[2024-08-02] MEDS: Sertraline 100 MG Tablet PO (10:05)
[2024-08-02] MEDS: Lactobacillis Acidophilus 1 CAP PO ×4 (10:06→20:50)
[2024-08-02] MEDS: Enoxaparin 40 MG/0.4 ML Syringe SC (10:11)
--- NOTE | 2024-08-02 11:02 | CASEMGMT ---
Addendum entered by Herminia Dobson 08/02/24 11:27: Social [facility] network. Referral [facility] is pending. INDIRA Phelps Original Note: Social Work Physician spoke w/pt's and son. They are in agreement for pt going to rehab somewhere. Family was given SNF list yesterday. SW spoke w/pt and son outside of room, they would like referrals sent to [facility]. [facility] and 2. [facility]. SW sent referrals, will continue to follow. INDIRA Phelps
--- NOTE | 2024-08-02 11:36 | PN.HOSP_ITS ---
Reason for Visit Reason for Visit: Diagnoses Overweight (07/26/24) Unspecified dementia, unspecified severity, without behavioral disturbance, psychotic disturbance, mood disturbance, and anxiety (07/26/24) Parkinson's disease (07/26/24) Parkinson's disease without dyskinesia, without mention of fluctuations (07/26/24) Metabolic encephalopathy (07/26/24) Pneumonia, unspecified organism (07/26/24) Acute respiratory failure with hypoxia (07/26/24) Acute respiratory failure with hypercapnia (07/26/24) Repeated falls (07/26/24) Weakness (07/26/24) Subjective Subjective Saw patient at bedside this morning, and son present. Patient was sitting up in bed and in no acute distress. Patient was verbally aggressive during our encounter to both this provider and and son, stating we all were keeping her from being discharged home. She continues to exhibit very poor insight into her medical condition. Because of this, determined that patient does not have capacity for medical decision-making. Discussed with and son and they are in agreement with pursuing SNF placement on discharge for patient. Objective Data Objective Data Vital Signs: Vital Signs Temp Pulse Resp BP Pulse Ox O2 Del Method O2 Flow Rate 98.4 F 90 18 134/90 H 98 Room Air 2 08/02/24 10:00 08/02/24 10:00 08/02/24 10:00 08/02/24 10:00 08/02/24 10:00 08/02/24 10:00 08/02/24 08:33 FiO2 30 08/01/24 04:25 Oxygen Flow Rate (L/min) 2 Oxygen Delivery Method Room Air Weight: 77.7 kg Body Mass Index (BMI) 29.4 Intake & Output: Intake and Output for Last 24 Hours 07/31/24 08/01/24 08/02/24 23:59 23:59 23:59 Intake Total 1050 / 1050 950 / 950 100 / 100 Output Total 450 / 450 100 / 100 Balance 600 / 600 850 / 850 100 / 100 Lab / Micro Data 08/01/24 09:10 08/02/24 08:25 Labs: Laboratory Results - last 24 hr 08/01/24 12:04: POC Glucose 204 H 08/01/24 16:34: POC Glucose 225 H 08/01/24 23:38: POC Glucose 198 H 08/02/24 06:24: POC Glucose 177 H 08/02/24 08:25: Sodium 143, Potassium 3.0 L, Chloride 104, Carbon Dioxide 34.0 H , Anion Gap 5, BUN 5 L, Creatinine 0.70, Estim Creat Clear Calc 68.84, Est GFR (MDRD) Af Amer 108, Est GFR (MDRD) Non-Af 89, BUN/Creatinine Ratio 7.2 L, G lucose 178 H, Calcium 8.7 Micro: Microbiology 07/31/24 21:20 Stool Enteric Bacteriology - Final 07/31/24 21:20 Stool Clostridioides difficile (PCR) - Final 07/26/24 09:10 Sputum, Induced/Lukens Gram Stain - Final 07/26/24 09:10 Sputum, Induced/Lukens Respiratory Culture - Final Staphylococcus aureus Streptococcus pneumoniae 07/26/24 03:00 Urine, Catheterized Urine Culture - Final Staphylococcus aureus 07/26/24 09:50 Urine Catheter - Rodriguez Legionella Antigen - Final 07/26/24 09:50 Urine Catheter - Rodriguez Streptococcus pneumoniae Antigen (M - Final 07/26/24 09:10 Mucosa - Nasopharyngeal Respiratory Panel (PCR) - Final 07/26/24 08:55 Nasal Secretion MRSA (PCR) - Final 07/26/24 02:08 Mucosa - Nose SARS-CoV-2, Influenza & RSV (PCR) - Final Physical Exam Const alert and no apparent distress Constitutional Narrative: Elderly female, overweight, sitting up in bed, verbally aggressive toward and son and this provider during conversation but continuing to exhibit poor insight into her medical condition. HEENT normocephalic, head/scalp atraumatic, hearing grossly normal bilaterally, nasal mucous membranes and turbinates normal and moist oral mucous membranes Eyes PERRL, EOMs intact bilaterally and conjunctivae normal Neck full ROM Chest inspection of chest normal Resp normal respiratory effort, normal air movement, no use of accessory muscles and clear to auscultation bilaterally Cardio regular rate, regular rhythm, no murmurs and peripheral pulses 2+ throughout GI normal to inspection, nondistended, normoactive bowel sounds, soft to palpation, non-tender and non-distended Back/Spine normal ROM Neuro Neuro Narrative: Generalized bilateral lower extremity weakness with significant right ankle eversion. Stable. Assessment & Plan Assessment/Plan (1) Generalized weakness: (2) Falls: (3) Acute respiratory failure with hypoxia and hypercapnia: (4) Dementia: QUALIFIERS: Dementia type: unspecified type Dementia severity: u nspecified severity Dementia behavioral or psychological symptom: unspecified whether behavioral, psychotic, or mood disturbance or anxiety Qualified Code(s): F03.90 - Unspecified dementia, unspecified severity, without behavioral disturbance, psychotic disturbance, mood disturbance, and anxiety PLAN: Plan Patient is a 69-year-old female who presented [facility] ED on 07/26/2024 with worsening generalized weakness with 2 falls at home. 1. Acute on chronic debility with falls in setting of Parkinson's disease with dementia ? PT/OT/case management following. Patient is wheelchair-bound at home but was able to transfer to wheelchair and toilet with some assistance from . She presented with worsening weakness and 2 falls at home. Hospital course complicated by respiratory failure with intubation as noted below. She is now medically stable but remains weaker than baseline and is a max two-person assist. Patient is stating she wants to go home but has very poor insight into her medical condition and therefore lacks capacity. and son are primary decision makers and are in agreement with patient going to SNF on discharge. Case management assisting with placement. Continue home Sinemet, pregabalin, donepezil. 2. Acute combined respiratory failure, improved ? Special Effects Artist followed. Patient developed acute hypoxic and hypercapnic respiratory failure requiring intubation on 07/26. She was able to be extubated to room air on 07/29. Weaned off supplemental oxygen by 07/31. Unclear etiology for her acute respiratory failure, had some concern for respiratory infection. Completed 7-day course of Zosyn on 08/02. 3. Mild oropharyngeal dysphagia, improving ? Speech therapy following. Was n.p.o. status after extubation but has shown improvement and is currently tolerating a soft and bite-size diet with thin liquids without issue. 4. Acute toxic/metabolic encephalopathy, resolved ? Presumed secondary to respiratory failure with hypercapnia with medications possibly contributing on admit. Now resolved. Chronic medical conditions: ? Hypertension: Continue home lisinopril. ? Hyperlipidemia: Continue home statin. ? Seizure disorder: Continue home levetiracetam. ? Depression: Continue home sertraline and amitriptyline at night. ? Type 2 diabetes mellitus: Treated with sliding scale insulin with meals while inpatient, adjust as needed. DVT prophylaxis: Lovenox CODE STATUS: Full code, unverified Expected disposition: SNF, medically ready for discharge on 08/02, awaiting placement Total clinical time spent by myself addressing the patient's medical issues, reviewing all the data, and collaborating with patient's care team: 35 minutes. Charges/Coding Visit Charges Inpatient E&M: 89802 Subs Hosp L2
[2024-08-02 12:09] LABS: Bedside Glucose 258 mg/dL (74-106)
--- NOTE | 2024-08-02 13:24 | CASEMGMT ---
Addendum entered by Herminia Dobson 08/02/24 16:40: Social Work We have not heard back from [facility] in regard to precert. At this time it is anticipated we will not get a precert back today, and pt will be here through 08/04, as insurance is not open tomorrow. SW called irineo Carty to inform him, he states understanding. SW will follow up on . INDIRA Phelps Original Note: Social Work SW called irineo Carty, let him know [facility] cannot take pt as they are out of network w/pt's insurance(even though they show up on [facility] website as in network). SW let him know [facility] pt and they started precert. Carloz states understanding. SW will let Carloz know as the day goes if we hear back from insurance. INDIRA Phelps
[2024-08-02] MEDS: Potassium Chloride Oral Tablet 20 MEQ 40 MEQ PO (14:22)
[2024-08-02 17:38] LABS: Bedside Glucose 169 mg/dL (74-106)
[2024-08-02] MEDS: Amitriptyline 100 MG Tablet 150 MG PO (20:50)
[2024-08-02] MEDS: Atorvastatin Calcium 40 MG Tablet PO (20:53)
[2024-08-02] MEDS: 0.9% Saline Lock 10 ML Syringe IV (20:55)
[2024-08-03] VITALS (9 sets, daily range): BP systolic 124–147; BP diastolic 82–90; PULSE 74–106; RESP 16–18; TEMP 36–36.8; O2SAT 92–100; BMI 29.2
[2024-08-03] MEDS: Insulin Lispro 100 UNIT/ML INSULN.PEN SC ×5 (01:00→20:49)
[2024-08-03 05:15] LABS: Hematocrit 34.2 % (37-47); Mean Corp Hgb Conc 32.2 g/dL (32-36); Mean Corpuscular Hgb 27.6 pg (27.0-32.0); Mean Corpuscular Volume 85.9 fL (81-99); Mean Platelet Vol. 10.5 fl (6.2-12.0); Platelet Count 148 K/mm3 (150-450); RBC Distribution Width CV 13.9 % (11.6-14.6); RBC Distribution Width SD 43.7 fl (35.1-43.9); Red Blood Count 3.98 M/mm3 (4.2-5.4); White Blood Count 4.4 K/mm3 (4.4-11.0)
[2024-08-03 05:46] LABS: Anion Gap 3 (5-15); BUN 6 mg/dL (7-18); BUN/Creat Ratio 8.6 RATIO (10-20); Calcium,Total 8.8 mg/dL (8.5-10.1); Chloride 100 mmol/L (98-107); EST Glomerular Filtration Rate 89 mL/min (>60); Est Glom Filt Rate - Afr Amer 108 mL/min (>60); Estimated Creatinine Clearance 68.71 ml/min; Glucose 221 mg/dL (74-106); Sodium Level 140 mmol/L (136-145)
[2024-08-03 06:27] LABS: Bedside Glucose 201 mg/dL (74-106)
[2024-08-03] MEDS: Carbidopa/Levodopa 25/100 Tablet PO ×4 (06:29→20:41)
[2024-08-03] MEDS: Pregabalin 75 MG Capsule 150 MG PO ×3 (06:33→20:46)
[2024-08-03 06:46] LABS: Bedside Glucose 194 mg/dL (74-106)
[2024-08-03] MEDS: Potassium Chloride Oral Tablet 20 MEQ 60 MEQ PO (09:43)
[2024-08-03] MEDS: Pantoprazole Sodium 40 MG Tablet PO (09:43)
[2024-08-03] MEDS: Sertraline 100 MG Tablet PO (09:43)
[2024-08-03] MEDS: Cholecalciferol (Vit D3) 125 MCG CAPSULE (5,000 UNITS) PO (09:44)
[2024-08-03] MEDS: levETIRAcetam 1,000 MG Tablet 1000 MG PO ×2 (09:44→20:41)
[2024-08-03] MEDS: Lactobacillis Acidophilus 1 CAP PO ×4 (09:44→20:39)
[2024-08-03] MEDS: Enoxaparin 40 MG/0.4 ML Syringe SC (09:45)
[2024-08-03 10:00] LABS: Magnesium 1.2 mg/dL (1.6-2.6); Phosphorus 2.9 mg/dL (2.5-4.9)
--- NOTE | 2024-08-03 11:05 | PCM.PN.HOSP ---
Reason for Visit Reason for Visit: Diagnoses Overweight (07/26/24) Unspecified dementia, unspecified severity, without behavioral disturbance, psychotic disturbance, mood disturbance, and anxiety (07/26/24) Parkinson's disease (07/26/24) Parkinson's disease without dyskinesia, without mention of fluctuations (07/26/24) Metabolic encephalopathy (07/26/24) Pneumonia, unspecified organism (07/26/24) Acute respiratory failure with hypoxia (07/26/24) Acute respiratory failure with hypercapnia (07/26/24) Repeated falls (07/26/24) Weakness (07/26/24) Subjective Subjective Saw patient at bedside this morning. Patient was sitting up in bedside chair and appeared similar to yesterday. Patient again reported being unhappy about remaining in the hospital and felt like she was being kept against her will. She continues to state that she did not need further therapy and could do fine going home. No other new concerns this morning. Notified by nursing staff around noon that patient was found on the floor next to her bedside chair. Patient was awake and alert and stated she had simply slid off onto the floor. There were no injuries noted. Patient had worked with therapy this morning and did slightly better with minimal assist of 1 but continues to have poor insight into her level of weakness given the fall. Objective Data Objective Data Vital Signs: Vital Signs Temp Pulse Resp BP Pulse Ox O2 Del Method O2 Flow Rate 97.5 F L 91 18 128/84 H 97 Nasal Cannula 2 08/03/24 09:15 08/03/24 09:15 08/03/24 09:15 08/03/24 09:15 08/03/24 09:15 08/03/24 09:15 08/03/24 09:15 FiO2 30 08/01/24 04:25 Oxygen Flow Rate (L/min) 2 Oxygen Delivery Method Nasal Cannula Weight: 77.4 kg Body Mass Index (BMI) 29.2 Intake & Output: Intake and Output for Last 24 Hours 08/01/24 08/02/24 08/03/24 23:59 23:59 23:59 Intake Total 950 / 950 580 / 580 Output Total 100 / 100 125 / 625 725 / 725 Balance 850 / 850 455 / -45 -725 / -725 Lab / Micro Data 08/03/24 04:23 08/03/24 04:23 Labs: Laboratory Results - last 24 hr 08/02/24 11:30: POC Glucose 258 H 08/02/24 16:45: POC Glucose 169 H 08/03/24 00:58: POC Glucose 201 H 08/03/24 04:23: WBC 4.4, RBC 3.98 L, Hgb 11.0 L, Hct 34.2 L, MCV 85.9, MCH 27.6, MCHC 32.2, RDW Std Deviation 43.7, RDW Coeff of Tariq 13.9, Plt Count 148 L, MPV 10.5, Sodium 140, Potassium 3.0 L, Chloride 100, Carbon Dioxide 38.0 H, Anion Gap 3 L, BUN 6 L, Creatinine 0.70, Estim Creat Clear Calc 68.71, Est GFR (MDRD) Af Amer 108, Est GFR (MDRD) Non-Af 89, BUN/Creatinine Ratio 8.6 L, Glucose 221 H, Calcium 8.8, Phosphorus 2.9, Magnesium 1.2 L 08/03/24 06:26: POC Glucose 194 H Micro: Microbiology 07/31/24 21:20 Stool Enteric Bacteriology - Final 07/31/24 21:20 Stool Clostridioides difficile (PCR) - Final 07/26/24 09:10 Sputum, Induced/Lukens Gram Stain - Final 07/26/24 09:10 Sputum, Induced/Lukens Respiratory Culture - Final Staphylococcus aureus Streptococcus pneumoniae 07/26/24 03:00 Urine, Catheterized Urine Culture - Final Staphylococcus aureus 07/26/24 09:50 Urine Catheter - Rodriguez Legionella Antigen - Final 07/26/24 09:50 Urine Catheter - Rodriguez Streptococcus pneumoniae Antigen (M - Final 07/26/24 09:10 Mucosa - Nasopharyngeal Respiratory Panel (PCR) - Final 07/26/24 08:55 Nasal Secretion MRSA (PCR) - Final 07/26/24 02:08 Mucosa - Nose SARS-CoV-2, Influenza & RSV (PCR) - Final Physical Exam Const alert and no apparent distress Constitutional Narrative: Elderly female, overweight, sitting up in bed, continues to exhibit poor insight into her medical condition similar to previous days, otherwise in no acute distress. HEENT normocephalic, head/scalp atraumatic, hearing grossly normal bilaterally, nasal mucous membranes and turbinates normal and moist oral mucous membranes Eyes PERRL, EOMs intact bilaterally and conjunctivae normal Neck full ROM Chest inspection of chest normal Resp normal respiratory effort, normal air movement, no use of accessory muscles and clear to auscultation bilaterally Cardio regular rate, regular rhythm, no murmurs and peripheral pulses 2+ throughout GI normal to inspection, nondistended, normoactive bowel sounds, soft to palpation, non-tender and non-distended Back/Spine normal ROM Neuro Neuro Narrative: Generalized bilateral lower extremity weakness with significant right ankle eversion. Stable. Assessment & Plan Assessment/Plan (1) Generalized weakness: (2) Falls: (3) Acute respiratory failure with hypoxia and hypercapnia: (4) Dementia: QUALIFIERS: Dementia type: unspecified type Dementia severity: unspecified severity Dementia behavioral or psychological symptom: unspecified whether behavioral, psychotic, or mood disturbance or anxiety Qualified Code(s): F03.90 - Unspecified dementia, unspecified severity, without behavioral disturbance, psychotic disturbance, mood disturbance, and anxiety PLAN: Plan Patient is a 69-year-old female who presented [facility] ED on 07/26/2024 with worsening generalized weakness with 2 falls at home. 1. Acute on chronic debility with falls in setting of Parkinson's disease with dementia ? PT/OT/case management following. Patient is wheelchair-bound at home but was able to transfer to wheelchair and toilet with some assistance from . She presented with worsening weakness and 2 falls at home. Hospital course complicated by respiratory failure with intubation as noted below. She is now medically stable but remains weaker than baseline and is a max two-person assist. Patient is stating she wants to go home but has very poor insight into her medical condition and therefore lacks capacity. and son are primary decision makers and are in agreement with patient going to SNF on discharge. Patient medically stable for discharge on 08/02, awaiting placement. Continue home Sinemet, pregabalin, donepezil. 2. Acute combined respiratory failure, improved ? Welder Machine Operator followed. Patient developed acute hypoxic and hypercapnic respiratory failure requiring intubation on 07/26. She was able to be extubated to room air on 07/29. Weaned off supplemental oxygen by 07/31. Unclear etiology for her acute respiratory failure, had some concern for respiratory infection. Completed 7-day course of Zosyn on 08/02. 3. Mild oropharyngeal dysphagia, improving ? Speech therapy following. Was n.p.o. status after extubation but has shown improvement and is currently tolerating a soft and bite-size diet with thin liquids without issue. 4. Acute toxic/metabolic encephalopathy, resolved ? Presumed secondary to respiratory failure with hypercapnia with medications possibly contributing on admit. Now resolved. Chronic medical conditions: ? Hypertension: Continue home lisinopril. ? Hyperlipidemia: Continue home statin. ? Seizure disorder: Continue home levetiracetam. ? Depression: Continue home sertraline and amitriptyline at night. ? Type 2 diabetes mellitus: Treated with sliding scale insulin with meals while inpatient, adjust as needed. DVT prophylaxis: Lovenox CODE STATUS: Full code, unverified Expected disposition: SNF, medically ready for discharge on 08/02, awaiting placement Total clinical time spent by myself addressing the patient's medical issues, reviewing all the data, and collaborating with patient's care team: 35 minutes. Charges/Coding Visit Charges Inpatient E&M: 67977 Subs Hosp L2
[2024-08-03] MEDS: Magnesium Sulfate 4gm/100mL 4 GM/100 ML IV.SOLN. IV (11:29)
--- NOTE | 2024-08-03 12:00 | NURSING ---
PUSH CONNECTOR ASSEMBLER?Rosalind had come to the nurse's station and notified this?RN?that pt was found sitting on the floor in front of her recliner. Pt was seen sitting on the floor and appeared awake and alert. VS were obtained and were stable. Pt stated that she had just slid onto her buttocks and?hadn't injured any other part of her body. Visual inspection by this?RN, showed no apparent injury.?PUSH CONNECTOR ASSEMBLER?Rosalind states that pt's chair alarm was not initially heard, but that her chair along showed up on her phone as a standard call light which, upon investigation, had been alarming for shortly over a minute. This?RN?had not heard pt's chair alarm from the nurse's station, despite it being relatively quiet. Pt was assisted back to bed by this?RN, primary?RN?Satish, and?Kami?RN. Bed exit alarm was set and ?was updated by Primary?RN.?Jaspal?RN?
[2024-08-03 12:50] LABS: Bedside Glucose 425 mg/dL (74-106)
[2024-08-03 17:19] LABS: Bedside Glucose 223 mg/dL (74-106)
[2024-08-03] MEDS: Amitriptyline 100 MG Tablet 150 MG PO (20:40)
[2024-08-03] MEDS: Atorvastatin Calcium 40 MG Tablet PO (20:41)
[2024-08-03] MEDS: 0.9% Saline Lock 10 ML Syringe IV (20:49)
[2024-08-03 21:17] LABS: Bedside Glucose 193 mg/dL (74-106)
[2024-08-04 02:29] VITALS: BMI 29.1
[2024-08-04 03:00] VITALS: BP 146/81; PULSE 87; RESP 18; TEMP 35.8; O2SAT 96
[2024-08-04] MEDS: Carbidopa/Levodopa 25/100 Tablet PO ×2 (06:58→11:37)
[2024-08-04] MEDS: Insulin Lispro 100 UNIT/ML INSULN.PEN SC ×2 (06:58→11:36)
[2024-08-04 07:08] LABS: Bedside Glucose 236 mg/dL (74-106)
--- NOTE | 2024-08-04 07:59 | CASEMGMT ---
Discharge Planning Noelle Ziegler has obtained auth to admit. Marilyn Frazier DC Planning Asst
[2024-08-04] MEDS: Pregabalin 75 MG Capsule 150 MG PO ×2 (08:01→14:30)
[2024-08-04 08:56] LABS: Anion Gap 2 (5-15); BUN 10 mg/dL (7-18); BUN/Creat Ratio 14.9 RATIO (10-20); Calcium,Total 8.8 mg/dL (8.5-10.1); Chloride 99 mmol/L (98-107); Creatinine, Serum 0.67 mg/dL (0.55-1.02); EST Glomerular Filtration Rate 93 mL/min (>60); Est Glom Filt Rate - Afr Amer 112 mL/min (>60); Estimated Creatinine Clearance 68.58 ml/min; Glucose 232 mg/dL (74-106); Magnesium 1.7 mg/dL (1.6-2.6); Potassium 3.3 mmol/L (3.5-5.1); Sodium Level 140 mmol/L (136-145)
[2024-08-04 09:00] VITALS: BP 131/86; PULSE 87; RESP 16; TEMP 36.8; O2SAT 98
[2024-08-04] MEDS: Enoxaparin 40 MG/0.4 ML Syringe SC (09:04)
[2024-08-04] MEDS: Lactobacillis Acidophilus 1 CAP PO ×2 (09:04→14:30)
[2024-08-04] MEDS: Pantoprazole Sodium 40 MG Tablet PO (09:04)
[2024-08-04] MEDS: Cholecalciferol (Vit D3) 125 MCG CAPSULE (5,000 UNITS) PO (09:04)
[2024-08-04] MEDS: Sertraline 100 MG Tablet PO (09:04)
[2024-08-04] MEDS: levETIRAcetam 1,000 MG Tablet 1000 MG PO (09:04)
[2024-08-04 09:37] VITALS: O2SAT 93; O2SAT 94
[2024-08-04] MEDS: Potassium Chloride Oral Tablet 20 MEQ 40 MEQ PO (09:45)
--- NOTE | 2024-08-04 11:45 | TREXTCAR_ITS ---
Diet Diet Order/Speech Therapy: 08/03/24 11:38 Diet: Consistent Carb - Calorie Controlled Food consistency:: Soft & Bite Sized Liquid Consistency:: Regular/Thin Diet Comments: SWALLOW GUIDELINES POSTED How many daily calories?: 1800 calorie Routine Orders/Code Status Enema Type: Fleetz Enema Frequency: Daily PRN Suppository Type: Dulcolax 10mg Suppository Frequency: Daily PRN DC O2, CPAP, BIPAP needs PSN CPAP & BiPAP: BiPAP & CPAP Settings per PSN Mode AVAPS 08/01/24 04:25 Bipap Delivery Device Face Mask 08/01/24 04:25 BiPAP Inspiratory Pressure 14 07/26/24 07:08 BiPAP Expiratory Pressure 8 08/01/24 04:25 BiPAP Rate 14 08/01/24 04:25 Fraction of Inspired Oxygen ( 30 08/01/24 04:25 FIO2) Home O2 Discharge instructions: No Therapies Weight Bearing: Weight bearing as tolerated Extremity Affected:: Bilateral Lower Physical Therapy: Eval and Treat Occupational Therapy: Eval and Treat Problem/Diagnosis (1) Generalized weakness: Status: Acute Code(s): R53.1 - Weakness (2) Falls: Status: Acute Code(s): R29.6 - Repeated falls (3) Acute respiratory failure with hypoxia and hypercapnia: Status: Acute Code(s): J96.01 - Acute respiratory failure with hypoxia; J96.02 - Acute respiratory failure with hypercapnia (4) Dementia: Status: Acute Code(s): F03.90 - Unspecified dementia, unspecified severity, without behavioral disturbance, psychotic disturbance, mood disturbance, and anxiety Allergies/Procedures Done in Hospital Allergies CHUNG Inhibitors Allergy (Verified 07/26/24 02:03) Other Penicillins Allergy (Verified 07/26/24 02:03) goofy duloxetine (From Cymbalta) Adverse Reaction (Verified 07/26/24 02:03) Other morphine Adverse Reaction (Verified 07/26/24 02:03) Upset Stomach nabumetone Adverse Reaction (Verified 07/26/24 02:03) Upset Stomach naproxen Adverse Reaction (Verified 07/26/24 02:03) Unknown omeprazole (From Prilosec) Adverse Reaction (Verified 07/26/24 02:03) Upset Stomach omeprazole magnesium (From Prilosec) Adverse Reaction (Verified 07/26/24 02:03) Upset Stomach pregabalin Adverse Reaction (Verified 07/26/24 02:03) Other Procedures: None Type of Care/Length of Stay Estimated LOS: Convalescent Care Less Than 30 days Type of Care Needed: LTAC Rehab Potential: Fair Prognosis: Fair Additional Orders/Day of Discharge Day of Discharge: 08/04/24 Dietary and Speech Recommendations Dietitian Recommendations/Changes: Adjust to 1800 calorie controlled/consistent carbohydrate- per PEDIATRIC DENTAL HYGIENIST consistency/texture recommendations. Will order 120ml glucerna shake TID with medpass, prefers chocolate. Will monitor weight, as available. Reviewed and approved by Hanny Segura RD, LD. Discharge Plan Admission Admit Date/Time: 07/26/24 05:55 Primary Reason for Your Visit: debility, Parkinson's with dementia Attending Provider: Cierra Jerez Primary Care Provider: Zhang Shields Consulting Providers: Marky Good; Zhang Goldman; Sky Leger Instructions Patient Instructions: ED FALL-from [facility] Discharge Orders/Prescriptions Prescriptions: Continued atorvastatin 40 MG tablet 40 mg PO QHS carbidopa-levodopa 1 EACH tablet extended release 3 tab PO 4X/DAY amitriptyline 75 MG tablet 150 mg PO QHS benzonatate 100 MG capsule 100 mg PO TID PRN PRN (Reason: Cough) lisinopril 10 MG tablet 10 mg PO DAILY glimepiride 4 MG tablet 4 mg PO DAILY pregabalin 150 MG capsule 150 mg PO TID zolpidem 12.5 MG tablet,ext release multiphase 12.5 mg PO QHS PRN PRN (Reason: Insomnia) levetiracetam 1,000 MG tablet 1,000 mg PO BID dulaglutide 1.5 MG/0.5 ML pen injector 1.5 mg SQ QWEEK Rx Instructions: every sat carbidopa-levodopa 1 EACH tablet extended release 1 each PO BID sertraline 100 MG tablet 100 mg PO DAILY cholecalciferol (vitamin D3) 25 MCG tablet 5,000 unit PO DAILY carbidopa-levodopa 25-100 mg tablet PO Referrals / Follow Up: Zhang Shields MD [Primary Care Provider] - Within 1 Week Disposition Disposition (needs filled in before D/C Order can be placed): Alf Facility (4) Dementia Qualifiers: Dementia type: unspecified type Dementia severity: unspecified severity Dementia behavioral or psychological symptom: unspecified whether behavioral, psychotic, or mood disturbance or anxiety Qualified Code(s): F03.90 - Unspecified dementia, unspecified severity, without behavioral disturbance, psychotic disturbance, mood disturbance, and anxiety
--- NOTE | 2024-08-04 11:46 | DS.PCM_ITS ---
Providers Date of Admission: 07/26/24 Date of Discharge: 08/04/24 Primary Care Physician: Dr. Zhang Shields MD Consultations 07/26/24 08:06 Consult: Biological Scientist / Pulmonary Medicine Routine Consulting Provider: Intensivists/Pulmonary Med Reason for Consult: Acute on chr hypercarbic resp failure EMERGENT Consult: No MD Notified: Yes Date Notified: 07/26/24 Time Notified: 08:06 Method of Notification: Verbal Reason For Visit: LLL PNA,Acute Respiratory Failure, req BIPAP, Diagnosis Discharge Diagnosis (1) Generalized weakness: Status: Acute Code(s): R53.1 - Weakness (2) Falls: Status: Acute Code(s): R29.6 - Repeated falls (3) Acute respiratory failure with hypoxia and hypercapnia: Status: Acute Code(s): J96.01 - Acute respiratory failure with hypoxia; J96.02 - Acute respiratory failure with hypercapnia (4) Dementia: Status: Acute Code(s): F03.90 - Unspecified dementia, unspecified severity, without behavioral disturbance, psychotic disturbance, mood disturbance, and anxiety Qualifiers: Dementia behavioral or psychological symptom: unspecified whether behavioral, psychotic, or mood disturbance or anxiety Dementia severity: u nspecified severity Dementia type: unspecified type Qualified Code(s): F03.90 - Unspecified dementia, unspecified severity, without behavioral disturbance, psychotic disturbance, mood disturbance, and anxiety Medications at Discharge Home Medications amitriptyline 75 mg tablet 150 mg PO QHS depression 04/04/19 atorvastatin 40 mg tablet 40 mg PO QHS cholesterol 04/04/19 benzonatate 100 mg capsule 100 mg PO TID PRN PRN Cough 04/04/19 carbidopa ER 25 mg-levodopa 100 mg tablet,extended release 3 tab PO 4X/DAY parkinsons 04/04/19 dulaglutide 1.5 mg/0.5 mL subcutaneous pen injector 1.5 mg SQ QWEEK diabetes 04/04/19 glimepiride 4 mg tablet 4 mg PO DAILY diabetes 04/04/19 levetiracetam 1,000 mg tablet 1,000 mg PO BID parkinsons 04/04/19 lisinopril 10 mg tablet 10 mg PO DAILY blood pressure 04/04/19 pregabalin 150 mg capsule 150 mg PO TID muscles/parkinsons 04/04/19 zolpidem 12.5 mg tablet,extended release,multiphase 12.5 mg PO QHS PRN PRN Insomnia 04/04/19 carbidopa ER 50 mg-levodopa 200 mg tablet,extended release 1 each PO BID 11/21/20 cholecalciferol (vitamin D3) 25 mcg (1,000 unit) tablet 5,000 unit PO DAILY 11/21/20 sertraline 100 mg tablet 100 mg PO DAILY 11/21/20 carbidopa 25 mg-levodopa 100 mg tablet tab PO 07/26/24 Hospital Course Operations None Procedures None Summary of Care Provided Minutes Spent on Discharge: 48 Hospital Course: Patient is a 69-year-old female with a past medical history as outlined was admitted through the ED on 07/26/2024 with a complaint of shortness of breath, generalized weakness and falls x 2. She was not a reliable historian at the time of admission and so history was mainly obtained from family medical staff and the chart. She had been weak and had fallen at home and so family decided to bring her in. Chest x-ray showed left lower lobe infiltrates consistent with pneumonia and she also had WBC of 11.7. She was lethargic and VBG done was concerning for respiratory acidosis. She was therefore admitted and managed for acute hypoxic respiratory failure due to community-acquired pneumonia as well as acute encephalopathy, debility and mechanical falls. She was also hypokalemic and this was replaced. She was admitted to the PCU. She was started on IV ceftriaxone and azithromycin. Urine for strep and Legionella were negative. She was eventually weaned off the BiPAP. Pulmonology was consulted. Hospital course was complicated by worsening respiratory status due to CO2 retention and so patient had to be transferred to the ICU and emergently intubated. Sputum cultures grew MSSA and strep pneumonia. Antibiotic coverage was broadened and she completed a 7-day course of antibiotics. She was extubated on the morning of July 29, 2024. She was eventually transferred out of the ICU to the regular floor. She was weaned off of supplemental oxygen on 07/31/2024. She did complete a 7-day course of IV Zosyn. Speech therapy was on board during the admission due to mild oropharyngeal dysphagia. Patient remained weak and debilitated in the setting of Parkinson's disease with dementia, her family decided that she would benefit from longterm facility. Patient was therefore discharged to a longterm facility on 08/04/2024. She is follow- up with her primary care doctor within 1 to 2 weeks. Patient was seen and examined prior to discharge. She had no active complaints though she was quite confused and kept insisting that she was going home and did not want to go to a assisted. Unable to do comprehensive review of systems. Per her nurse no active issues overnight. Labs and vitals reviewed. Home medication reviewed and reconciled. Physical Exam Const alert and no apparent distress Constitutional Narrative: confused General Appearance: cooperative Orientation / Consciousness: awake Exam Limitations: altered mental status HEENT normocephalic, head/scalp atraumatic, moist oral mucous membranes and oropharynx normal Mouth: oral and palatal mucosa normal and dry mucous membranes Eyes PERRL, EOMs intact bilaterally and conjunctivae normal Neck no lymphadenopathy and supple Resp normal respiratory effort, no retractions, no use of accessory muscles and clear to auscultation bilaterally Cardio regular rate, regular rhythm, S1 normal heart sound, S2 normal heart sound and no murmurs GI normal to inspection, nondistended, normoactive bowel sounds, soft to palpation, non-tender and non-distended Extremity normal to inspection, full ROM and no clubbing, cyanosis or edema Skin no rashes or lesions noted Neuro CN's II-XII intact bilaterally and moves all extremities Neuro Narrative: confused. Sensorium / Orientation: awake and alert Motor Exam: strength 5/5 throughout Psych Psych Narrative: confused Weight / BMI Weight Weight: 169 lb 15.622 oz Body Mass Index (BMI) 29.1 ABG / Lab / Microbiology Data 08/03/24 04:23 08/04/24 07:45 Laboratory: Laboratory Results - last 24 hr 08/03/24 16:42: POC Glucose 223 H 08/03/24 20:48: POC Glucose 193 H 08/04/24 06:45: POC Glucose 236 H 08/04/24 07:45: Sodium 140, Potassium 3.3 L, Chloride 99, Carbon Dioxide 38.0 H, Anion Gap 2 L, BUN 10, Creatinine 0.67, Estim Creat Clear Calc 68.58, Est GFR (MDRD) Af Amer 112, Est GFR (MDRD) Non-Af 93, BUN/Creatinine Ratio 14.9, Glucose 232 H, Calcium 8.8, Magnesium 1.7 08/04/24 11:34: POC Glucose 261 H Microbiology: Microbiology 07/31/24 21:20 Stool Enteric Bacteriology - Final 07/31/24 21:20 Stool Clostridioides difficile (PCR) - Final 07/26/24 09:10 Sputum, Induced/Lukens Gram Stain - Final 07/26/24 09:10 Sputum, Induced/Lukens Respiratory Culture - Final Staphylococcus aureus Streptococcus pneumoniae 07/26/24 03:00 Urine, Catheterized Urine Culture - Final Staphylococcus aureus 07/26/24 09:50 Urine Catheter - Rodriguez Legionella Antigen - Final 07/26/24 09:50 Urine Catheter - Rodriguez Streptococcus pneumoniae Antigen (M - Final 07/26/24 09:10 Mucosa - Nasopharyngeal Respiratory Panel (PCR) - Final 07/26/24 08:55 Nasal Secretion MRSA (PCR) - Final 07/26/24 02:08 Mucosa - Nose SARS-CoV-2, Influenza & RSV (PCR) - Final D/C Instructions Discharge Diet: Low fat / Low cholesterol Discharge Activity: Return to Normal Activity Weight Bearing Status: Weight bearing as tolerated Call your doctor if you observe: Fever of 101 or Higher, Shortness of breath, Dizziness, Swelling in the ankles and Chest pain DC O2, CPAP, BIPAP Needs PSN CPAP & BiPAP: BiPAP & CPAP Settings per PSN Mode AVAPS 08/01/24 04:25 Bipap Delivery Device Face Mask 08/01/24 04:25 BiPAP Inspiratory Pressure 14 07/26/24 07:08 BiPAP Expiratory Pressure 8 08/01/24 04:25 BiPAP Rate 14 08/01/24 04:25 Fraction of Inspired Oxygen ( 30 08/01/24 04:25 FIO2) Home O2 Discharge instructions: No Meaningful Use Info Meaningful Use Meaningful Use Diagnoses (Choose all that apply): None applicable Ischemic Stroke Statin Dosing Therapy Reference: STATIN DOSE THERAPY REFERENCE: * Patients > 75 years receive moderate or high dose statin therapy. * Patients 75 years or YOUNGER should receive HIGH intensity statin dose unless contraindicated. You will be required to document reason for non-treatment if statin daily dose does not meet guidelines. HIGH DOSE STATIN THERAPY DAILY Atorvastatin > than or = to 40 mg Rosuvastatin > than or = to 20 mg Amlodipine + Atorvastatin > than or = to 2.5/40 mg Ezetimibe + Simvastatin 10/80 mg Simvastatin 80mg Discharge Plan Admission Admit Date/Time: 07/26/24 05:55 Primary Reason for Your Visit: debility, Parkinson's with dementia Attending Provider: Cierra Jerez Primary Care Provider: Zhang Shields Consulting Providers: Marky Good; Zhang Goldman; Sky Leger Instructions Patient Instructions: ED FALL-from [facility] Discharge Orders/Prescriptions Prescriptions: Continued atorvastatin 40 MG tablet 40 mg PO QHS carbidopa-levodopa 1 EACH tablet extended release 3 tab PO 4X/DAY amitriptyline 75 MG tablet 150 mg PO QHS benzonatate 100 MG capsule 100 mg PO TID PRN PRN (Reason: Cough) lisinopril 10 MG tablet 10 mg PO DAILY glimepiride 4 MG tablet 4 mg PO DAILY pregabalin 150 MG capsule 150 mg PO TID zolpidem 12.5 MG tablet,ext release multiphase 12.5 mg PO QHS PRN PRN (Reason: Insomnia) levetiracetam 1,000 MG tablet 1,000 mg PO BID dulaglutide 1.5 MG/0.5 ML pen injector 1.5 mg SQ QWEEK Rx Instructions: every sat carbidopa-levodopa 1 EACH tablet extended release 1 each PO BID sertraline 100 MG tablet 100 mg PO DAILY cholecalciferol (vitamin D3) 25 MCG tablet 5,000 unit PO DAILY carbidopa-levodopa 25-100 mg tablet PO Referrals / Follow Up: Zhang Shields MD [Primary Care Provider] - Within 1 Week Disposition Disposition (needs filled in before D/C Order can be placed): [facility] Charges/Coding Visit Charges Inpatient E&M: 82065 Disch Hosp >30min
[2024-08-04 12:17] LABS: Bedside Glucose 261 mg/dL (74-106)
--- NOTE | 2024-08-04 12:23 | NURSING ---
called report to cassie DUNAWAY at [facility]
--- NOTE | 2024-08-04 12:26 | CASEMGMT ---
Discharge Planning Discharge orders, signed med list, and transport time sent to [facility] via [facility]. Physicians will transport patient by cot at 3:30p. Nursing, SW, and pts son (Garrett) updated. Marilyn Frazier DC Planning Asst.
--- NOTE | 2024-08-04 12:30 | CASEMGMT ---
EVA completed a 7000 in [employer]. Plan: d/c to [facility] under skilled level of care on a convalescent stay. Physicians will transport patient via cot. Vanessa FAJARDO
[2024-08-04 14:30] VITALS: BP 124/75; PULSE 60; RESP 18; TEMP 36.6; O2SAT 96
== END 2024-08-04 16:52 | disposition skilled nursing facility (03) | DRG 208 ==
LOC: ED 05:46 → PCU 06:26 → ICU 09:06 → PCU 07-30 15:16
PROVIDERS: Hospitalist; Internal Medicine; Internal Medicine Critical Care Medicine; Admitting Provider Internal Medicine; Emergency Provider Emergency Medicine; PCP Family Medicine; Referring Provider Internal Medicine; Visit Provider Student in an Organized Health Care Education/Training Program
DX: J96.01 Acute respiratory failure with hypoxia (principal); G93.41 Metabolic encephalopathy; J15.211 Pneumonia due to Methicillin susceptible Staphylococcus aureus; J13 Pneumonia due to Streptococcus pneumoniae; E11.65 Type 2 diabetes mellitus with hyperglycemia; F02.80 Dementia in other diseases classified elsewhere, unspecified severity, without behavioral disturbance, psychotic disturbance, mood disturbance, and anxiety; G40.909 Epilepsy, unspecified, not intractable, without status epilepticus; G20.A1 Parkinson's disease without dyskinesia, without mention of fluctuations; I10 Essential (primary) hypertension; F32.A Depression, unspecified; J96.02 Acute respiratory failure with hypercapnia; E87.6 Hypokalemia; E78.5 Hyperlipidemia, unspecified; R13.12 Dysphagia, oropharyngeal phase; F51.04 Psychophysiologic insomnia; E66.3 Overweight; R29.6 Repeated falls; R53.81 Other malaise; Z99.3 Dependence on wheelchair; Z68.29 Body mass index [BMI] 29.0-29.9, adult; Z74.09 Other reduced mobility; Z79.84 Long term (current) use of oral hypoglycemic drugs; Z79.85 Long-term (current) use of injectable non-insulin antidiabetic drugs; Z79.899 Other long term (current) drug therapy
CPT/HCPCS: 31500; 31720; 36415; 36600; 70450; 71045; 71046; 71250; 72125; 80048; 80053; 80061; 80307; 81001; 82607; 82746; 82803; 82962; 83036; 83605; 83690; 83735; 83880; 84100; 84145; 84443; 84484; 85025; 85027; 87070; 87077; 87086; 87088; 87186; 87205; 87449; 87493; 87506; 87631; 87633; 87641; 92526; 92610; 93005; 94002; 94003; 94660; 94668; 94762; 97116; 97162; 97166; 97530; 97535; 97802; 97803; 99252; 99285; A4216; G0463